=== PATIENT | male | born 1955 | race Caucasian/White ===

== ENCOUNTER → 2017-08-21 07:44 | Outpatient (CLI) | payer OTHER, SELFPAY ==
[2017-08-21 08:57] LABS: AST(SGOT) 79 U/L (15-37); Alanine Aminotransfer ALT/SGPT 104 U/L (16-61); Albumin, Serum 3.9 g/dL (3.2-5.0); Alkaline Phosphatase 73 U/L (45-117); Bilirubin, Direct 0.12 mg/dL (0.00-0.30); Cholesterol 214 mg/dL (200); Globulin 3.7 g/dL (2.2-4.2); High Density Lipoprotein 40 mg/dL; Protein, Total 7.6 g/dL (6.4-8.2); Triglycerides 245 mg/dL; Very Low Density Lipoprotein 49 mg/dL (5-40)
== END ==
PROVIDERS: Visit Provider Internal Medicine Cardiovascular Disease
DX: E78.5 Hyperlipidemia, unspecified (principal); Z79.899 Other long term (current) drug therapy
CPT/HCPCS: 36415; 80061; 80076

== ENCOUNTER → 2017-10-05 06:47 | Outpatient (CLI) | payer OTHER, SELFPAY ==
[2017-10-05 09:44] LABS: AST(SGOT) 59 U/L (15-37); Alanine Aminotransfer ALT/SGPT 82 U/L (16-61); Albumin, Serum 3.9 g/dL (3.2-5.0); Alkaline Phosphatase 72 U/L (45-117); Bilirubin, Direct 0.13 mg/dL (0.00-0.30); Globulin 3.5 g/dL (2.2-4.2); Protein, Total 7.4 g/dL (6.4-8.2)
== END ==
PROVIDERS: Visit Provider Internal Medicine Cardiovascular Disease
DX: E78.5 Hyperlipidemia, unspecified (principal); Z79.899 Other long term (current) drug therapy
CPT/HCPCS: 36415; 80076

== ENCOUNTER → 2018-02-09 06:40 | Outpatient (CLI) | payer OTHER, SELFPAY ==
[2018-02-09 08:07] LABS: AST(SGOT) 75 U/L (15-37); Alanine Aminotransfer ALT/SGPT 107 U/L (16-61); Albumin, Serum 3.9 g/dL (3.2-5.0); Alkaline Phosphatase 72 U/L (45-117); Bilirubin, Direct 0.12 mg/dL (0.00-0.30); Cholesterol 211 mg/dL (200); Globulin 3.7 g/dL (2.2-4.2); High Density Lipoprotein 39 mg/dL; Protein, Total 7.6 g/dL (6.4-8.2); Triglycerides 225 mg/dL; Very Low Density Lipoprotein 45 mg/dL (5-40)
== END ==
PROVIDERS: Visit Provider Physician Assistant Medical
DX: E78.5 Hyperlipidemia, unspecified (principal); R74.8 Abnormal levels of other serum enzymes; I25.10 Atherosclerotic heart disease of native coronary artery without angina pectoris
CPT/HCPCS: 36415; 80061; 80076

== ENCOUNTER → 2018-03-14 06:53 | Outpatient (CLI) | payer OTHER, SELFPAY ==
[2018-03-14 08:33] LABS: AST(SGOT) 51 U/L (15-37); Alanine Aminotransfer ALT/SGPT 83 U/L (16-61); Albumin, Serum 3.8 g/dL (3.2-5.0); Alkaline Phosphatase 80 U/L (45-117); Bilirubin, Direct 0.09 mg/dL (0.00-0.30); Globulin 3.8 g/dL (2.2-4.2); Protein, Total 7.6 g/dL (6.4-8.2)
== END ==
PROVIDERS: Referring Provider Physician Assistant Medical; Visit Provider Physician Assistant Medical
DX: R74.8 Abnormal levels of other serum enzymes (principal)
CPT/HCPCS: 36415; 80076

== ENCOUNTER → 2018-08-09 10:14 | Outpatient (CLI) | payer OTHER, SELFPAY ==
[2018-08-09 09:42] VITALS: BMI 32.1
[2018-08-09 11:51] LABS: AST(SGOT) 58 U/L (15-37); Alanine Aminotransfer ALT/SGPT 89 U/L (16-61); Albumin, Serum 4.1 g/dL (3.2-5.0); Alkaline Phosphatase 83 U/L (45-117); Bilirubin, Direct 0.09 mg/dL (0.00-0.30); Cholesterol 225 mg/dL (200); Globulin 4.2 g/dL (2.2-4.2); High Density Lipoprotein 41 mg/dL; Protein, Total 8.3 g/dL (6.4-8.2); Triglycerides 188 mg/dL; Very Low Density Lipoprotein 38 mg/dL (5-40)
== END ==
PROVIDERS: Referring Provider Internal Medicine Cardiovascular Disease; Visit Provider Internal Medicine Cardiovascular Disease
DX: E78.5 Hyperlipidemia, unspecified (principal)
CPT/HCPCS: 36415; 80061; 80076

== ENCOUNTER → 2019-02-18 | Outpatient (CLI) | payer OTHER, SELFPAY ==
[2018-08-09 09:42] VITALS: BMI 32.1
[2019-02-18 09:48] LABS: AST(SGOT) 49 U/L (15-37); Alanine Aminotransfer ALT/SGPT 85 U/L (16-61); Albumin, Serum 3.9 g/dL (3.2-5.0); Alkaline Phosphatase 87 U/L (45-117); Bilirubin, Direct 0.09 mg/dL (0.00-0.30); Cholesterol 282 mg/dL (200); Globulin 3.5 g/dL (2.2-4.2); High Density Lipoprotein 34 mg/dL; Protein, Total 7.4 g/dL (6.4-8.2); Triglycerides 632 mg/dL
== END | disposition home or self-care (01) ==
LOC: LAB 08:08
PROVIDERS: Referring Provider Internal Medicine Cardiovascular Disease; Visit Provider Internal Medicine Cardiovascular Disease
DX: E78.5 Hyperlipidemia, unspecified (principal)
CPT/HCPCS: 36415; 80061; 80076

== ENCOUNTER → 2019-06-03 08:41 | Outpatient (CLI) | payer OTHER, SELFPAY ==
[2018-08-09 09:42] VITALS: BMI 32.1
[2019-06-03 09:54] LABS: AST(SGOT) 60 U/L (15-37); Alanine Aminotransfer ALT/SGPT 92 U/L (16-61); Albumin, Serum 4.3 g/dL (3.2-5.0); Alkaline Phosphatase 72 U/L (45-117); Bilirubin, Direct 0.14 mg/dL (0.00-0.30); Cholesterol 294 mg/dL (200); Globulin 3.6 g/dL (2.2-4.2); High Density Lipoprotein 44 mg/dL; Protein, Total 7.9 g/dL (6.4-8.2); Triglycerides 224 mg/dL; Very Low Density Lipoprotein 45 mg/dL (5-40)
== END ==
PROVIDERS: Referring Provider Internal Medicine Cardiovascular Disease; Visit Provider Internal Medicine Cardiovascular Disease
DX: E78.00 Pure hypercholesterolemia, unspecified (principal); Z79.899 Other long term (current) drug therapy; Z95.5 Presence of coronary angioplasty implant and graft; I25.10 Atherosclerotic heart disease of native coronary artery without angina pectoris; I10 Essential (primary) hypertension; E78.5 Hyperlipidemia, unspecified
CPT/HCPCS: 36415; 80061; 80076

== ENCOUNTER → 2019-09-07 10:37 | Outpatient (CLI) | payer OTHER, SELFPAY ==
[2019-09-07 10:36] VITALS: BMI 31.1
[2019-09-07 12:00] LABS: AST(SGOT) 57 U/L (15-37); Alanine Aminotransfer ALT/SGPT 84 U/L (16-61); Albumin, Serum 4.1 g/dL (3.2-5.0); Alkaline Phosphatase 85 U/L (45-117); Cholesterol 295 mg/dL (200); Globulin 4.2 g/dL (2.2-4.2); High Density Lipoprotein 44 mg/dL; Protein, Total 8.3 g/dL (6.4-8.2); Triglycerides 444 mg/dL
== END ==
PROVIDERS: Referring Provider Internal Medicine Cardiovascular Disease; Visit Provider Internal Medicine Cardiovascular Disease
DX: R94.5 Abnormal results of liver function studies (principal); E78.5 Hyperlipidemia, unspecified
CPT/HCPCS: 36415; 80061; 80076

== ENCOUNTER → 2020-03-23 | Outpatient (CLI) | payer OTHER, MEDICARE, SELFPAY ==
[2019-09-07 10:36] VITALS: BMI 31.1
[2020-03-23 10:33] LABS: AST(SGOT) 40 U/L (15-37); Alanine Aminotransfer ALT/SGPT 52 U/L (16-61); Alkaline Phosphatase 79 U/L (45-117); Cholesterol 270 mg/dL (200); Globulin 3.8 g/dL (2.2-4.2); High Density Lipoprotein 40 mg/dL; Protein, Total 7.8 g/dL (6.4-8.2); Triglycerides 467 mg/dL
== END | disposition home or self-care (01) ==
LOC: LAB 09:33
PROVIDERS: Referring Provider Internal Medicine Cardiovascular Disease; Visit Provider Internal Medicine Cardiovascular Disease
DX: E78.00 Pure hypercholesterolemia, unspecified (principal); E78.5 Hyperlipidemia, unspecified; I25.10 Atherosclerotic heart disease of native coronary artery without angina pectoris; Z95.5 Presence of coronary angioplasty implant and graft
CPT/HCPCS: 36415; 80061; 80076

== ENCOUNTER → 2020-04-29 17:25 | Outpatient (CLI) | payer OTHER, MEDICARE, SELFPAY ==
[2019-09-07 10:36] VITALS: BMI 31.1
[2020-04-29 17:37] LABS: Absolute Lymphocyte Count 1.24 X10^3/uL (0.83-4.51); Basophil# 0.02 X10^3/uL; Basophil% 0.4 % (0-1); Eosinophil# 0.05 X10^3/uL; Hematocrit 43.7 % (40-54); Hemoglobin 14.7 g/dL (13.0-16.5); Lymphocyte # 1.24 X10^3/ul (4.0); Lymphocyte % 25.5 % (19-41); Mean Corp Hgb Conc 33.6 g/dL (32-36); Mean Corpuscular Hgb 32.4 pg (27.0-32.0); Mean Corpuscular Volume 96.3 fL (80-94); Mean Platelet Vol. 8.5 fl (6.2-12.0); Monocyte# 0.52 X10^3/uL; Monocyte% 10.7 % (0-10); NRBC Flagged by Analyzer 0 % (0-5); Neutrophil # 3.02 X10^3/uL (2.7-7.7); Neutrophil % 62.2 % (47-70); Platelet Count 208 K/mm3 (150-450); RBC Distribution Width CV 13.3 % (11.6-14.6); RBC Distribution Width SD 47.6 fl (35.1-43.9); Red Blood Count 4.54 M/mm3 (4.6-6.2); White Blood Count 4.9 K/mm3 (4.4-11.0)
[2020-04-29 18:26] LABS: AST(SGOT) 42 U/L (15-37); Alanine Aminotransfer ALT/SGPT 66 U/L (16-61); Albumin, Serum 4.2 g/dL (3.2-5.0); Alkaline Phosphatase 79 U/L (45-117); Anion Gap 7 (5-15); BUN 14 mg/dL (7-18); BUN/Creat Ratio 14.6 RATIO (10-20); Calcium,Total 9.5 mg/dL (8.5-10.1); Chloride 101 mmol/L (98-107); Creatinine, Serum 0.96 mg/dL (0.70-1.30); EST Glomerular Filtration Rate 84 mL/min (>60); Est Glom Filt Rate - Afr Amer 101 mL/min (>60); Globulin 4.1 g/dL (2.2-4.2); Glucose 118 mg/dL (74-106); PSA,Total - Annual Screen 1.46 ng/mL (0.00-4.00); Protein, Total 8.3 g/dL (6.4-8.2); Sodium Level 137 mmol/L (136-145); Thyroid Stim Hormone (TSH) 3.31 uIU/mL (0.358-3.74)
[2020-04-30 10:16] LABS: Hepatitis C Antibody Non-Reactive (Nonreactive); Vitamin D,25 Hydroxy 17.7 ng/mL
== END ==
PROVIDERS: PCP Family Medicine Geriatric Medicine; Visit Provider Family Medicine Geriatric Medicine
DX: E55.9 Vitamin D deficiency, unspecified (principal); I10 Essential (primary) hypertension; Z12.5 Encounter for screening for malignant neoplasm of prostate; Z13.89 Encounter for screening for other disorder
CPT/HCPCS: 36415; 80053; 82306; 84153; 84443; 85025; 86803; G0103

== ENCOUNTER → 2020-05-06 09:30 | Outpatient (CLI) | payer OTHER, MEDICARE, SELFPAY ==
[2019-09-07 10:36] VITALS: BMI 31.1
--- NOTE | 2020-05-06 09:32 | US_ITS ---
STUDY: ABDOMINAL ULTRASOUND - RIGHT UPPER QUADRANT REASON FOR VISIT: Male, 65 years old fatty liver TECHNIQUE: Ultrasound evaluation of the right upper quadrant was performed with real-time and static yates-scale imaging. TECHNICAL QUALITY: Adequate. COMPARISON: None. FINDINGS: Liver: The liver measures 16.7 cm. There is increased echogenicity consistent with fatty infiltration. The bile ducts are within normal limits. There is hepatic color flow. The direction of portal flow is hepatopetal. There is no demonstrated mass lesion. Gallbladder: Normal distended gallbladder. The gallbladder wall measures 2.0 mm. There is a negative sonographic Fox''s sign. There is no pericholecystic fluid. There are no gallstones. Common Bile Duct (C.B.D.): The common bile duct measures 4.0 mm. Pancreas: Normal size of the head, body and tail of the pancreas. There is normal echogenicity of the pancreas. There is no demonstrated pancreatic mass or cyst. Right Kidney: Normal size of the right kidney. The right kidney measures 12.9 cm x 5.8 cm x 6.5 cm. Normal renal cortex. The right cortex measures 1.9 cm. There is no demonstrated renal mass or cyst. There is no right hydronephrosis. IMPRESSION: Fatty infiltration of the liver. Electronically Signed: Jason Cortes, at 9:19 EST , Service support , STUDY: ABDOMINAL ULTRASOUND - ELASTOGRAPHY REASON FOR VISIT: Male, 65 years old. Fatty infiltration of the liver. TECHNIQUE: Liver stiffness measurements were obtained on a [employer] 85 ultrasound machine using a CA 1-7 probe following the SRU guidelines. 3 measurements were obtained using a 2-D-SWE method. The IQR/M was 8.5% suggesting a quality data set. TECHNICAL QUALITY: Adequate. COMPARISON: None. FINDINGS: Liver: There is no demonstrated mass lesion. Median liver stiffness measured 7 kPa. US/Abdomen Limited IMPRESSION: Liver stiffness measures 7 kPa compatible with F2 -- F3 Metavir score. Electronically Signed: Jason Cortes, at 9:20 EST , Service support ,
== END ==
PROVIDERS: PCP Family Medicine Geriatric Medicine; Referring Provider Family Medicine Geriatric Medicine; Visit Provider Family Medicine Geriatric Medicine
DX: K76.0 Fatty (change of) liver, not elsewhere classified (principal)
CPT/HCPCS: 76705; 76981

== ENCOUNTER → 2020-05-08 07:44 | Outpatient (CLI) | payer OTHER, MEDICARE, SELFPAY ==
[2019-09-07 10:36] VITALS: BMI 31.1
--- NOTE | 2020-05-08 07:45 | AAVD_ITS ---
Reason For Study: AAA Aorta Measurements Aorta Doppler Measurements Proximal aorta measures1.6 X 1.6cm. in cross- Peak systolic flow velocities within the proximal sectional axis. aorta measure 134 cm/sec. Proximal aorta measures1.6cm. in longitudinal Peak systolic flow velocities within the mid aorta axis. measure 107 cm/sec. Mid aorta measures1.6 X 1.6cm. in cross-sectional Peak systolic flow velocities within the distal axis. aorta measure 72 cm/sec. Mid aorta measures1.6cm. in longitudinal axis. Distal aorta measures1.6 X 1.6cm. in cross- sectional axis. Distal aorta measures1.6cm. in longitudinal axis. Left Iliac Artery Left iliac artery measures 1.2 X 1.2 cm. in the longitudinal axis. Left iliac artery measures 1.2 cm. in the cross-sectional axis. Peak systolic velocity in the left iliac artery measures 77 cm/sec. Right Iliac Artery Right iliac artery measures 1.1 X 1.1 cm. in the longitudinal axis. Right iliac artery measures 1.1 cm. in the cross-sectional axis. Peak systolic velocity in the right iliac artery measures 83 cm/sec. Interpretation Summary Maximal aortic dimension 1.6 x 1.6 cm in diameter with minimal plaque Left common iliac 1.2 x 1.2 cm diameter Right common iliac 1.1 x 1.2 cm diameter No evidence for abdominal aortic aneurysm Ordering Physician: Mitchel Mitchell Referring Physician: Mitchel Mitchell Chi Performed By: Jagjit ALINA, Corinne BRAMBILA and Student
== END ==
PROVIDERS: PCP Family Medicine Geriatric Medicine; Referring Provider Family Medicine Geriatric Medicine; Visit Provider Family Medicine Geriatric Medicine
DX: I71.4 Abdominal aortic aneurysm, without rupture (principal)
CPT/HCPCS: 93978

== ENCOUNTER → 2020-09-16 05:49 | Outpatient (CLI) | payer MEDICARE, SELFPAY ==
[2020-09-13 08:43] VITALS: BMI 30.9
--- NOTE | 2020-09-16 17:46 | STRESSREP_ITS ---
Stress Test Report Exercise myocardial perfusion stress test. 65-year-old man with a history of coronary artery bypass surgery. Medications aspirin Plavix lisinopril metoprolol clopidogrel aspirin. Stress protocol: Resting EKG demonstrates normal sinus rhythm with a rate of 81 bpm normal intervals are noted resting blood pressure 146/82 mmHg. The patient exercised according to the regular Sergei protocol for total duration of 6 minutes. The maximum heart rate attained was 148 bpm which was 96% of max impacted heart rate the maximum workload was 7 metabolic equivalents. Patient completed stage III of the Sergei protocol. At rest there were no ST or T wave changes noted to suggest ischemia. At peak exercise upsloping ST changes were noted which did not meet the criteria for ischemia. During recovery there was downsloping ST changes noted of less than 1 mm. The peak blood pressure was 160/68 mmHg with a rate-pressure product of 22,100. The test was terminated due to dyspnea. No chest pain was noted. Myocardial perfusion protocol. 10.7 mCi of technetium 99m sestamibi was injected at rest. The patient exercised according to regular Sergei protocol for 6 minutes and at peak exercise 32.1 mCi of technetium 99m sestamibi was injected stress images were obtained stress and rest images were reconstructed and compared in the short axis v ertical long and horizontal long axis. Gated images were also obtained. Perfusion SPECT analysis: Review of the stress images demonstrated normal uptake of tracer noted in all areas of the myocardium. The resting images similarly demonstrated normal uptake of tracer noted in all areas of the myocardium. No areas of reversibility are noted suggest ischemia no previous infarct is noted. Gated SPECT analysis: The gated SPECT analysis 71%. Conclusion: Normal exercise myocardial perfusion stress test at a moderate workload. Preserved ejection fraction. No angina present.
== END ==
PROVIDERS: PCP Family Medicine Geriatric Medicine; Referring Provider Internal Medicine Cardiovascular Disease; Visit Provider Internal Medicine Cardiovascular Disease
DX: I25.10 Atherosclerotic heart disease of native coronary artery without angina pectoris (principal); Z95.5 Presence of coronary angioplasty implant and graft
CPT/HCPCS: 78452; 93017; A9500; A4216

== ENCOUNTER → 2020-10-30 09:25 | Outpatient (CLI) | payer MEDICARE, SELFPAY ==
[2020-09-13 08:43] VITALS: BMI 30.9
[2020-10-30 12:45] LABS: Absolute Lymphocyte Count 2.24 X10^3/uL (0.83-4.51); Absolute Neutrophil Count 3.7 X10^3/uL (2.0-7.7); Basophil# 0.04 X10^3/uL; Basophil% 0.6 % (0-1); Eosinophil# 0.38 X10^3/uL; Eosinophils% 5.3 % (0-5); Hematocrit 44.2 % (40-54); Hemoglobin 14.7 g/dL (13.0-16.5); Lymphocyte # 2.24 X10^3/ul (0.83-4.51); Lymphocyte % 31.1 % (19-41); Mean Corp Hgb Conc 33.3 g/dL (32-36); Mean Corpuscular Volume 96.1 fL (80-94); Mean Platelet Vol. 9.6 fl (6.2-12.0); Monocyte# 0.82 X10^3/uL; Monocyte% 11.4 % (0-10); NRBC Flagged by Analyzer 0 % (0-5); Neutrophil % 51.3 % (47-70); Platelet Count 288 K/mm3 (150-450); RBC Distribution Width CV 13.2 % (11.6-14.6); RBC Distribution Width SD 47.1 fl (35.1-43.9); White Blood Count 7.2 K/mm3 (4.4-11.0)
[2020-10-30 13:03] LABS: Vitamin D,25 Hydroxy 22.4 ng/mL
[2020-10-30 13:20] LABS: ALB/GLOB Ratio 1.1 RATIO (0.9-2.4); AST(SGOT) 33 U/L (15-37); Alanine Aminotransfer ALT/SGPT 52 U/L (16-61); Alkaline Phosphatase 77 U/L (45-117); Anion Gap 7 (5-15); BUN 22 mg/dL (7-18); BUN/Creat Ratio 20.4 RATIO (10-20); Calcium,Total 9.7 mg/dL (8.5-10.1); Chloride 101 mmol/L (98-107); Creatinine, Serum 1.08 mg/dL (0.70-1.30); EST Glomerular Filtration Rate 73 mL/min (>60); Est Glom Filt Rate - Afr Amer 88 mL/min (>60); Globulin 3.8 g/dL (2.2-4.2); Glucose 142 mg/dL (74-106); Potassium 3.9 mmol/L (3.5-5.1); Protein, Total 7.8 g/dL (6.4-8.2); Sodium Level 135 mmol/L (136-145); Thyroid Stim Hormone (TSH) 3.37 uIU/mL (0.358-3.74)
== END ==
PROVIDERS: PCP Family Medicine Geriatric Medicine; Visit Provider Family Medicine Geriatric Medicine
DX: E55.9 Vitamin D deficiency, unspecified (principal); I10 Essential (primary) hypertension
CPT/HCPCS: 36415; 80053; 82306; 84443; 85025

== ENCOUNTER → 2021-04-30 11:55 | Outpatient (CLI) | payer MEDICARE, SELFPAY ==
[2021-04-30 12:54] LABS: Absolute Lymphocyte Count 2.21 X10^3/uL (0.83-4.51); Absolute Neutrophil Count 4.9 X10^3/uL (2.0-7.7); Basophil# 0.05 X10^3/uL; Basophil% 0.6 % (0-1); Eosinophil# 0.27 X10^3/uL; Eosinophils% 3.3 % (0-5); Hematocrit 43.2 % (40-54); Hemoglobin 14.8 g/dL (13.0-16.5); Lymphocyte # 2.21 X10^3/ul (0.83-4.51); Lymphocyte % 27.1 % (19-41); Mean Corp Hgb Conc 34.3 g/dL (32-36); Mean Corpuscular Hgb 32.7 pg (27.0-32.0); Mean Corpuscular Volume 95.6 fL (80-94); Monocyte# 0.73 X10^3/uL; Monocyte% 8.9 % (0-10); NRBC Flagged by Analyzer 0 % (0-5); Neutrophil # 4.88 X10^3/uL (2.7-7.7); Neutrophil % 59.7 % (47-70); Platelet Count 329 K/mm3 (150-450); RBC Distribution Width CV 13.2 % (11.6-14.6); RBC Distribution Width SD 47.1 fl (35.1-43.9); Red Blood Count 4.52 M/mm3 (4.6-6.2); White Blood Count 8.2 K/mm3 (4.4-11.0)
[2021-04-30 13:12] LABS: Vitamin D,25 Hydroxy 21.2 ng/mL
[2021-04-30 13:39] LABS: ALB/GLOB Ratio 0.9 RATIO (0.9-2.4); AST(SGOT) 46 U/L (15-37); Alanine Aminotransfer ALT/SGPT 81 U/L (16-61); Albumin, Serum 3.8 g/dL (3.2-5.0); Alkaline Phosphatase 82 U/L (45-117); Anion Gap 8 (5-15); BUN 19 mg/dL (7-18); BUN/Creat Ratio 19.5 RATIO (10-20); Calcium,Total 9.6 mg/dL (8.5-10.1); Chloride 101 mmol/L (98-107); Creatinine, Serum 0.97 mg/dL (0.70-1.30); EST Glomerular Filtration Rate 82 mL/min (>60); Est Glom Filt Rate - Afr Amer 99 mL/min (>60); Globulin 4.2 g/dL (2.2-4.2); Glucose 138 mg/dL (74-106); PSA,Total - Annual Screen 1.96 ng/mL (0.00-4.00); Sodium Level 134 mmol/L (136-145); Thyroid Stim Hormone (TSH) 2.91 uIU/mL (0.358-3.74)
== END ==
PROVIDERS: PCP Family Medicine Geriatric Medicine; Visit Provider Family Medicine Geriatric Medicine
DX: E55.9 Vitamin D deficiency, unspecified (principal); I10 Essential (primary) hypertension; Z12.5 Encounter for screening for malignant neoplasm of prostate
CPT/HCPCS: 36415; 80053; 82306; 84153; 84443; 85025; G0103

== ENCOUNTER → 2021-10-30 | Outpatient (CLI) | payer MEDICARE, SELFPAY ==
[2021-10-30 12:37] LABS: Absolute Lymphocyte Count 1.88 X10^3/uL (0.83-4.51); Absolute Neutrophil Count 3.2 X10^3/uL (2.0-7.7); Basophil# 0.05 X10^3/uL; Basophil% 0.8 % (0-1); Eosinophil# 0.27 X10^3/uL; Eosinophils% 4.5 % (0-5); Hematocrit 44.5 % (40-54); Hemoglobin 14.9 g/dL (13.0-16.5); Lymphocyte # 1.88 X10^3/ul (0.83-4.51); Lymphocyte % 31.5 % (19-41); Mean Corp Hgb Conc 33.5 g/dL (32-36); Mean Corpuscular Hgb 32.4 pg (27.0-32.0); Mean Corpuscular Volume 96.7 fL (80-94); Mean Platelet Vol. 9.4 fl (6.2-12.0); Monocyte# 0.59 X10^3/uL; Monocyte% 9.9 % (0-10); NRBC Flagged by Analyzer 0 % (0-5); Neutrophil # 3.15 X10^3/uL (2.7-7.7); Neutrophil % 52.8 % (47-70); Platelet Count 287 K/mm3 (150-450); RBC Distribution Width CV 13.2 % (11.6-14.6); RBC Distribution Width SD 47.5 fl (35.1-43.9)
[2021-10-30 12:59] LABS: AST(SGOT) 42 U/L (15-37); Alanine Aminotransfer ALT/SGPT 76 U/L (16-61); Albumin, Serum 3.9 g/dL (3.2-5.0); Alkaline Phosphatase 85 U/L (45-117); Anion Gap 8 (5-15); BUN 19 mg/dL (7-18); BUN/Creat Ratio 19.5 RATIO (10-20); Calcium,Total 9.3 mg/dL (8.5-10.1); Chloride 102 mmol/L (98-107); Creatinine, Serum 0.97 mg/dL (0.70-1.30); EST Glomerular Filtration Rate 82 mL/min (>60); Est Glom Filt Rate - Afr Amer 99 mL/min (>60); Globulin 3.9 g/dL (2.2-4.2); Glucose 161 mg/dL (74-106); Potassium 3.9 mmol/L (3.5-5.1); Protein, Total 7.8 g/dL (6.4-8.2); Sodium Level 138 mmol/L (136-145); Thyroid Stim Hormone (TSH) 2.87 uIU/mL (0.358-3.74)
[2021-10-30 13:32] LABS: Vitamin D,25 Hydroxy 20.1 ng/mL
== END | disposition home or self-care (01) ==
LOC: POLAB3 11:18
PROVIDERS: PCP Family Medicine Geriatric Medicine; Visit Provider Family Medicine Geriatric Medicine
DX: I10 Essential (primary) hypertension (principal); E55.9 Vitamin D deficiency, unspecified
CPT/HCPCS: 36415; 80053; 82306; 84443; 85025

== ENCOUNTER → 2021-11-21 | Outpatient (CLI) | payer MEDICARE, SELFPAY ==
--- NOTE | 2021-11-21 07:14 | US_ITS ---
STUDY: ABDOMINAL ULTRASOUND - RIGHT UPPER QUADRANT REASON FOR VISIT: Male, 66 years old LIVER ENZYMES ABNORMAL -- HX OF FATTY LIVER TECHNIQUE: Ultrasound evaluation of the right upper quadrant was performed with real-time and static yates-scale imaging. TECHNICAL QUALITY: Adequate. COMPARISON: None. FINDINGS: Liver: The liver is enlarged and measures 20.1 cm. There is increased echogenicity consistent with fatty infiltration. The bile ducts are within normal limits. There is hepatic color flow. The direction of portal flow is hepatopetal. There is no demonstrated mass lesion. Gallbladder: Normal distended gallbladder. The gallbladder wall measures 2.2 mm. There is a negative sonographic Fox''s sign. There is no pericholecystic fluid. There are no gallstones. Common Bile Duct (C.B.D.): The common bile duct measures 5.0 mm. Pancreas: Normal size of the head, body and tail of the pancreas. There is increased echogenicity of the pancreas. There is no demonstrated pancreatic mass or cyst. Right Kidney: Normal size of the right kidney. The right kidney measures 11.5 cm x 6.1 cm x 5.7 cm. Normal renal cortex. The right cortex measures 1.8 cm. There is no demonstrated renal mass or cyst. There is no right hydronephrosis. US/Abdomen Limited IMPRESSION: Hepatomegaly and diffuse fatty infiltration of the liver. Electronically Signed: Jason Cortes MD at 8:14 EDT ,
--- NOTE | 2021-11-21 07:15 | US_ITS ---
STUDY: ABDOMINAL ULTRASOUND - ELASTOGRAPHY REASON FOR VISIT: Male, 66 years old. Fatty infiltration of the liver. Abnormal liver enzymes. TECHNIQUE: Liver stiffness measurements were obtained on a [employer] RS 85 ultrasound machine using a CA 1-7 probe following the SRU guidelines. 3 measurements were obtained using a 2-D-SWE method. TheIQR/M was 14% suggesting a quality data set. TECHNICAL QUALITY: Adequate. COMPARISON: Comparison is made with prior study done earlier in the day. FINDINGS: Liver: Hepatomegaly. Fatty infiltration of the liver. Median liver stiffness measured 7.2 kPa. US/Elastography Parenchyma/Organ IMPRESSION: Liver stiffness measures 7.2 kPa compatible with F2-F3 (Mild to moderate liver fibrosis) Metavir score. Electronically Signed: Jason Cortes MD at 8:18 EDT ,
== END | disposition home or self-care (01) ==
LOC: US 07:14
PROVIDERS: PCP Family Medicine Geriatric Medicine; Referring Provider Family Medicine Geriatric Medicine; Visit Provider Family Medicine Geriatric Medicine
DX: R74.8 Abnormal levels of other serum enzymes (principal)
CPT/HCPCS: 76705; 76981

== ENCOUNTER → 2022-05-01 | Outpatient (CLI) | payer MEDICARE, SELFPAY ==
[2022-05-01 13:45] LABS: Absolute Lymphocyte Count 2.19 X10^3/uL (0.83-4.51); Absolute Neutrophil Count 3.9 X10^3/uL (2.0-7.7); Basophil# 0.05 X10^3/uL; Basophil% 0.7 % (0-1); Eosinophil# 0.25 X10^3/uL; Eosinophils% 3.5 % (0-5); Hematocrit 45.2 % (40-54); Hemoglobin 15.2 g/dL (13.0-16.5); Lymphocyte # 2.19 X10^3/ul (0.83-4.51); Lymphocyte % 30.8 % (19-41); Mean Corp Hgb Conc 33.6 g/dL (32-36); Mean Corpuscular Hgb 33.2 pg (27.0-32.0); Mean Corpuscular Volume 98.7 fL (80-94); Mean Platelet Vol. 9.6 fl (6.2-12.0); Monocyte# 0.71 X10^3/uL; NRBC Flagged by Analyzer 0 % (0-5); Neutrophil # 3.89 X10^3/uL (2.7-7.7); Neutrophil % 54.9 % (47-70); Platelet Count 285 K/mm3 (150-450); RBC Distribution Width CV 13.4 % (11.6-14.6); RBC Distribution Width SD 48.9 fl (35.1-43.9); Red Blood Count 4.58 M/mm3 (4.6-6.2); White Blood Count 7.1 K/mm3 (4.4-11.0)
[2022-05-01 14:21] LABS: Vitamin D,25 Hydroxy 18.9 ng/mL
[2022-05-01 20:36] LABS: ALB/GLOB Ratio 1.1 RATIO (0.9-2.4); AST(SGOT) 44 U/L (15-37); Alanine Aminotransfer ALT/SGPT 70 U/L (16-61); Albumin, Serum 4.2 g/dL (3.2-5.0); Alkaline Phosphatase 87 U/L (45-117); Anion Gap 11 (5-15); BUN 21 mg/dL (7-18); BUN/Creat Ratio 20.6 RATIO (10-20); Calcium,Total 9.8 mg/dL (8.5-10.1); Chloride 104 mmol/L (98-107); Creatinine, Serum 1.02 mg/dL (0.70-1.30); EST Glomerular Filtration Rate 77 mL/min (>60); Est Glom Filt Rate - Afr Amer 93 mL/min (>60); Globulin 3.7 g/dL (2.2-4.2); Glucose 117 mg/dL (74-106); PSA,Total - Annual Screen 1.46 ng/mL (0.00-4.00); Protein, Total 7.9 g/dL (6.4-8.2); Sodium Level 142 mmol/L (136-145); Thyroid Stim Hormone (TSH) 3.23 uIU/mL (0.358-3.74)
== END | disposition home or self-care (01) ==
LOC: POLAB3 09:00
PROVIDERS: PCP Family Medicine Geriatric Medicine; Visit Provider Family Medicine Geriatric Medicine
DX: I10 Essential (primary) hypertension (principal); E55.9 Vitamin D deficiency, unspecified; Z12.5 Encounter for screening for malignant neoplasm of prostate
CPT/HCPCS: 36415; 80053; 82306; 84153; 84443; 85025; G0103

== ENCOUNTER 2022-10-14 18:52 | Emergency (ER) | payer MEDICARE, SELFPAY ==
[2022-10-14 18:53] VITALS: BP 138/92; PULSE 108; RESP 18; TEMP 36.4; O2SAT 98; BMI 31.3
[2022-10-14 19:26] VITALS: BP 143/88; PULSE 94; RESP 18; O2SAT 94
--- NOTE | 2022-10-14 19:48 | CT_ITS ---
STUDY: CT BRAIN WITHOUT CONTRAST REASON FOR EXAM: Male, 67 years old. Dizzy RADIATION DOSAGE (If Supplied By Facility): CTDIvol = ( 44.99 ) mGy, DLP = ( 796.11 ) mGycm TECHNIQUE: Transaxial CT imaging of the brain was performed without administration of intravenous contrast material. Individualized dose optimization techniques were used for this CT. COMPARISON: No relevant priors. FINDINGS: Normal soft tissue structures. Normal calvarium. Normal size ventricles and extra-axial spaces for the patient''s age. Normal white matter tracts of the cerebral hemispheres. Normal basal ganglia and thalami. Normal brainstem. Normal cerebellum. There is no intracranial hemorrhage. There are no findings of an acute ischemic infarction. Normal visualized paranasal sinuses. CT/Brain/Head without Contrast IMPRESSION: Normal unenhanced CT scan of the brain. Electronically Signed: Roque Johnson MD at 20:43 EDT ,
--- NOTE | 2022-10-14 19:50 | EDS_ITS ---
HPI History of Present Illness Chief Complaint: Dizziness Informant: patient Onset/Context/Timing Onset: Yesterday Current Severity: Mild Maximum Severity: Moderate Narrative Narrative: Patient presents secondary to dizziness. He states he woke yesterday feeling dizzy. When asked to further describe the he reports more of a lightheadedness than a spinning sensation. He states at times turning his head side to side or up and down will make the symptoms worse. He does not seem to notice a difference when he is sitting up versus lying down. He states he actually feels better when he is up and walking and has not had any problems with his balance or gait. He denies chest pain or palpitations. [facility] Medical History (Updated 10/14/22 @ 21:[address] Ryanne Velasco MD) Atherosclerotic heart disease of [place] coronary artery without angina pectoris Elevated LFTs Essential (primary) hypertension History of basal cell carcinoma HLD (hyperlipidemia) Obesity Home Medications aspirin 81 mg chewable tablet 81 mg PO DAILY@0800 08/14/13 [History Last Taken 08/14/13] nitroglycerin 0.4 mg sublingual tablet 0.4 mg sublingual Q5M PRN Chest Pain 08/14/13 [History Last Taken Unknown] lisinopril 20 mg-hydrochlorothiazide 12.5 mg tablet 0.5 tab PO DAILY #45 tabs 10/23/21 [Rx Last Taken Unknown] clopidogrel 75 mg tablet 75 mg PO QDAY #90 tabs 01/07/22 [Rx Last Taken Unknown] metoprolol succinate 50 mg tablet,extended release 24 hr 50 mg PO DAILY #90 tabs 10/05/22 [Rx Last Taken Unknown] meclizine 25 mg tablet 25 mg PO TID PRN dizziness #20 tabs 10/14/22 [Rx Last Taken Unknown] Allergy/AdvReac Type Severity Reaction Status Date / Time amoxicillin AdvReac Severe Rash Verified 09/15/21 09:04 [id number]-[id number] Reductase AdvReac elevated Verified 09/15/21 09:04 Inhibitor LFT's [Iycmxbt-Rbm-Sbw Reductase Inhibitor] Family History Father CAD (coronary artery disease) Myocardial infarction Lymphoma Mother Myocardial infarction Diabetes Heart disease Brother Myocardial infarction Surgical History History of coronary artery stent placement (08/15/13) History of left knee surgery (1989) History of umbilical hernia repair Social History Smoking Status: Former smoker how long ago did patient quit smokin alcohol intake: current alcohol intake frequency: a few times a month Alcohol type: beer and wine substance use type: does not use caffeine: Yes Type: coffee Number of servings: 1 ROS ROS ED Constitutional Constitutional ED: Denies chills or fever(s) Eyes Eyes: Denies change in vision or discharge from eye(s) ENT ENT ED: Denies discharge from eye(s), rhinorrhea or sore throat Cardiovascular Cardiovascular: Denies chest pain or palpitations Respiratory/Chest Respiratory/Chest: Denies cough or dyspnea Gastrointestinal Gastrointestinal: Denies abdominal pain, diarrhea, nausea or vomiting Genitourinary Genitourinary ED: Denies dysuria Musculoskeletal Musculoskeletal: Denies back pain or extremity pain Integumentary Denies Abrasions or rash Neurologic Neurologic: Denies headache(s), paresthesias or weakness Psychiatric Psychiatric: Denies anxiety or depression Allergic/Immunologic Allergic/Immunologic ED: Denies lip swelling or urticaria EXAM Physical Exam Const Vital Signs: 10/14/22 18:53 10/14/22 19:18 10/14/22 19:26 Temperature 97.6 F L Temperature Source Temporal Pulse Rate 108 H 94 Respiratory Rate 18 18 Respiratory Effort Normal Blood Pressure 138/92 H 143/88 H Blood Pressure Mean 107 106 Pulse Ox 98 94 Oxygen Delivery Method Room Air Room Air Positive well nourished and well developed General Appearance ED: well developed HEENT Reports moist mucous membranes HEENT Narrative: Chronic left facial droop, unchanged from baseline. Eyes PERRL and EOMs intact bilaterally Neck no lymphadenopathy Chest Wall inspection of chest normal and palpation of chest normal Resp normal respiratory effort and clear to auscultation bilaterally Cardio regular rate and regular rhythm GI normal to inspection, nondistended, normoactive bowel sounds Extremity normal to inspection Neuro oriented x3 and no sensory deficits noted Neuro Narrative: NIH equals 0. Motor Exam: strength 5/5 throughout Psych mental status grossly normal Skin no rashes or lesions noted MDM MDM MDM Narrative Medical decision making narrative: Patient was placed on cardiac cath technologist. EKG obtained to evaluate for cardiac arrhythmia/ischemia. Labwork obtained to evaluate for leukocytosis, anemia, and electrolyte derangement. CT of the head obtained. Patient was given p.o. Antivert. Lab Data Attestation: I reviewed the patient's lab results. Labs: Laboratory Results - last 24 hr 10/14/22 10/14/22 19:59 19:59 WBC 8.6 RBC 4.40 L Hgb 14.2 Hct 41.7 MCV 94.8 H MCH 32.3 H MCHC 34.1 RDW Std Deviation 44.9 H RDW Coeff of Lulú 13.0 Plt Count 277 MPV 9.0 Immature Gran % (Auto) 0.400 Neut % (Auto) 63.7 Lymph % (Auto) 24.7 Nelson % (Auto) 9.1 Eos % (Auto) 1.5 Baso % (Auto) 0.6 Absolute Neuts (auto) 5.5 Absolute Lymphs (auto) 2.12 Nucleated RBC % 0 Sodium 137 Potassium 3.8 Chloride 100 Carbon Dioxide 28.0 Anion Gap 9 BUN 20 H Creatinine 1.23 Estim Creat Clear Calc 55.61 Est GFR (MDRD) Af Amer 75 Est GFR (MDRD) Non-Af 62 BUN/Creatinine Ratio 16.3 Glucose 196 H Calcium 9.5 Radiography Diagnostic Testing: Clinical Impression(s) from Imaging Studies Brain CT 10/14/22 19:48 IMPRESSION: Normal unenhanced CT scan of the brain. Electronically Signed: Roque Johnson MD at 20:43 EDT Reading Location ID and State: [address] [place] [address] , Service support , EKG Initial EKG: Attestation: I personally reviewed and interpreted this EKG as follows: Interpretation: Sinus Rhythm (Sinus at 90 with no acute ischemia.) Treatment and Re-Evaluation :: CBC and chemistry studies significant only for elevated glucose at 196. EKG reveals no acute ischemia. Head CT is unremarkable. Although patient reported more of a lightheaded sensation, his dizziness did seem to be worse when he would turn his head side to side. In light of this I did give him Antivert and he does feel improved on repeat evaluation. I will write him a prescription for Antivert and discharge him to home. Return instructions are provided. Patient and are comfortable with this plan. Discharge Plan Triage Chief Complaint: Dizziness ED Provider: Ryanne Velasco Dx/Rx/DC Orders Clinical Impression: Vertigo Instructions: ED Vertigo, Unspecified Prescriptions: New meclizine 25 mg tablet 25 mg PO TID PRN (Reason: dizziness) Qty: 20 0RF No Action nitroglycerin 0.4 MG tablet 0.4 mg SUBLINGUAL Q5M PRN (Reason: Chest Pain) aspirin 81 MG tablet,chewable 81 mg PO DAILY@0800 lisinopril-hydrochlorothiazide 20-12.5 mg tablet 0.5 tab PO DAILY Qty: 45 3RF clopidogrel 75 mg tablet 75 mg PO QDAY Qty: 90 3RF metoprolol succinate 50 mg tablet extended release 24 hr 50 mg PO DAILY Qty: 90 3RF Primary Care Provider: Mitchel Mitchell Chi Referrals: Mitchel Mitchell Chi, MD [Primary Care Provider] - 1 Week if not improving Disposition Disposition: Home, Self Care
[2022-10-14] MEDS: Meclizine HCl 25 MG Tablet PO (20:00)
[2022-10-14 20:10] LABS: Absolute Lymphocyte Count 2.12 X10^3/uL (0.83-4.51); Absolute Neutrophil Count 5.5 X10^3/uL (2.0-7.7); Basophil# 0.05 X10^3/uL; Basophil% 0.6 % (0-1); Eosinophil# 0.13 X10^3/uL; Eosinophils% 1.5 % (0-5); Hematocrit 41.7 % (40-54); Hemoglobin 14.2 g/dL (13.0-16.5); Lymphocyte # 2.12 X10^3/ul (0.83-4.51); Lymphocyte % 24.7 % (19-41); Mean Corp Hgb Conc 34.1 g/dL (32-36); Mean Corpuscular Hgb 32.3 pg (27.0-32.0); Mean Corpuscular Volume 94.8 fL (80-94); Monocyte# 0.78 X10^3/uL; Monocyte% 9.1 % (0-10); NRBC Flagged by Analyzer 0 % (0-5); Neutrophil # 5.46 X10^3/uL (2.7-7.7); Neutrophil % 63.7 % (47-70); Platelet Count 277 K/mm3 (150-450); RBC Distribution Width SD 44.9 fl (35.1-43.9); White Blood Count 8.6 K/mm3 (4.4-11.0)
[2022-10-14 20:35] LABS: Anion Gap 9 (5-15); BUN 20 mg/dL (7-18); BUN/Creat Ratio 16.3 RATIO (10-20); Calcium,Total 9.5 mg/dL (8.5-10.1); Chloride 100 mmol/L (98-107); Creatinine, Serum 1.23 mg/dL (0.70-1.30); EST Glomerular Filtration Rate 62 mL/min (>60); Est Glom Filt Rate - Afr Amer 75 mL/min (>60); Estimated Creatinine Clearance 55.61 ml/min; Glucose 196 mg/dL (74-106); Potassium 3.8 mmol/L (3.5-5.1); Sodium Level 137 mmol/L (136-145)
[2022-10-14 21:34] VITALS: BP 107/72
== END 2022-10-14 21:35 | disposition home or self-care (01) ==
PROVIDERS: Emergency Provider Emergency Medicine; PCP Family Medicine Geriatric Medicine; Visit Provider Emergency Medicine
DX: R42 Dizziness and giddiness (principal); I25.10 Atherosclerotic heart disease of native coronary artery without angina pectoris; Z87.891 Personal history of nicotine dependence; E78.5 Hyperlipidemia, unspecified; I10 Essential (primary) hypertension
CPT/HCPCS: 70450; 80048; 85025; 93005; 96360; 96361; 99285; J7040; A4216

== ENCOUNTER → 2022-10-23 | Outpatient (CLI) | payer MEDICARE, SELFPAY ==
[2022-10-23 12:04] LABS: Absolute Lymphocyte Count 2.11 X10^3/uL (0.83-4.51); Absolute Neutrophil Count 4.6 X10^3/uL (2.0-7.7); Basophil# 0.04 X10^3/uL; Basophil% 0.5 % (0-1); Eosinophil# 0.22 X10^3/uL; Eosinophils% 2.9 % (0-5); Hematocrit 42.3 % (40-54); Hemoglobin 14.3 g/dL (13.0-16.5); Lymphocyte # 2.11 X10^3/ul (0.83-4.51); Lymphocyte % 27.4 % (19-41); Mean Corp Hgb Conc 33.8 g/dL (32-36); Mean Corpuscular Hgb 32.4 pg (27.0-32.0); Mean Corpuscular Volume 95.9 fL (80-94); Mean Platelet Vol. 9.3 fl (6.2-12.0); Monocyte# 0.68 X10^3/uL; Monocyte% 8.8 % (0-10); NRBC Flagged by Analyzer 0 % (0-5); Neutrophil # 4.62 X10^3/uL (2.7-7.7); Neutrophil % 59.9 % (47-70); Platelet Count 301 K/mm3 (150-450); RBC Distribution Width CV 12.9 % (11.6-14.6); RBC Distribution Width SD 46.4 fl (35.1-43.9); Red Blood Count 4.41 M/mm3 (4.6-6.2); White Blood Count 7.7 K/mm3 (4.4-11.0)
[2022-10-23 12:22] LABS: AST(SGOT) 69 U/L (15-37); Alanine Aminotransfer ALT/SGPT 86 U/L (16-61); Albumin, Serum 3.9 g/dL (3.2-5.0); Alkaline Phosphatase 87 U/L (45-117); Anion Gap 8 (5-15); BUN 20 mg/dL (7-18); BUN/Creat Ratio 19.2 RATIO (10-20); Calcium,Total 9.7 mg/dL (8.5-10.1); Chloride 101 mmol/L (98-107); Creatinine, Serum 1.04 mg/dL (0.70-1.30); EST Glomerular Filtration Rate 75 mL/min (>60); Est Glom Filt Rate - Afr Amer 91 mL/min (>60); Globulin 3.9 g/dL (2.2-4.2); Glucose 189 mg/dL (74-106); Potassium 4.1 mmol/L (3.5-5.1); Protein, Total 7.8 g/dL (6.4-8.2); Sodium Level 136 mmol/L (136-145); Thyroid Stim Hormone (TSH) 4.02 uIU/mL (0.358-3.74)
== END | disposition home or self-care (01) ==
LOC: POLAB3 09:39
PROVIDERS: PCP Family Medicine Geriatric Medicine; Visit Provider Family Medicine Geriatric Medicine
DX: I10 Essential (primary) hypertension (principal); E55.9 Vitamin D deficiency, unspecified
CPT/HCPCS: 36415; 80053; 82306; 84443; 85025

== ENCOUNTER → 2022-11-24 | Outpatient (CLI) | payer MEDICARE, SELFPAY ==
[2022-11-24 11:38] LABS: Thyroid Stim Hormone (TSH) 3.52 uIU/mL (0.358-3.74)
== END | disposition home or self-care (01) ==
LOC: LAB 09:30
PROVIDERS: PCP Family Medicine Geriatric Medicine; Referring Provider Family Medicine Geriatric Medicine; Visit Provider Family Medicine Geriatric Medicine
DX: E03.9 Hypothyroidism, unspecified (principal)
CPT/HCPCS: 36415; 84443

== ENCOUNTER → 2022-12-07 | Outpatient (CLI) | payer MEDICARE, SELFPAY ==
--- NOTE | 2022-12-07 09:49 | ECHOD_ITS ---
Reason For Study: MURMUR Procedure This was a 2D Doppler, Color Flow transthoracic echocardiogram. Exam performed in department. Left Ventricle Normal LV size. Left ventricular systolic function is normal. The estimated ejection fraction is 60 %. Stage 1 diastolic dysfunction. No regional wall motion abnormalities noted. Right Ventricle Normal RV size. Normal systolic function. Atria Normal left atrium. Normal right atrium. Mitral Valve Normal mitral valve. Tricuspid Valve Normal tricuspid valve. Aortic Valve Mild focal aortic valve calcification. Peak aortic valve gradient 17 mmHg. Mean aortic valve gradient 10 mmHg. Mild aortic stenosis. Pulmonic Valve Normal pulmonic valve. Great Vessels Normal aortic root. The pulmonary artery is normal size. Normal inferior vena cava. Pericardium/Pleural No pericardial effusion. MMode/2D Measurements & Calculations LVIDd: 3.3 cm IVSd: 0.83 cm LVOT diam: 2.1 cm LVIDs: 1.9 cm LVPWd: 0.72 cm LVOT area: 3.5 cm2 FS: 42.2 % Ao root diam: 3.4 cm LAV(MOD-bp): 42.7 ml LVAd ap4: 27.2 cm2 LAV(MOD-bp) Indexed: 21.1 ml/m2 LVLd ap4: 7.7 cm LAV(MOD-sp2): 46.7 ml EDV(MOD-sp4): 79.8 ml LAV(MOD-sp4): 34.7 ml EDV(sp4-el): 82.0 ml LVAs ap4: 13.9 cm2 LVLs ap4: 6.5 cm ESV(MOD-sp4): 24.9 ml ESV(sp4-el): 25.4 ml EF(MOD-sp4): 68.8 % EF(sp4-el): 69.0 % SV(MOD-sp4): 54.9 ml SV(sp4-el): 56.6 ml LA A4 area: 15.7 cm2 LA dimension(2D): 3.4 cm RA A4 area: 11.6 cm2 Time Measurements MV dec time: 0.32 sec Doppler Measurements & Calculations MV E max agus: 59.5 cm/sec Lat Peak E' Agus: 10.0 cm/sec Med Peak E' Agus: 7.5 cm/sec MV A max agus: 60.5 cm/sec E/E' lat: 5.9 E/E' med: 8.0 MV E/A: 0.98 MV V2 max: 87.8 cm/sec Ao V2 max: 207.7 cm/sec MV max P.1 mmHg MV dec slope: 212.9 cm/sec2 Ao max P.4 mmHg MV V2 mean: 55.8 cm/sec Ao V2 mean: 145.5 cm/sec MV mean P.4 mmHg Ao mean P.6 mmHg MV V2 VTI: 28.0 cm Ao V2 VTI: 43.8 cm AV (velocity ratio): 0.46 MVA(VTI): 2.6 cm2 ROBERT(I,D): 1.6 cm2 ROBERT(V,D): 1.6 cm2 LV V1 max: 95.1 cm/sec SV(LVOT): 71.4 ml LV V1 max P.6 mmHg LV V1 mean P.3 mmHg LV V1 mean: 72.3 cm/sec LV V1 VTI: 20.2 cm ECHO/Echo Complete Interpretation Summary Normal LV size. Left ventricular systolic function is normal. The estimated ejection fraction is 60 %. Stage 1 diastolic dysfunction. Mild focal aortic valve calcification. Mean aortic valve gradient 10 mmHg. Mild aortic stenosis. Ordering Physician: Bart Mahan Referring Physician: Bart Mahan Performed By: Lyubov Timmons RVT and Student
== END | disposition home or self-care (01) ==
LOC: CVS 09:48
PROVIDERS: PCP Family Medicine Geriatric Medicine; Referring Provider Internal Medicine Cardiovascular Disease; Visit Provider Internal Medicine Cardiovascular Disease
DX: I25.10 Atherosclerotic heart disease of native coronary artery without angina pectoris (principal)
CPT/HCPCS: 93306

== ENCOUNTER 2023-03-24 09:51 | Outpatient (RCR) | payer MEDICARE, SELFPAY | END 2023-04-13 23:59 | LOC: DC 09:51 | PROVIDERS: PCP Family Medicine Geriatric Medicine; Referring Provider Family Medicine Geriatric Medicine; Visit Provider Family Medicine Geriatric Medicine | DX: E11.65 Type 2 diabetes mellitus with hyperglycemia (principal) | CPT/HCPCS: 97802 ==

== ENCOUNTER 2023-04-19 08:40 | Outpatient (RCR) | payer MEDICARE, SELFPAY | END 2023-05-13 23:59 | LOC: NS 08:40 | PROVIDERS: PCP Family Medicine Geriatric Medicine; Referring Provider Family Medicine Geriatric Medicine; Visit Provider Family Medicine Geriatric Medicine | DX: Z71.9 Counseling, unspecified (principal); E11.65 Type 2 diabetes mellitus with hyperglycemia | CPT/HCPCS: 97803 ==

== ENCOUNTER → 2023-05-04 | Outpatient (CLI) | payer MEDICARE, SELFPAY ==
[2023-05-04 11:51] LABS: Absolute Lymphocyte Count 1.96 X10^3/uL (0.83-4.51); Absolute Neutrophil Count 3.8 X10^3/uL (2.0-7.7); Basophil# 0.03 X10^3/uL; Basophil% 0.5 % (0-1); Eosinophil# 0.17 X10^3/uL; Eosinophils% 2.6 % (0-5); Hematocrit 43.8 % (40-54); Hemoglobin 14.8 g/dL (13.0-16.5); Lymphocyte # 1.96 X10^3/ul (0.83-4.51); Lymphocyte % 29.6 % (19-41); Mean Corp Hgb Conc 33.8 g/dL (32-36); Mean Corpuscular Hgb 33.1 pg (27.0-32.0); Mean Platelet Vol. 9.6 fl (6.2-12.0); Monocyte% 10.6 % (0-10); NRBC Flagged by Analyzer 0 % (0-5); Neutrophil # 3.75 X10^3/uL (2.7-7.7); Neutrophil % 56.5 % (47-70); Platelet Count 279 K/mm3 (150-450); RBC Distribution Width SD 46.7 fl (35.1-43.9); Red Blood Count 4.47 M/mm3 (4.6-6.2); White Blood Count 6.6 K/mm3 (4.4-11.0)
[2023-05-04 12:05] LABS: Vitamin D,25 Hydroxy 59.3 ng/mL
[2023-05-04 12:14] LABS: ALB/GLOB Ratio 1.1 RATIO (0.9-2.4); AST(SGOT) 38 U/L (15-37); Alanine Aminotransfer ALT/SGPT 55 U/L (16-61); Albumin, Serum 4.1 g/dL (3.2-5.0); Alkaline Phosphatase 68 U/L (45-117); Anion Gap 6 (5-15); BUN 12 mg/dL (7-18); BUN/Creat Ratio 11.9 RATIO (10-20); Calcium,Total 9.3 mg/dL (8.5-10.1); Chloride 103 mmol/L (98-107); Creatinine, Serum 1.01 mg/dL (0.70-1.30); EST Glomerular Filtration Rate 78 mL/min (>60); Est Glom Filt Rate - Afr Amer 94 mL/min (>60); Globulin 3.7 g/dL (2.2-4.2); Glucose 132 mg/dL (74-106); Protein, Total 7.8 g/dL (6.4-8.2); Sodium Level 138 mmol/L (136-145); Thyroid Stim Hormone (TSH) 2.54 uIU/mL (0.358-3.74)
[2023-05-04 12:18] LABS: Hemoglobin A1c 5.9 % (3.8-5.6)
== END | disposition home or self-care (01) ==
LOC: POLAB3 10:03
PROVIDERS: PCP Family Medicine Geriatric Medicine; Visit Provider Family Medicine Geriatric Medicine
DX: I10 Essential (primary) hypertension (principal); E11.65 Type 2 diabetes mellitus with hyperglycemia; E55.9 Vitamin D deficiency, unspecified; Z12.5 Encounter for screening for malignant neoplasm of prostate
CPT/HCPCS: 36415; 80053; 82306; 83036; 84153; 84443; 85025; G0103

== ENCOUNTER 2023-05-26 08:23 | Outpatient (RCR) | payer MEDICARE, SELFPAY | END 2023-06-13 23:59 | LOC: NS 08:23 | PROVIDERS: PCP Family Medicine Geriatric Medicine; Referring Provider Family Medicine Geriatric Medicine; Visit Provider Family Medicine Geriatric Medicine | DX: Z71.3 Dietary counseling and surveillance (principal); E11.65 Type 2 diabetes mellitus with hyperglycemia | CPT/HCPCS: 97803 ==

== ENCOUNTER 2023-08-04 08:29 | Outpatient (RCR) | payer MEDICARE, SELFPAY | END 2023-08-12 23:59 | LOC: NS 08:29 | PROVIDERS: PCP Family Medicine Geriatric Medicine; Referring Provider Family Medicine Geriatric Medicine; Visit Provider Family Medicine Geriatric Medicine | DX: Z71.3 Dietary counseling and surveillance (principal); E11.65 Type 2 diabetes mellitus with hyperglycemia | CPT/HCPCS: 97803 ==

== ENCOUNTER 2023-08-30 10:57 | Inpatient (IN) | payer MEDICARE, SELFPAY ==
[2023-08-30] VITALS (16 sets, daily range): BP systolic 100–161; BP diastolic 52–94; PULSE 58–83; RESP 14–22; TEMP 35.8–36.3; O2SAT 92–100; BMI 27.6
--- NOTE | 2023-08-30 11:14 | RAD_ITS ---
STUDY: X-RAY CHEST REASON FOR EXAM: Male, 68 years old. Chest pain TECHNIQUE: Single AP portable view of the chest. COMPARISON: Comparison is made with prior study dated September 18, 2013. FINDINGS: EKG electrodes are seen. Stable elevation of the right hemidiaphragm. Minimal linear atelectasis at both lung bases. There is no demonstrated pleural abnormality. Normal size heart. Normal mediastinum and judson. Normal visualized pulmonary arteries. There is atherosclerotic calcification of the aortic arch with tortuosity. There are diffuse degenerative changes of the visualized thoracic spine. Normal visualized ribs, clavicles, and shoulders. There is no demonstrated abnormality of the visualized soft tissue structures of the upper abdomen. RAD/Chest 1 View (Portable) IMPRESSION: Minimal linear atelectasis at the lung bases. Electronically Signed: Jason Cortes MD at 12:00 EDT ,
--- NOTE | 2023-08-30 11:14 | EKG12_ITS ---
Test Reason : CHEST PAIN Blood Pressure : / mmHG Vent. Rate : 074 BPM Atrial Rate : 074 BPM P-R Int : 152 ms QRS Dur : 088 ms QT Int : 374 ms P-R-T Axes : 046 014 052 degrees QTc Int : 415 ms Normal sinus rhythm Nonspecific ST abnormality Abnormal ECG Confirmed by PANCHITO GRIJALVA, TOMMY ([id number]), video tape editor NEVAEH CELESTIN ([id number]) on 08/31/2023 7:59:45 AM Referred By: Confirmed By:TOMMY FLANAGAN MD
--- NOTE | 2023-08-30 11:15 | ED.VIS.CHEST ---
HPI History of Present Illness Chief Complaint: Chest Pain Informant: patient Onset/Context/Timing Onset: Days Narrative Narrative: Patient presents secondary to intermittent chest pain. He states he been having intermittent chest heaviness or pressure this seems to be worse with exertion and better with rest. He does have some pressure that goes to his neck and left shoulder. He has very mild shortness of breath with these episodes. He does have a history of coronary disease and had stents placed to the circumflex and LAD in 2013. He believes his last stress test was about a year and a half ago. [facility] Medical History Atherosclerotic heart disease of [place] coronary artery without angina pectoris Diabetes mellitus Elevated LFTs Essential (primary) hypertension History of basal cell carcinoma HLD (hyperlipidemia) Obesity Home Medications aspirin 81 mg chewable tablet 81 mg PO DAILY@0800 08/14/13 [History Last Taken 08/14/13] nitroglycerin 0.4 mg sublingual tablet 0.4 mg sublingual Q5M PRN Chest Pain 08/14/13 [History Last Taken Unknown] metoprolol succinate 50 mg tablet,extended release 24 hr 50 mg PO DAILY #90 tabs 10/05/22 [Rx Last Taken Unknown] meclizine 25 mg tablet 25 mg PO TID PRN dizziness #20 tabs 10/14/22 [Rx Last Taken Unknown] lisinopril 20 mg-hydrochlorothiazide 12.5 mg tablet 0.5 tab PO DAILY #45 tabs 10/20/22 [Rx Last Taken Unknown] clopidogrel 75 mg tablet 75 mg PO QDAY #90 tabs 12/31/22 [Rx Last Taken Unknown] Allergy/AdvReac Type Severity Reaction Status Date / Time amoxicillin AdvReac Severe Rash Verified 08/30/23 10:59 Qcbobwy-BJH-MsU Reductase AdvReac elevated Verified 08/30/23 10:59 Inhibitor LFT's [Qaqycon-Eok-Wqo Reductase Inhibitor] Family History Father CAD (coronary artery disease) Myocardial infarction Lymphoma Mother Myocardial infarction Diabetes Heart disease Brother Myocardial infarction Surgical History History of coronary artery stent placement (08/15/13) History of left knee surgery (1989) History of umbilical hernia repair Social History Smoking Status: Former smoker how long ago did patient quit smokin alcohol intake: current alcohol intake frequency: a few times a month Alcohol type: beer and wine substance use type: does not use caffeine: Yes Type: coffee Number of servings: 1 ROS ROS ED Constitutional Constitutional ED: Denies chills or fever(s) Eyes Eyes: Denies discharge from eye(s) ENT ENT ED: Denies discharge from eye(s), rhinorrhea or sore throat Cardiovascular Cardiovascular: Reports chest pain; Denies palpitations or racing heartbeat Respiratory/Chest Respiratory/Chest: Reports dyspnea; Denies cough Gastrointestinal Gastrointestinal: Denies abdominal pain, nausea or vomiting Genitourinary Genitourinary ED: Denies dysuria Musculoskeletal Musculoskeletal: Denies back pain or extremity pain Integumentary Denies Abrasions or rash Neurologic Neurologic: Denies headache(s) or weakness Psychiatric Psychiatric: Denies anxiety or depression Allergic/Immunologic Allergic/Immunologic ED: Denies lip swelling or urticaria EXAM Physical Exam Const Vital Signs: 08/30/23 10:58 08/30/23 11:10 08/30/23 11:15 Temperature 96.4 F L Temperature Source Temporal Pulse Rate 83 Respiratory Rate 16 Respiratory Effort Normal Non-Labored Blood Pressure 161/88 H Blood Pressure Mean 112 Pulse Ox 97 98 Oxygen Delivery Method Room Air Room Air Positive well nourished and well developed General Appearance ED: well developed HEENT Reports moist mucous membranes Eyes EOMs intact bilaterally Chest Wall inspection of chest normal and palpation of chest normal Resp normal respiratory effort and clear to auscultation bilaterally Cardio regular rate and regular rhythm GI soft to palpation and non-tender Extremity normal to inspection Neuro oriented x3 and no sensory deficits noted Sensorium / Orientation: alert Motor Exam: strength 5/5 throughout Psych mental status grossly normal Skin no rashes or lesions noted MDM MDM MDM Narrative Medical decision making narrative: Patient placed on quality assurance monitor body. IV line initiated. EKG obtained to evaluate for cardiac arrhythmia/ischemia. Labwork obtained to evaluate for leukocytosis, anemia, and electrolyte derangement. Chest x-ray obtained to evaluate for acute lung pathology, cardiac size, or mediastinal abnormality. Patient did take 1 baby aspirin this morning and will be given 3 additional baby aspirin here while undergoing workup. History & Record Review Discussion w/independent historian: Patient Additional record(s) reviewed:: Prior outpatient record and Prior labs Lab Data Attestation: I reviewed the patient's lab results. Labs: Laboratory Results - last 24 hr 08/30/23 11:10 WBC 10.6 RBC 4.71 Hgb 15.1 Hct 44.7 MCV 94.9 H MCH 32.1 H MCHC 33.8 RDW Std Deviation 46.6 H RDW Coeff of Lulú 13.2 Plt Count 292 MPV 9.3 Immature Gran % (Auto) 0.300 Neut % (Auto) 75.5 H Lymph % (Auto) 15.7 L [place] % (Auto) 7.4 Eos % (Auto) 0.6 Baso % (Auto) 0.5 Absolute Neuts (auto) 8.0 H Absolute Lymphs (auto) 1.66 Nucleated RBC % 0 Sodium 137 Potassium 3.8 Chloride 104 Carbon Dioxide 27.0 Anion Gap 6 BUN 16 Creatinine 1.01 Estim Creat Clear Calc 72.31 Est GFR (MDRD) Af Amer 94 Est GFR (MDRD) Non-Af 78 BUN/Creatinine Ratio 15.8 Glucose 149 H Calcium 9.7 Troponin I High Sens 86 H Radiography Chest X-Ray - ED: 1 View, Read by ED Physician, Chronic Changes and No Infiltrates Diagnostic Testing: Clinical Impression(s) from Imaging Studies Chest X-Ray 08/30/23 11:14 IMPRESSION: Minimal linear atelectasis at the lung bases. Electronically Signed: Jason Cortes MD at 12:00 EDT , EKG Initial EKG: Attestation: I personally reviewed and interpreted this EKG as follows: Interpretation: Sinus Rhythm (Sinus rhythm at 74 bpm. 1/[address] depression in V2 and V3. This does appear to be change compared to October 2022.) Treatment and Re-Evaluation :: On repeat evaluation patient resting comfortably denies any pain at this time. CBC reveals normal white count at 10.6 with a hemoglobin of 15.1. Chemistry studies unremarkable. Glucose is 149. Troponin is elevated at 86. Portable chest x-ray per my interpretation reveals chronic changes with no focal infiltrate. Radiology interpretation reviewed and agrees. EKG is sinus rhythm at 74 bpm. He has [address] depression in V2 and V3 only. This does appear changed when compared to October 2022. I spoke with Dr. Mahan, patient's trading assistant. He will notify the [employer] with plan to go from the ER to the [employer]. He does not want any other medications given at this time, just keep the patient NPO. I will also speak with the hospitalist regarding admission. Discharge Plan Triage Chief Complaint: Chest Pain ED Provider: Ryanne Velasco Dx/Rx/DC Orders Clinical Impression: Non-ST elevation CT (NSTEMI) Prescriptions: No Action nitroglycerin 0.4 MG tablet 0.4 mg SUBLINGUAL Q5M PRN (Reason: Chest Pain) aspirin 81 MG tablet,chewable 81 mg PO DAILY@0800 meclizine 25 mg tablet 25 mg PO TID PRN (Reason: dizziness) Qty: 20 0RF metoprolol succinate 50 mg tablet extended release 24 hr 50 mg PO DAILY Qty: 90 3RF lisinopril-hydrochlorothiazide 20-12.5 mg tablet 0.5 tab PO DAILY Qty: 45 3RF clopidogrel 75 mg tablet 75 mg PO QDAY Qty: 90 3RF Primary Care Provider: Mitchel Mitchell Chi Referrals: Mitchel Mitchell Chi, MD [Primary Care Provider] - Disposition Disposition: Acute Care Hospital [facility]
[2023-08-30] MEDS: Aspirin 81 MG TAB.CHEW 243 MG PO (11:38)
[2023-08-30] MEDS: 0.9% Normal Saline (1000mL) 1,000 ML 150 ML IV ×2 (11:38→17:37)
[2023-08-30 11:41] LABS: Absolute Lymphocyte Count 1.66 X10^3/uL (0.83-4.51); Basophil# 0.05 X10^3/uL; Basophil% 0.5 % (0-1); Eosinophil# 0.06 X10^3/uL; Eosinophils% 0.6 % (0-5); Hematocrit 44.7 % (40-54); Hemoglobin 15.1 g/dL (13.0-16.5); Lymphocyte # 1.66 X10^3/ul (0.83-4.51); Lymphocyte % 15.7 % (19-41); Mean Corp Hgb Conc 33.8 g/dL (32-36); Mean Corpuscular Hgb 32.1 pg (27.0-32.0); Mean Corpuscular Volume 94.9 fL (80-94); Mean Platelet Vol. 9.3 fl (6.2-12.0); Monocyte# 0.78 X10^3/uL; Monocyte% 7.4 % (0-10); NRBC Flagged by Analyzer 0 % (0-5); Neutrophil % 75.5 % (47-70); Platelet Count 292 K/mm3 (150-450); RBC Distribution Width CV 13.2 % (11.6-14.6); RBC Distribution Width SD 46.6 fl (35.1-43.9); Red Blood Count 4.71 M/mm3 (4.6-6.2); White Blood Count 10.6 K/mm3 (4.4-11.0)
[2023-08-30 11:45] LABS: Anion Gap 6 (5-15); BUN 16 mg/dL (7-18); BUN/Creat Ratio 15.8 RATIO (10-20); Calcium,Total 9.7 mg/dL (8.5-10.1); Chloride 104 mmol/L (98-107); Creatinine, Serum 1.01 mg/dL (0.70-1.30); EST Glomerular Filtration Rate 78 mL/min (>60); Est Glom Filt Rate - Afr Amer 94 mL/min (>60); Estimated Creatinine Clearance 72.31 ml/min; Glucose 149 mg/dL (74-106); Potassium 3.8 mmol/L (3.5-5.1); Sodium Level 137 mmol/L (136-145); Troponin-I HS (w/2H Reflex) 86 pg/mL (3.0-78.0)
--- NOTE | 2023-08-30 13:13 | NURSING ---
PCU AFTER TANK WASHER SARY SAEZ
[2023-08-30 13:23] LABS: Reflex Troponin-HS? (from REC) Y
[2023-08-30 14:04] LABS: Troponin-I HS 366 pg/mL (3.0-78.0)
--- NOTE | 2023-08-30 14:23 | PCM.CONS.C ---
Assessment & Plan Assessment/Plan (1) Non-ST elevation OR (NSTEMI): PLAN: He does have a history of non-ST elevation myocardial infarction. At the present time my recommendation will be to proceed with a cardiac catheterization. The risk benefits and recommendations have been made and he agrees to proceed. Depending on the findings further recommendations will be made. (2) History of coronary artery stent placement: PLAN: He does have previous coronary artery stenting as noted above. The plan will be to evaluate his coronary anatomy and depending on the findings further recommendations made (3) Essential (primary) hypertension: PLAN: He does have a history of hypertension his blood pressure is under good control I would not make any changes. (4) HLD (hyperlipidemia): QUALIFIERS: Hyperlipidemia type: pure hypercholesterolemia Qualified Code(s): E78.00 - Pure hypercholesterolemia, unspecified; E78.0 - Pure hypercholesterolemia PLAN: He will continue with aggressive risk factor modification. HPI Consult Data Date of Consult: 08/30/23 HPI Narrative HPI Narrative: EMELY LAURA, is a 68 M who presents with chest tightness which he said started this morning. He presented to the emergency room was evaluated and noted to have minimally abnormal troponin enzymes as well as EKG changes. He has a history of previous stenting of the circumflex artery, the left anterior descending artery in 2013 and he did have residual disease in the ramus intermedius for which medical therapy was recommended. In addition he has hypertension and hyperlipidemia both of which have been under good control. He denies symptoms of shortness of breath with exertion, shortness of breath at rest, orthopnea, PND, sudden weight gain, or bilateral lower extremity edema. He denies chronic cough. He denies palpitations, lightheadedness, dizziness, near syncope, or syncopal episodes. He denies claudication issues. He denies fever or chills. He denies blood in urine, blood in stool, or epistaxis. He denies myalgia. He denies unexplainable fatigue. His exercise tolerance is stable. [facility] Medical History Atherosclerotic heart disease of [place] coronary artery without angina pectoris Diabetes mellitus Elevated LFTs Essential (primary) hypertension History of basal cell carcinoma HLD (hyperlipidemia) Obesity Home Medications aspirin 81 mg chewable tablet 81 mg PO DAILY@0800 [facility] 08/14/13 [History Last Taken 08/30/23] nitroglycerin 0.4 mg sublingual tablet 0.4 mg sublingual Q5M PRN Chest Pain 08/14/13 [History Last Taken Unknown] metoprolol succinate 50 mg tablet,extended release 24 hr 50 mg PO DAILY BLOOD PRESSURE #90 tabs 10/05/22 [Rx Last Taken 08/30/23] meclizine 25 mg tablet 25 mg PO TID PRN dizziness #20 tabs 10/14/22 [Rx Last Taken Unknown] lisinopril 20 mg-hydrochlorothiazide 12.5 mg tablet 0.5 tab PO DAILY BLOOD PRESSURE #45 tabs 10/20/22 [Rx Last Taken 08/30/23] clopidogrel 75 mg tablet 75 mg PO QDAY CHOLESTEROL #90 tabs 12/31/22 [Rx Last Taken 08/30/23] cholecalciferol (vitamin D3) 50 mcg (2,000 unit) capsule 50 mcg PO DAILY SUPPLEMENT 08/30/23 [History Last Taken Unknown] Allergy/AdvReac Type Severity Reaction Status Date / Time amoxicillin AdvReac Severe Rash Verified 08/30/23 10:59 Lxdvhhw-PDJ-FkE Reductase AdvReac elevated Verified 08/30/23 10:59 Inhibitor LFT's [Oxixnua-Qor-Yfb Reductase Inhibitor] Family History Father CAD (coronary artery disease) Myocardial infarction Lymphoma Mother Myocardial infarction Diabetes Heart disease Brother Myocardial infarction Surgical History History of coronary artery stent placement (08/15/13) History of left knee surgery (1989) History of umbilical hernia repair Social History Smoking Status: Former smoker how long ago did patient quit smokin alcohol intake: current alcohol intake frequency: a few times a month Alcohol type: beer and wine substance use type: does not use caffeine: Yes Type: coffee Number of servings: 1 ROS Constitutional Constitutional: Denies fever(s) or weight loss Eyes Eyes: Reports systems reviewed and no addt'l complaints, except as documented ENT HEENT: Reports systems reviewed and no addt'l complaints, except as documented Cardiovascular Cardiovascular: Reports chest pain at rest and chest pain with activity; Denies dyspnea at rest, dyspnea on exertion, edema, palpitations or paroxysmal nocturnal dyspnea Respiratory/Chest Respiratory/Chest: Denies dyspnea on exertion, productive cough, shortness of breath at rest or shortness of breath with exertion Gastrointestinal Gastrointestinal: Denies change in bowel habits, nausea, vomiting or weight changes Genitourinary Genitourinary: Denies difficulty urinating Musculoskeletal Musculoskeletal: Denies joint stiffness or muscle weakness Integumentary Integumentary: Denies lesions Neurologic Neurologic: Denies dizziness or syncope Psychiatric Psychiatric: Denies anxiety Endocrine Endocrinology: Denies excessive sweating or fatigue Hematologic/Lymphatic Hematologic/Lymphatic: Denies anemia Allergic/Immunologic Allergic/Immunologic: Denies seasonal rhinorrhea Physical Exam Const alert, oriented x3 and no apparent distress General Appearance: cooperative HEENT hearing grossly normal bilaterally Head and Scalp: atraumatic Eyes EOMs intact bilaterally Neck General: normal visual inspection Chest inspection of chest normal and palpation of chest normal Resp normal respiratory effort Auscultation: clear to auscultation bilaterally Cardio regular rate, regular rhythm, S1 normal heart sound and S2 normal heart sound Jugular Venous Distention: JVD GI normal to inspection, nondistended, normoactive bowel sounds Extremity normal capillary refill and no pedal edema Peripheral Pulses: Yes pulses 2+ throughout and femoral pulses present Skin no rashes or lesions noted Neuro oriented x3 and CN's II-XII intact bilaterally Psych Appearance: grossly normal and appropriate Risk Stratification Risk Stratification Applicable: Yes Age >/= 65: Yes >/= 3 CAD Risk Factors (HTN, HLD, DM, family hx of CAD, or current smoker): Yes Aspirin Use in the Past 7 Days: Yes Severe Angina (>/= episodes in 24 hours): Yes EKG ST Changes >/= 0.5mm: Yes Positive Cardiac Marker: Yes ERI Risk Stratification Score: 6 ERI % Risk: 41% Risk Objective Data Vital Signs: Vital Signs Temp Pulse Resp BP Pulse Ox O2 Del Method 97.3 F L 59 L 14 108/94 H 99 Room Air 08/30/23 13:06 08/30/23 14:00 08/30/23 14:00 08/30/23 14:00 08/30/23 14:00 08/30/23 14:00 Oxygen Delivery Method Room Air Weight: 182 lb Body Mass Index (BMI) 27.6 Lab / Micro Data 08/30/23 11:10 08/30/23 11:10 Labs: Laboratory Results - last 24 hr 08/30/23 11:10: WBC 10.6, RBC 4.71, Hgb 15.1, Hct 44.7, MCV 94.9 H, MCH 32.1 H, MCHC 33.8, RDW Std Deviation 46.6 H, RDW Coeff of Lulú 13.2, Plt Count 292, MPV 9.3, Immature Gran % (Auto) 0.300, Neut % (Auto) 75.5 H, Lymph % (Auto) 15.7 L, [place] % (Auto) 7.4, Eos % (Auto) 0.6, Baso % (Auto) 0.5, Absolute Neuts (auto) 8.0 H, Absolute Lymphs (auto) 1.66, Nucleated RBC % 0, Sodium 137, Potassium 3.8, Chloride 104, Carbon Dioxide 27.0, Anion Gap 6, BUN 16, Creatinine 1.01, Estim Creat Clear Calc 72.31, Est GFR (MDRD) Af Amer 94, Est GFR (MDRD) Non-Af 78, BUN/Creatinine Ratio 15.8, Glucose 149 H, Calcium 9.7, Troponin I High Sens 86 H 08/30/23 13:29: Troponin I High Sens 366 H* Cardiology Labs/Tests 08/30/23 11:10: WBC 10.6, RBC 4.71, Hgb 15.1, Hct 44.7, MCV 94.9 H, MCH 32.1 H, MCHC 33.8, Plt Count 292, MPV 9.3, Immature Gran % (Auto) 0.300, Neut % (Auto) 75.5 H, Lymph % (Auto) 15.7 L, [place] % (Auto) 7.4, Eos % (Auto) 0.6, Baso % (Auto) 0.5, Absolute Neuts (auto) 8.0 H, Nucleated RBC % 0, Sodium 137, Potassium 3.8, Chloride 104, Carbon Dioxide 27.0, Anion Gap 6, BUN 16, Creatinine 1.01, Est GFR (MDRD) Af Amer 94, Est GFR (MDRD) Non-Af 78, BUN/Creatinine Ratio 15.8, Glucose 149 H, Calcium 9.7 Rhythm: EKG: ECHO: Stress Test: Cardiac Cath: PCI: CT Surgery: Holter monitor: EPS: PPM: CXR: Chest CT Scan: Radiography Diagnostic Testing: Radiology Impression Chest X-Ray 08/30/23 11:14 IMPRESSION: Minimal linear atelectasis at the lung bases. Electronically Signed: Jason Cortes MD at 12:00 EDT ,
--- NOTE | 2023-08-30 17:58 | ECHOD_ITS ---
Reason For Study: S/P IA Procedure This was a 2D Doppler, Color Flow transthoracic echocardiogram. Exam performed portable in patient room. Left Ventricle Normal LV size. Left ventricular systolic function is normal. The estimated ejection fraction is 55 %. No regional wall motion abnormalities noted. Right Ventricle Normal RV size. Normal systolic function. Atria Normal left atrium. Normal right atrium. Mitral Valve Normal mitral valve. Tricuspid Valve Normal tricuspid valve. Aortic Valve Trisinus/trileaflet aortic valve. Moderate focal aortic valve calcification. Peak aortic valve gradient 15 mmHg. Mean aortic valve gradient 9 mmHg. Mild aortic stenosis. Pulmonic Valve Normal pulmonic valve. Great Vessels Normal aortic root. The pulmonary artery is normal size. Normal inferior vena cava. Pericardium/Pleural No pericardial effusion. MMode/2D Measurements & Calculations LVIDd: 4.3 cm IVSd: 0.96 cm LVOT diam: 2.1 cm LVIDs: 3.0 cm LVPWd: 1.0 cm LVOT area: 3.5 cm2 RVDd: 3.3 cm FS: 30.3 % Ao root diam: 3.1 cm LAV(MOD-bp): 55.4 ml LVAd ap4: 26.7 cm2 LAV(MOD-bp) Indexed: 28.2 ml/m2 LVLd ap4: 8.0 cm LAV(MOD-sp2): 51.2 ml EDV(MOD-sp4): 73.6 ml LAV(MOD-sp4): 53.0 ml EDV(sp4-el): 75.7 ml LVAs ap4: 12.8 cm2 LVLs ap4: 6.0 cm ESV(MOD-sp4): 22.4 ml ESV(sp4-el): 22.9 ml EF(MOD-sp4): 69.5 % EF(sp4-el): 69.7 % LVAd ap2: 25.8 cm2 SV(MOD-sp4): 51.1 ml SV(MOD-sp2): 45.4 ml LVLd ap2: 8.0 cm EDV(MOD-sp2): 68.8 ml EDV(sp2-el): 70.2 ml LVAs ap2: 13.7 cm2 LVLs ap2: 7.0 cm ESV(MOD-sp2): 23.4 ml ESV(sp2-el): 22.8 ml EF(MOD-sp2): 66.0 % SV(sp4-el): 52.7 ml LA dimension(2D): 4.2 cm LA A4 area: 19.9 cm2 RA A4 area: 16.0 cm2 TAPSE: 2.1 cm Time Measurements MV dec time: 0.20 sec Doppler Measurements & Calculations MV E max agus: 78.4 cm/sec Lat Peak E' Agus: 10.4 cm/sec Med Peak E' Agus: 8.3 cm/sec MV A max agus: 73.8 cm/sec E/E' lat: 7.6 E/E' med: 9.4 MV E/A: 1.1 MV V2 max: 95.9 cm/sec MV P1/2t max agus: 90.8 cm/sec Ao V2 max: 193.0 cm/sec MV max P.7 mmHg MV P1/2t: 75.9 msec Ao max P.9 mmHg MV V2 mean: 54.8 cm/sec Ao V2 mean: 143.8 cm/sec MV mean P.4 mmHg MV dec slope: 350.2 cm/sec2 Ao mean P.1 mmHg MV V2 VTI: 26.7 cm MVA(P1/2t): 2.9 cm2 Ao V2 VTI: 47.4 cm AV (velocity ratio): 0.48 MVA(VTI): 3.0 cm2 ROBERT(I,D): 1.7 cm2 ROBERT(V,D): 1.8 cm2 LV V1 max: 98.0 cm/sec SV(LVOT): 81.0 ml PA V2 max: 92.6 cm/sec LV V1 max P.9 mmHg PA V2 mean: 68.6 cm/sec LV V1 mean P.4 mmHg LV V1 mean: 74.5 cm/sec LV V1 VTI: 22.9 cm ECHO/Echo Complete Interpretation Summary Normal LV size. Left ventricular systolic function is normal. The estimated ejection fraction is 55 %. Moderate focal aortic valve calcification. Mean aortic valve gradient 9 mmHg. Mild aortic stenosis. Ordering Physician: Aneudy Gracia Referring Physician: Mitchel Mitchell Chi Performed By: Vidhi Marks, ALINA, RVT
[2023-08-30 18:25] LABS: Cholesterol 284 mg/dL (200); High Density Lipoprotein 55 mg/dL; Triglycerides 234 mg/dL; Very Low Density Lipoprotein 47 mg/dL (5-40)
[2023-08-30 18:38] LABS: ACT Activated Clotting Time 277 sec (74-137)
[2023-08-30 18:39] LABS: ACT Activated Clotting Time 282 sec (74-137)
--- NOTE | 2023-08-30 19:56 | PCM.HP.STD ---
HPI - General General Date of Admission: 08/30/23 Date of Service: 08/30/23 Chief Complaint: Chest pain HPI Narrative EMELY LAURA, is a 68 M who presents to the emergency room at [facility] with complaints of intermittent substernal chest discomfort which he describes as a squeezing sensation in the upper chest area, this has been going on for a couple of weeks off-and-on, it appears to be related to exertion he tells me, he has no complaints of any left arm pain jaw pain or back pain. Patient has a remote history of a cardiac stent which was placed in 2013, it was placed in [place] by Dr. Melendez. Patient has been following up with Dr. Dennis on a regular basis. He has not been on a statin due to some liver enzyme problems with the statin in the past. Lab work done in the emergency room showed a normal CBC, patient's troponin was elevated however, EKG showed nonspecific ST-T wave changes in the anterior leads. At the time my examination, patient was not having any chest discomfort, cardiology was contacted and elected to take the patient to the [facility], in the [facility] it was noted that he had occlusive coronary disease in the left anterior descending artery and 2 drug-eluting stents were placed. Patient was admitted to PCU for further care, he will have an echocardiogram performed tomorrow, I talked with him about taking a statin and he is elected to go on a low-dose statin now. FORMERLY [facility], [facility] Medical History Atherosclerotic heart disease of [place] coronary artery without angina pectoris Diabetes mellitus Elevated LFTs Essential (primary) hypertension History of basal cell carcinoma HLD (hyperlipidemia) Obesity Home Medications aspirin 81 mg chewable tablet 81 mg PO DAILY@0800 HEART HEALTH 08/14/13 [History Last Taken 08/30/23] nitroglycerin 0.4 mg sublingual tablet 0.4 mg sublingual Q5M PRN Chest Pain 08/14/13 [History Last Taken Unknown] metoprolol succinate 50 mg tablet,extended release 24 hr 50 mg PO DAILY BLOOD PRESSURE #90 tabs 10/05/22 [Rx Last Taken 08/30/23] meclizine 25 mg tablet 25 mg PO TID PRN dizziness #20 tabs 10/14/22 [Rx Last Taken Unknown] lisinopril 20 mg-hydrochlorothiazide 12.5 mg tablet 0.5 tab PO DAILY BLOOD PRESSURE #45 tabs 10/20/22 [Rx Last Taken 08/30/23] clopidogrel 75 mg tablet 75 mg PO QDAY CHOLESTEROL #90 tabs 12/31/22 [Rx Last Taken 08/30/23] cholecalciferol (vitamin D3) 50 mcg (2,000 unit) capsule 50 mcg PO DAILY SUPPLEMENT 08/30/23 [History Last Taken Unknown] Allergy/AdvReac Type Severity Reaction Status Date / Time amoxicillin AdvReac Severe Rash Verified 08/30/23 10:59 Sfwtpxh-AEV-UfW Reductase AdvReac elevated Verified 08/30/23 10:59 Inhibitor LFT's [Rgkqvlc-Lnk-Zdj Reductase Inhibitor] Family History Father CAD (coronary artery disease) Myocardial infarction Lymphoma Mother Myocardial infarction Diabetes Heart disease Brother Myocardial infarction Surgical History History of coronary artery stent placement (08/15/13) History of left knee surgery (1989) History of umbilical hernia repair Social History Smoking Status: Former smoker how long ago did patient quit smokin alcohol intake: current alcohol intake frequency: a few times a month Alcohol type: beer and wine substance use type: does not use caffeine: Yes Type: coffee Number of servings: 1 ROS Constitutional Constitutional: Denies anorexia, change in weight, chills, fatigue, fever(s), malaise, night sweats or weakness Eyes Eyes: Denies blurry vision, change in vision, discharge from eye(s) or eye pain Cardiovascular Cardiovascular: Reports chest pain; Denies claudication, dyspnea on exertion, edema or palpitations Respiratory/Chest Respiratory/Chest: Denies cough, dyspnea, hemoptysis, shortness of breath at rest or shortness of breath with exertion Gastrointestinal Gastrointestinal: Denies abdominal pain, constipation, diarrhea, hematemesis, hematochezia, melena, nausea or vomiting Genitourinary Genitourinary: Denies dysuria, hematuria, urinary frequency, urinary hesitancy, urinary incontinence or urinary urgency Musculoskeletal Musculoskeletal: Denies back pain, joint pain, joint stiffness, joint swelling, myalgias or neck pain Neurologic Neurologic: Denies abnormal gait, abnormal speech, dizziness, focal weakness, headache(s), loss of vision, numbness, other visual disturbances, paresthesias, syncope or tingling Psychiatric Psychiatric: Denies anxiety, cognitive impairment, depression, irritability, mood swings or suicidal ideation Endocrine Endocrinology: Denies change in body appearance, cold intolerance, excessive sweating, heat intolerance, polydipsia or polyuria Hematologic/Lymphatic Hematologic/Lymphatic: Denies none, anemia, easy bleeding, easy bruising or lymphadenopathy Allergic/Immunologic Allergic/Immunologic: Denies rhinitis, urticaria, eczemia or asthma Vital Signs Vital Signs Vital Signs: 08/30/23 10:58 08/30/23 11:10 08/30/23 11:15 Temperature 96.4 F L Temperature Source Temporal Pulse Rate 83 Respiratory Rate 16 Respiratory Effort Normal Non-Labored Blood Pressure 161/88 H Blood Pressure Mean 112 Blood Pressure Source Blood Pressure Position Blood Pressure Location Pulse Ox 97 98 Oxygen Delivery Method Room Air Room Air 08/30/23 11:57 08/30/23 12:43 08/30/23 13:00 Temperature 97.3 F L Temperature Source Temporal Pulse Rate 64 60 60 Respiratory Rate 18 17 18 Respiratory Effort Blood Pressure 131/80 H 131/74 H 144/77 H Blood Pressure Mean 97 93 99 Blood Pressure Source Blood Pressure Position Blood Pressure Location Pulse Ox 97 98 99 Oxygen Delivery Method Room Air 08/30/23 13:06 08/30/23 14:00 08/30/23 16:45 Temperature 97.3 F L Temperature Source Pulse Rate 58 L 59 L 64 Respiratory Rate 22 H 14 16 Respiratory Effort Blood Pressure 144/77 H 108/94 H 114/67 Blood Pressure Mean 99 98 82 Blood Pressure Source Monitor Blood Pressure Position Semi-Fowlers Blood Pressure Location Left Arm Pulse Ox 100 99 95 Oxygen Delivery Method Room Air 08/30/23 17:00 08/30/23 17:15 08/30/23 17:45 Temperature Temperature Source Pulse Rate 74 60 59 L Respiratory Rate 16 16 16 Respiratory Effort Blood Pressure 112/52 L 121/65 H 119/67 Blood Pressure Mean 72 83 84 Blood Pressure Source Monitor Monitor Monitor Blood Pressure Position Semi-Fowlers Semi-Fowlers Semi-Fowlers Blood Pressure Location Left Arm Left Arm Right Arm Pulse Ox 95 95 97 Oxygen Delivery Method Room Air 08/30/23 17:59 08/30/23 18:30 08/30/23 18:00 Temperature Temperature Source Pulse Rate 59 L 71 64 Respiratory Rate 14 14 Respiratory Effort Blood Pressure 119/67 100/70 Blood Pressure Mean 84 80 Blood Pressure Source Monitor Monitor Blood Pressure Position Semi-Fowlers Semi-Fowlers Blood Pressure Location Left Arm Left Arm Pulse Ox 97 92 Oxygen Delivery Method Room Air 08/30/23 19:15 Temperature Temperature Source Pulse Rate 66 Respiratory Rate Respiratory Effort Blood Pressure 123/68 H Blood Pressure Mean 86 Blood Pressure Source Monitor Blood Pressure Position Semi-Fowlers Blood Pressure Location Left Arm Pulse Ox 100 Oxygen Delivery Method Room Air Weight Weight: 82.554 kg Body Mass Index (BMI) 27.6 Physical Exam Const alert, oriented x3, no apparent distress, average body habitus and healthy appearing General Appearance: cooperative, well kempt and well developed Orientation / Consciousness: awake, oriented to person, oriented to place and oriented to time HEENT normocephalic, head/scalp atraumatic, hearing grossly normal bilaterally and moist oral mucous membranes Eyes PERRL, EOMs intact bilaterally and conjunctivae normal Neck supple, no JVD, thyroid normal and no carotid bruits General: trachea midline Resp normal respiratory effort, no retractions, no use of accessory muscles and clear to auscultation bilaterally Auscultation: Negative for rales, rhonchi or wheezes Cardio regular rate, regular rhythm, S1 normal heart sound, S2 normal heart sound, no murmurs, no rub and no gallops GI normal to inspection, nondistended, normoactive bowel sounds, soft to palpation, non-tender and non-distended Extremity no clubbing, cyanosis or edema Skin no rashes or lesions noted General Skin Exam: no breakdown Neuro oriented x3, CN's II-XII intact bilaterally, moves all extremities, no focal motor deficits and no sensory deficits noted Sensorium / Orientation: awake, alert, oriented to person, oriented to place and oriented to time Speech: speech normal Psych affect normal Results Lab / Micro Data 08/30/23 11:10 08/30/23 11:10 Labs: Laboratory Results - last 24 hr 08/30/23 11:10: WBC 10.6, RBC 4.71, Hgb 15.1, Hct 44.7, MCV 94.9 H, MCH 32.1 H, MCHC 33.8, RDW Std Deviation 46.6 H, RDW Coeff of Lulú 13.2, Plt Count 292, MPV 9.3, Immature Gran % (Auto) 0.300, Neut % (Auto) 75.5 H, Lymph % (Auto) 15.7 L, [place] % (Auto) 7.4, Eos % (Auto) 0.6, Baso % (Auto) 0.5, Absolute Neuts (auto) 8.0 H, Absolute Lymphs (auto) 1.66, Nucleated RBC % 0, Sodium 137, Potassium 3.8, Chloride 104, Carbon Dioxide 27.0, Anion Gap 6, BUN 16, Creatinine 1.01, Estim Creat Clear Calc 72.31, Est GFR (MDRD) Af Amer 94, Est GFR (MDRD) Non-Af 78, BUN/Creatinine Ratio 15.8, Glucose 149 H, Calcium 9.7, Troponin I High Sens 86 H 08/30/23 13:29: Troponin I High Sens 366 H*, Triglycerides 234 H, Cholesterol 284 H, LDL Cholesterol 182 H, VLDL Cholesterol 47 H, HDL Cholesterol 55 08/30/23 15:12: Activated Clotting Time 277 H 08/30/23 15:43: Activated Clotting Time 282 H Imaging Radiology Impression Chest X-Ray 08/30/23 11:14 IMPRESSION: Minimal linear atelectasis at the lung bases. Electronically Signed: Jason Cortes MD at 12:00 EDT Reading Location ID and State: [facility] / [place] , Service support , Assessment & Plan Assessment/Plan (1) Non-ST elevation [place] (NSTEMI): PLAN: Plan 1. Acute non-ST elevation [place] type II-demand supply mismatch, patient was admitted to PCU, he will be started on a statin this evening, lipid profile was ordered, CMP will be performed tomorrow, patient will have an echocardiogram performed tomorrow, he will remain on his present medications including Plavix and aspirin. #2 hyperlipidemia-I have elected to place the patient on a statin and Zetia, lipid profile was ordered #3 essential hypertension-cardiology will make adjustments to cardiac medications, patient will remain on his metoprolol and lisinopril hydrochlorothiazide. Total clinical time spent by myself addressing the patient's medical issues, reviewing all of his data, and collaborating with patient's care team: 55 minutes Charges/Coding Visit Charges Inpatient E&M: 42941 Init Hosp L2
[2023-08-30] MEDS: Heparin Injection (Vial) 5,000 UNIT/ML VIAL 5000 UNIT SC (22:04)
[2023-08-30] MEDS: Atorvastatin Calcium 20 MG Tablet PO (22:04)
[2023-08-31] VITALS (7 sets, daily range): BP systolic 83–110; BP diastolic 58–65; PULSE 64–79; RESP 16; TEMP 36.5; O2SAT 92–99
[2023-08-31] MEDS: 0.9% Normal Saline (1000mL) 1,000 ML 75 ML IV ×2 (00:09→13:41)
--- NOTE | 2023-08-31 07:19 | CRPHASE1_ITS ---
Patient Communication Patient Information Former Patient:: Phase I and Phase II PHII Cardiac Rehab Discussed with Patient:: Yes Guide to Cardiac Rehab Given to Patient:: Yes Communication to Cardiac Rehab Choice Program [facility] CR PHII:: Communication Given to CR Vacuum Metalizer Operator:: Lela Romero Phase II Cardiac Rehab:: Yes Sessions:: 36 sessions - 3 days/wk, 12 weeks Cardiac Rehabilitation Info Program Information Cardiac Rehabilitation Program Information: Cardiac Rehab The cardiac rehab team at [facility] consists of highly skilled exercise physiologists, nurses, respiratory therapists and physicians working together with you. Our purpose is to help you have a full recovery and achieve the goals you set for yourself. Over the years many of our patients have returned to activities they assumed they would never do again! We can help restore your confidence and motivation to make lifestyle changes that can have a significant impact on your health and quality of life! We can help answer questions and concerns you may have about exercise, lifestyle, medications, diet, stress and anxiety which are common following a hospitalization. WE monitor ECG and vital signs during exercise and discuss your progress with you and report to your physician(s). Cardiac Rehab is proven to help reduce readmissions, improve functional capacity and lower recurrence of problems with your heart. Our Cardiac Rehab program is Certified by the [place] [employer] Pulmonary [employer] (AACVPR) and Accredited by the [place] [employer] through our [facility]. You can contact us at . We invite you to call us with your questions or to get started in our program. If you have other questions or concerns be sure to ask your physician/provider during your follow-up visit. WE look forward to seeing you!
--- NOTE | 2023-08-31 07:20 | CRPH1.INSTRU ---
General Education Discussed with Patient CAD and cardiac anatomy and function:: Patient communicates acknowledgment Explanation of diagnoses and procedures:: Patient communicates acknowledgment Sign/Symptoms of [place]:: Patient communicates acknowledgment Antiplatelet therapy: Patient communicates acknowledgment Proper use of NTG-SL: Patient communicates acknowledgment Emergency procedures and activation of EMS: Patient communicates acknowledgment Compliance of all prescribed medications: Patient communicates acknowledgment Smoking Risk Factors Patient Nicotine/Smoking Risk Factors Are:: Never smoked Dyslipidemia Risk Factors Patient Dyslipidemia Risk Factors Are:: Total Cholesterol, Triglycerides, HDL and LDL Recommendations Recommendations Include:: Lipid profile provided, Reviewed NCEP/ATP guidelines and Therapeutic Lifestyle Change dietary guidelines Response Code Dyslipidemia Response Code:: Patient communicates acknowledgment Overweight/Obesity Risk Factors Patient Overweight/Obesity Risk Factors Are:: Overweight = 26-29 Recommendations Recommendations Include:: Weight loss of 5-10%, Reduced calorie diet and Exercise 5-7 times/week Response Code Overweight/Obesity:: Patient communicates acknowledgment Hypertension Recommendations Recommendations Include:: BP <130/80 if diabetic, DASH dietary guidelines, Decrease/maintain normal body weight and Moderation of ETOH Response Code Hypertension:: Patient communicates acknowledgment Heart Disease Risk Factors Patient Heart Disease Risk Factors Are:: Previous cardiac event Response Code Heart Disease Response Code:: Patient communicates acknowledgment Diabetes Risk Factors Patient Diabetes Risk Factors Are:: Elevated blood sugars and Post-op hyperglycemia Recommendations Recommendations Include:: Maintain fasting blood sugars 70-110 md/dL, Maintain HgbA1c of 6% or less, Monitor blood sugar as prescribed, Diabetic dietary guidelines and Decrease/maintain body weight Response Code Diabetes:: Patient communicates acknowledgment Metabolic Syndrome Recommendations Recommendations Include:: Patient is diabetic Sedentary Risk Factors Patient Sedentary Risk Factors Are:: Lack of regular exercise Recommendations Recommendations Include:: Aerobic exercise 5-7 times/week for 20-30 minutes continuously, Benefits of regular exercise, Discussed home walking program and Monitored Outpatient Cardiac Rehab Response Code Sedentary Response Code:: Patient communicates acknowledgment Stress Recommendations Recommendations Include:: Identification of stressors, and assessment of coping skills and Stress management techniques Response Code Stress Response Code:: Patient communicates acknowledgment
--- NOTE | 2023-08-31 07:41 | PCM.PN.CARD ---
Subjective Subjective Patient seen and evaluated. Had uneventful night. Objective Data Vital Signs: Vital Signs Temp Pulse Resp BP Pulse Ox O2 Del Method 97.7 F L 64 16 96/60 92 Room Air 08/31/23 06:04 08/31/23 06:04 08/31/23 06:04 08/31/23 06:04 08/31/23 07:30 08/31/23 07:30 Oxygen Delivery Method Room Air Weight: 182 lb Body Mass Index (BMI) 27.6 Intake & Output: Intake and Output for Last 24 Hours 08/29/23 08/30/23 08/31/23 23:59 23:59 23:59 Intake Total 1197.5 / 1197.5 980 / 980 Output Total 350 / 350 0 / 0 Balance 847.5 / 847.5 980 / 980 Lab / Micro Data 08/30/23 11:10 08/30/23 11:10 Labs: Laboratory Results - last 24 hr 08/30/23 11:10: WBC 10.6, RBC 4.71, Hgb 15.1, Hct 44.7, MCV 94.9 H, MCH 32.1 H, MCHC 33.8, RDW Std Deviation 46.6 H, RDW Coeff of Lulú 13.2, Plt Count 292, MPV 9.3, Immature Gran % (Auto) 0.300, Neut % (Auto) 75.5 H, Lymph % (Auto) 15.7 L, [place] % (Auto) 7.4, Eos % (Auto) 0.6, Baso % (Auto) 0.5, Absolute Neuts (auto) 8.0 H, Absolute Lymphs (auto) 1.66, Nucleated RBC % 0, Sodium 137, Potassium 3.8, Chloride 104, Carbon Dioxide 27.0, Anion Gap 6, BUN 16, Creatinine 1.01, Estim Creat Clear Calc 72.31, Est GFR (MDRD) Af Amer 94, Est GFR (MDRD) Non-Af 78, BUN/Creatinine Ratio 15.8, Glucose 149 H, Calcium 9.7, Troponin I High Sens 86 H 08/30/23 13:29: Troponin I High Sens 366 H*, Triglycerides 234 H, Cholesterol 284 H, LDL Cholesterol 182 H, VLDL Cholesterol 47 H, HDL Cholesterol 55 08/30/23 15:12: Activated Clotting Time 277 H 08/30/23 15:43: Activated Clotting Time 282 H 08/31/23 06:05: WBC Cancelled, Corrected WBC Cancelled, RBC Cancelled, Hgb Cancelled, Hct Cancelled, MCV Cancelled, MCH Cancelled, MCHC Cancelled, RDW Std Deviation Cancelled, RDW Coeff of Lulú Cancelled, Plt Count Cancelled, MPV Cancelled, Diff Path Review Cancelled, Sodium Cancelled, Potassium Cancelled, Chloride Cancelled, Carbon Dioxide Cancelled, Anion Gap Cancelled, BUN Cancelled, Creatinine Cancelled, Estim Creat Clear Calc Cancelled, Est GFR (MDRD) Af Amer Cancelled, Est GFR (MDRD) Non-Af Cancelled, BUN/Creatinine Ratio Cancelled, Glucose Cancelled, Calcium Cancelled, Total Bilirubin Cancelled, AST Cancelled, ALT Cancelled, Alkaline Phosphatase Cancelled, Total Protein Cancelled, Albumin Cancelled, Globulin Cancelled, Albumin/Globulin Ratio Cancelled, Triglycerides Cancelled, Cholesterol Cancelled, LDL Cholesterol Cancelled, VLDL Cholesterol Cancelled, HDL Cholesterol Cancelled Cardiology Labs/Tests 08/30/23 11:10: WBC 10.6, RBC 4.71, Hgb 15.1, Hct 44.7, MCV 94.9 H, MCH 32.1 H, MCHC 33.8, Plt Count 292, MPV 9.3, Immature Gran % (Auto) 0.300, Neut % (Auto) 75.5 H, Lymph % (Auto) 15.7 L, [place] % (Auto) 7.4, Eos % (Auto) 0.6, Baso % (Auto) 0.5, Absolute Neuts (auto) 8.0 H, Nucleated RBC % 0, Sodium 137, Potassium 3.8, Chloride 104, Carbon Dioxide 27.0, Anion Gap 6, BUN 16, Creatinine 1.01, Est GFR (MDRD) Af Amer 94, Est GFR (MDRD) Non-Af 78, BUN/Creatinine Ratio 15.8, Glucose 149 H, Calcium 9.7 08/30/23 13:29: Triglycerides 234 H, Cholesterol 284 H, LDL Cholesterol 182 H, VLDL Cholesterol 47 H, HDL Cholesterol 55 08/31/23 06:05: WBC Cancelled, Corrected WBC Cancelled, RBC Cancelled, Hgb Cancelled, Hct Cancelled, MCV Cancelled, MCH Cancelled, MCHC Cancelled, Plt Count Cancelled, MPV Cancelled, Sodium Cancelled, Potassium Cancelled, Chloride Cancelled, Carbon Dioxide Cancelled, Anion Gap Cancelled, BUN Cancelled, Creatinine Cancelled, Est GFR (MDRD) Af Amer Cancelled, Est GFR (MDRD) Non-Af Cancelled, BUN/Creatinine Ratio Cancelled, Glucose Cancelled, Calcium Cancelled, Total Bilirubin Cancelled, Triglycerides Cancelled, Cholesterol Cancelled, LDL Cholesterol Cancelled, VLDL Cholesterol Cancelled, HDL Cholesterol Cancelled Rhythm: EKG: ECHO: Stress Test: Cardiac Cath: PCI: CT Surgery: Holter monitor: EPS: PPM: CXR: Chest CT Scan: Radiography Diagnostic Testing: Radiology Impression Chest X-Ray 08/30/23 11:14 IMPRESSION: Minimal linear atelectasis at the lung bases. Electronically Signed: Jason Cortes MD at 12:00 EDT Reading Location ID and State: [address] [place] [address] , Service support , Physical Exam Const alert, oriented x3 and no apparent distress General Appearance: cooperative HEENT hearing grossly normal bilaterally Head and Scalp: atraumatic Eyes EOMs intact bilaterally Neck General: normal visual inspection Chest inspection of chest normal and palpation of chest normal Resp normal respiratory effort Auscultation: clear to auscultation bilaterally Cardio regular rate, regular rhythm, S1 normal heart sound and S2 normal heart sound Jugular Venous Distention: JVD GI normal to inspection, nondistended, normoactive bowel sounds Extremity normal capillary refill and no pedal edema Peripheral Pulses: Yes pulses 2+ throughout and femoral pulses present Skin no rashes or lesions noted Neuro oriented x3 and CN's II-XII intact bilaterally Psych Appearance: grossly normal and appropriate Assessment & Plan Assessment/Plan (1) Non-ST elevation [place] (NSTEMI): PLAN: He does have a history of non-ST elevation myocardial infarction. Patient had multivessel coronary artery disease as noted in the cath report. The LAD was stented. The circumflex and right coronary artery will be treated with medical therapy for now Would recommend the addition of isosorbide to 30 mg a day Ideally would have been a candidate for colchicine 0.5 mg twice a day but this is not available except at a very high cost. (2) History of coronary artery stent placement: PLAN: He does have previous coronary artery stenting as noted above. The plan will be to evaluate his coronary anatomy and depending on the findings further recommendations made (3) Essential (primary) hypertension: PLAN: He does have a history of hypertension his blood pressure is under good control I would not make any changes. (4) HLD (hyperlipidemia): QUALIFIERS: Hyperlipidemia type: pure hypercholesterolemia Qualified Code(s): E78.00 - Pure hypercholesterolemia, unspecified; E78.0 - Pure hypercholesterolemia PLAN: He will continue with aggressive risk factor modification. I would recommend that he be considered for Repatha as an outpatient.
[2023-08-31 07:46] LABS: Hematocrit 39.6 % (40-54); Mean Corp Hgb Conc 32.8 g/dL (32-36); Mean Corpuscular Hgb 31.9 pg (27.0-32.0); Mean Corpuscular Volume 97.1 fL (80-94); Mean Platelet Vol. 9.2 fl (6.2-12.0); Platelet Count 232 K/mm3 (150-450); RBC Distribution Width CV 13.8 % (11.6-14.6); RBC Distribution Width SD 48.6 fl (35.1-43.9); Red Blood Count 4.08 M/mm3 (4.6-6.2); White Blood Count 8.3 K/mm3 (4.4-11.0)
[2023-08-31 08:03] LABS: AST(SGOT) 30 U/L (15-37); Alanine Aminotransfer ALT/SGPT 31 U/L (16-61); Albumin, Serum 3.3 g/dL (3.2-5.0); Alkaline Phosphatase 66 U/L (45-117); Anion Gap 5 (5-15); BUN 12 mg/dL (7-18); BUN/Creat Ratio 14.1 RATIO (10-20); Calcium,Total 8.8 mg/dL (8.5-10.1); Chloride 108 mmol/L (98-107); Cholesterol 237 mg/dL (200); Creatinine, Serum 0.85 mg/dL (0.70-1.30); EST Glomerular Filtration Rate 95 mL/min (>60); Est Glom Filt Rate - Afr Amer 115 mL/min (>60); Estimated Creatinine Clearance 85.92 ml/min; Globulin 3.2 g/dL (2.2-4.2); Glucose 113 mg/dL (74-106); High Density Lipoprotein 41 mg/dL; Potassium 3.9 mmol/L (3.5-5.1); Protein, Total 6.5 g/dL (6.4-8.2); Sodium Level 138 mmol/L (136-145); Triglycerides 393 mg/dL; Very Low Density Lipoprotein 79 mg/dL (5-40)
[2023-08-31] MEDS: Heparin Injection (Vial) 5,000 UNIT/ML VIAL 5000 UNIT SC (09:11)
[2023-08-31] MEDS: Aspirin 81 MG TAB.CHEW PO (09:11)
[2023-08-31] MEDS: Clopidogrel Bisulfate 75 MG Tablet PO (09:12)
[2023-08-31] MEDS: Ezetimibe 10 MG Tablet PO (09:17)
[2023-08-31] MEDS: Metoprolol(XL)Succ 50 MG Tablet PO (09:17)
[2023-08-31] MEDS: 0.9% Saline Lock 10 ML Syringe IV (09:19)
--- NOTE | 2023-08-31 09:45 | CASEMGMT ---
RN CM Face to Face with patient for initial transition planning/care coordination assessment. RN CM introduced self and role at [facility]. Patient lying in bed, alert and oriented. Patient willing to participate in assessment and is able to answer all questions appropriately. Care providers, pharmacy, and demographics verified. PCP: Stephen Specialists: Negr[facility] Preferred Pharmacy: [facility] Insurance: [employer] [facility] Prescription Benefit: yes Living Will/HPOA: none LNOK: Living Arrangements: Patient lives with in a 2 story home. Patient is independent and able to ambulate stairs. Transportation: self, DME/HHC: Patient has raised toilet and cane at home. No previous HHC or SNF Patient wishes to discharge home, denies need for home health at this time. Patient states he has no further needs or concerns at this time. CM to follow for discharge planning needs that may arise. Disposition Plan: Patient to discharge home with family support and follow-up plans in place. Oksana CORREIA, RN, CM
--- NOTE | 2023-08-31 10:00 | EKG12_ITS ---
Test Reason : AM EKG Blood Pressure : / mmHG Vent. Rate : 061 BPM Atrial Rate : 061 BPM P-R Int : 152 ms QRS Dur : 084 ms QT Int : 400 ms P-R-T Axes : 044 022 031 degrees QTc Int : 402 ms Normal sinus rhythm Normal ECG When compared with ECG of 30-AUG-2023 11:03, MANUAL COMPARISON REQUIRED, DATA IS UNCONFIRMED Confirmed by PANCHITO GRIJALVA, TOMMY ([id number]), assistant editor NEVAEH CELESTIN ([id number]) on 08/31/2023 10:50:36 AM Referred By: Confirmed By:TOMMY FLANAGAN MD
[2023-08-31] MEDS: Acetaminophen 325 MG Tablet 650 MG PO (10:21)
[2023-08-31] MEDS: Lisinopril 10 MG Tablet PO (10:39)
[2023-08-31] MEDS: hydroCHLOROthiazide 6.25mg TAB 6.25 MG PO (10:39)
[2023-08-31] MEDS: amLODIPine 2.5 MG Tablet PO (12:27)
[2023-08-31] MEDS: Isosorbide Mononitrate 30 MG Tablet PO (12:27)
--- NOTE | 2023-08-31 12:44 | PCM.DC ---
Discharge Instructions Diet Discharge Diet: No restrictions Activity Discharge Activity: Return to Normal Activity Weight Bearing Status: Full weight bearing Follow Up Care Test Results: Test results from this visit will be discussed in further detail at your follow-up appointment, if applicable. Discharge Plan Admission Admit Date/Time: 08/30/23 14:12 Primary Reason for Your Visit: acute ME Attending Provider: Aneudy Gracia Primary Care Provider: Mitchel Mitchell Chi Consulting Providers: Bart Mahan Discharge Orders/Prescriptions Prescriptions: New atorvastatin 20 mg Tablet 20 mg PO UD Qty: 60 0RF Rx Instructions: take one to two daily isosorbide mononitrate 30 mg Tablet Extended Release 24 Hr 30 mg PO DAILY Qty: 30 0RF amlodipine 2.5 mg Tablet 2.5 mg PO DAILY Qty: 30 0RF nitroglycerin 0.4 mg Tablet, Sublingual 0.4 mg sublingual Q5M PRN (Reason: Cardiac/Chest Pain) Qty: 25 0RF ezetimibe 10 mg Tablet 10 mg PO DAILY Qty: 30 0RF Continued aspirin 81 MG tablet,chewable 81 mg PO DAILY@0800 meclizine 25 mg tablet 25 mg PO TID PRN (Reason: dizziness) Qty: 20 0RF cholecalciferol (vitamin D3) 50 mcg (2,000 unit) capsule 50 mcg PO DAILY metoprolol succinate 50 mg tablet extended release 24 hr 50 mg PO DAILY Qty: 90 3RF lisinopril-hydrochlorothiazide 20-12.5 mg tablet 0.5 tab PO DAILY Qty: 45 3RF clopidogrel 75 mg tablet 75 mg PO QDAY Qty: 90 3RF No Action nitroglycerin 0.4 MG tablet 0.4 mg SUBLINGUAL Q5M PRN (Reason: Chest Pain) Referrals / Follow Up: Bart Mahan MD [Med Staff - Active Staff] - See Referral Note (offfice will call) Mitchel Mitchell Chi, MD [Primary Care Provider] - Disposition Disposition (needs filled in before D/C Order can be placed): Home, Self Care
--- NOTE | 2023-08-31 13:12 | PCM.DC.SUM ---
Providers Date of Admission: 08/30/23 Date of Discharge: 08/31/23 Primary Care Physician: Dr. Mitchel Mitchell MD Consultations 08/30/23 17:58 Consult: Cardiology Routine Consulting Provider: Bart Mahan Reason for Consult: type 2 ND EMERGENT Consult: No MD Notified: Yes Date Notified: 08/30/23 Time Notified: 14:17 Method of Notification: Verbal Reason For Visit: NSTEMI Diagnosis Discharge Diagnosis (1) Non-ST elevation ND (NSTEMI): Status: Acute Code(s): I21.4 - Non-ST elevation (NSTEMI) myocardial infarction (2) History of coronary artery stent placement: Status: Resolved Code(s): Z95.5 - Presence of coronary angioplasty implant and graft (3) Essential (primary) hypertension: Status: Chronic Code(s): I10 - Essential (primary) hypertension (4) HLD (hyperlipidemia): Status: Chronic Code(s): E78.5 - Hyperlipidemia, unspecified Qualifiers: Hyperlipidemia type: pure hypercholesterolemia Qualified Code(s): E78.00 - Pure hypercholesterolemia, unspecified; E78.0 - Pure hypercholesterolemia Plan 1. Acute non-ST elevation ND type II-demand supply mismatch, patient was admitted to PCU, he will be started on a statin this evening, lipid profile was ordered, CMP will be performed tomorrow, patient will have an echocardiogram performed tomorrow, he will remain on his present medications including Plavix and aspirin. #2 hyperlipidemia-I have elected to place the patient on a statin and Zetia, lipid profile was ordered #3 essential hypertension-cardiology will make adjustments to cardiac medications, patient will remain on his metoprolol and lisinopril hydrochlorothiazide. Total clinical time spent by myself addressing the patient's medical issues, reviewing all of his data, and collaborating with patient's care team: 55 minutes Medications at Discharge Home Medications aspirin 81 mg chewable tablet 81 mg PO DAILY@0800 [facility] 08/14/13 metoprolol succinate 50 mg tablet,extended release 24 hr 50 mg PO DAILY BLOOD PRESSURE #90 tabs 10/05/22 meclizine 25 mg tablet 25 mg PO TID PRN dizziness #20 tabs 10/14/22 lisinopril 20 mg-hydrochlorothiazide 12.5 mg tablet 0.5 tab PO DAILY BLOOD PRESSURE #45 tabs 10/20/22 clopidogrel 75 mg tablet 75 mg PO QDAY CHOLESTEROL #90 tabs 12/31/22 cholecalciferol (vitamin D3) 50 mcg (2,000 unit) capsule 50 mcg PO DAILY SUPPLEMENT 08/30/23 atorvastatin 20 mg tablet 20 mg PO UD #60 tabs 08/31/23 ezetimibe 10 mg tablet 10 mg PO DAILY #30 tabs 08/31/23 nitroglycerin 0.4 mg sublingual tablet 0.4 mg sublingual Q5M PRN Cardiac/Chest Pain #25 tabs 08/31/23 Hospital Course Operations None Procedures 2-D Echocardiogram and Cardiac catheterization (With insertion of 2 drug-eluting stents-1 in the distal LAD and 1 in the mid LAD) Summary of Care Provided Minutes Spent on Discharge: 31 Hospital Course: This 68-year-old white male was seen in the emergency room at [facility] with complaints of intermittent substernal chest discomfort that had been going on for a couple of weeks. Lab done in the emergency room showed normal CBC, patient's troponin was elevated however, EKG showed nonspecific ST-T wave changes in the anterior leads. Cardiology was contacted directly by the emergency room physician and he was taken to the [facility] where to drug-eluting stents were placed, patient did well during his hospitalization and had no untoward events. Echocardiogram performed on the patient showed an EF of 55%. Patient had not been on a statin recently because he was instructed to stop it due to to liver enzyme elevations. I performed a CMP on the patient which showed no evidence of elevated liver enzymes and the patient agreed to go on a statin once again, his liver enzymes will be monitored as an outpatient. On 08/31/2023, patient was seen and examined: On examination he appeared in good health and spirits. Vital signs as documented. Skin warm and dry and without overt rashes. Neck without JVD, neck was supple, trachea midline, thyroid was normal. Lungs clear bilaterally, normal air movement was noted. Heart exam notable for regular rhythm, normal sounds and absence of murmurs, rubs or gallops. Abdomen unremarkable and without evidence of organomegaly, masses, or abdominal aortic enlargement. Bowel sounds are present, abdomen is not distended. Extremities nonedematous, no cyanosis was noted, no clubbing was noted. Neuro: Cranial nerves II through XII are grossly intact, no focal motor deficits were noted, sensation to light touch and pinprick intact, motor exam 5/5 throughout. Psych: Patient is alert and oriented x3, he does not appear anxious or depressed, he does not appear agitated. On 08/31/2023, patient was seen and examined and felt to be in stable condition for discharge home Weight / BMI Weight Weight: 82.554 kg Body Mass Index (BMI) 27.6 ABG / Lab / Microbiology Data 08/31/23 07:26 08/31/23 07:26 Laboratory: Laboratory Results - last 24 hr 08/30/23 13:29: Troponin I High Sens 366 H*, Triglycerides 234 H, Cholesterol 284 H, LDL Cholesterol 182 H, VLDL Cholesterol 47 H, HDL Cholesterol 55 08/30/23 15:12: Activated Clotting Time 277 H 08/30/23 15:43: Activated Clotting Time 282 H 08/31/23 06:05: WBC Cancelled, Corrected WBC Cancelled, RBC Cancelled, Hgb Cancelled, Hct Cancelled, MCV Cancelled, MCH Cancelled, MCHC Cancelled, RDW Std Deviation Cancelled, RDW Coeff of Lulú Cancelled, Plt Count Cancelled, MPV Cancelled, Diff Path Review Cancelled, Sodium Cancelled, Potassium Cancelled, Chloride Cancelled, Carbon Dioxide Cancelled, Anion Gap Cancelled, BUN Cancelled, Creatinine Cancelled, Estim Creat Clear Calc Cancelled, Est GFR (MDRD) Af Amer Cancelled, Est GFR (MDRD) Non-Af Cancelled, BUN/Creatinine Ratio Cancelled, Glucose Cancelled, Calcium Cancelled, Total Bilirubin Cancelled, AST Cancelled, ALT Cancelled, Alkaline Phosphatase Cancelled, Total Protein Cancelled, Albumin Cancelled, Globulin Cancelled, Albumin/Globulin Ratio Cancelled, Triglycerides Cancelled, Cholesterol Cancelled, LDL Cholesterol Cancelled, VLDL Cholesterol Cancelled, HDL Cholesterol Cancelled 08/31/23 07:26: WBC 8.3, RBC 4.08 L, Hgb 13.0, Hct 39.6 L, MCV 97.1 H, MCH 31.9, MCHC 32.8, RDW Std Deviation 48.6 H, RDW Coeff of Lulú 13.8, Plt Count 232, MPV 9.2, Sodium 138, Potassium 3.9, Chloride 108 H, Carbon Dioxide 25.0, Anion Gap 5, BUN 12, Creatinine 0.85, Estim Creat Clear Calc 85.92, Est GFR (MDRD) Af Amer 115, Est GFR (MDRD) Non-Af 95, BUN/Creatinine Ratio 14.1, Glucose 113 H, Calcium 8.8, Total Bilirubin 0.50, AST 30, ALT 31, Alkaline Phosphatase 66, Total Protein 6.5, Albumin 3.3, Globulin 3.2, Albumin/Globulin Ratio 1.0, Triglycerides 393 H, Cholesterol 237 H, LDL Cholesterol 117, VLDL Cholesterol 79 H, HDL Cholesterol 41 Radiography Diagnostic Testing: Radiology Impression Echocardiogram 08/30/23 17:58 Interpretation Summary Normal LV size. Left ventricular systolic function is normal. The estimated ejection fraction is 55 %. Moderate focal aortic valve calcification. Mean aortic valve gradient 9 mmHg. Mild aortic stenosis. Ordering Physician: Aneudy Gracia Referring Physician: Mitchel Mitchell Chi Performed By: Vidhi Marks, ALINA, RVT D/C Instructions Discharge Diet: No restrictions Weight Bearing Status: Full weight bearing Meaningful Use Info Meaningful Use Diagnoses (Choose all that apply): AMI AMI/Post PCI/Angioplasty Aspirin given w/in 24hrs of arrival?: Yes ASA at discharge?: Yes Statins at discharge?: Yes Jesus/ARB at discharge?: Yes Beta Lloyd at discharge?: Yes Done w/ Acute ND measure.: Yes Discharge Plan Admission Admit Date/Time: 08/30/23 14:12 Primary Reason for Your Visit: acute ND Attending Provider: Aneudy Gracia Primary Care Provider: Mitchel Mitchell Chi Consulting Providers: Bart Mahan Discharge Orders/Prescriptions Prescriptions: New atorvastatin 20 mg Tablet 20 mg PO UD Qty: 60 0RF Rx Instructions: take one to two daily nitroglycerin 0.4 mg Tablet, Sublingual 0.4 mg sublingual Q5M PRN (Reason: Cardiac/Chest Pain) Qty: 25 0RF ezetimibe 10 mg Tablet 10 mg PO DAILY Qty: 30 0RF Continued aspirin 81 MG tablet,chewable 81 mg PO DAILY@0800 meclizine 25 mg tablet 25 mg PO TID PRN (Reason: dizziness) Qty: 20 0RF cholecalciferol (vitamin D3) 50 mcg (2,000 unit) capsule 50 mcg PO DAILY metoprolol succinate 50 mg tablet extended release 24 hr 50 mg PO DAILY Qty: 90 3RF lisinopril-hydrochlorothiazide 20-12.5 mg tablet 0.5 tab PO DAILY Qty: 45 3RF clopidogrel 75 mg tablet 75 mg PO QDAY Qty: 90 3RF Referrals / Follow Up: Bart Mahan MD [Med Staff - Active Staff] - See Referral Note (offfice will call) Mitchel Mitchell Chi, MD [Primary Care Provider] - Disposition Disposition (needs filled in before D/C Order can be placed): Home, Self Care Charges/Coding Visit Charges Inpatient E&M: 71833 Disch Hosp >30min
--- NOTE | 2023-08-31 14:26 | CL.D_ITS ---
Patient Name: EMELY LAURA Study Date: 08/30/2023 Performing: Brat Mhaan MD Ht: 68 inches 172.72 cm : 1955 Wt: 182.2 lbs 82.55 kg Age: 68 Gender: male BSA: 1.96 PROCEDURE(S) PERFORMED DC01-(68494)LHC/COR/LV IC12-(31088/C9600)KULWINDER W/WO PTCA, SINGLE CORONARY ARTERY CLINICAL PROFILE AND INDICATIONS Indications: ACS <= 24 hrs, Worsening Angina Heart Failure: None Stress/Imaging Stress/Image Study Performed: No Angina Classification Anginal Classification w/in 2 Weeks: CCS IV CAD Presentations: Non-STEMI. Symptom onset Date/Time: Time Not Available Non-STEMI. Symptom onset Date/Time: 08/30/23 Time Not Available CONCLUSIONS Diffuse three-vessel disease with poor distal targets but with high-grade mid LAD disease and distal high-grade right coronary artery disease in the PL and PDA branch. RECOMMENDATIONS Referred for immediate PCI DESCRIPTION OF PROCEDURE The patient arrived to the procedure lab. The risks and benefits of the procedure as well as a full description of our services here and current unavailability of surgical backup were fully explained to the patient and/or their significant other prior to the catheterization. The Timeout was completed, verifying the correct patient and procedure. The patient's procedural site was prepped and draped in the usual fashion. Local anesthetic was given subcutaneously to right radial region with Lidocaine 2%. Using a modified Seldinger technique, arterial access was obtained via the right radial artery, a 6Fr sheath was inserted. Right Coronary Artery selective angiography was then performed in multiple views using a 5 Fr. 4.0 [place] catheter. Left Coronary Artery selective angiography was performed in multiple views using a 5 Fr. JL3.5 catheter. Left Ventriculography was performed in GOLDBERG projection using a 5 Fr. Pigtail catheter. LV to AO pullback pressures were then recorded.The arterial sheath was pulled and a TR Band was applied for hemostasis 14 ml of air CORONARY ANGIOGRAPHY DOMINANCE: Right Dominant LEFT HEART ASSESSMENT Left Ventricular Ejection Fraction: by LV Gram 60 % Normal Left Ventricular systolic function LEFT MAIN: Angiographically normal LEFT ANTERIOR DESCENDING ARTERY: Left anterior descending artery was stented in the proximal region which is noted to be patent followed by a mid segment stent which is patent with 50% in-stent stenosis and then immediately after that is an area of 90% stenosis present. Distal in the LAD is a 50 to 60% stenotic area noted. The first diagonal is diffusely diseased with 50% proximal stenosis. CIRCUMFLEX ARTERY: This is a nondominant vessel previously stented in the midsegment with no significant stenosis with a stent extending to the first obtuse marginal branch with mild disease noted. The distal circumflex artery has an 80% stenotic lesion. RAMUS: Small vessel with diffuse disease in proximal long 80% stenosis. RIGHT CORONARY ARTERY: This vessel is dominant diffusely diseased in the proximal and mid segment with 30% stenosis. The vessel bifurcates the posterolateral vessel with a 90% stenosis noted proximally and the posterior descending artery with a long 90% stenotic lesion noted. This vessel is diffusely diseased. COMPLICATIONS No Complications PROCEDURE MEDICATIONS Fentanyl 50 mcg IV Versed 1 mg IV Oxygen: 2 L/min via nasal cannula Heparin given IA 08/30/2023 14:45:44 Heparin 6000 unit(s) IV 08/30/2023 15:02:27 Heparin 2000 unit(s) IV 08/30/2023 15:37:16 Nitro 200 mcg IC 08/30/2023 15:31:45 Plavix 300 mg PO 08/30/2023 16:00:39 Verapamil 2.5mg, Ntg 200mcgs, 2000 units of Heparin given IA 08/30/2023 14:45:44 SUMMARY OF HEMODYNAMIC DATA Time AIR REST ECG 14:31:01 AO 101/68 (84) SA 14:48:56 LV 134/5, 16 14:57:44 LV 132/6, 26 14:58:14 LVp 130/6, 20 14:58:23 LVp 139/8, 21 14:58:56 AOp 132/63 (95) 14:59:03 AO 129/73 (96) 15:16:15 Signed By Bart Mahan MD On 08/30/2023 16:33:04 Bart Mahan MD
--- NOTE | 2023-08-31 14:26 | CL.I_ITS ---
Patient Name: EMELY LAURA Study Date: 08/30/2023 Performing: Lela Romero MD Ht: 68 inches 172.72 cm : 1955 Wt: 181.99 lbs 82.55 kg Age: 68 Gender: male BSA: 1.96 PROCEDURE(S) PERFORMED IC12-(51009/C9600)KULWINDER W/WO PTCA, SINGLE CORONARY ARTERY CLINICAL PROFILE AND CO-MORBIDITIES Indications: ACS <= 24 hrs Heart Failure: None Angina Classification Anginal Classification w/in 2 Weeks: CCS IV CAD Presentations: Non-STEMI. Symptom onset Date/Time: Time Not Available CONCLUSIONS Successful PTCA/KULWINDER Mid LAD ISR using Mil[place] 2.75x15 mm, post-dilated using 3.0 mm balloon Successful KULWINDER distal LAD using [place] 2.25x12 mm, post-dilated using 2.5 mm balloon RECOMMENDATIONS ASA Indefinitley Plavix for at least 12 months DESCRIPTION OF PROCEDURE The patient arrived to the procedure lab. The risks and benefits of the procedure as well as a full description of our services here and current unavailability of surgical backup were fully explained to the patient and/or their significant other prior to the catheterization. The Timeout was completed, verifying the correct patient and procedure. The patient's procedural site was prepped and draped in the usual fashion. Local anesthetic was given subcutaneously to right radial region with Lidocaine 2% Using a modified Seldinger technique,arterial access was obtained via the right radial artery, a 6Fr sheath was inserted. Right Coronary Artery selective angiography was then performed in multiple views using a 5 Fr. 4.0 [place] catheter. Left Coronary Artery selective angiography was performed in multiple views using a 5 Fr. JL3.5 catheter. Left Ventriculography was performed in GOLDBERG projection using a 5 Fr. Pigtail catheter. LV to AO pullback pressures were then recorded. runthrough extra floppy Guide wire was advanced to the LAD. XB3 Guide catheter was inserted and engaged into the LCA. EMERGE MONORAIL 2.0 X 12 Balloon catheter was inserted. Balloon catheter was advanced across lesion in the LAD, mid. PTCA balloon inflated at 6 atms for 6 secs. PTCA balloon inflated at 8 atms for 8 secs. PTCA balloon inflated at 12 atms for 12 secs. Angiogram performed post balloon dilatation. MILAGRO FRONTIER 2.25 X 12 Drug Eluting stent was advanced across the lesion in the LAD, distal. Angiogram performed pre stent deployment. Drug Eluting stent was inserted. MILAGRO FRONTIER 2.75 X 15 Drug Eluting stent was inserted. Drug Eluting stent was advanced across the lesion in the LAD, mid. Angiogram performed post stent deployment. EMERGE [place] 2.5 X 8 Balloon catheter was inserted. Balloon catheter was inserted post stent. NC EMERGE 3.0 X 12 Balloon catheter was inserted. Balloon catheter was inserted post stent. Angiogram performed post balloon dilatation. The arterial sheath was pulled and a TR Band was applied for hemostasis 14 ml of air INTERVENTION INFORMATION LESION SITE: LAD (Mid) Lesion Complexity: Non-High/Non-C, lesion length: 13 mm, In-stent restenosis: Yes Pre Stenosis: 99 % Pre intervention ERI flow: 3 PROCEDURE: Drug Eluting Stent with pre and post dilatation Post Stenosis: 0 % Post intervention ERI flow: 3 Lesion Devices: Cordis 6 Fr XB3.0 100cm Guide Catheter Terumo .014 180cm Runthrough Extra Floppy straight Yasmani Sci EMERGE MR 2.00x12 BALLOON Medtronic 2.75 x 15 MILAGRO FRONTIER KULWINDER Yasmani Sci NC EMERGE MR 3.00x12 BALLOON LESION SITE: LAD (Distal) Lesion Complexity: Non-High/Non-C, lesion length: 10 mm Pre Stenosis: 80 % Pre intervention ERI flow: 3 PROCEDURE: Drug Eluting Stent with post dilatation Post Stenosis: 0 % Post intervention ERI flow: 3 Lesion Devices: Medtronic 2.25 x 12 MILAGRO FRONTIER KULWINDER Yasmani Sci NC EMERGE MR 2.50x08 BALLOON COMPLICATIONS No Complications PROCEDURE MEDICATIONS Fentanyl 50 mcg IV Versed 1 mg IV Oxygen: 2 L/min via nasal cannula Heparin given IA 08/30/2023 14:45:44 Heparin 6000 unit(s) IV 08/30/2023 15:02:27 Heparin 2000 unit(s) IV 08/30/2023 15:37:16 Nitro 200 mcg IC 08/30/2023 15:31:45 Verapamil 2.5mg, Ntg 200mcgs, 2000 units of Heparin given IA 08/30/2023 14:45:44 SUMMARY OF HEMODYNAMIC DATA Time AIR REST ECG 14:31:01 AO 101/68 (84) SA 14:48:56 LV 134/5, 16 14:57:44 LV 132/6, 26 14:58:14 LVp 130/6, 20 14:58:23 LVp 139/8, 21 14:58:56 AOp 132/63 (95) 14:59:03 AO 129/73 (96) 15:16:15 Signed By Lela Romero MD On 08/30/2023 16:00:27 Lela Romero MD
--- NOTE | 2023-08-31 14:36 | PHA.DC.MC.R ---
Pharmacy [facility] has performed discharge medication reconciliation and counseling for this patient. 1. AMLODIPINE 2.5MG PO DAILY 2. ATORVASTATIN 20MG 1-2 T PO DAILY 3. EZETIMIBE 10MG PO DAILY 4. ISOSORBIDE MONONITRATE 30MG PO DAILY The patient's discharge medication list was reviewed for discrepancies and discrepancies were resolved. The patient was counseled on the following discharge medications and changes in medications for homegoing were reviewed. The Reason for Use, instructions for use, and potential side effects were reviewed for all new medications. The patient's questions regarding all of their medications were answered. The patient was able to verbally demonstrate an understanding of their discharge medications. Medications at Discharge Home Medications aspirin 81 mg chewable tablet 81 mg PO DAILY@0800 [facility] 08/14/13 metoprolol succinate 50 mg tablet,extended release 24 hr 50 mg PO DAILY BLOOD PRESSURE #90 tabs 10/05/22 meclizine 25 mg tablet 25 mg PO TID PRN dizziness #20 tabs 10/14/22 lisinopril 20 mg-hydrochlorothiazide 12.5 mg tablet 0.5 tab PO DAILY BLOOD PRESSURE #45 tabs 10/20/22 clopidogrel 75 mg tablet 75 mg PO QDAY CHOLESTEROL #90 tabs 12/31/22 cholecalciferol (vitamin D3) 50 mcg (2,000 unit) capsule 50 mcg PO DAILY SUPPLEMENT 08/30/23 amlodipine 2.5 mg tablet 2.5 mg PO DAILY #30 tabs 08/31/23 atorvastatin 20 mg tablet 20 mg PO UD #60 tabs 08/31/23 ezetimibe 10 mg tablet 10 mg PO DAILY #30 tabs 08/31/23 isosorbide mononitrate 30 mg tablet,extended release 24 hr 30 mg PO DAILY #30 tabs 08/31/23 nitroglycerin 0.4 mg sublingual tablet 0.4 mg sublingual Q5M PRN Cardiac/Chest Pain #25 tabs 08/31/23
[2023-09-01 13:02] LABS: ACT Activated Clotting Time 277 sec (74-137)
[2023-09-01 13:02] LABS: ACT Activated Clotting Time 282 sec (74-137)
== END 2023-08-31 16:56 | disposition home or self-care (01) | DRG 321 ==
LOC: ED 12:27 → PCU 12:46
PROVIDERS: Admitting Provider Internal Medicine; Emergency Provider Emergency Medicine; PCP Family Medicine Geriatric Medicine; Visit Provider Internal Medicine
DX: T82.855A Stenosis of coronary artery stent, initial encounter (principal); I21.4 Non-ST elevation (NSTEMI) myocardial infarction; E11.9 Type 2 diabetes mellitus without complications; I25.119 Atherosclerotic heart disease of native coronary artery with unspecified angina pectoris; I10 Essential (primary) hypertension; E78.00 Pure hypercholesterolemia, unspecified; Y71.2 Prosthetic and other implants, materials and accessory cardiovascular devices associated with adverse incidents; Z79.82 Long term (current) use of aspirin; Z79.02 Long term (current) use of antithrombotics/antiplatelets; Z79.899 Other long term (current) drug therapy; Z87.891 Personal history of nicotine dependence; Z95.5 Presence of coronary angioplasty implant and graft
CPT/HCPCS: 71045; 80048; 80053; 80061; 84484; 85025; 85027; 85347; 92928; 93005; 93306; 93458; 99152; 99153; 99284; J7030; J7040; Q9967; A4216; C1725; C1769; C1874; C1887; C1894; C9600

== ENCOUNTER → 2023-11-02 | Outpatient (CLI) | payer MEDICARE, SELFPAY ==
[2023-11-02 12:51] LABS: Absolute Lymphocyte Count 1.74 X10^3/uL (0.83-4.51); Absolute Neutrophil Count 4.4 X10^3/uL (2.0-7.7); Basophil# 0.06 X10^3/uL; Basophil% 0.8 % (0-1); Eosinophil# 0.16 X10^3/uL; Eosinophils% 2.3 % (0-5); Hemoglobin 13.7 g/dL (13.0-16.5); Lymphocyte # 1.74 X10^3/ul (0.83-4.51); Lymphocyte % 24.6 % (19-41); Mean Corp Hgb Conc 33.4 g/dL (32-36); Mean Corpuscular Hgb 32.4 pg (27.0-32.0); Mean Corpuscular Volume 96.9 fL (80-94); Mean Platelet Vol. 8.9 fl (6.2-12.0); Monocyte# 0.72 X10^3/uL; Monocyte% 10.2 % (0-10); NRBC Flagged by Analyzer 0 % (0-5); Neutrophil # 4.35 X10^3/uL (2.7-7.7); Neutrophil % 61.7 % (47-70); Platelet Count 269 K/mm3 (150-450); RBC Distribution Width CV 13.7 % (11.6-14.6); RBC Distribution Width SD 48.6 fl (35.1-43.9); Red Blood Count 4.23 M/mm3 (4.6-6.2); White Blood Count 7.1 K/mm3 (4.4-11.0)
[2023-11-02 13:27] LABS: ALB/GLOB Ratio 1.1 RATIO (0.9-2.4); AST(SGOT) 31 U/L (15-37); Alanine Aminotransfer ALT/SGPT 36 U/L (16-61); Albumin, Serum 3.8 g/dL (3.2-5.0); Alkaline Phosphatase 96 U/L (45-117); Anion Gap 6 (5-15); BUN 19 mg/dL (7-18); BUN/Creat Ratio 19.9 RATIO (10-20); Calcium,Total 9.2 mg/dL (8.5-10.1); Chloride 104 mmol/L (98-107); Creatinine, Serum 0.95 mg/dL (0.70-1.30); EST Glomerular Filtration Rate 83 mL/min (>60); Est Glom Filt Rate - Afr Amer 100 mL/min (>60); Globulin 3.6 g/dL (2.2-4.2); Glucose 121 mg/dL (74-106); Protein, Total 7.4 g/dL (6.4-8.2); Sodium Level 137 mmol/L (136-145); Thyroid Stim Hormone (TSH) 1.57 uIU/mL (0.358-3.74)
[2023-11-02 13:44] LABS: Vitamin D,25 Hydroxy 39.2 ng/mL
== END | disposition home or self-care (01) ==
LOC: LAB 11:39
PROVIDERS: PCP Family Medicine Geriatric Medicine; Referring Provider Family Medicine Geriatric Medicine; Visit Provider Family Medicine Geriatric Medicine
DX: E11.65 Type 2 diabetes mellitus with hyperglycemia (principal); I10 Essential (primary) hypertension; E55.9 Vitamin D deficiency, unspecified
CPT/HCPCS: 36415; 80053; 82306; 84443; 85025

== ENCOUNTER 2023-11-09 08:21 | Outpatient (RCR) | payer MEDICARE, SELFPAY | END 2023-11-12 23:59 | LOC: NS 08:21 | PROVIDERS: PCP Family Medicine Geriatric Medicine; Referring Provider Family Medicine Geriatric Medicine; Visit Provider Family Medicine Geriatric Medicine | DX: Z71.3 Dietary counseling and surveillance (principal); E11.65 Type 2 diabetes mellitus with hyperglycemia | CPT/HCPCS: 97803 ==

== ENCOUNTER → 2024-05-08 | Outpatient (CLI) | payer MEDICARE, SELFPAY ==
[2024-05-08 09:24] LABS: Absolute Lymphocyte Count 2.19 X10^3/uL (0.83-4.51); Absolute Neutrophil Count 4.1 X10^3/uL (2.0-7.7); Basophil# 0.06 X10^3/uL; Basophil% 0.8 % (0-1); Eosinophil# 0.21 X10^3/uL; Eosinophils% 2.8 % (0-5); Hematocrit 45.8 % (40-54); Hemoglobin 15.1 g/dL (13.0-16.5); Lymphocyte # 2.19 X10^3/ul (0.83-4.51); Lymphocyte % 29.2 % (19-41); Mean Corpuscular Hgb 31.8 pg (27.0-32.0); Mean Corpuscular Volume 96.4 fL (80-94); Monocyte# 0.86 X10^3/uL; Monocyte% 11.5 % (0-10); NRBC Flagged by Analyzer 0 % (0-5); Neutrophil # 4.14 X10^3/uL (2.7-7.7); Neutrophil % 55.2 % (47-70); Platelet Count 323 K/mm3 (150-450); RBC Distribution Width CV 13.3 % (11.6-14.6); Red Blood Count 4.75 M/mm3 (4.6-6.2); White Blood Count 7.5 K/mm3 (4.4-11.0)
[2024-05-08 09:50] LABS: ALB/GLOB Ratio 1.1 RATIO (0.9-2.4); AST(SGOT) 37 U/L (15-37); Alanine Aminotransfer ALT/SGPT 48 U/L (16-61); Albumin, Serum 4.2 g/dL (3.2-5.0); Alkaline Phosphatase 89 U/L (45-117); Anion Gap 3 (5-15); BUN 20 mg/dL (7-18); BUN/Creat Ratio 17.9 RATIO (10-20); Calcium,Total 9.5 mg/dL (8.5-10.1); Chloride 105 mmol/L (98-107); Creatinine, Serum 1.12 mg/dL (0.70-1.30); EST Glomerular Filtration Rate 69 mL/min (>60); Est Glom Filt Rate - Afr Amer 83 mL/min (>60); Globulin 3.7 g/dL (2.2-4.2); Glucose 140 mg/dL (74-106); Potassium 4.2 mmol/L (3.5-5.1); Protein, Total 7.9 g/dL (6.4-8.2); Sodium Level 138 mmol/L (136-145)
[2024-05-08 14:52] LABS: Hemoglobin A1c 6.4 % (3.8-5.6)
== END | disposition home or self-care (01) ==
PROVIDERS: PCP Family Medicine Geriatric Medicine; Visit Provider Family Medicine Geriatric Medicine
DX: E11.65 Type 2 diabetes mellitus with hyperglycemia (principal); E55.9 Vitamin D deficiency, unspecified; I10 Essential (primary) hypertension
CPT/HCPCS: 36415; 80053; 82306; 83036; 84443; 85025

== ENCOUNTER → 2024-11-07 | Outpatient (CLI) | payer MEDICARE, SELFPAY ==
[2024-11-07 11:02] LABS: Absolute Lymphocyte Count 2.11 X10^3/uL (0.83-4.51); Absolute Neutrophil Count 4.1 X10^3/uL (2.0-7.7); Basophil# 0.04 X10^3/uL; Basophil% 0.6 % (0-1); Eosinophil# 0.22 X10^3/uL; Hematocrit 40.4 % (40-54); Hemoglobin 13.8 g/dL (13.0-16.5); Lymphocyte # 2.11 X10^3/ul (0.83-4.51); Lymphocyte % 29.1 % (19-41); Mean Corp Hgb Conc 34.2 g/dL (32-36); Mean Corpuscular Hgb 32.4 pg (27.0-32.0); Mean Corpuscular Volume 94.8 fL (80-94); Monocyte# 0.73 X10^3/uL; Monocyte% 10.1 % (0-10); NRBC Flagged by Analyzer 0 % (0-5); Neutrophil # 4.12 X10^3/uL (2.7-7.7); Neutrophil % 56.8 % (47-70); Platelet Count 274 K/mm3 (150-450); RBC Distribution Width CV 13.2 % (11.6-14.6); RBC Distribution Width SD 46.1 fl (35.1-43.9); Red Blood Count 4.26 M/mm3 (4.6-6.2); White Blood Count 7.3 K/mm3 (4.4-11.0)
[2024-11-07 12:39] LABS: ALB/GLOB Ratio 1.6 RATIO (0.9-2.4); AST(SGOT) 36 U/L (<=37); Alanine Aminotransfer ALT/SGPT 36 U/L (<=46); Albumin, Serum 4.4 g/dL (3.4-4.8); Alkaline Phosphatase 88 U/L (40-129); Anion Gap 11 (5-15); BUN 25 mg/dL (4-19); BUN/Creat Ratio 25.4 RATIO (10-20); Calcium,Total 9.5 mg/dL (7.6-11.0); Carbon Dioxide 23.1 mmol/L (21.0-32.0); Chloride 102 mmol/L (98-108); Creatinine, Serum 0.96 mg/dL (0.70-1.20); EST Glomerular Filtration Rate 85 (>60); Globulin 2.7 g/dL (2.2-4.2); Glucose 129 mg/dL (70-99); Potassium 4.2 mmol/L (3.3-5.1); Protein, Total 7.2 g/dL (5.9-8.4); Sodium Level 135 mmol/L (133-145); Total Bilirubin 0.34 mg/dL (0.00-1.30)
[2024-11-07 13:23] LABS: Vitamin D,25 Hydroxy 42.9 ng/mL (30-100)
== END | disposition home or self-care (01) ==
LOC: LAB 10:33
PROVIDERS: PCP Family Medicine Geriatric Medicine; Referring Provider Family Medicine Geriatric Medicine; Visit Provider Family Medicine Geriatric Medicine
DX: E11.65 Type 2 diabetes mellitus with hyperglycemia (principal); I10 Essential (primary) hypertension; E55.9 Vitamin D deficiency, unspecified
CPT/HCPCS: 36415; 80053; 82306; 84443; 85025

== ENCOUNTER → 2025-01-02 | Outpatient (CLI) | payer MEDICARE, SELFPAY | END | disposition home or self-care (01) | LOC: LAB 09:49 | PROVIDERS: PCP Family Medicine Geriatric Medicine; Referring Provider Internal Medicine Cardiovascular Disease; Visit Provider Internal Medicine Cardiovascular Disease | DX: Z00.00 Encounter for general adult medical examination without abnormal findings (principal) ==

== ENCOUNTER → 2025-02-05 | Outpatient (CLI) | payer MEDICARE, SELFPAY ==
--- NOTE | 2025-02-05 11:41 | RAD_ITS ---
PROCEDURE: L/S SPINE MIN 4 VIEWS 02/05/2025 REASON FOR EXAM: RIGHT SIDE SCIATICA, LOW BACK PAIN TECHNIQUE: L/S SPINE MIN 4 VIEWS COMPARISON: None FINDINGS: Curvature: Mild levoconvex scoliosis. Other findings: Multilevel disc space narrowing and spondylosis. Other: Facet joint osteoarthritis and hypertrophy. This is worse at the L3-L4, L4-L5 and L5-S1 levels. Atherosclerotic calcification of the abdominal aorta. RAD/L/S Spine Min 4 Views IMPRESSION: Multilevel disc space narrowing and disc degeneration with spondylosis and face t joint osteoarthritis and hypertrophy. Mild levoconvex scoliosis. Reading Location: [facility]
== END | disposition home or self-care (01) ==
LOC: RAD 11:41
PROVIDERS: PCP Family Medicine Geriatric Medicine; Referring Provider Family Medicine Geriatric Medicine; Visit Provider Family Medicine Geriatric Medicine
DX: M54.31 Sciatica, right side (principal); M54.50 Low back pain, unspecified
CPT/HCPCS: 72110

== ENCOUNTER 2025-03-06 10:30 | Outpatient (RCR) | payer MEDICARE, SELFPAY ==
--- NOTE | 2025-02-09 14:57 | HP.PTEVAL_ITS ---
Patient's Visit Information Visit Information Visit Information: EMELY LAURA is a 69 year old M referred to Physical Therapy by Dr. Mitchel Mitchell MD with a diagnosis of LUMBAR DISC DISEASE ,RIGHT SIDE SCIATICA ,LOW BACK PAIN. Date of Evaluation: 02/09/25 Physical Therapist: Genaro Gibson, PT, Cert MDT, OCS Visit Plan Frequency: 2x /Week Duration: 4 Weeks Plan: PT INTERVENTIONS LUMBAR FLEXION ,LE FLEXABILITY ,DLS ,POSTURAL EX'S ,ACTIVITY MODIFICATION AND MODALITIES Subjective Subjective: This 69 y/o male presents to physical therapy with right low back pain with sciatica. Patient has has right lumbar radiculopathy for past several months which has worsening past 2 months. Patient symptoms located buttuck to thighs to knee . Seen DR recommended PT and x-rays -Multilevel disc space narrowing and disc degeneration with spondylosis and facet joint osteoarthritis and hypertrophy. Mild levoconvex scoliosis. Prescribed prednisone. Aggravating factors walking/standing. Alleviating bending sitting. Coughing/sneezing-. Bowel/bladder- Paresthesia right foot. Patient sleeping good.Patient has nom trauma. No treatment. Patient condition affects QOL and function. SOCIAL: VOCATION: retired Pain Right Neck: Pain Intensity (Out of 10): 0 Right Lower Extremity: Pain Intensity (Out of 10): 3 Pain Intensity Range: 7 Objective Objective: POSTURE: mild forward posture GAIT: reciprocal pattern slight decrease stance time RLE SYMMETRICAL: align PALPATION: unremarkable NEURO: c/o paresthesia/tingling right reflexes L3-4,L4-5 ,L5-S1 1/3 FLEXABILITY: hamstrings min tight MMT: quads/hams 4/5 ,hip flexion 4/5 ,ankle 5/5 LUMBAR ROM: flexion min loss ,extension mod/severe loss ,side glides mod loss Balance/Special Test Scores Oswestry Low Back Score: 21 Goals Goal 1:: Patient to be I with HEP for back Goal Time Frame: 4-6 Weeks Goal 2:: Patient to improve lumbar ROM for function of recovery for ADLS Goal Time Frame: 4-6 Weeks Goal 3:: Patient to improve back oswestry score by 5 points to improve QOL and function. Goal Time Frame: 4-6 Weeks Goal 4:: Patient to improve ability walk/stand > than 20 30 mins to improve QOL and function Goal Time Frame: 4-6 Weeks Goal 5:: Patient to demonstrate 50% improvement with less pain and improved function Goal Time Frame: 4-6 Weeks Rehabilitation Potential Physical Therapy Diagnosis: This patient has possible stenosis affecting right leg worse with standing walking better with sitting and bending thus benefit from skilled PT Rehabilitation Potential: Good Anticipated Interventions Patient/Client Instruction: Educate patient on: Condition and Plan of Care For the Purpose of:: To decrease pain, To increase ROM, To improve muscle performance and motor function, To improve ability to perform ADL's, To increase tolerance to activity/condition/position, To improve ability of physical actions for home/community/work/leisure, To improve health of tissue, To decrease soft tissue restriction and To increase flexibility/ROM Therapeutic Exercise to Include: Strength training, Power training, Postural training, Flexibilty training and Dynamic Lumbar Stabilization For the Purpose of:: To decrease pain, To increase ROM, To improve muscle performance and motor function, To increase tolerance to activity/condition/position, To improve ability of physical actions for home/community/work/leisure, To improve health of tissue, To decrease soft tissue restriction, To increase flexibility/ROM and To improve endurance TENS: Yes IF ES: Yes Cryotherapy (ice pack, ice massage): Yes Thermo therapy (hot pack): Yes Ultrasound (thermal/non thermal): Yes For the Purpose of:: To decrease pain, To improve nutrient delivery to tissue, To increase oxygenation perfusion, To improve health of tissue and To decrease soft tissue restriction Text: Thank you for the opportunity to evaluate your patient. For Medicare and Medicare HMO plans, please review the plan of care and approve it. It will need to be FAXED BACK to us at [phone] for Medicare purposes. For Medicare only, by signing this I certify the plan of care. Please let me know if there are questions or concerns regarding this plan of care. Physician Signature: Date:
--- NOTE | 2025-03-06 10:56 | HP.PTDCSUM ---
Discharge Summary D/C summary: It has been my pleasure to treat EMELY LAURA referred by Dr. Mitchel Mitchell MD, with the diagnosis of LUMBAR DISC DISEASE ,RIGHT SIDE SCIATICA ,LOW BACK PAIN for a total of 7 visit(s). Discharge Date: 03/06/25 Please see the following information for a summary of their discharge status. Subjective Subjective: No DR appointment -pain is alot better -Walking 1 1/2 mile -bending no pain Pain Right Neck: Pain Intensity (Out of 10): 1 Right Lower Extremity: Pain Intensity (Out of 10): 1 Overall Improvement % Improvement: 80 Objective Objective/Function: POSTURE: mild forward posture GAIT: reciprocal pattern slight decrease stance time RLE SYMMETRICAL: align PALPATION: unremarkable NEURO: denies paresthesia/tingling right occasional reflexes L3-4,L4-5 ,L5-S1 1/3 FLEXABILITY: hamstrings min tight MMT: quads/hams 5/5 ,hip flexion 5/5 ,ankle 5/5 LUMBAR ROM: flexion min loss ,extension modloss ,side glides mod loss Goals Goal 1:: Patient to be I with HEP for back Goal Progress: Goal Met Goal 2:: Patient to improve lumbar ROM for function of recovery for ADLS Goal Progress: Goal Met Goal 3:: Patient to improve back oswestry score by 5 points to improve QOL and function. Goal Progress: Goal Met Goal 4:: Patient to improve ability walk/stand > than 20 30 mins to improve QOL and function Goal Progress: Goal Met Goal 5:: Patient to demonstrate 50% improvement with less pain and improved function Goal Progress: Goal Met Plan Plan: D/C TO HEP D/C Information Discharge Comments: hep d/c sentence: If there are questions or concerns regarding this patient's physical therapy, please feel free to call me at [phone]. Thank you for the referral of this patient. Sincerely, Genaro Gibson, PT, Cert MDT, OCS Balance/Gait/Functional tests Balance/Special Test Scores Oswestry Low Back Score: 1 Improvement % Improvement: 80
== END 2025-03-06 14:27 | disposition home or self-care (01) ==
LOC: PT 10:30
PROVIDERS: PCP Family Medicine Geriatric Medicine; Referring Provider Family Medicine Geriatric Medicine; Visit Provider Family Medicine Geriatric Medicine
DX: M54.50 Low back pain, unspecified (principal)
CPT/HCPCS: 97110; 97162; 97530

== ENCOUNTER → 2025-05-09 | Outpatient (CLI) | payer MEDICARE, SELFPAY ==
[2025-05-09 09:35] LABS: Hematocrit 42.2 % (40-54); Hemoglobin 14.5 g/dL (13.0-16.5); Immature Granulocytes Count 0.050 X10^3/uL (0.0-0.0); Mean Corp Hgb Conc 34.4 g/dL (32-36); Mean Corpuscular Volume 97.9 fL (80-94); Mean Platelet Vol. 8.6 fl (6.2-12.0); NRBC Flagged by Analyzer 0 % (0-5); Platelet Count 315 K/mm3 (150-450); RBC Distribution Width CV 13.4 % (11.6-14.6); RBC Distribution Width SD 48.8 fl (35.1-43.9); Red Blood Count 4.31 M/mm3 (4.6-6.2); White Blood Count 8.0 K/mm3 (4.4-11.0)
--- OUTSIDE RECORDS SUMMARY | 2025-05-09 09:57 | XMS RPT_ITS | CCD ---
Author Organization [facility] Care Team Providers Care Leasing Specialist Name Role Phone [facility] Nurse Unavailable Unavailable Chloé Martel Unavailable MD Mahan Cyril S Unavailable Digna Dodd Unavailable Unavailable Stephen, Dr. Mitchel Chung Primary Care Provider Dr. Mitchel Mitchell Chi Referring Provider Roof REFRIGERATOR CRATER, REFRIGERATOR CRATER-C jT Levine Attending Provider Nicole Michaels Unavailable Slabarb BARTONNInna Unavailable Unavailable Unavailable Unavailable Dr. Mitchel Mitchell Chi Primary Care Provider Dr. Mitchel Mitchell Chi Referring Provider Dr. Bart Mahan Attending Provider Dr. Mitchel Mitchell Chi Primary Care Provider Dr. Ryanne Velasco Emergency Provider Dr. Aneudy Gracia Admit Provider Dr. Aneudy Gracia Other Provider Dr. Bart Mahan Attending Provider Dr. Bart Mahan Other Provider Dr. Aneudy Gracia Attending Provider Dr. Mitchel Mitchell MD, Chi Primary Care Provider Dr. Mitchel Mitchell MD, Chi Attending Provider Dr. Mitchel Mitchell MD, Chi Referring Provider Negrito GRIJALVA, Dr. Arriaga Attending Provider Negrito GRIJALVA, Dr. Arriaga Referring Provider Dr. Mitchel Mitchell MD, Chi Primary Care Physician [phone] Stephen GRIJALVA, Dr. Mitchel Chung Referring Provider Negrito GRIJALVA, Dr. Arriaga Attending Physician Stephen GRIJALVA, Dr. Mitchel Chung Attending Physician Stephen, Mitchel Chi Primary Care Unavailable Stephen, Mitchel Chi Attending Unavailable Stephen, Mitchel Chi Referring Unavailable Stephen, Mitchel Chi Primary Care Unavailable Negrito Lumpkin Attending Unavailable Stephen, Mitchel Chi Referring Unavailable Stephen, Mitchel Chi Primary Care Unavailable Stephen, Mitchel Chi Attending Unavailable Stephen, Mitchel Chi Attending Unavailable Stephen, Mitchel Chi Referring Unavailable Stephen, Mitchel Chi Primary Care Unavailable Stephen, Mitchel Chi Primary Care Unavailable Stephen, Mitchel Chi Attending Unavailable Stephen, Mitchel Chi Referring Unavailable Stephen, Mitchel Chi Primary Care Unavailable Bart Mahan Attending Unavailable Bart Mahan Referring Unavailable Allergies Allergy Classification Reported Allergen(s) Allergy Type Date of Onset Reaction(s) Facility (20 sources) amoxicillin; Translations: [amoxicillin] drug allergy 05-29-20 14 [facility] Work Phone: (4 sources) NKDA drug allergy 08-11-19 14 [facility] Work Phone: (18 sources) Tjxipqs-Mto-Kxm Reductase Inhibitor; Translations: [Jfplspx-Kka-Dk a Reductase Inhibitor] Propensity to adverse reactions 09-16-19 22 elevated LFT's [facility] (1 source) Amoxicillin; Translations: [Amoxicillin *PENICILLINS*] Drug Allergy [facility]; [facility] Work Phone: Medications Current Medications Medication Drug Class(es) Dates Sig (Normalized) Sig (Original) aspirin 81 mg chewable tablet (20 sources) Nonsteroidal Anti-inflammatory Drug Start: 08-14-2013 take 1 tablet by mouth once daily Start: 08-11-2013 take 1 tablet by tiana th once daily ASPIRIN 81 MG TABS One tablet by mouth daily ASPIRIN [id number] Jenna Marcum RN Start: 08-11-2013 take 1 tablet by tiana th once daily ASPIRIN 81 MG TABS One tablet by mouth daily ASPIRIN [id number] Jenna Marcum RN Start: 08-11-2013 take 1 tablet by tiana th once daily ASPIRIN EC 81 MG TBEC One tablet by mouth daily ASPIRIN [id number] Linda Hernandez RN cholecalciferol 0.05 mg oral capsule (7 sources) Vitamin D Start: 08-30-2023 take 1 capsule by mouth once daily famotidine 40 mg oral tablet (5 sources) Histamine-2 Receptor Antagonist Start: 11-18-2023 take 1 tablet by mouth twice daily Inclisiran (5 sources) Start: 11-18-2023 Start: 11-18-2023 Inclisiran (Le qvio) 284 mg/1.5 mL syringe Active 284 mg SC every 6 months November 18, 2023 12:00am nitroglycerin 0.4 mg subling ual tablet (20 sources) Nitrate Vasodilator Start: 08-14-2013 End: 08-31-2023 Start: 08-14-2013 End: 08-31-2023 Nitroglycerin Active 0.4 MG SL Q5M August 31, 2023 12:00am Start: 08-11-2013 NITROGLYCERIN 0.4 MG/HR PT24 1 tablet under tongue every 5 min up to 3 X NITROGLYCERIN [id number] Bart Mahan MD Start: 08-11-2013 NITROGLYCERIN 0.4 MG SUBL 1 tablet under the tongue every 5 minutes times 3 as needed for chest pain. NITROGLYCERIN [id number] Linda Hernandez RN Completed/Discontinued Medications Medication Drug Class(es) Dates Sig (Normalized) Sig (Original) [id number] 200 actuat albuterol 0.09 mg/actuat metered dose inhaler (1 source) beta2-Adrenergic Agonist Start: 09-23-2010 End: 10-02-2010 take 2 puff(s) by inhalation twice daily PROVENTIL HFA, 108 (90 Base)MCG/ACT (Inhalation Aerosol Solution) 2 (two) Puff(s) bid for 0 days Quantity: 1 {Aerosol_Soln} Refills: 0 Ordered: 02-Oct-2010 WM Wade LPN Start : 23-Sep-2010 End : 02-Oct-2010 Inactive atorvastatin 20 mg oral tablet (7 sources) HMG-CoA Reductase Inhibitor Start: 08-31-2023 End: 11-18-2023 take 1 tablet by mouth once daily Atorvastatin 20 mg Tablet Discontinued 20 mg PO DIRECTED 60 August 31, 2023 12:00am November 18, 2023 9:42am take one to two daily Start: 05-20-2006 End: 08-06-2006 take 1 tablet by mouth once daily LIPITOR, 20MG (Oral Tablet) 1 QD for 0 days Refills: 0 Ordered: 20-May-2006 WM Wade LPN Start : 20-May-2006 End : 06-Aug-2006 Discontinued clopidogrel 75 mg oral tablet (20 sources) P2Y12 Platelet Inhibitor Start: 08-18-2013 End: 12-12-2024 take 1 tablet by mouth once daily Clopidogrel 75 mg tablet Discontinued 75 mg PO DAILY 90 3 December 27, 2023 8:04am December 12, 2024 11:36am codeine phosphate 2 mg/ml / guaiFENesin 20 mg/ml oral solution (1 source) Opioid Agonist Start: 09-23-2010 End: 10-02-2010 CHERATUSSIN AC, 100-10MG/5ML (Oral Syrup) 1 Teaspoon(s) qhs prn cough for 0 days Quantity: 6 {Ounce(s)} Refills: 0 Ordered: 02-Oct-2010 WM Wade LPN Start : 23-Sep-2010 End : 02-Oct-2010 Inactive desoximetasone 0.5 mg/ml topical cream (1 source) Corticosteroid Start: 11-11-2006 End: 05-15-2008 TOPICORT LP, 0.05% (External Cream) Cream BID for 0 days Quantity: 1 {Cream} Refills: 0 Ordered: 11-Nov-2006 WM Wade LPN Start : 11-Nov-2006 End : 15-May-2008 Inactive ezetimibe 10 mg oral tablet (20 sources) Dietary Cholesterol Absorption Inhibitor Start: 08-31-2023 End: 11-18-2023 take 1 tablet by mouth once daily Ezetimibe 10 mg Tablet Discontinued 10 mg PO DAILY 30 0 August 31, 2023 12:00am November 18, 2023 9:42am Start: 10-26-2017 End: 02-21-2019 take 1 tablet by mouth once daily Ezetimibe 10 mg tablet Discontinued 10 mg PO daily October 26, 2017 12:00am February 21, 2019 5:22pm On Hold: elevated liver enzymes Start: 08-13-2016 take 1 tablet by tiana th once daily ZETIA 10 MG TABS One tablet by mouth daily EZETIMIBE [id number] Leny Weems PA-C fenofibrate 150 mg oral capsule (17 sources) Peroxisome Proliferator Receptor alpha Agonist Start: 09-13-2020 End: 09-15-2021 take 1 capsule by mouth once daily Fenofibrate 150 mg capsule Discontinued 150 mg PO DAILY 90 September 13, 2020 12:00am September 15, 2021 9:05am folic acid 5 mg oral capsule (1 source) Start: 02-04-2012 End: 08-12-2012 take 1 capsule by mouth once daily FOLIC ACID, 5MG (Oral Capsule) 1 Capsule daily for 0 days Quantity: 30 {Capsule} Refills: 6 Ordered: 12-Aug-2012 Aga Howard RN Start : 04-Feb-2012 End : 12-Aug-2012 Inactive hydroCHLOROthiazide 12.5 mg / lisinopril 20 mg oral tablet (20 sources) Thiazide Diuretic, Angiotensin Converting Enzyme Inhibitor Start: 08-14-2013 End: 10-20-2022 take 0.5 tablet by mouth once daily Lisinopril-Hydroc hlorothiazide Discontinued 0.5 TABLET PO DAILY 45 October 23, 2021 1:14pm October 20, 2022 9:13am Start: 08-11-2013 End: 09-18-2024 Lisinopril-Hydrochlorothiazi de 20-12.5 mg tablet Discontinued 0.5 {tbl} PO DAILY 45 October 15, 2023 7:59am September 18, 2024 8:13am BLOOD PRESSURE End: 05-20-2006 take 1 tablet by mouth once daily ZESTORETIC, 20-12.5MG (Oral Tablet) 1 QD for 0 days Refills: 0 Ordered: 20-May-2006 Delicia Flores MD End : 20-May-2006 Discontinued Comment on above: cut dose down per Dr Mahan Mail order. icosapent ethyl 1000 mg oral capsule (20 sources) Start: 02-22-20 End: 07-25-19 21 Icosapent Ethyl (Vascepa) 1 gram capsule Discontinued 2 g PO TWICE A DAY 120 September 07, 2019 1:54pm July 25, 2020 3:54pm levoFLOXacin 500 mg oral tablet (1 source) Quinolone Antimicrobial Start: 09-24-19 11 End: 10-01-19 11 take 1 tablet by mouth once daily LEVAQUIN, 500MG (Oral Tablet) 1 Tablet daily for 7 days Quantity: 7 {Tablet} Refills: 0 Ordered: 23-Sep-2010 Nicole Michaels Mary Start : 23-Sep-2010 End : 30-Sep-2010 Inactive meclizine hydrochloride 25 mg oral tablet (14 sources) Antiemetic Start: 10-15-19 End: 11-18-19 24 take 1 tablet by mouth three times daily as needed for dizziness Meclizine 25 mg tablet Discontinued 25 mg PO THREE TIMES A DAY as needed for dizziness 20 October 14, 2022 12:00am November 18, 2023 9:43am 24 hr metoprolol succinate 50 mg extended release oral tablet (20 sources) beta-Adrenergic Lloyd Start: 09-07-19 End: 09-19-19 take 1 tablet by mouth once daily Metoprolol Succinate 50 mg tablet extended release 24 hr Discontinued 50 mg PO DAILY 90 3 September 28, 2023 8:31am September 18, 2024 8:13am BLOOD PRESSURE Start: 08-18-2013 take 1 tablet by tiana th every twenty-four hours, then take 1 tablet by mouth once daily TOPROL XL, 25MG (Oral Tablet Extended Release 24 Hour) 1 (one) Tablet ER 24HR Tablet ER 24HR qd for 0 days Quantity: 30 {Tablet} Refills: 0 Ordered: 01-Sep-2013 Mark GRIJALVA, Delicia Berry Start : 18-Aug-2013 Active Start: 08-11-2013 End: 09-07-2019 take 1 tablet by mouth once daily Metoprolol Succinate 25 mg tablet extended release 24 hr Discontinued 25 mg PO DAILY 90 3 May 08, 2019 11:38am September 07, 2019 10:32am Start: 08-11-2013 take 1 tablet by mouth once da shamir TOPROL XL 25 MG [id number] One tablet by mouth daily METOPROLOL SUCCINATE [id number] Aneudy Astudillo CASE ADVOCATE-C 24 hr niacin 1000 mg extended release oral tablet (1 source) Nicotinic Acid Start: 02-04-2012 End: 08-12-2012 take 1 tablet by mouth in the morning NIASPAN, 1000MG (Oral Tablet Extended Release) 1 Tablet ER in am for 0 days Quantity: 30 {Tablet_ER} Refills: 6 Ordered: 12-Aug-2012 Aga Howard RN Start : 04-Feb-2012 End : 12-Aug-2012 Inactive pravastatin sodium 80 mg oral tablet (20 sources) HMG-CoA Reductase Inhibitor Start: 08-11-2013 End: 11-02-2017 take 1 tablet by mouth once daily Pravastatin 80 MG tablet Discontinued 80 mg PO DAILY August 14, 2013 1:00am November 02, 2017 1:51pm rosuvastatin calcium 40 mg oral tablet (17 sources) HMG-CoA Reductase Inhibitor Start: 06-17-2015 End: 07-14-2016 take 1 tablet by mouth once daily CRESTOR 40 MG TABS One tablet by mouth daily ROSUVASTATIN CALCIUM [id number] Leny Weems PA-C Start: 08-11-2013 End: 05-05-2016 take 1 tablet by mouth once daily Crestor 20 MG Oral Tablet 1 (one) Tablet Tablet daily for 0 days Quantity: 30 {Tablet} Refills: 3 Ordered: 05-May-2016 Inna Devlin LPN Start : 06-Mar-2014 End : 05-May-2016 Discontinued terbinafine hydrochloride 10 mg/ml topical cream (1 source) Allylamine Antifungal Start: 05-05-2016 Terbinafine HCl 1 % External Cream 1 (one) Cream daily for 21 days Quantity: 1 {Tube} Refills: 1 Ordered: 05-May-2016 Nicole Michaels Nicole Start : 05-May-2016 Active Problems Active Problems Problem Classification Problem Date Documented Date Episodic/Chronic Acute myocardial infarction (9 sources) Myocardial infarction; Translations: [Non-ST elevation (NSTEMI) myocardial infarction] 08-30-2023 Chronic Chronic obstructive pulmonary disease and bronchiectasis (2 sources) Bronchitis; Translations: [Bronchitis] Resolved: 09-01-2013 03-19-2015 Episodic Conditions associated with dizziness or vertigo (14 sources) Vertigo; Translations: [Dizziness and giddiness] 10-14-2022 Episodic Coronary atherosclerosis and other heart disease (20 sources) Atherosclerotic heart disease of [place] coronary artery without angina pectoris; Translations: [Angina pectoris] Onset: 08-11-2013 Resolved: 01-08-2016 01-08-2016 Chronic Comment on above: had stent to LAD and circ 2-14. not able to stent small lesion in ramus. treat medically signs and symptoms better. on plavix. stable no signs and symptoms now Coronary atherosclerosis and other heart disease (5 sources) Presence of coronary angioplasty implant and graft; Translations: [Percutaneous transluminal coronary angioplasty status] Onset: 08-15-2013 Episodic Deficiency and other anemia (7 sources) Anemia; Translations: [Anemia, unspecified] Resolved: 09-01-2013 04-29-2015 Episodic Comment on above: mild labs good and s table 13.5-14.0. colonscopy 05-22, stable for years Diabetes mellitus with complications (1 source) Type 2 diabetes mellitus with hyperglycemia; Translations: [Type 2 diabetes mellitus with hyperglycemia] Onset: 11-10-2024 Chronic Diabetes mellitus without complication (9 sources) Impaired fasting glycemia; Translations: [Impaired fasting glucose] 05-05-2016 Episodic Comment on above: better. hga1c good Disorders of lipid metabolism (20 sources) Hyperlipidemia; Translations: [Hyperlipidemia, unspecified] Onset: 08-11-2013 08-11-2013 Chronic Comment on above: reveiwed with patien t recent tests ldl up slightly from pravachol to crestor but could not handle crestor with muscle. Essential hypertension (20 sources) Hypertensive disorder; Translations: [Essential hypertension] Onset: 08-11-2013 08-11-2013 Chronic Comment on above: reveiwed with patien t recent tests labs good Fever of unknown origin (7 sources) Fever with chills 05-05-2016 Episodic Comment on above: ruthann check yearly Fluid and electrolyte disorders (5 sources) Hypo-osmolality and or hyponatremia; Translations: [Hyposmolality and/or hyponatremia] Onset: 03-31-2010 Resolved: 09-01-2013 05-22-2015 Episodic Neoplasms of unspecified nature or uncertain behavior (2 sources) Neoplasm of uncertain behavior of skin; Translations: [Neoplasm of uncertain behavior of skin] Resolved: 09-01-2013 05-01-2015 Episodic Other aftercare (19 sources) Other middle or intermediate school principal (current) drug therapy; Translations: [Long-term current use of drug therapy] Onset: 12-24-2014 12-24-2014 Episodic Other aftercare (3 sources) Long-term current use of diuretic; Translations: [Encounter for therapeutic drug level monitoring] 01-02-2025 Episodic Other connective tissue disease (4 sources) Pain in lower limb; Translations: [Limb pain] 05-05-2016 Episodic Comment on above: not in back of thigh . tight hamstrings went over stretches and demonstrate to pt to do after walk. if not help in 4-6 weeks then will call and to PT Other ear and sense organ disorders (4 sources) Impacted cerumen; Translations: [Cerumen impaction] Resolved: 09-01-2013 03-19-2015 Episodic Other lower respiratory disease (2 sources) Cough; Translations: [Cough] Resolved: 09-01-2013 09-01-2013 Episodic Other lower respiratory disease (2 sources) Wheezing; Translations: [Wheezing] Resolved: 09-01-2013 09-01-2013 Episodic Other non-epithelial cancer of skin (6 sources) Personal history of other malignant neoplasm of skin; Translations: [HX, PERSONAL, MALIGNANCY, SKIN NEC] 05-05-2016 Episodic Comment on above: basal cell some pigm ented lesions on forehead think solar lentigos but recommend back to derm for body check. Other nutritional; endocrine; and metabolic disorders (6 sources) Body mass index (BMI) 32.0-32.9, adult; Translations: [Body mass index (BMI) 30.0-30.9, adult] Onset: 08-11-2013 06-25-2015 Chronic Other nutritional; endocrine; and metabolic disorders (2 sources) Body mass index (BMI) 30.0-30.9, adult; Translations: [Body mass index (BMI) 30.0-30.9, adult] Onset: 08-11-2013 05-29-2014 Chronic Other nutritional; endocrine; and metabolic disorders (2 sources) Overweight in adulthood with body mass index of 25 or more but less than 30; Translations: [BMI 29.0-29.9,adult] 05-05-2016 Episodic Other nutritional; endocrine; and metabolic disorders (14 sources) Overweight; Translations: [Overweight] 05-05-2016 Episodic Comment on above: gain back weight los t will get back on diet and exercise. need to get 10 pounds. Other screening for suspected conditions (not mental disorders or infectious disease) (20 sources) Other specified abnormal findings of blood chemistry; Translations: [Elevated liver function tests] Resolved: 09-01-2013 05-05-2016 Episodic Comment on above: homocystiene up tfol ic acid diarrhea fatty liver, normal now with weight loss. last one 1 point up. Other skin disorders (7 sources) Eruption; Translations: [Rash] Resolved: 09-01-2013 05-05-2016 Episodic Comment on above: bilateral feet, itch worse symptom and peeling feet, Tinea vs pompholyx will try terbinafine ruthann saw Residual codes; unclassified (2 sources) Current non-smoker ; Translations: [Current nonsmoker] 05-05-2016 Episodic Spondylosis; intervertebral disc disorders; other back problems (3 sources) Disorder of cervical spine; Translations: [Neck tightness] Onset: 02-09-2025 Resolved: 09-01-2013 09-01-2013 Episodic Unclassified (2 sources) Placement of stent in coronary artery ; Translations: [Presence of coronary angioplasty implant and graft] Onset: 08-24-2013 01-08-2016 Unclassified (20 sources) Unclassified (1 source) Low back pain, unspecified; Translations: [Low back pain, unspecified] Onset: 04-11-2025 Past or Other Problems Problem Classification Problem Date Documented Da te Episodic/Chronic Nonspecific chest pain (8 sources) Chest pain, unspecified; Translations: [Chest pain, unspecified] Onset: 08-11-2013 Resolved: 01-08-2016 01-08-2016 Episodic Other aftercare (6 sources) Long-term (current) use of other medications; Translations: [Other chcf (current) drug therapy] Onset: 12-04-2013 Resolved: 12-24-2014 12-04-2013 Episodic Other nutritional; endocrine; and metabolic disorders (6 sources) Body mass index (BMI) 27.0-27.9, adult; Translations: [Body mass index (BMI) 29.0-29.9, adult] Onset: 08-11-2013 11-24-2013 Episodic Other nutritional; endocrine; and metabolic disorders (2 sources) Body mass index (BMI) 29.0-29.9, adult; Translations: [Body mass index (BMI) 29.0-29.9, adult] Onset: 08-11-2013 08-11-2013 Episodic Unclassified (8 sources) Family history of ischemic heart disease and other diseases of the circulatory system; Translations: [Family history of ischemic heart disease and other diseases of the circulatory system] 11-24-2013 Episodic Unclassified (2 sources) Percutaneous transluminal coronary angioplasty ; Translations: [Coronary angioplasty status] Onset: 08-24-2013 08-24-2013 Unclassified (4 sources) Long-term drug therapy; Translations: [Long-term (current) use of other medications] Onset: 12-04-2013 Resolved: 12-24-2014 12-24-2014 Unclassified (1 source) Unspecified Diagnosis Results Test Name Value Interpretation Reference Range Facility PT D/C Summary (1)on 025 PT D/C Summary (1) [facility] [address] [place] [address] [address] [place] [address] / REHABILITATION SERVICES DISCHARGE SUMMARY MR#: [id number] Acct: [id number] Name: EMELY LAURA Rep #: [id number] : 1955 69 From: Genaro Gibson PT, Cert. T, [facility] Referring DrTacos: Dr. Mitchel Mitchell MD Status: REG R Insurance: [facility] [id number] SELF PAY INSURANCE Discharge Summary D/C summary: It has been my pleasure to treat EMELY LAURA referred by Dr. Mitchel Mitchell MD, with the diagnosis of LUMBAR DISC DISEASE ,RIGHT SIDE SCIATICA ,LOW BACK PAIN for a total of 7 visit(s). Discharge Date: 03/06/25 Please see the following information for a summary of their discharge status. Subjective Subjective: No DR appointment -pain is alot better -Walking 1 1/2 mile -bending no pain Pain Right Neck: Pain Intensity (Out of 10): 1 Right Lower Extremity: Pain Intensity (Out of 10): 1 Overall Improvement % Improvement: 80 Objective Objective/Function: POSTURE: mild forward posture GAIT: reciprocal pattern slight decrease stance time RLE SYMMETRICAL: align PALPATION: unremarkable NEURO: denies paresthesia/tingling right occasional reflexes L3-4,L4-5 ,L5-S1 1/3 FLEXABILITY: hamstrings min tight MMT: quads/hams 5/5 ,hip flexion 5/5 ,ankle 5/5 LUMBAR ROM: flexion min loss ,extension modloss ,side glides mod loss Goals Goal 1:: Patient to be I with HEP for back Goal Progress: Goal Met Goal 2:: Patient to improve lumbar ROM for function of recovery for ADLS Goal Progress: Goal Met Goal 3:: Patient to improve back oswestry score by 5 points to improve QOL and function. Goal Progress: Goal Met Goal 4:: Patient to improve ability walk/stand > than 20 30 mins to improve QOL and function Goal Progress: Goal Met Goal 5:: Patient to demonstrate 50% improvement with less pain and improved function Goal Progress: Goal Met Plan Plan: D/C TO HEP D/C Information Discharge Comments: hep d/c sentence: If there are questions or concerns regarding this patient's physical therapy, please feel free to call me at [phone]. Thank you for the referral of this patient. Sincerely, Genaro Gibson, PT, Cert T, [facility] Balance/Gait/Functional tests Balance/Special Test Scores Oswestry Low Back Score: 1 Improvement % Improvement: 80 03/06/25 1057 CC: Dr. Mitchel Mitchell MD JLA Signed Normal [facility] Inital Evaluation (1) - PTon 02-09-2025 Inital Evaluation (1) - PT [facility] [address] [place] [address] [address] [place] [id number] / REHABILITATION SERVICES INITIAL EVALUATION MR#: [id number] Acct: [id number] Name: EMELY LAURA Rep #: [id number] : 1955 69 From: Genaro Gibson PT, Cert. T, [facility] Referring Dr.: Dr. Mitchel Mitchell MD Status: REG RCR Insurance: [facility] [id number] SELF PAY INSURANCE Patient's Visit Information Visit Information Visit Information: EEMLY LAURA is a 69 year old M referred to Physical Therapy by Dr. Mitchel Mitchell MD with a diagnosis of LUMBAR DISC DISEASE ,RIGHT SIDE SCIATICA ,LOW BACK PAIN. Date of Evaluation: 02/09/25 Physical Therapist: Genaro Gibson, PT, Cert MDT, [facility] Visit Plan Frequency: 2x /Week Duration: 4 Weeks Plan: PT INTERVENTIONS LUMBAR FLEXION ,LE FLEXABILITY ,DLS ,POSTURAL EX'S ,ACTIVITY MODIFICATION AND MODALITIES Subjective Subjective: This 69 y/o male presents to physical therapy with right low back pain with sciatica. Patient has has right lumbar radiculopathy for past several months which has worsening past 2 months. Patient symptoms located buttuck to thighs to knee . Seen DR recommended PT and x-rays - Multilevel disc space narrowing and disc degeneration with spondylosis and facet joint osteoarthritis and hypertrophy. Mild levoconvex scoliosis. Prescribed prednisone. Aggravating factors walking/standing. Alleviating bending sitting. Coughing/sneezing-. Bowel/bladder- Paresthesia right foot. Patient sleeping good.Patient has nom trauma. No treatment. Patient condition affects QOL and function. SOCIAL: VOCATION: retired Pain Right Neck: Pain Intensity (Out of 10): 0 Right Lower Extremity: Pain Intensity (Out of 10): 3 Pain Intensity Range: 7 Objective Objective: POSTURE: mild forward posture GAIT: reciprocal pattern slight decrease stance time RLE SYMMETRICAL: align PALPATION: unremarkable NEURO: c/o paresthesia/tingling right reflexes L3-4,L4-5 ,L5-S1 1/3 FLEXABILITY: hamstrings min tight MMT: quads/hams 4/5 ,hip flexion 4/5 ,ankle 5/5 LUMBAR ROM: flexion min loss ,extension mod/severe loss ,side glides mod loss Balance/Special Test Scores Oswestry Low Back Score: 21 Goals Goal 1:: Patient to be I with HEP for back Goal Time Frame: 4-6 Weeks Goal 2:: Patient to improve lumbar ROM for function of recovery for ADLS Goal Time Frame: 4-6 Weeks Goal 3:: Patient to improve back oswestry score by 5 points to improve QOL and function. Goal Time Frame: 4-6 Weeks Goal 4:: Patient to improve ability walk/stand > than 20 30 mins to improve QOL and function Goal Time Frame: 4-6 Weeks Goal 5:: Patient to demonstrate 50% improvement with less pain and improved function Goal Time Frame: 4-6 Weeks Rehabilitation Potential Physical Therapy Diagnosis: This patient has possible stenosis affecting right leg worse with standing walking better with sitting and bending thus benefit from skilled PT Rehabilitation Potential: Good Anticipated Interventions Patient/Client Instruction: Educate patient on: Condition and Plan of Care For the Purpose of:: To decrease pain, To increase ROM, To improve muscle performance and motor function, To improve ability to perform ADL's, To increase tolerance to activity/condition/posit ion, To improve ability of physical actions for home/community/work/leis ure, To improve health of tissue, To decrease soft tissue restriction and To increase flexibility/ROM Therapeutic Exercise to Include: Strength training, Power training, Postural training, Flexibilty training and Dynamic Lumbar Stabilization For the Purpose of:: To decrease pain, To increase ROM, To improve muscle performance and motor function, To increase tolerance to activity/condition/posit ion, To improve ability of physical actions for home/community/work/leis ure, To improve health of tissue, To decrease soft tissue restriction, To increase flexibility/ROM and To improve endurance TENS: Yes IF ES: Yes Cryotherapy (ice pack, ice massage): Yes Thermo therapy (hot pack): Yes Ultrasound (thermal/non thermal): Yes For the Purpose of:: To decrease pain, To improve nutrient delivery to tissue, To increase oxygenation perfusion, To improve health of tissue and To decrease soft tissue restriction Text: Thank you for the opportunity to evaluate your patient. For Medicare and Medicare HMO plans, please review the plan of care and approve it. It will need to be FAXED BACK to us at [phone] for Medicare purposes. For Medicare only, by signing this I certify the plan of care. Please let me know if there are questions or concerns regarding this plan of care. Physician Signature: Date: ____ 02/09/25 1458 CC: Dr. Mitchel Mitchell MD ANA Signed Normal [facility] L/S Spine Min 4 Viewson 01-13 L/S Spine Min 4 Views [facility] [address] [place] [address] L/S Spine Min 4 Views MR#: [id number] Acct: [id number] Name: EMELY LAURA Rep #: [id number] : 1955 M 69 From: Jason baires MD PCP: Dr. Mitchel Mitchell MD Status: REG CLI Study: L/S Spine Min 4 Views Date of Exam: 02/05/25 Exam# [id number] Ordering Dr: Mitchel Mitchell MD PROCEDURE: L/S SPINE MIN 4 VIEWS 02/05/2025 REASON FOR EXAM: RIGHT SIDE SCIATICA, LOW BACK PAIN TECHNIQUE: L/S SPINE MIN 4 VIEWS COMPARISON: None FINDINGS: Curvature: Mild levoconvex scoliosis. Other findings: Multilevel disc space narrowing and spondylosis. Other: Facet joint osteoarthritis and hypertrophy. This is worse at the L3-L4, L4-L5 and L5-S1 levels. Atherosclerotic calcification of the abdominal aorta. RAD/L/S Spine Min 4 Views IMPRESSION: Multilevel disc space narrowing and disc degeneration with spondylosis and facet joint osteoarthritis and hypertrophy. Mild levoconvex scoliosis. Reading Location: [id number] CC: Dr. Mitchel Mitchell MD Threat Monitoring Analyst: Signed Normal [facility] Anion gap in Serum or Plasma Ordered By: Bart Mahan on 01-02-2025 Anion gap [Moles/Vol] 12 mmol/L 5-15 [facility] BUN/creatinine ratioOrdered By: Bart Mahan on 01-02-2025 Urea nitrogen/Creatinine [Mass ratio] 24.1 mg/mg High 10-20 [facility] Bilirubin, totalOrdered By: Bart Mahan on 01-02-2025 Bilirubin [Mass/Vol] 0.46 mg/dL 0.00-1.30 [facility] Carbon dioxide, total [Moles /volume] in Central venous bloodOrdered By: Bart Mahan on 01-02-2025 CO2 [Moles/Vol] 23.5 mmol/L 21.0-32.0 [facility] Cardiology Visit Reporton Cardiology Visit Report [facility] [address] [place] [address] OFFICE VISIT Date of Service: 01/02/25 MR#: [id number] Acct: [id number] Name: EMELY LAURA Rep #: [id number] : 1955 Provider: Dr. Bart Mahan MD Age/Sex: 69/M Location: [facility] Status: Signed HPI HPI History of Present Illness Details: EMELY LAURA, is a 69 M who presents to the office today for a follow-up visit. He is a gentleman with a history of coronary artery disease status post stenting of his circumflex artery and left anterior descending artery in 2013. He did have disease of his ramus intermedius per medical therapy was recommended. He was evaluated [facility] August 2023 for chest tightness and non-ST elevated myocardial infarction. He had a heart catheterization on 08/31/2023 that showed diffuse three-vessel disease with poor distal targets but high-grade mid LAD disease and distal high-grade RCA disease in the PL and PDA branch. He proceeded with drug-eluting stent to mid LAD in-stent restenosis and drug-eluting stent to distal LAD. Echocardiogram on 08/30/2023 showed ejection fraction of 55%. He also has a history of hypertension and hyperlipidemia. He has remained completely asymptomatic since. He denies chest, arm, jaw, or neck discomfort. He denies palpitations. He denies bilateral lower extremity edema. He denies claudication. He denies shortness of breath with activity, shortness of breath at rest, orthopnea, or PND. He denies chronic cough. He denies significant, sudden weight gain. He denies lightheadedness, dizziness, near-syncope, or syncope. He denies blood in urine, blood in stool, or epistaxis. He denies fever with chills. He denies myalgia. He denies fatigue. His exercise level has remained stable. Intake Vital Signs 11/18/23 09:34 03/08/24 09:31 01/02/25 09:14 Height 5 ft 8 in 5 ft 8 in 5 ft 8 in Weight: 189 lb BMI 28.7 BP 109/68 Blood Pressure Location Lt brachial Position Sitting Respiration 16 Pulse 67 Pulse Source Monitor Intake Visit Reasons: 1 Y FU [employer] Required: No Accompanied by: Self Is patient in pain?: No Allergies amoxicillin Adverse Reaction (Severe, Verified 01/02/25 09:16) Rash Rlceimu-Yyu-Rez Reductase Inhibitor Adverse Reaction (Verified 01/02/25 09:16) elevated LFT's Medications ???Medication ???Instructions ???Recorded ???Confirmed ???Type aspirin 81 mg chewable tablet 81 mg PO DAILY@0800 [facility] 0 08/14/13 01/02/25 History cholecalciferol (vitamin D3) 50 50 mcg PO DAILY SUPPLEMENT 4 01/02/25 History mcg (2,000 unit) capsule nitroglycerin 0.4 mg sublingual 0.4 mg sublingual Q5M PRN 08/31/23 01/02/25 Rx tablet Cardiac/Chest Pain #25 tabs famotidine 40 mg tablet 40 mg PO BID 11/18/23 01/02/25 His tory inclisiran 284 mg/1.5 mL 284 mg subcut [id number] 11/18/23 History subcutaneous syringe (Leqvio) lisinopril 20 0.5 tab PO DAILY BLOOD PRESSURE 01/02/25 Rx mg-hydrochlorothiazide 12.5 mg #45 tabs tablet metoprolol succinate 50 mg 50 mg PO DAILY BLOOD PRESSURE #90 09/18/24 01/02/25 Rx tablet,extended release 24 hr tabs clopidogrel 75 mg tablet 75 mg PO DAILY #90 TABLETS 5 01/02/25 Rx Have you fallen in the past year?: No PFSH Medical History Non-ST elevation GA (NSTEMI) Diabetes mellitus Obesity Elevated LFTs History of basal cell carcinoma Atherosclerotic heart disease of [place] coronary artery without angina pectoris HLD (hyperlipidemia) Essential (primary) hypertension Surgical History History of coronary artery stent placement (08/30/23) History of left knee surgery (1989) History of umbilical hernia repair Family History Father CAD (coronary artery disease) Myocardial infarction Lymphoma Mother Myocardial infarction Diabetes Heart disease Brother Myocardial infarction Social History Smoking Status: Former smoker how long ago did patient quit smokin alcohol intake: current alcohol intake frequency: a few times a month Alcohol type: beer and wine substance use type: does not use caffeine: Yes Type: coffee Number of servings: 1 ROS Const Const: Negative for fatigue, weakness, headache(s), daytime sleepiness or difficulty sleeping ENT ENT: Negative for headache(s), dizziness or Nosebleed/epistaxis Cardio Chest Pain: No Palpitations: No Edema: None Resp Respiratory: Negative for SOB with activity, SOB at rest, SOB orthopnea SOB lying down or Cough GI GI: Negative nausea, vomiting or heartburn Neuro Rafael (more content not included)... Normal [facility] Chloride assayOrdered By: Hakeem Mahan on 01-02-2025 Chloride [Moles/Vol] 101 mmol/L 98-108 [facility] Comprehensive Metabolic Prof ilon 01-02-2025 ALK PHOS 81 U/L Normal 40-129 [facility] Comment on above: Performed By: #### L 500.4050 #### [facility] [address] [place], [place], [address] Glomerular filtration rate ( GFR) estimation/1.73 sq m using serum, plasma, or whole bOrdered By: Bart Mahan on 01-02-2025 GFR/1.73 sq M.predicted among non-blacks MDRD (S/P/Bld) [Vol rate/Area] 83 mL/min/{1.73_m2} >60 [facility] Comment on above: mL/min/1.73m2 CKD-EP I Creatinine Equation (2020) Laboratory - Chemistry and C hemistry - challengeOrdered By: Bart Mahan on 01-02-2025 AST [Catalytic activity/Vol] 34 U/L <38 [facility] Potassium measurement (mass/ volume)Ordered By: Bart Mahan on 01-02-2025 Potassium (Unsp spec) [Mass/Vol] 3.8 mmol/L 3.3-5.1 [facility] Serum creatinine measurement (mass/volume)Ordered By: Bart Mahan on 01-02-2025 Creatinine [Mass/Vol] 0.98 mg/dL 0.70-1.20 [facility] Serum globulin measurementOr dered By: Bart Mahan on 01-02-2025 Globulin (S) [Mass/Vol] 2.8 g/dL 2.2-4.2 [facility] Serum glucose measurement (m ass/volume)Ordered By: Bart Mahan on 01-02-2025 Glucose [Mass/Vol] 131 mg/dL High 70-99 [facility] Serum or plasma alanine julien otransferase (ALT) measurementOrdered By: Bart Mahan on 01-02-2025 ALT [Catalytic activity/Vol] 38 U/L <47 [facility] Serum or plasma albumin adam urement (mass/volume)Ordered By: Bart Mahan on 01-02-2025 Albumin [Mass/Vol] 4.3 g/dL 3.4-4.8 [facility] Serum or plasma albumin/glob ulin mass ratioOrdered By: Bart Mahan on 01-02-2025 Albumin/Globulin [Mass ratio] 1.5 {ratio} 0.9-2.4 [facility] Serum or plasma alkaline rl sphatase measurementOrdered By: Bart Mahan on 01-02-2025 ALP [Catalytic activity/Vol] 81 U/L 40-129 [facility] Serum or plasma calcium adam urement (mass/volume)Ordered By: Bart Mahan on 01-02-2025 Calcium [Mass/Vol] 9.4 mg/dL 7.6-11.0 [facility] Serum or plasma urea nitroge n measurement (mass/volume)Ordered By: Bart Mahan on 01-02-2025 Urea nitrogen [Mass/Vol] 24 mg/dL High 4-19 [facility] Sodium levelOrdered By: Scotty Mahan on 01-02-2025 Sodium [Moles/Vol] 137 mmol/L 133-145 [facility] Total proteinOrdered By: Quin Mahan on 01-02-2025 Protein [Mass/Vol] 7.1 g/dL 5.9-8.4 [facility] Absolute lymphocyte countOrd ered By: Mitchel Mitchell on 11-07-2024 Lymphocytes Auto (Unsp spec) [#/Vol] 2.11 10*3/uL 0.83-4.51 [facility] Absolute neutrophil countOrd ered By: Mitchel Mitchell on 11-07-2024 Neutrophils (Bld) [#/Vol] 4.1 10*3/uL 2.0-7.7 [facility] Anion gap in Serum or Plasma Ordered By: Mitchel Mitchell on 11-07-2024 Anion gap [Moles/Vol] 11 mmol/L 5-15 [facility] Automated lymphocyte count a s percentage of total leukocytesOrdered By: Mitchel Mitchell on 11-07-2024 Lymphocytes/100 WBC Auto (Unsp spec) 29.1 % - [facility] BUN/creatinine ratioOrdered By: Mitchel Mitchell on 11-07-2024 Urea nitrogen/Creatinine [Mass ratio] 25.4 mg/mg High 10-20 [facility] Basophil percentageOrdered B y: Mitchel Mitchell on 11-07-2024 Basophils/100 WBC (Bld) 0.6 % 0-1 [facility] Bilirubin, totalOrdered By: Mitchel Mitchell on 11-07-2024 Bilirubin [Mass/Vol] 0.34 mg/dL 0.00-1.30 [facility] CBC W/Diff, Automatedon 10-13 Absolute Lymph 2.11 X10 3/uL Normal 0.83-4.51 [facility] Comment on above: Performed By: #### L 100.0100, L501.9520, L500.4050, L506.1001 #### [facility] [address] [place], [address] Absolute Neut 4.1 X10 3/uL Normal 2.0-7.7 [facility] Comment on above: Performed By: #### L 100.0100, L501.9520, L500.4050, L506.1001 #### [facility] [address] [place], [address] Basophils/100 WBC (Bld) 0.6 % Normal 0-1 [facility] Comment on above: Performed By: #### L 100.0100, L501.9520, L500.4050, L506.1001 #### [facility] [address] [place], [address] Eosinophils/100 WBC (Bld) 3.0 % Normal 0-5 [facility] Comment on above: Performed By: #### L 100.0100, L501.9520, L500.4050, L506.1001 #### [facility] [address] [place], [address] Erythrocyte distribution width (RBC) [Ratio] 13.2 % Normal 11.6-14.6 [facility] Comment on above: Performed By: #### L 100.0100, L501.9520, L500.4050, L506.1001 #### [facility] [address] [place], [address] Hematocrit (Bld) [Volume fraction] 40.4 % Normal 40-54 [facility] Comment on above: Performed By: #### L 100.0100, L501.9520, L500.4050, L506.1001 #### [facility] [address] [place], [address] Hemoglobin (Bld) [Mass/Vol] 13.8 g/dL Normal 13.0-16.5 [facility] Comment on above: Performed By: #### L 100.0100, L501.9520, L500.4050, L506.1001 #### [facility] [address] [place], [address] IG% 0.400 Normal 0.0-0.9 [facility] Comment on above: Result Comment: IG% - Immature Granulocytes (promyelocytes, myelocytes and metamyelocytes) > 1% indicates that a LEFT SHIFT is Present. Performed By: #### L 100.0100, L501.9520, L500.4050, L506.1001 #### [facility] [address] [place], [address] Lymphocytes/100 WBC (Bld) 29.1 % Normal 19-41 [facility] Comment on above: Performed By: #### L 100.0100, L501.9520, L500.4050, L506.1001 #### [facility] [address] [place], [address] MCH (RBC) [Entitic mass] 32.4 pg High 27.0-32.0 [facility] Comment on above: Performed By: #### L 100.0100, L501.9520, L500.4050, L506.1001 #### [facility] [address] [place], [address] MCHC (RBC) [Mass/Vol] 34.2 g/dL Normal 32-36 [facility] Comment on above: Performed By: #### L 100.0100, L501.9520, L500.4050, L506.1001 #### [facility] [address] [place], [address] MCV (RBC) [Entitic vol] 94.8 fL High 80-94 [facility] Comment on above: Performed By: #### L 100.0100, L501.9520, L500.4050, L506.1001 #### [facility] [address] [place], [address] Monocytes/100 WBC (Bld) 10.1 % High 0-10 [facility] Comment on above: Performed By: #### L 100.0100, L501.9520, L500.4050, L506.1001 #### [facility] [address] [place], [address] Neutrophils/100 WBC (Bld) 56.8 % Normal 47-70 [facility] Comment on above: Performed By: #### L 100.0100, L501.9520, L500.4050, L506.1001 #### [facility] [address] [place], [address] Nucleated RBC (Bld) [#/Vol] 0 10*3/uL Normal 0-5 [facility] Comment on above: Performed By: #### L 100.0100, L501.9520, L500.4050, L506.1001 #### [facility] [address] [place], [address] Platelet mean volume (Bld) [Entitic vol] 9.0 fL Normal 6.2-12.0 [facility] Comment on above: Performed By: #### L 100.0100, L501.9520, L500.4050, L506.1001 #### [facility] [address] [place], [address] Platelets (Bld) [#/Vol] 274 10*3/uL Normal 150-450 [facility] Comment on above: Performed By: #### L 100.0100, L501.9520, L500.4050, L506.1001 #### [facility] [address] [place], [address] RBC (Bld) [#/Vol] 4.26 10*6/uL Low 4.6-6.2 [facility] Comment on above: Performed By: #### L 100.0100, L501.9520, L500.4050, L506.1001 #### [facility] [address] [place], [address] RDW SD 46.1 fl High 35.1-43.9 [facility] Comment on above: Performed By: #### L 100.0100, L501.9520, L500.4050, L506.1001 #### [facility] [address] [place], [address] WBC (Bld) [#/Vol] 7.3 10*3/uL Normal 4.4-11.0 [facility] Comment on above: Performed By: #### L 100.0100, L501.9520, L500.4050, L506.1001 #### [facility] [address] [place], [address] Carbon dioxide, total [Moles /volume] in Central venous bloodOrdered By: Mitchel Mitchell on 11-07-2024 CO2 [Moles/Vol] 23.1 mmol/L 21.0-32.0 [facility] Chloride assayOrdered By: Bakari Mitchell on 11-07-2024 Chloride [Moles/Vol] 102 mmol/L 98-108 [facility] Comprehensive Metabolic Prof ilon 11-07-2024 Albumin [Mass/Vol] 4.4 g/dL Normal 3.4-4.8 [facility] Comment on above: Performed By: #### L 100.0100, L501.9520, L500.4050, L506.1001 #### [facility] [address] [place], [address] Albumin/Globulin [Mass ratio] 1.6 {ratio} Normal 0.9-2.4 [facility] Comment on above: Performed By: #### L 100.0100, L501.9520, L500.4050, L506.1001 #### [facility] [address] [place], [address] ALK PHOS 88 U/L Normal 40-129 [facility] Comment on above: Performed By: #### L 100.0100, L501.9520, L500.4050, L506.1001 #### [facility] [address] [place], [address] ALT [Catalytic activity/Vol] 36 U/L Normal <=46 [facility] Comment on above: Performed By: #### L 100.0100, L501.9520, L500.4050, L506.1001 #### [facility] [address] [place], [address] AST [Catalytic activity/Vol] 36 U/L Normal <=37 [facility] Comment on above: Result Comment: Hemo lysis present, Results??could be affected. ?? Performed By: #### L 100.0100, L501.9520, L500.4050, L506.1001 #### [facility] [address] [place], [address] Bilirubin [Mass/Vol] 0.34 mg/dL Normal 0.00-1.30 [facility] Comment on above: Performed By: #### L 100.0100, L501.9520, L500.4050, L506.1001 #### [facility] [address] [place], [address] BUN/CRE 25.4 RATIO High 10-20 [facility] Comment on above: Performed By: #### L 100.0100, L501.9520, L500.4050, L506.1001 #### [facility] [address] [place], [address] Calcium [Mass/Vol] 9.5 mg/dL Normal 7.6-11.0 [facility] Comment on above: Performed By: #### L 100.0100, L501.9520, L500.4050, L506.1001 #### [facility] [address] [place], [address] Chloride [Moles/Vol] 102 mmol/L Normal 98-108 [facility] Comment on above: Performed By: #### L 100.0100, L501.9520, L500.4050, L506.1001 #### [facility] [address] [place], [address] CO2 [Moles/Vol] 23.1 mmol/L Normal 21.0-32.0 [facility] Comment on above: Performed By: #### L 100.0100, L501.9520, L500.4050, L506.1001 #### [facility] [address] [place], [address] Creatinine [Mass/Vol] 0.96 mg/dL Normal 0.70-1.20 [facility] Comment on above: Performed By: #### L 100.0100, L501.9520, L500.4050, L506.1001 #### [facility] [address] [place], [address] GAP 11 Normal 5-15 [facility] Comment on above: Performed By: #### L 100.0100, L501.9520, L500.4050, L506.1001 #### [facility] [address] [place], [address] GFR/1.73 sq M.predicted among non-blacks MDRD (S/P/Bld) [Vol rate/Area] 85 mL/min/{1.73_m2} Normal >60 [facility] Comment on above: Result Comment: mL/m in/1.73m2 CKD-EPI Creatinine Equation (2020) Performed By: #### L 100.0100, L501.9520, L500.4050, L506.1001 #### [facility] [address] [place], [address] Globulin (S) [Mass/Vol] 2.7 g/dL Normal 2.2-4.2 [facility] Comment on above: Performed By: #### L 100.0100, L501.9520, L500.4050, L506.1001 #### [facility] [address] [place], [address] Glucose [Mass/Vol] 129 mg/dL High 70-99 [facility] Comment on above: Performed By: #### L 100.0100, L501.9520, L500.4050, L506.1001 #### [facility] [address] [place], [address] Potassium [Moles/Vol] 4.2 mmol/L Normal 3.3-5.1 [facility] Comment on above: Result Comment: Hemo lysis present, Results??could be affected. ?? Performed By: #### L 100.0100, L501.9520, L500.4050, L506.1001 #### [facility] [address] [place], [address] Sodium [Moles/Vol] 135 mmol/L Normal 133-145 [facility] Comment on above: Performed By: #### L 100.0100, L501.9520, L500.4050, L506.1001 #### [facility] [address] [place], [address] T PROT 7.2 g/dL Normal 5.9-8.4 [facility] Comment on above: Performed By: #### L 100.0100, L501.9520, L500.4050, L506.1001 #### [facility] [address] [place] [place], [address] Urea nitrogen [Mass/Vol] 25 mg/dL High 4-19 [facility] Comment on above: Performed By: #### L 100.0100, L501.9520, L500.4050, L506.1001 #### [facility] [address] [place], [address] Eosinophil percentageOrdered By: Mitchel Mitchell on 11-07-2024 Eosinophils/100 WBC (Bld) 3.0 % 0-5 [facility] Erythrocyte distribution wid th ratioOrdered By: Mitchel Mitchell on 11-07-2024 Erythrocyte distribution width (RBC) [Ratio] 13.2 % 11.6-14.6 [facility] Erythrocyte distribution wid th standard deviationOrdered By: Mitchel Mitchell on 11-07-2024 Erythrocyte distribution width (RBC) [Ratio] 46.1 fl High 35.1-43.9 [facility] Glomerular filtration rate ( GFR) estimation/1.73 sq m using serum, plasma, or whole bOrdered By: Mitchel Mitchell on 11-07-2024 GFR/1.73 sq M.predicted among non-blacks MDRD (S/P/Bld) [Vol rate/Area] 85 mL/min/{1.73_m2} >60 [facility] Comment on above: mL/min/1.73m2 CKD-EP I Creatinine Equation (2020) Hematocrit Auto (Bld) [Volum e fraction]Ordered By: Mitchel Mitchell on 11-07-2024 Hematocrit (Bld) [Volume fraction] 40.4 % 40-54 [facility] Hemoglobin measurementOrdere d By: Mitchel Mitchell 11-07-2024 Hemoglobin (Bld) [Mass/Vol] 13.8 g/dL 13.0-16.5 [facility] Immature granulocytes/100 WB C Auto (Bld)Ordered By: Mitchel Mitchell 11-07-2024 Immature granulocytes/100 WBC (Bld) 0.400 % 0.0-0.9 [facility] Comment on above: IG% - Immature Granu locytes (promyelocytes, myelocytes and metamyelocytes) > 1% indicates that a LEFT SHIFT is Present. Laboratory - Chemistry and C hemistry - challengeOrdered By: Mitchel Mitchell 11-07-2024 AST [Catalytic activity/Vol] 36 U/L <38 [facility] Comment on above: Hemolysis present, R esults could be affected. MCV (mean corpuscular volume ) determinationOrdered By: Mitchel Mitchell 11-07-2024 MCV (RBC) [Entitic vol] 94.8 fL High 80-94 [facility] Mean corpuscular hemoglobin (MCH) determinationOrdered By: Mitchel Mitchell 11-07-2024 MCH (RBC) [Entitic mass] 32.4 pg High 27.0-32.0 [facility] Mean corpuscular hemoglobin concentration (MCHC) determinationOrdered By: Mitchel Mitchell on 11-07-2024 MCHC (RBC) [Mass/Vol] 34.2 g/dL 32-36 [facility] Mean platelet volume determi nationOrdered By: Mitchel Mitchell on 11-07-2024 Platelet mean volume (Bld) [Entitic vol] 9.0 fL 6.2-12.0 [facility] Monocyte percentageOrdered B y: Mitchel Mitchell on 11-07-2024 Monocytes/100 WBC (Bld) 10.1 % High 0-10 [facility] Neutrophil percentageOrdered By: Mitchel Mitchell on 11-07-2024 Neutrophils/100 WBC (Bld) 56.8 % 47-70 [facility] Nucleated red blood cell per centageOrdered By: Mitchel Mitchell on 11-07-2024 Nucleated RBC/100 WBC (Bld) [Ratio] 0 % 0-5 [facility] Platelet countOrdered By: Bakari Mitchell on 11-07-2024 Platelets (Bld) [#/Vol] 274 10*3/uL 150-450 [facility] Potassium measurement (mass/ volume)Ordered By: Mitchel Mitchell on 11-07-2024 Potassium (Unsp spec) [Mass/Vol] 4.2 mmol/L 3.3-5.1 [facility] Comment on above: Hemolysis present, R esults could be affected. RBC Auto (Bld) [#/Vol]Ordere d By: Mitchel Mitchell on 11-07-2024 RBC (Bld) [#/Vol] 4.26 10*6/uL Low 4.6-6.2 [facility] Serum creatinine measurement (mass/volume)Ordered By: Mitchel Mitchell on 11-07-2024 Creatinine [Mass/Vol] 0.96 mg/dL 0.70-1.20 [facility] Serum globulin measurementOr dered By: Mitchel Mitchell 11-07-2024 Globulin (S) [Mass/Vol] 2.7 g/dL 2.2-4.2 [facility] Serum glucose measurement (m ass/volume)Ordered By: Mitchel Mitchell 11-07-2024 Glucose [Mass/Vol] 129 mg/dL High 70-99 [facility] Serum or plasma alanine julien otransferase (ALT) measurementOrdered By: Mitchel Mitchell on 11-07-2024 ALT [Catalytic activity/Vol] 36 U/L <47 [facility] Serum or plasma albumin adam urement (mass/volume)Ordered By: Mitchel Mitchell on 11-07-2024 Albumin [Mass/Vol] 4.4 g/dL 3.4-4.8 [facility] Serum or plasma albumin/glob ulin mass ratioOrdered By: Mitchel Mitchell on 11-07-2024 Albumin/Globulin [Mass ratio] 1.6 {ratio} 0.9-2.4 [facility] Serum or plasma alkaline rl sphatase measurementOrdered By: Mitchel Mitchell on 11-07-2024 ALP [Catalytic activity/Vol] 88 U/L 40-129 [facility] Serum or plasma calcium adam urement (mass/volume)Ordered By: Mitchel Mitchell on 11-07-2024 Calcium [Mass/Vol] 9.5 mg/dL 7.6-11.0 [facility] Serum or plasma urea nitroge n measurement (mass/volume)Ordered By: Mitchel Mitchell on 11-07-2024 Urea nitrogen [Mass/Vol] 25 mg/dL High 4-19 [facility] Sodium levelOrdered By: Mitchel Mitchell on 11-07-2024 Sodium [Moles/Vol] 135 mmol/L 133-145 [facility] TSH DL <= 0.005 mIU/L QnOrde red By: Mitchel Mitchell on 11-07-2024 TSH Qn 2.830 uIU/mL 0.300-4.20 0 [facility] Thyroid Stim Hormone (TSH)on 11-07-2024 TSH 2.830 uIU/mL Normal 0.300-4.20 0 [facility] Comment on above: Performed By: #### L 100.0100, L501.9520, L500.4050, L506.1001 #### [facility] [address] [place], [address] Total proteinOrdered By: Mitchel Mitchell on 11-07-2024 Protein [Mass/Vol] 7.2 g/dL 5.9-8.4 [facility] Vitamin D,25 Hydroxyon 11-07 Vitamin D 25-OH 42.9 ng/mL Normal 30-100 [facility] Comment on above: Result Comment: Steff min D Status Deficiency: <20 ng/mL (50nmol/L) Insufficiency: 20-30 ng/mL (50-75 nmol/L) Sufficiency: 30-100 ng/mL (75-250 nmol/L) Toxicity: >100 ng/mL (>250 nmol/L) Performed By: #### L 100.0100, L501.9520, L500.4050, L506.1001 #### [facility] [address] [place], [address] White blood cell (WBC) count Ordered By: Mitchel Mitchell on 11-07-2024 WBC (Bld) [#/Vol] 7.3 10*3/uL 4.4-11.0 [facility] CBC W/Diff, Automatedon 11-2 Absolute Lymph 2.19 X10 3/uL Normal 0.83-4.51 [facility] Comment on above: Performed By: #### L 501.9985, L506.1000, L500.4050, L501.9520, L100.0100 #### [facility] [address] [place], [address] Absolute Neut 4.1 X10 3/uL Normal 2.0-7.7 [facility] Comment on above: Performed By: #### L 501.9985, L506.1000, L500.4050, L501.9520, L100.0100 #### [facility] [address] [place], [address] Basophils/100 WBC (Bld) 0.8 % Normal 0-1 [facility] Comment on above: Performed By: #### L 501.9985, L506.1000, L500.4050, L501.9520, L100.0100 #### [facility] [address] [place], [address] Eosinophils/100 WBC (Bld) 2.8 % Normal 0-5 [facility] Comment on above: Performed By: #### L 501.9985, L506.1000, L500.4050, L501.9520, L100.0100 #### [facility] [address] [place], [address] Erythrocyte distribution width (RBC) [Ratio] 13.3 % Normal 11.6-14.6 [facility] Comment on above: Performed By: #### L 501.9985, L506.1000, L500.4050, L501.9520, L100.0100 #### [facility] [address] [place], [address] Hematocrit (Bld) [Volume fraction] 45.8 % Normal 40-54 [facility] Comment on above: Performed By: #### L 501.9985, L506.1000, L500.4050, L501.9520, L100.0100 #### [facility] [address] [place], [address] Hemoglobin (Bld) [Mass/Vol] 15.1 g/dL Normal 13.0-16.5 [facility] Comment on above: Performed By: #### L 501.9985, L506.1000, L500.4050, L501.9520, L100.0100 #### [facility] [address] [place], [address] IG% 0.500 Normal 0.0-0.9 [facility] Comment on above: Result Comment: IG% - Immature Granulocytes (promyelocytes, myelocytes and metamyelocytes) > 1% indicates that a LEFT SHIFT is Present. Performed By: #### L 501.9985, L506.1000, L500.4050, L501.9520, L100.0100 #### [facility] [address] [place], [address] Lymphocytes/100 WBC (Bld) 29.2 % Normal 19-41 [facility] Comment on above: Performed By: #### L 501.9985, L506.1000, L500.4050, L501.9520, L100.0100 #### [facility] [address] [place], [address] MCH (RBC) [Entitic mass] 31.8 pg Normal 27.0-32.0 [facility] Comment on above: Performed By: #### L 501.9985, L506.1000, L500.4050, L501.9520, L100.0100 #### [facility] [address] [place], [address] MCHC (RBC) [Mass/Vol] 33.0 g/dL Normal 32-36 [facility] Comment on above: Performed By: #### L 501.9985, L506.1000, L500.4050, L501.9520, L100.0100 #### [facility] [address] [place], [address] MCV (RBC) [Entitic vol] 96.4 fL High 80-94 [facility] Comment on above: Performed By: #### L 501.9985, L506.1000, L500.4050, L501.9520, L100.0100 #### [facility] [address] [place], [address] Monocytes/100 WBC (Bld) 11.5 % High 0-10 [facility] Comment on above: Performed By: #### L 501.9985, L506.1000, L500.4050, L501.9520, L100.0100 #### [facility] [address] [place], [address] Neutrophils/100 WBC (Bld) 55.2 % Normal 47-70 [facility] Comment on above: Performed By: #### L 501.9985, L506.1000, L500.4050, L501.9520, L100.0100 #### [facility] [address] [place], [address] Nucleated RBC (Bld) [#/Vol] 0 10*3/uL Normal 0-5 [facility] Comment on above: Performed By: #### L 501.9985, L506.1000, L500.4050, L501.9520, L100.0100 #### [facility] [address] [place], [address] Platelet mean volume (Bld) [Entitic vol] 9.0 fL Normal 6.2-12.0 [facility] Comment on above: Performed By: #### L 501.9985, L506.1000, L500.4050, L501.9520, L100.0100 #### [facility] [address] [place], [address] Platelets (Bld) [#/Vol] 323 10*3/uL Normal 150-450 [facility] Comment on above: Performed By: #### L 501.9985, L506.1000, L500.4050, L501.9520, L100.0100 #### [facility] [address] [place], [address] RBC (Bld) [#/Vol] 4.75 10*6/uL Normal 4.6-6.2 [facility] Comment on above: Performed By: #### L 501.9985, L506.1000, L500.4050, L501.9520, L100.0100 #### [facility] [address] [place], [address] RDW SD 48.0 fl High 35.1-43.9 [facility] Comment on above: Performed By: #### L 501.9985, L506.1000, L500.4050, L501.9520, L100.0100 #### [facility] [address] [place], [address] WBC (Bld) [#/Vol] 7.5 10*3/uL Normal 4.4-11.0 [facility] Comment on above: Performed By: #### L 501.9985, L506.1000, L500.4050, L501.9520, L100.0100 #### [facility] [address] [place], [address] Comprehensive Metabolic Prof ilon 05-08-2024 Albumin [Mass/Vol] 4.2 g/dL Normal 3.2-5.0 [facility] Comment on above: Performed By: #### L 501.9985, L506.1000, L500.4050, L501.9520, L100.0100 ####[facility] [address] [place], [address] Albumin/Globulin [Mass ratio] 1.1 {ratio} Normal 0.9-2.4 [facility] Comment on above: Performed By: #### L 501.9985, L506.1000, L500.4050, L501.9520, L100.0100 ####[facility] [address] [place], [address] ALK P 89 U/L Normal 45-117 [facility] Comment on above: Performed By: #### L 501.9985, L506.1000, L500.4050, L501.9520, L100.0100 ####[facility] [address] [place], [address] ALT [Catalytic activity/Vol] 48 U/L Normal 16-61 [facility] Comment on above: Performed By: #### L 501.9985, L506.1000, L500.4050, L501.9520, L100.0100 ####[facility] [address] [place], [address] AST [Catalytic activity/Vol] 37 U/L Normal 15-37 [facility] Comment on above: Performed By: #### L 501.9985, L506.1000, L500.4050, L501.9520, L100.0100 ####[facility] [address] [place], [address] Bilirubin [Mass/Vol] 0.50 mg/dL Normal 0.20-1.00 [facility] Comment on above: Result Comment: For patients on eltrombopag therapy, use of Dimension [employer] [employer] TBIL is not recommended. Performed By: #### L 501.9985, L506.1000, L500.4050, L501.9520, L100.0100 ####[facility] [address] [place], [address] BUN/CRE 17.9 RATIO Normal 10-20 [facility] Comment on above: Performed By: #### L 501.9985, L506.1000, L500.4050, L501.9520, L100.0100 ####[facility] [address] [place], [address] CA,Total 9.5 mg/dL Normal 8.5-10.1 [facility] Comment on above: Performed By: #### L 501.9985, L506.1000, L500.4050, L501.9520, L100.0100 ####[facility] [address] [place], [address] Chloride [Moles/Vol] 105 mmol/L Normal 98-107 [facility] Comment on above: Performed By: #### L 501.9985, L506.1000, L500.4050, L501.9520, L100.0100 ####[facility] [address] [place], [address] CO2 [Moles/Vol] 30.0 mmol/L Normal 21.0-32.0 [facility] Comment on above: Performed By: #### L 501.9985, L506.1000, L500.4050, L501.9520, L100.0100 ####[facility] [address] [place], [address] Creatinine [Mass/Vol] 1.12 mg/dL Normal 0.70-1.30 [facility] Comment on above: Result Comment: The validity of the calculated GFR GFRAA in patients over 70 years has not been determined. Clinical correlation is essential. Performed By: #### L 501.9985, L506.1000, L500.4050, L501.9520, L100.0100 ####[facility] [address] [place], [address] EST GFR - AA 83 mL/min Normal >60 [facility] Comment on above: Result Comment: Afri can [place] GFR Calc Performed By: #### L 501.9985, L506.1000, L500.4050, L501.9520, L100.0100 ####[facility] [address] [place], [address] GAP 3 Low 5-15 [facility] Comment on above: Performed By: #### L 501.9985, L506.1000, L500.4050, L501.9520, L100.0100 ####[facility] [address] [place], [address] GFR/1.73 sq M.predicted among non-blacks MDRD (S/P/Bld) [Vol rate/Area] 69 mL/min/{1.73_m2} Normal >60 [facility] Comment on above: Result Comment: Non- GFR Calc Performed By: #### L 501.9985, L506.1000, L500.4050, L501.9520, L100.0100 ####[facility] [address] [place], [address] Globulin (S) [Mass/Vol] 3.7 g/dL Normal 2.2-4.2 [facility] Comment on above: Performed By: #### L 501.9985, L506.1000, L500.4050, L501.9520, L100.0100 ####[facility] [address] [place], [address] Glucose [Mass/Vol] 140 mg/dL High 74-106 [facility] Comment on above: Result Comment: Fast ing Glucose result greater than or equal to 126 mg/dL suggests DIABETES MELLITUS per A.D.A. criteria. Performed By: #### L 501.9985, L506.1000, L500.4050, L501.9520, L100.0100 ####[facility] [address] [place], [address] Potassium [Moles/Vol] 4.2 mmol/L Normal 3.5-5.1 [facility] Comment on above: Performed By: #### L 501.9985, L506.1000, L500.4050, L501.9520, L100.0100 ####[facility] [address] [place], [address] Sodium [Moles/Vol] 138 mmol/L Normal 136-145 [facility] Comment on above: Performed By: #### L 501.9985, L506.1000, L500.4050, L501.9520, L100.0100 ####[facility] [address] [place], [address] T PROT 7.9 g/dL Normal 6.4-8.2 [facility] Comment on above: Performed By: #### L 501.9985, L506.1000, L500.4050, L501.9520, L100.0100 ####[facility] [address] [place], [address] Urea nitrogen [Mass/Vol] 20 mg/dL High 7-18 [facility] Comment on above: Performed By: #### L 501.9985, L506.1000, L500.4050, L501.9520, L100.0100 ####[facility] [address] [place], [address] Hemoglobin A1con 05-08-2024 HbA1c (Bld) [Mass fraction] 6.4 % High 3.8-5.6 [facility] Comment on above: Order Comment: ADD O N FROM TODAY [id number] Result Comment: Norm al < 5.7 % Prediabetic 5.7 - 6.4 % Diabetic >or= 6.5 % Please note range changes. Performed By: #### L 501.9985, L506.1000, L500.4050, L501.9520, L100.0100 ####[facility] [address] [place], [address] Thyroid Stim Hormone (TSH)on 05-08-2024 TSH 3.100 uIU/mL Normal 0.358-3.74 0 [facility] Comment on above: Performed By: #### L 501.9985, L506.1000, L500.4050, L501.9520, L100.0100 ####[facility] [address] [place], [address] Vitamin D,25 Hydroxyon 05-08 Vitamin D 25-OH 35.0 ng/mL Normal [facility] Comment on above: Result Comment: Steff min D 25(OH) Status Range Deficiency <20 ng/mL (50nmol/L) Insufficiency 20 - 30 ng/mL (50 - 75 nmol/L) Sufficiency 30 - 100 ng/mL (75 - 250 nmol/L) Toxicity >100 ng/mL (>250 nmol/L) Performed By: #### L 501.9985, L506.1000, L500.4050, L501.9520, L100.0100 ####[facility] [address] [place], [address] Basophil percentageOrdered B y: Aneudy Gracia on 03-19-2024 Bilirubin [Mass/Vol] 0.50 mg/dL 0.20-1.00 [facility] Comment on above: For patients on eltr ombopag therapy, use of Dimension [place] TBIL is not recommended. Chloride [Moles/Vol] 108 mmol/L 98-107 [facility] Cholesterol [Mass/Vol] 237 mg/dL <200 [facility] Comment on above: <200 mg/dL Desirable 200-240 mg/dL Borderline >240 mg/dL High Risk Glucose [Mass/Vol] 113 mg/dL 74-106 [facility] Comment on above: Fasting Glucose resu lt from 100 to 125 mg/dL suggests IMPAIRED HOMEOSTASIS per A.D.A. criteria. Hemoglobin (Bld) [Mass/Vol] 13.0 g/dL 13.0-16.5 [facility] Potassium [Moles/Vol] 3.9 mmol/L 3.5-5.1 [facility] Protein [Mass/Vol] 6.5 g/dL 6.4-8.2 [facility] Sodium [Moles/Vol] 138 mmol/L 136-145 [facility] Triglyceride [Mass/Vol] 393 mg/dL <199 [facility] Comment on above: The drugs N-Acetylcy steine and Metamizole may falsely depress this assay.Serum Triglycerides Reference Interval Normal <150 mg/dL Borderline high 150 - 199 mg/dL High 200 - 499 mg/dL Very High > or = 500 mg/dL WBC (Bld) [#/Vol] 8.3 10*3/uL 4.4-11.0 [facility] Determination of erythrocyte mean corpuscular volume (MCV)Ordered By: Aneudy Gracia on 08-31-2023 MCV (RBC) [Entitic vol] 97.1 fL 80-94 [facility] Erythrocyte distribution wid th ratioOrdered By: Aneudy Gracia on 08-31-2023 Erythrocyte distribution width (RBC) [Ratio] 13.8 % 11.6-14.6 [facility] Erythrocyte distribution wid th standard deviationOrdered By: Aneudy Gracia on 08-31-2023 Erythrocyte distribution width (RBC) [Entitic vol] 48.6 fL 35.1-43.9 [facility] Hematocrit Auto (Bld) [Volum e fraction]Ordered By: Aneudy Gracia on 08-31-2023 Hematocrit (Bld) [Volume fraction] 39.6 % 40-54 [facility] - Chemistry and C hemistry - challengeOrdered By: Aneudy Gracia on 08-31-2023 Albumin/Globulin [Mass ratio] 1.0 {ratio} 0.9-2.4 [facility] ALP [Catalytic activity/Vol] 66 U/L 45-117 [facility] ALT [Catalytic activity/Vol] 31 U/L 16-61 [facility] Cholesterol in HDL [Mass/Vol] 41 mg/dL >40 [facility] Comment on above: The drugs N-Acetylcy steine and Metamizole may falsely depress this assay. Reference Range HDL <40 mg/dL Low HDL Cholesterol HDL >or= 60 mg/dL High HDL Cholesterol Cholesterol in LDL [Mass/Vol] 117 mg/dL 0-130 [facility] CO2 [Moles/Vol] 25.0 mmol/L 21.0-32.0 [facility] Globulin (S) [Mass/Vol] 3.2 g/dL 2.2-4.2 [facility] Urea nitrogen/Creatinine [Mass ratio] 14.1 mg/mg 10-20 [facility] - Hematology and Cell countsOrdered By: Aneudy Gracia on 08-31-2023 MCH (RBC) [Entitic mass] 31.9 pg 27.0-32.0 [facility] MCHC (RBC) [Mass/Vol] 32.8 g/dL 32-36 [facility] Platelet mean volume (Bld) [Entitic vol] 9.2 fL 6.2-12.0 [facility] Platelets (Bld) [#/Vol] 232 10*3/uL 150-450 [facility] No Panel InformationOrdered By: Aneudy Gracia on 08-31-2023 Estimated Creatinine Clearance Calc 85.92 ml/min [facility] Estimated GFR (MDRD) Amer 115 mL/min >60 [facility] Comment on above: GFR Calc Estimated GFR (MDRD) Non-Af Amer 95 mL/min >60 [facility] Comment on above: Non- GFR Calc VLDL Cholesterol 79 mg/dL 5-40 [facility] RBC Auto (Bld) [#/Vol]Ordere d By: Aneudy Gracia on 08-31-2023 RBC (Bld) [#/Vol] 4.08 10*6/uL 4.6-6.2 [facility] Serum or plasma calcium adam urement (mass/volume)Ordered By: Aneudy Gracia on 08-31-2023 Calcium [Mass/Vol] 8.8 mg/dL 8.5-10.1 [facility] Serum or plasma creatinine m easurement (mass/volume)Ordered By: Aneudy Gracia on 08-31-2023 Creatinine [Mass/Vol] 0.85 mg/dL 0.70-1.30 [facility] Comment on above: The validity of the calculated GFR & GFRAA in patients over 70 years has not been determined. Clinical correlation is essential. Serum or plasma urea nitroge n measurement (mass/volume)Ordered By: Aneudy Gracia on 08-31-2023 Urea nitrogen [Mass/Vol] 12 mg/dL 7-18 [facility] Thin prep Papanicolaou smear with manual screeningOrdered By: Aneudy Gracia on 08-31-2023 Thin prep Papanicolaou smear with manual screening 3.3 g/dL 3.2-5.0 [facility] Thin prep Papanicolaou smear with manual screening 30 U/L 15-37 [facility] Thin prep Papanicolaou smear with manual screening 5 5-15 [facility] Absolute lymphocyte countOrd ered By: Ryanne Velasco on 08-30-2023 Lymphocytes Auto (Unsp spec) [#/Vol] 1.66 10*3/uL 0.83-4.51 [facility] Automated lymphocyte count a s percentage of total leukocytesOrdered By: Ryanne Velasco on 08-30-2023 Lymphocytes/100 WBC Auto (Unsp spec) 15.7 % 19-41 [facility] Basophil percentageOrdered B y: Ryanne Velasco on 08-30-2023 Basophils/100 WBC (Bld) 0.5 % 0-1 [facility] Chloride [Moles/Vol] 104 mmol/L 98-107 [facility] Eosinophils/100 WBC (Bld) 0.6 % 0-5 [facility] Glucose [Mass/Vol] 149 mg/dL 74-106 [facility] Comment on above: Fasting Glucose resu lt greater than or equal to 126 mg/dL suggests DIABETES MELLITUS per A.D.A. criteria. Hemoglobin (Bld) [Mass/Vol] 15.1 g/dL 13.0-16.5 [facility] Monocytes/100 WBC (Bld) 7.4 % 0-10 [facility] Neutrophils (Bld) [#/Vol] 8.0 10*3/uL 2.0-7.7 [facility] Neutrophils/100 WBC (Bld) 75.5 % 47-70 [facility] Potassium [Moles/Vol] 3.8 mmol/L 3.5-5.1 [facility] Sodium [Moles/Vol] 137 mmol/L 136-145 [facility] WBC (Bld) [#/Vol] 10.6 10*3/uL 4.4-11.0 [facility] Determination of erythrocyte mean corpuscular volume (MCV)Ordered By: Ryanne Velasco on 08-30-2023 MCV (RBC) [Entitic vol] 94.9 fL 80-94 [facility] Erythrocyte distribution wid th ratioOrdered By: Ryanne Velasco on 08-30-2023 Erythrocyte distribution width (RBC) [Ratio] 13.2 % 11.6-14.6 [facility] Erythrocyte distribution wid th standard deviationOrdered By: Ryanne Velasco on 08-30-2023 Erythrocyte distribution width (RBC) [Entitic vol] 46.6 fL 35.1-43.9 [facility] Hematocrit Auto (Bld) [Volum e fraction]Ordered By: Ryanne Velasco on 08-30-2023 Hematocrit (Bld) [Volume fraction] 44.7 % 40-54 [facility] Immature granulocytes/100 WB C Auto (Bld)Ordered By: Ryanne Velasco on 08-30-2023 Immature granulocytes/100 WBC (Bld) 0.300 % 0.0-0.9 [facility] Comment on above: IG% - Immature Granu locytes (promyelocytes, myelocytes and metamyelocytes) > 1% indicates that a LEFT SHIFT is Present. Laboratory - Chemistry and C hemistry - challengeOrdered By: Ryanne Velasco on 08-30-2023 CO2 [Moles/Vol] 27.0 mmol/L 21.0-32.0 [facility] Urea nitrogen/Creatinine [Mass ratio] 15.8 mg/mg 10-20 [facility] - Hematology and Cell countsOrdered By: Ryanne Velasco on 08-30-2023 MCH (RBC) [Entitic mass] 32.1 pg 27.0-32.0 [facility] MCHC (RBC) [Mass/Vol] 33.8 g/dL 32-36 [facility] Nucleated RBC/100 WBC (Bld) [Ratio] 0 % 0-5 [facility] Platelet mean volume (Bld) [Entitic vol] 9.3 fL 6.2-12.0 [facility] Platelets (Bld) [#/Vol] 292 10*3/uL 150-450 [facility] No Panel InformationOrdered By: Aneudy Gracia on 08-30-2023 Activated Clotting Time 282 sec 74-137 [facility] No Panel InformationOrdered By: Ryanne Velasco on 08-30-2023 Troponin I High Sensitivity 366 pg/mL 3.0-78.0 [facility] Comment on above: Critical Result(s) C alled at: 14:03:49 08/30/2023 by: Rosie Son to Thu. Results read back by same. Please Note: New Test Units and Gender Specific Reference Ranges. For more information see Policy Stat Procedure [employer] High Sensitivity Troponin (TNIH) and attachments. Estimated Creatinine Clearance Calc 72.31 ml/min [facility] Estimated GFR (MDRD) Amer 94 mL/min >60 [facility] Comment on above: GFR Calc Estimated GFR (MDRD) Non-Af Amer 78 mL/min >60 [facility] Comment on above: Non- GFR Calc RBC Auto (Bld) [#/Vol]Ordere d By: Ryanne Velasco on 08-30-2023 RBC (Bld) [#/Vol] 4.71 10*6/uL 4.6-6.2 [facility] Serum or plasma calcium adam urement (mass/volume)Ordered By: Ryanne Velasco on 08-30-2023 Calcium [Mass/Vol] 9.7 mg/dL 8.5-10.1 [facility] Serum or plasma creatinine m easurement (mass/volume)Ordered By: Ryanne Velasco on 08-30-2023 Creatinine [Mass/Vol] 1.01 mg/dL 0.70-1.30 [facility] Comment on above: The validity of the calculated GFR & GFRAA in patients over 70 years has not been determined. Clinical correlation is essential. Serum or plasma urea nitroge n measurement (mass/volume)Ordered By: Ryanne Velasco on 08-30-2023 Urea nitrogen [Mass/Vol] 16 mg/dL 12-29 [facility] Thin prep Papanicolaou smear with manual screeningOrdered By: Ryanne Velasco on 08-30-2023 Thin prep Papanicolaou smear with manual screening 6 10-26 [facility] Absolute lymphocyte countOrd ered By: Mitchel Mitchell on 05-04-2023 Lymphocytes Auto (Unsp spec) [#/Vol] 1.96 10*3/uL 0.83-4.51 [facility] Basophil percentageOrdered B y: Mitchel Mitcehll on 05-04-2023 Basophils/100 WBC (Bld) 0.5 % 0-1 [facility] Bilirubin [Mass/Vol] 0.50 mg/dL 0.20-1.00 [facility] Comment on above: For patients on eltr ombopag therapy, use of Dimension [place] [employer] TBIL is not recommended. Chloride [Moles/Vol] 103 mmol/L 98-107 [facility] Eosinophils/100 WBC (Bld) 2.6 % 0-5 [facility] Glucose [Mass/Vol] 132 mg/dL 74-106 [facility] Comment on above: Fasting Glucose resu lt greater than or equal to 126 mg/dL suggests DIABETES MELLITUS per A.D.A. criteria. Neutrophils (Bld) [#/Vol] 3.8 10*3/uL 2.0-7.7 [facility] Neutrophils/100 WBC (Bld) 56.5 % 47-70 [facility] Potassium [Moles/Vol] 4.0 mmol/L 3.5-5.1 [facility] Protein [Mass/Vol] 7.8 g/dL 6.4-8.2 [facility] Sodium [Moles/Vol] 138 mmol/L 136-145 [facility] WBC (Bld) [#/Vol] 6.6 10*3/uL 4.4-11.0 [facility] Blood erythrocytes count (nu mber/volume)Ordered By: Mitchel Mitchell on 05-04-2023 RBC (Bld) [#/Vol] 4.47 10*6/uL 4.6-6.2 [facility] Blood hemoglobin measurement (mass/volume)Ordered By: Mitchel Mitchell on 05-04-2023 Hemoglobin (Bld) [Mass/Vol] 14.8 g/dL 13.0-16.5 [facility] Blood lymphocytes/100 leukoc ytesOrdered By: Mitchel Mitchell on 05-04-2023 Lymphocytes/100 WBC (Bld) 29.6 % 19-41 [facility] Blood monocytes/100 leukocyt esOrdered By: Mitchel Mitchell on 05-04-2023 Monocytes/100 WBC (Bld) 10.6 % 0-10 [facility] Blood platelet mean volumeOr dered By: Mitchel Mitchell on 05-04-2023 Platelet mean volume (Bld) [Entitic vol] 9.6 fL 6.2-12.0 [facility] Determination of erythrocyte mean corpuscular volume (MCV)Ordered By: Mitchel Mitchell on 05-04-2023 MCV (RBC) [Entitic vol] 98.0 fL 80-94 [facility] Hematocrit Auto (Bld) [Volum e fraction]Ordered By: Mitchel Mitchell on 05-04-2023 Hematocrit (Bld) [Volume fraction] 43.8 % 40-54 [facility] Laboratory - Chemistry and C hemistry - challengeOrdered By: Mitchel Mitchell on 05-04-2023 ALP [Catalytic activity/Vol] 68 U/L 45-117 [facility] ALT [Catalytic activity/Vol] 55 U/L 16-61 [facility] CO2 [Moles/Vol] 29.0 mmol/L 21.0-32.0 [facility] Globulin (S) [Mass/Vol] 3.7 g/dL 2.2-4.2 [facility] Urea nitrogen/Creatinine [Mass ratio] 11.9 mg/mg 10-20 [facility] Laboratory - Hematology and Cell countsOrdered By: Mitchel Mitchell on 05-04-2023 Erythrocyte distribution width (RBC) [Entitic vol] 46.7 fL 35.1-43.9 [facility] Erythrocyte distribution width (RBC) [Ratio] 13.0 % 11.6-14.6 [facility] Immature granulocytes/100 WBC (Bld) 0.200 % 0.0-0.9 [facility] Comment on above: IG% - Immature Granu locytes (promyelocytes, myelocytes and metamyelocytes) > 1% indicates that a LEFT SHIFT is Present. MCH (RBC) [Entitic mass] 33.1 pg 27.0-32.0 [facility] Nucleated RBC/100 WBC (Bld) [Ratio] 0 % 0-5 [facility] MCHC Auto (RBC) [Mass/Vol]Or dered By: Mitchel Mitchell on 05-04-2023 MCHC (RBC) [Mass/Vol] 33.8 g/dL 32-36 [facility] No Panel InformationOrdered By: Mitchel Mitchell on 05-04-2023 Estimated GFR (MDRD) Amer 94 mL/min >60 [facility] Comment on above: GFR Calc Estimated GFR (MDRD) Non-Af Amer 78 mL/min >60 [facility] Comment on above: Non- GFR Calc Prostate Specific Antigen Screen 1.70 ng/mL 0.00-4.00 [facility] Comment on above: This test was perfor med using the TPSA assay method for [facility]. Values obtained with differentassay methods cannot be used interchangably.When changing PSA assays in the course of monitoring apatient, additional sequential testing should be carriedout to confirm baseline values. Thyroid Stimulating Hormone (TSH) 2.54 uIU/mL 0.358-3.74 [facility] Vitamin D 25-Hydroxy 59.3 ng/mL [facility] Comment on above: Vitamin D 25(OH) Sta tus Range Deficiency <20 ng/mL (50nmol/L) Insufficiency 20 - 30 ng/mL (50 - 75 nmol/L) Sufficiency 30 - 100 ng/mL (75 - 250 nmol/L) Toxicity >100 ng/mL (>250 nmol/L) Platelets bldOrdered By: Mitchel Mitchell on 05-04-2023 Platelets (Bld) [#/Vol] 279 10*3/uL 150-450 [facility] Serum or plasma albumin adam urement (mass/volume)Ordered By: Mitchel Mitchell on 05-04-2023 Albumin [Mass/Vol] 4.1 g/dL 3.2-5.0 [facility] Serum or plasma albumin/glob ulin mass ratioOrdered By: Mitchel Mitchell on 05-04-2023 Albumin/Globulin [Mass ratio] 1.1 {ratio} 0.9-2.4 [facility] Serum or plasma calcium adam urement (mass/volume)Ordered By: Mitchel Mitchell on 05-04-2023 Calcium [Mass/Vol] 9.3 mg/dL 8.5-10.1 [facility] Serum or plasma creatinine m easurement (mass/volume)Ordered By: Mitchel Mitchell on 05-04-2023 Creatinine [Mass/Vol] 1.01 mg/dL 0.70-1.30 [facility] Comment on above: The validity of the calculated GFR & GFRAA in patients over 70 years has not been determined. Clinical correlation is essential. Serum or plasma urea nitroge n measurement (mass/volume)Ordered By: Mitchel Mitchell on 05-04-2023 Urea nitrogen [Mass/Vol] 12 mg/dL 7-18 [facility] Thin prep Papanicolaou smear with manual screeningOrdered By: Mitchel Mitchell on 05-04-2023 Thin prep Papanicolaou smear with manual screening 38 U/L 15-37 [facility] Thin prep Papanicolaou smear with manual screening 6 5-15 [facility] Whole blood hemoglobin A1c/t otal hemoglobin ratio (mass fraction)Ordered By: Mitchel Mitchell on 05-04-2023 HbA1c (Bld) [Mass fraction] 5.9 % 3.8-5.6 [facility] Comment on above: Normal < 5.7 % Predi abetic 5.7 - 6.4 % Diabetic >or= 6.5 % Please note range changes. No Panel InformationOrdered By: Dr. Mitchell on 11-24-2022 Thyroid Stimulating Hormone (TSH) 3.52 uIU/mL 0.358-3.74 [facility] Absolute lymphocyte countOrd ered By: Dr. Mitchell on 10-23-2022 Lymphocytes Auto (Unsp spec) [#/Vol] 2.11 10*3/uL 0.83-4.51 [facility] Basophil percentageOrdered B y: Dr. Mitchell on 10-23-2022 Basophils/100 WBC (Bld) 0.5 % 0-1 [facility] Bilirubin [Mass/Vol] 0.50 mg/dL 0.20-1.00 [facility] Comment on above: For patients on eltr ombopag therapy, use of Dimension [place] [employer] TBIL is not recommended. Chloride [Moles/Vol] 101 mmol/L 98-107 [facility] Eosinophils/100 WBC (Bld) 2.9 % 0-5 [facility] Glucose [Mass/Vol] 189 mg/dL 74-106 [facility] Comment on above: Fasting Glucose resu lt greater than or equal to 126 mg/dL suggests DIABETES MELLITUS per A.D.A. criteria. Neutrophils (Bld) [#/Vol] 4.6 10*3/uL 2.0-7.7 [facility] Neutrophils/100 WBC (Bld) 59.9 % 47-70 [facility] Potassium [Moles/Vol] 4.1 mmol/L 3.5-5.1 [facility] Protein [Mass/Vol] 7.8 g/dL 6.4-8.2 [facility] Sodium [Moles/Vol] 136 mmol/L 136-145 [facility] WBC (Bld) [#/Vol] 7.7 10*3/uL 4.4-11.0 [facility] Blood erythrocytes count (nu mber/volume)Ordered By: Dr. Mitchell on 10-23-2022 RBC (Bld) [#/Vol] 4.41 10*6/uL 4.6-6.2 [facility] Blood hemoglobin measurement (mass/volume)Ordered By: Dr. Mitchell on 10-23-2022 Hemoglobin (Bld) [Mass/Vol] 14.3 g/dL 13.0-16.5 [facility] Blood lymphocytes/100 leukoc ytesOrdered By: Dr. Mitchell on 10-23-2022 Lymphocytes/100 WBC (Bld) 27.4 % 19-41 [facility] Blood monocytes/100 leukocyt esOrdered By: Dr. Mitchell on 10-23-2022 Monocytes/100 WBC (Bld) 8.8 % 0-10 [facility] Blood platelet mean volumeOr dered By: Dr. Mitchell on 10-23-2022 Platelet mean volume (Bld) [Entitic vol] 9.3 fL 6.2-12.0 [facility] Determination of erythrocyte mean corpuscular volume (MCV)Ordered By: Dr. Mitchell on 10-23-2022 MCV (RBC) [Entitic vol] 95.9 fL 80-94 [facility] Hematocrit Auto (Bld) [Volum e fraction]Ordered By: Dr. Mitchell on 10-23-2022 Hematocrit (Bld) [Volume fraction] 42.3 % 40-54 [facility] Laboratory - Chemistry and C hemistry - challengeOrdered By: Dr. Mitchell on 10-23-2022 ALP [Catalytic activity/Vol] 87 U/L 45-117 [facility] ALT [Catalytic activity/Vol] 86 U/L 16-61 [facility] CO2 [Moles/Vol] 27.0 mmol/L 21.0-32.0 [facility] Globulin (S) [Mass/Vol] 3.9 g/dL 2.2-4.2 [facility] Urea nitrogen/Creatinine [Mass ratio] 19.2 mg/mg 10-20 [facility] Laboratory - Hematology and Cell countsOrdered By: Dr. Mitchell on 10-23-2022 Erythrocyte distribution width (RBC) [Entitic vol] 46.4 fL 35.1-43.9 [facility] Erythrocyte distribution width (RBC) [Ratio] 12.9 % 11.6-14.6 [facility] Immature granulocytes/100 WBC (Bld) 0.500 % 0.0-0.9 [facility] Comment on above: IG% - Immature Granu locytes (promyelocytes, myelocytes and metamyelocytes) > 1% indicates that a LEFT SHIFT is Present. MCH (RBC) [Entitic mass] 32.4 pg 27.0-32.0 [facility] Nucleated RBC/100 WBC (Bld) [Ratio] 0 % 0-5 [facility] MCHC Auto (RBC) [Mass/Vol]Or dered By: Dr. Mitchell on 10-23-2022 MCHC (RBC) [Mass/Vol] 33.8 g/dL 32-36 [facility] No Panel InformationOrdered By: Dr. Mitchell on 10-23-2022 Estimated GFR (MDRD) Amer 91 mL/min >60 [facility] Comment on above: GFR Calc Estimated GFR (MDRD) Non-Af Amer 75 mL/min >60 [facility] Comment on above: Non- GFR Calc Thyroid Stimulating Hormone (TSH) 4.02 uIU/mL 0.358-3.74 [facility] Vitamin D 25-Hydroxy 54.0 ng/mL [facility] Comment on above: Vitamin D 25(OH) Sta tus Range Deficiency <20 ng/mL (50nmol/L) Insufficiency 20 - 30 ng/mL (50 - 75 nmol/L) Sufficiency 30 - 100 ng/mL (75 - 250 nmol/L) Toxicity >100 ng/mL (>250 nmol/L) Platelets bldOrdered By: Dr. Mitchell on 10-23-2022 Platelets (Bld) [#/Vol] 301 10*3/uL 150-450 [facility] Serum or plasma albumin adam urement (mass/volume)Ordered By: Dr. Mitchell on 10-23-2022 Albumin [Mass/Vol] 3.9 g/dL 3.2-5.0 [facility] Serum or plasma albumin/glob ulin mass ratioOrdered By: Dr. Mitchell on 10-23-2022 Albumin/Globulin [Mass ratio] 1.0 {ratio} 0.9-2.4 [facility] Serum or plasma calcium adam urement (mass/volume)Ordered By: Dr. Mitchell on 10-23-2022 Calcium [Mass/Vol] 9.7 mg/dL 8.5-10.1 [facility] Serum or plasma creatinine m easurement (mass/volume)Ordered By: Dr. Mitchell on 10-23-2022 Creatinine [Mass/Vol] 1.04 mg/dL 0.70-1.30 [facility] Comment on above: The validity of the calculated GFR & GFRAA in patients over 70 years has not been determined. Clinical correlation is essential. Serum or plasma urea nitroge n measurement (mass/volume)Ordered By: Dr. Mitchell on 10-23-2022 Urea nitrogen [Mass/Vol] 20 mg/dL 7-18 [facility] Thin prep Papanicolaou smear with manual screeningOrdered By: Dr. Mitchell on 10-23-2022 Thin prep Papanicolaou smear with manual screening 69 U/L 15-37 [facility] Thin prep Papanicolaou smear with manual screening 8 5-15 [facility] Absolute lymphocyte countOrd ered By: Dr. Velasco on 10-14-2022 Lymphocytes Auto (Unsp spec) [#/Vol] 2.12 10*3/uL 0.83-4.51 [facility] Basophil percentageOrdered B y: Dr. Velasco on 10-14-2022 Basophils/100 WBC (Bld) 0.6 % 0-1 [facility] Chloride [Moles/Vol] 100 mmol/L 98-107 [facility] Eosinophils/100 WBC (Bld) 1.5 % 0-5 [facility] Glucose [Mass/Vol] 196 mg/dL 74-106 [facility] Comment on above: Fasting Glucose resu lt greater than or equal to 126 mg/dL suggests DIABETES MELLITUS per A.D.A. criteria. Neutrophils (Bld) [#/Vol] 5.5 10*3/uL 2.0-7.7 [facility] Neutrophils/100 WBC (Bld) 63.7 % 47-70 [facility] Potassium [Moles/Vol] 3.8 mmol/L 3.5-5.1 [facility] Sodium [Moles/Vol] 137 mmol/L 136-145 [facility] WBC (Bld) [#/Vol] 8.6 10*3/uL 4.4-11.0 [facility] Blood erythrocytes count (nu mber/volume)Ordered By: Dr. Velasco on 10-14-2022 RBC (Bld) [#/Vol] 4.40 10*6/uL 4.6-6.2 [facility] Blood hemoglobin measurement (mass/volume)Ordered By: Dr. Velasco on 10-14-2022 Hemoglobin (Bld) [Mass/Vol] 14.2 g/dL 13.0-16.5 [facility] Blood lymphocytes/100 leukoc ytesOrdered By: Dr. Velasco on 10-14-2022 Lymphocytes/100 WBC (Bld) 24.7 % 19-41 [facility] Blood monocytes/100 leukocyt esOrdered By: Dr. Velasco on 10-14-2022 Monocytes/100 WBC (Bld) 9.1 % 0-10 [facility] Blood platelet mean volumeOr dered By: Dr. Vealsco on 10-14-2022 Platelet mean volume (Bld) [Entitic vol] 9.0 fL 6.2-12.0 [facility] Determination of erythrocyte mean corpuscular volume (MCV)Ordered By: Dr. Velasco on 10-14-2022 MCV (RBC) [Entitic vol] 94.8 fL 80-94 [facility] Hematocrit Auto (Bld) [Volum e fraction]Ordered By: Dr. Velasco on 10-14-2022 Hematocrit (Bld) [Volume fraction] 41.7 % 40-54 [facility] Laboratory - Chemistry and C hemistry - challengeOrdered By: Dr. Velasco on 10-14-2022 CO2 [Moles/Vol] 28.0 mmol/L 21.0-32.0 [facility] Urea nitrogen/Creatinine [Mass ratio] 16.3 mg/mg 10-20 [facility] Laboratory - Hematology and Cell countsOrdered By: Dr. Velasco on 10-14-2022 Erythrocyte distribution width (RBC) [Entitic vol] 44.9 fL 35.1-43.9 [facility] Erythrocyte distribution width (RBC) [Ratio] 13.0 % 11.6-14.6 [facility] Immature granulocytes/100 WBC (Bld) 0.400 % 0.0-0.9 [facility] Comment on above: IG% - Immature Granu locytes (promyelocytes, myelocytes and metamyelocytes) > 1% indicates that a LEFT SHIFT is Present. MCH (RBC) [Entitic mass] 32.3 pg 27.0-32.0 [facility] Nucleated RBC/100 WBC (Bld) [Ratio] 0 % 0-5 [facility] MCHC Auto (RBC) [Mass/Vol]Or dered By: Dr. Velasco on 10-14-2022 MCHC (RBC) [Mass/Vol] 34.1 g/dL 32-36 [facility] No Panel InformationOrdered By: Dr. Velasco on 10-14-2022 Estimated Creatinine Clearance Calc 55.61 ml/min [facility] Estimated GFR (MDRD) Amer 75 mL/min >60 [facility] Comment on above: GFR Calc Estimated GFR (MDRD) Non-Af Amer 62 mL/min >60 [facility] Comment on above: Non- GFR Calc Platelets bldOrdered By: Dr. Velasco on 10-14-2022 Platelets (Bld) [#/Vol] 277 10*3/uL 150-450 [facility] Serum or plasma calcium adam urement (mass/volume)Ordered By: Dr. Velasco on 10-14-2022 Calcium [Mass/Vol] 9.5 mg/dL 8.5-10.1 [facility] Serum or plasma creatinine m easurement (mass/volume)Ordered By: Dr. Velasco on 10-14-2022 Creatinine [Mass/Vol] 1.23 mg/dL 0.70-1.30 [facility] Comment on above: The validity of the calculated GFR & GFRAA in patients over 70 years has not been determined. Clinical correlation is essential. Serum or plasma urea nitroge n measurement (mass/volume)Ordered By: Dr. Velasco on 10-14-2022 Urea nitrogen [Mass/Vol] 20 mg/dL 7-18 [facility] Thin prep Papanicolaou smear with manual screeningOrdered By: Dr. Velasco on 10-14-2022 Thin prep Papanicolaou smear with manual screening 9 5-15 [facility] Absolute lymphocyte counton 05-01-2022 Lymphocytes Auto (Unsp spec) [#/Vol] 2.19 10*3/uL 0.83-4.51 [facility] Work Phone: Basophil percentageon 2021 Basophils/100 WBC (Bld) 0.7 % 0-1 [facility] Work Phone: Bilirubin [Mass/Vol] 0.50 mg/dL 0.20-1.00 [facility] Work Phone: Comment on above: For patients on eltr ombopag therapy, use of Dimension [place] [employer] TBIL is not recommended. Chloride [Moles/Vol] 104 mmol/L 98-107 [facility] Work Phone: Eosinophils/100 WBC (Bld) 3.5 % 0-5 [facility] Work Phone: Glucose [Mass/Vol] 117 mg/dL 74-106 [facility] Work Phone: Comment on above: Fasting Glucose resu lt from 100 to 125 mg/dL suggests IMPAIRED HOMEOSTASIS per A.D.A. criteria. Neutrophils (Bld) [#/Vol] 3.9 10*3/uL 2.0-7.7 [facility] Work Phone: Neutrophils/100 WBC (Bld) 54.9 % 47-70 [facility] Work Phone: Potassium [Moles/Vol] 4.0 mmol/L 3.5-5.1 [facility] Work Phone: Protein [Mass/Vol] 7.9 g/dL 6.4-8.2 [facility] Work Phone: Sodium [Moles/Vol] 142 mmol/L 136-145 [facility] Work Phone: WBC (Bld) [#/Vol] 7.1 10*3/uL 4.4-11.0 [facility] Work Phone: Blood erythrocytes count (nu mber/volume)on 05-01-2022 RBC (Bld) [#/Vol] 4.58 10*6/uL 4.6-6.2 [facility] Work Phone: Blood hemoglobin measurement (mass/volume)on 05-01-2022 Hemoglobin (Bld) [Mass/Vol] 15.2 g/dL 13.0-16.5 [facility] Work Phone: Blood lymphocytes/100 leukoc yteson 05-01-2022 Lymphocytes/100 WBC (Bld) 30.8 % 19-41 [facility] Work Phone: Blood monocytes/100 leukocyt eson 05-01-2022 Monocytes/100 WBC (Bld) 10.0 % 0-10 [facility] Work Phone: Blood platelet mean volumeon 05-01-2022 Platelet mean volume (Bld) [Entitic vol] 9.6 fL 6.2-12.0 [facility] Work Phone: Determination of erythrocyte mean corpuscular volume (MCV)on 05-01-2022 MCV (RBC) [Entitic vol] 98.7 fL 80-94 [facility] Work Phone: Hematocrit Auto (Bld) [Volum e fraction]on 05-01-2022 Hematocrit (Bld) [Volume fraction] 45.2 % 40-54 [facility] Work Phone: Laboratory - Chemistry and C hemistry - challengeon 05-01-2022 ALP [Catalytic activity/Vol] 87 U/L 45-117 [facility] Work Phone: ALT [Catalytic activity/Vol] 70 U/L 16-61 [facility] Work Phone: CO2 [Moles/Vol] 27.0 mmol/L 21.0-32.0 [facility] Work Phone: Globulin (S) [Mass/Vol] 3.7 g/dL 2.2-4.2 [facility] Work Phone: Urea nitrogen/Creatinine [Mass ratio] 20.6 mg/mg 10-20 [facility] Work Phone: Laboratory - Hematology and Cell countson 05-01-2022 Erythrocyte distribution width (RBC) [Entitic vol] 48.9 fL 35.1-43.9 [facility] Work Phone: Erythrocyte distribution width (RBC) [Ratio] 13.4 % 11.6-14.6 [facility] Work Phone: Immature granulocytes/100 WBC (Bld) 0.100 % 0.0-0.9 [facility] Work Phone: Comment on above: IG% - Immature Granu locytes (promyelocytes, myelocytes and metamyelocytes) > 1% indicates that a LEFT SHIFT is Present. MCH (RBC) [Entitic mass] 33.2 pg 27.0-32.0 [facility] Work Phone: Nucleated RBC/100 WBC (Bld) [Ratio] 0 % 0-5 [facility] Work Phone: MCHC Auto (RBC) [Mass/Vol]on 05-01-2022 MCHC (RBC) [Mass/Vol] 33.6 g/dL 32-36 [facility] Work Phone: No Panel Informationon 05-01 Estimated GFR (MDRD) Amer 93 mL/min >60 [facility] Work Phone: Comment on above: GFR Calc Estimated GFR (MDRD) Non-Af Amer 77 mL/min >60 [facility] Work Phone: Comment on above: Non- GFR Calc Prostate Specific Antigen Screen 1.46 ng/mL 0.00-4.00 [facility] Work Phone: Comment on above: This test was perfor med using the TPSA assay method for [employer] chemistry system. Values obtained with differentassay methods cannot be used interchangably.When changing PSA assays in the course of monitoring apatient, additional sequential testing should be carriedout to confirm baseline values. Thyroid Stimulating Hormone (TSH) 3.23 uIU/mL 0.358-3.74 [facility] Work Phone: Vitamin D 25-Hydroxy 18.9 ng/mL [facility] Work Phone: Comment on above: Vitamin D 25(OH) Sta tus Range Deficiency <20 ng/mL (50nmol/L) Insufficiency 20 - 30 ng/mL (50 - 75 nmol/L) Sufficiency 30 - 100 ng/mL (75 - 250 nmol/L) Toxicity >100 ng/mL (>250 nmol/L) Platelets bldon 05-01-2022 Platelets (Bld) [#/Vol] 285 10*3/uL 150-450 [facility] Work Phone: Serum or plasma albumin adam urement (mass/volume)on 05-01-2022 Albumin [Mass/Vol] 4.2 g/dL 3.2-5.0 [facility] Work Phone: Serum or plasma albumin/glob ulin mass ratioon 05-01-2022 Albumin/Globulin [Mass ratio] 1.1 {ratio} 0.9-2.4 [facility] Work Phone: Serum or plasma calcium adam urement (mass/volume)on 05-01-2022 Calcium [Mass/Vol] 9.8 mg/dL 8.5-10.1 [facility] Work Phone: Serum or plasma creatinine m easurement (mass/volume)on 05-01-2022 Creatinine [Mass/Vol] 1.02 mg/dL 0.70-1.30 [facility] Work Phone: Comment on above: The validity of the calculated GFR & GFRAA in patients over 70 years has not been determined. Clinical correlation is essential. Serum or plasma urea nitroge n measurement (mass/volume)on 05-01-2022 Urea nitrogen [Mass/Vol] 21 mg/dL 7-18 [facility] Work Phone: Thin prep Papanicolaou smear with manual screeningon 05-01-2022 Thin prep Papanicolaou smear with manual screening 44 U/L 15-37 [facility] Work Phone: Thin prep Papanicolaou smear with manual screening 04 18-15 [facility] Work Phone: Absolute lymphocyte counton 10-30-2021 Lymphocytes Auto (Unsp spec) [#/Vol] 1.88 10*3/uL 0.83-4.51 [facility] Work Phone: Basophil percentageon 2021 Basophils/100 WBC (Bld) 0.8 % 0-1 [facility] Work Phone: Bilirubin [Mass/Vol] 0.30 mg/dL 0.20-1.00 [facility] Work Phone: Comment on above: For patients on eltr ombopag therapy, use of [employer] TBIL is not recommended. Chloride [Moles/Vol] 102 mmol/L 98-107 [facility] Work Phone: Eosinophils/100 WBC (Bld) 4.5 % 0-5 [facility] Work Phone: Glucose [Mass/Vol] 161 mg/dL 74-106 [facility] Work Phone: Comment on above: Fasting Glucose resu lt greater than or equal to 126 mg/dL suggests DIABETES MELLITUS per A.D.A. criteria. Neutrophils (Bld) [#/Vol] 3.2 10*3/uL 2.0-7.7 [facility] Work Phone: Neutrophils/100 WBC (Bld) 52.8 % 47-70 [facility] Work Phone: Potassium [Moles/Vol] 3.9 mmol/L 3.5-5.1 [facility] Work Phone: Protein [Mass/Vol] 7.8 g/dL 6.4-8.2 [facility] Work Phone: Sodium [Moles/Vol] 138 mmol/L 136-145 [facility] Work Phone: WBC (Bld) [#/Vol] 6.0 10*3/uL 4.4-11.0 [facility] Work Phone: Blood erythrocytes count (nu mber/volume)on 10-30-2021 RBC (Bld) [#/Vol] 4.60 10*6/uL 4.6-6.2 [facility] Work Phone: Blood hemoglobin measurement (mass/volume)on 10-30-2021 Hemoglobin (Bld) [Mass/Vol] 14.9 g/dL 13.0-16.5 [facility] Work Phone: Blood lymphocytes/100 leukoc yteson 10-30-2021 Lymphocytes/100 WBC (Bld) 31.5 % 19-41 [facility] Work Phone: Blood monocytes/100 leukocyt eson 10-30-2021 Monocytes/100 WBC (Bld) 9.9 % 0-10 [facility] Work Phone: Blood platelet mean volumeon 10-30-2021 Platelet mean volume (Bld) [Entitic vol] 9.4 fL 6.2-12.0 [facility] Work Phone: Determination of erythrocyte mean corpuscular volume (MCV)on 10-30-2021 MCV (RBC) [Entitic vol] 96.7 fL 80-94 [facility] Work Phone: Hematocrit Auto (Bld) [Volum e fraction]on 10-30-2021 Hematocrit (Bld) [Volume fraction] 44.5 % 40-54 [facility] Work Phone: Laboratory - Chemistry and C hemistry - challengeon 10-30-2021 ALP [Catalytic activity/Vol] 85 U/L 45-117 [facility] Work Phone: ALT [Catalytic activity/Vol] 76 U/L 16-61 [facility] Work Phone: CO2 [Moles/Vol] 28.0 mmol/L 21.0-32.0 [facility] Work Phone: Globulin (S) [Mass/Vol] 3.9 g/dL 2.2-4.2 [facility] Work Phone: Urea nitrogen/Creatinine [Mass ratio] 19.5 mg/mg 10-20 [facility] Work Phone: Laboratory - Hematology and Cell countson 10-30-2021 Erythrocyte distribution width (RBC) [Entitic vol] 47.5 fL 35.1-43.9 [facility] Work Phone: Erythrocyte distribution width (RBC) [Ratio] 13.2 % 11.6-14.6 [facility] Work Phone: Immature granulocytes/100 WBC (Bld) 0.500 % 0.0-0.9 [facility] Work Phone: Comment on above: IG% - Immature Granu locytes (promyelocytes, myelocytes and metamyelocytes) > 1% indicates that a LEFT SHIFT is Present. MCH (RBC) [Entitic mass] 32.4 pg 27.0-32.0 [facility] Work Phone: Nucleated RBC/100 WBC (Bld) [Ratio] 0 % 0-5 [facility] Work Phone: MCHC Auto (RBC) [Mass/Vol]on 10-30-2021 MCHC (RBC) [Mass/Vol] 33.5 g/dL 32-36 [facility] Work Phone: No Panel Informationon 10-30 Estimated GFR (MDRD) Amer 99 mL/min >60 [facility] Work Phone: Comment on above: GFR Calc Estimated GFR (MDRD) Non-Af Amer 82 mL/min >60 [facility] Work Phone: Comment on above: Non- GFR Calc Thyroid Stimulating Hormone (TSH) 2.87 uIU/mL 0.358-3.74 [facility] Work Phone: Vitamin D 25-Hydroxy 20.1 ng/mL [facility] Work Phone: Comment on above: Vitamin D 25(OH) Sta tus Range Deficiency <20 ng/mL (50nmol/L) Insufficiency 20 - 30 ng/mL (50 - 75 nmol/L) Sufficiency 30 - 100 ng/mL (75 - 250 nmol/L) Toxicity >100 ng/mL (>250 nmol/L) Platelets bldon 10-30-2021 Platelets (Bld) [#/Vol] 287 10*3/uL 150-450 [facility] Work Phone: Serum or plasma albumin adam urement (mass/volume)on 10-30-2021 Albumin [Mass/Vol] 3.9 g/dL 3.2-5.0 [facility] Work Phone: Serum or plasma albumin/glob ulin mass ratioon 10-30-2021 Albumin/Globulin [Mass ratio] 1.0 {ratio} 0.9-2.4 [facility] Work Phone: Serum or plasma calcium adam urement (mass/volume)on 10-30-2021 Calcium [Mass/Vol] 9.3 mg/dL 8.5-10.1 [facility] Work Phone: Serum or plasma creatinine m easurement (mass/volume)on 10-30-2021 Creatinine [Mass/Vol] 0.97 mg/dL 0.70-1.30 [facility] Work Phone: Comment on above: The validity of the calculated GFR & GFRAA in patients over 70 years has not been determined. Clinical correlation is essential. Serum or plasma urea nitroge n measurement (mass/volume)on 10-30-2021 Urea nitrogen [Mass/Vol] 19 mg/dL 7-18 [facility] Work Phone: Thin prep Papanicolaou smear with manual screeningon 10-30-2021 Thin prep Papanicolaou smear with manual screening 42 U/L 15-37 [facility] Work Phone: Thin prep Papanicolaou smear with manual screening 8 5-15 [facility] Work Phone: Lab Report: Lipid Profileon 01-29-2017 Cholesterol in HDL mass conc 43 mg/dL [facility] Work Phone: Cholesterol in LDL mass conc 130 mg/dL 0-130 [facility] Work Phone: Cholesterol mass conc 215 mg/dL High 200 [facility] Work Phone: Lipoprotein.pre-beta mass conc 42 mg/dL High 5-40 [facility] Work Phone: Triglyceride mass conc 211 mg/dL [facility] Work Phone: Lab Report: Liver Profileon 01-29-2017 Albumin mass conc 4.0 g/dL 3.4-5.0 [facility] Work Phone: ALP enzyme act/vol (Bld) 75 U/L 45-117 [facility] Work Phone: ALT enzyme act/vol 100 U/L High 12-78 [facility] Work Phone: AST enzyme act/vol 75 U/L High 15-37 [facility] Work Phone: Bilirubin mass conc 0.60 mg/dL 0.20-1.00 [facility] Work Phone: Bilirubin.direct mass conc 0.15 mg/dL 0.00-0.30 [facility] Work Phone: Globulin mass conc (S) 3.6 g/dL High 2.3-3.5 [facility] Work Phone: Protein mass conc 7.6 g/dL 6.4-8.2 [facility] Work Phone: Office Visiton 01-21-2017 Documentation of current medications (procedure) Done Invalid Interpretation Code [facility] Work Phone: Fall risk assessment Fall risk assessment [facility] Work Phone: Protein mass conc Done [facility] Work Phone: Lab Report: Lipid Profileon 07-17-2016 Cholesterol 243 mg/dL High 200 [facility] Work Phone: HDL Cholesterol 44 mg/dL Invalid Interpretation Code [facility] Work Phone: LDL Cholesterol 168 mg/dL High 0-130 [facility] Work Phone: Triglyceride 154 mg/dL Invalid Interpretation Code [facility] Work Phone: very low density lipoproteins 31 mg/dL Invalid Interpretation Code 5-40 [facility] Work Phone: Lab Report: Liver Profileon 07-17-2016 Alanine aminotransferase (ALT) 84 U/L High 12-78 [facility] Work Phone: Albumin 3.9 g/dL Invalid Interpretation Code 3.4-5.0 [facility] Work Phone: Alkaline phosphatase (ALP) 87 U/L Invalid Interpretation Code 45-117 [facility] Work Phone: Aspartate aminotransferase (AST) 59 U/L High 15-37 [facility] Work Phone: Bilirubin (direct) 0.11 mg/dL Invalid Interpretation Code 0.00-0.30 [facility] Work Phone: Bilirubin (total) 0.50 mg/dL Invalid Interpretation Code 0.20-1.00 [facility] Work Phone: Globulin 3.6 g/dL High 2.3-3.5 [facility] Work Phone: Protein 7.5 g/dL Invalid Interpretation Code 6.4-8.2 [facility] Work Phone: Replaced Document: Jennifer Canchola 07-14-2016 EKG QRS axis 25 deg [facility] Work Phone: electrocardiogram interpretation Sinus Rhythm WITHIN NORMAL LIMITS Invalid Interpretation Code [facility] Work Phone: GE use only - for LinkLogic import when terms are not otherwise specified 397 ms Invalid Interpretation Code [facility] Work Phone: Interpretation Sinus Rhythm WITHIN NORMAL LIMITS [facility] Work Phone: P [place] 39 deg [facility] Work Phone: P wave axis, electrocardiogram 39 deg Invalid Interpretation Code [facility] Work Phone: IN Interval 148 ms [facility] Work Phone: IN interval, electrocardiogram 148 ms Invalid Interpretation Code [facility] Work Phone: Pulse (Heart Rate) 71 /min Invalid Interpretation Code [facility] Work Phone: QRS axis, electrocardiogram 25 deg Invalid Interpretation Code [facility] Work Phone: QRS Duration 96 ms [facility] Work Phone: QRS duration, electrocardiogram 96 ms Invalid Interpretation Code [facility] Work Phone: QT Interval new path ms [facility] Work Phone: QT interval, electrocardiogram new path ms Invalid Interpretation Code [facility] Work Phone: QTc Duff 397 ms [facility] Work Phone: T Duvall 39 deg [facility] Work Phone: T wave axis, electrocardiogram 39 deg Invalid Interpretation Code [facility] Work Phone: 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 Left ventricular Ejection fraction 60 % [facility] Work Phone: Office Visit: [facility] 06-25-19 16 Tobacco smoking status NHIS Former smoker [facility] Work Phone: Tobacco use [facility] Former smoker Invalid Interpretation Code [facility] Work Phone: Office Visiton 12-27-2014 Dietary management education, guidance, and counseling (procedure) yes Invalid Interpretation Code [facility] Work Phone: Blood Glucose , Office [phone])Ordered By: Aga Howard on 09-04-2014 Glucose Glucometer (BldC) [Moles/Vol] 125 1 Normal [facility] Work Phone: HgA1C , Office ([phone])Ordere d By: Aga Howard on 09-04-2014 HbA1c (Bld) [Mass fraction] 5.7 % Normal 4.6 - 7.1 [facility] Work Phone: Office Visit: [facility] 05-29-20 14 cardiac risk group C [facility] Work Phone: General cardiovascular disease 10Y risk [#] [place].D'Agostshila N/A [facility] Work Phone: Protein mass conc yes [facility] Work Phone: Smoking cessation education (procedure) yes Invalid Interpretation Code [facility] Work Phone: Blood Glucose , Office [phone])Ordered By: Aga Howard on 03-06-2014 Glucose Glucometer (BldC) [Moles/Vol] 159 1 Normal [facility]; [facility] Work Phone: Comment on above: not fasting HgA1C , Office ([phone])Ordere d By: Aga Howard on 03-06-2014 HbA1c (Bld) [Mass fraction] 5.7 % Normal 4.6 - 7.1 [facility] Work Phone: Replaced Document: Jennifer PIKE Observationson 08-24-2013 Pulse (Heart Rate) 422 ms Invalid Interpretation Code [facility] Work Phone: Blood Glucose , Office [phone])Ordered By: Yael Root on 08-11-2013 Glucose Glucometer (BldC) [Moles/Vol] 138 1 Normal [facility]; [facility] Work Phone: Lab Report: BMPon 08-11-2013 Calcium 9.7 mg/dL Normal 8.5-10.1 [facility] Work Phone: Chloride 97 mmol/L Low 98-107 [facility] Work Phone: Creatinine 1.0 mg/dL Normal 0.8-1.3 [facility] Work Phone: Glucose 109 mg/dL Normal 70-110 [facility] Work Phone: Glucose mass conc 109 mg/dL Normal 70-110 [facility] Work Phone: Potassium 3.8 mmol/L Normal 3.5-5.1 [facility] Work Phone: Sodium 131 mmol/L Low 136-145 [facility] Work Phone: Urea nitrogen 17 mg/dL Normal 7-18 [facility] Work Phone: Lab Report: CBCon 08-11-2013 Erythrocytes (RBC) 4.42 10*6/uL Low 4.6-6.[address] [facility] Work Phone: Hematocrit (HCT) 40.4 % Normal 40-54 [facility] Work Phone: Hematocrit Volume Fraction (Bld) 40.4 % Normal 40-54 [facility] Work Phone: Hemoglobin (HGB) 14.2 g/dL Normal 13.0-16.5 [facility] Work Phone: Platelets 311 10*3/mm3 Normal 150-450 [facility] Work Phone: Platelets #/vol (Bld) 311 10*3/mm3 Normal 150-450 [facility] Work Phone: RBC #/vol (Bld) 4.42 10*6/uL Low 4.6-6.2 [facility] Work Phone: WBC #/vol (Bld) 7.9 10*3/uL Normal 4.4-11.0 [facility] Work Phone: WBC (Leukocytes) 7.9 10*3/uL Normal 4.4-11.0 [facility] Work Phone: Lab Report: PTon 08-11-2013 INR Coag RelTime (PPP) 1.0 {INR} Normal [facility] Work Phone: INR in blood by coagulation 1.0 {INR} Normal [facility] Work Phone: prothrombin time, actual/normal, ratio 12.6 SECONDS Normal 11.9-14.4 [facility] Work Phone: PTP 12.6 SECONDS Normal 11.9-14.4 [facility] Work Phone: Blood Glucose , Office [phone])Ordered By: Aga Howard on 08-12-2012 Glucose Glucometer (BldC) [Moles/Vol] 120 1 Normal [facility] Work Phone: HgA1C , Office ([phone])Ordere d By: Delicia Flores on 08-12-2012 HbA1c (Bld) [Mass fraction] 5.5 % Normal 4.6 - 7.1 [facility] Work Phone: HgA1C , Office ([phone])on HbA1c (Bld) [Mass fraction] 5.7 % Normal 4.6 - 7.1 [facility] Work Phone: CBCMDOrdered By: Gita elise on 01-26-2012 Eosinophils/100 WBC (Bld) 4 % Normal 0-5 [facility] Work Phone: Erythrocyte distribution width (RBC) [Ratio] 13.0 % Normal 11.6-14.6 [facility] Work Phone: Hematocrit (Bld) [Volume fraction] 38.1 % Abnormal 40-54 [facility] Work Phone: Hemoglobin (Bld) [Mass/Vol] 13.1 g.dL Normal 13.0-15.0 [facility] Work Phone: Comment on above: Please note: Revised HEMOGLOBIN REFERENCE RANGES Reference Range effective 12. Lymphocytes/100 WBC (Bld) 28 % Normal 19-41 [facility] Work Phone: MCH (RBC) [Entitic mass] 32.7 pg Abnormal 27.0-32.0 [facility] Work Phone: MCHC (RBC) [Mass/Vol] 34.4 g/dL Normal 32-36 [facility]; [facility] Work Phone: MCV (RBC) [Entitic vol] 95.0 fL Abnormal 80-94 [facility] Work Phone: Neutrophils (Bld) [#/Vol] 4.0 3/uL Normal 2.0-7.7 [facility] Work Phone: Platelets (Bld) [#/Vol] 258 10*3/uL Normal 150-450 [facility] Work Phone: RBC (Bld) [#/Vol] 4.01 10*6/uL Abnormal 4.6-6.2 [facility] e[facility]; [facility] Work Phone: WBC (Bld) [#/Vol] 6.8 10*3/uL Normal 4.4-11.0 [facility]; [facility] Work Phone: CBCMD 100 1 Normal [facility]; [facility] Work Phone: CBCMD 56 % Normal 47-70 [facility] Work Phone: CBCMD 12 % Abnormal 0-10 [facility] Work Phone: CBCMD ADEQUATE Normal [facility]; [facility] Work Phone: CBCMD NORM C+C Normal [facility]; [facility] Work Phone: CMPOrdered By: System Manage r on 01-26-2012 Albumin [Mass/Vol] 4.1 g/dL Normal 3.4-5.0 [facility]; [facility] Work Phone: Albumin/Globulin [Mass ratio] 1.2 {ratio} Normal 0.9-2.4 [facility] Work Phone: ALP [Catalytic activity/Vol] 53 U/L Normal 50-136 [facility] Work Phone: ALT [Catalytic activity/Vol] 58 U/L Normal 12-78 [facility] Work Phone: Anion gap [Moles/Vol] 7 mmol/L Normal 5-15 [facility]; [facility] Work Phone: AST [Catalytic activity/Vol] 38 U/L Abnormal 15-37 [facility] Work Phone: Bilirubin [Mass/Vol] 0.30 mg/dL Normal 0.00-1.00 [facility]; [facility] Work Phone: Calcium [Mass/Vol] 8.7 mg/dL Normal 8.5-10.1 [facility]; [facility] Work Phone: Chloride [Moles/Vol] 100 mmol/L Normal 98-107 [facility]; [facility] Work Phone: CO2 [Moles/Vol] 28.0 mmol/L Normal 21.0-32.0 [facility]; [facility] Work Phone: Creatinine [Mass/Vol] 1.0 mg/dL Normal 0.8-1.3 [facility]; [facility] Work Phone: GFR/1.73 sq M.predicted among blacks MDRD (S/P/Bld) [Vol rate/Area] 99 mL/min/{1.73_m2} Normal [facility]; [facility] Work Phone: GFR/1.73 sq M.predicted MDRD (S/P/Bld) [Vol rate/Area] 82 mL/min/{1.73_m2} Normal [facility]; [facility] Work Phone: Globulin (S) [Mass/Vol] 3.3 g/dL Normal 2.7-4.2 [facility]; [facility] Work Phone: Glucose [Mass/Vol] 95 mg/dL Normal 70-110 [facility]; [facility] Work Phone: Potassium [Moles/Vol] 4.0 mmol/L Normal 3.5-5.1 [facility]; [facility] Work Phone: Protein [Mass/Vol] 7.4 g/dL Normal 6.4-8.2 [facility]; [facility] Work Phone: Sodium [Moles/Vol] 135 mmol/L Abnormal 136-145 [facility]; [facility] Work Phone: Urea nitrogen [Mass/Vol] 21 mg/dL Abnormal 7-18 [facility] Work Phone: Urea nitrogen/Creatinine [Mass ratio] 21.0 mg/mg Abnormal 10-20 [facility]; [facility] Work Phone: LIPIDOrdered By: Gita elise on 01-26-2012 Cholesterol [Mass/Vol] 163 mg/dL [facility] Work Phone: Comment on above: <200 mg/dL Desirable 200-240 mg/dL Borderline >240 mg/dL High Risk Cholesterol in HDL [Mass/Vol] 46 mg/dL Normal [facility]; [facility] Work Phone: Comment on above: Reference Range HDL <40 mg/dL Low HDL Cholesterol HDL >or= 60 mg/dL High HDL Cholesterol Cholesterol in LDL [Mass/Vol] 85 mg/dL Normal 0-130 [facility]; [facility] Work Phone: Cholesterol in VLDL [Mass/Vol] 32 mg/dL Normal 5-40 [facility] Work Phone: Triglyceride [Mass/Vol] 160 mg/dL Normal [facility]; [facility] Work Phone: Comment on above: Serum Triglycerides Reference Interval Normal <150 mg/dL Borderline high 150 - 199 mg/dL High 200 - 499 mg/dL Very High > or = 500 mg/dL MIACREOrdered By: System Man ager on 01-26-2012 MIACRE 138.3 mg/dL Normal [facility]; [facility] Work Phone: MIACRE 11.0 mg/L Normal [facility]; [facility] Work Phone: MIACRE 7.9 {mg/g_CRE} Normal [facility]; [facility] Work Phone: LIPOAOrdered By: System Ana arik on 10-02-2011 LIPOA 37 mg/dL Abnormal 0-30 [facility]; [facility] Work Phone: Comment on above: Desirable: <20 Borde rline high risk: 20 - 30 High risk: 31 - 50 Very high risk: >50 . Note: Values >30 may indicate independent risk factor for CHD. Significance of high Lp(a) in non-white populations must be evaluated with caution.Performed at: [facility] Lab[address] [id number] Director: Chloé Luna MD, Phone: [phone] not [facility] i WANT L IPOPROTIEN a HOMOOrdered By: System Manag er on 09-24-2011 HOMO 9.3 umol/L Normal 3.2-10.7 [facility]; [facility] Work Phone: Comment on above: today MTHFROrdered By: Gita elise on 09-24-2011 MTHFR Comment Normal [facility]; [facility] Work Phone: Comment on above: Result: [id number] mutation ([id number]) identified .Interpretation: .This patient's sample was analyzed for the MTHFR [id number] and [id number]. A single copy of the [id number] mutation wasidentified. Results for the C677T mutation were negative.Elevated levels of homocysteine have not been reported whena single [id number] mutation is found. The diagnosis ofhyperhomocysteinemia can not rely on DNA testing alone butshould take into consideration clinical findings andother studies, such as serum homocysteine levels. BecauseMTHFR mutations and their associated risk are inherited,genetic counseling is recommended. .Genetic counselors are available to discuss these results with health care providers at [phone] .The MTHFR enzyme is responsible for creating the circulatingform of folate. Folate is important in homocysteine regula-tion. Defects in the MTHFR enzyme can indirectly causeelevated homocysteine levels. The C677T mutation in theMTHFR gene can cause elevated homocysteine levels in alexis-viduals with insufficient folate, particularly when thereare two mutations present. The [id number] mutation has not beenassociated with elevated homocysteine levels unless a [id number] is also present. Elevated serum homocysteine levelshave been associated with an increased risk of cerebrovasc-ular disease, coronary artery disease, myocardial infarction,and venous thrombosis. In women, complicationsand an increased risk of open neural tube defectshave also been reported. The relationship between theseconditions and MTHFR mutations is controversial. .Dietary folic acid, B6 and B12 supplementation has beensuggested to lower homocysteine levels in some people. Folicacid supplementation has been shown to reduce the recurrenceof neural tube defects.Methodology:DNA analysis of the MTHFR gene was performed by PCRamplification followed by restriction analysis. Thediagnostic sensitivity is >99% for both. Molecular-basedtesting is highly accurate, but as in any laboratory test,rare diagnostic errors may occur. All test results must becombined with clinical information for the most accurateinterpretation. . Blood Glucose , Office ([phone])Ordered By: WM Wade on 07-21-2011 Glucose Glucometer (BldC) [Moles/Vol] 141 1 Normal [facility]; [facility] Work Phone: COMP METABOLICOrdered By: Yoni stem Competitive Intelligence Analyst on 07-21-2011 Albumin [Mass/Vol] 4.2 g/dL Normal 3.4-5.0 [facility]; [facility] Work Phone: Comment on above: do today Albumin/Globulin [Mass ratio] 1.2 {ratio} Normal 0.9-2.4 [facility]; [facility] Work Phone: Comment on above: do today ALP [Catalytic activity/Vol] 79 U/L Normal 50-136 [facility]; [facility] Work Phone: Comment on above: do today ALT [Catalytic activity/Vol] 53 U/L Normal 12-78 [facility]; [facility] Work Phone: Comment on above: do today Anion gap [Moles/Vol] 8 mmol/L Normal 5-15 [facility]; [facility] Work Phone: Comment on above: do today AST [Catalytic activity/Vol] 32 U/L Normal 15-37 [facility]; [facility] Work Phone: Comment on above: do today Bilirubin [Mass/Vol] 0.30 mg/dL Normal 0.00-1.00 [facility]; [facility] Work Phone: Comment on above: do today Calcium [Mass/Vol] 8.7 mg/dL Normal 8.5-10.1 [facility] Internal Medicine; [facility] Work Phone: Comment on above: do today Chloride [Moles/Vol] 103 mmol/L Normal 98-107 [facility]; [facility] Work Phone: Comment on above: do today CO2 [Moles/Vol] 27.0 mmol/L Normal 21.0-32.0 [facility] Internal Medicine; [facility] Work Phone: Comment on above: do today Creatinine [Mass/Vol] 0.9 mg/dL Normal 0.8-1.3 [facility] Medicine; [facility] Work Phone: Comment on above: do today GFR/1.73 sq M.predicted among blacks MDRD (S/P/Bld) [Vol rate/Area] 112 mL/min/{1.73_m2} Normal Comprehensi ve Internal Medicine; [facility] Work Phone: Comment on above: do today GFR/1.73 sq M.predicted MDRD (S/P/Bld) [Vol rate/Area] 92 mL/min/{1.73_m2} Normal Comprehensiv e Internal Medicine; [facility] Work Phone: Comment on above: do today Globulin (S) [Mass/Vol] 3.4 g/dL Normal 2.7-4.2 [facility] Internal Medicine; [facility] Work Phone: Comment on above: do today Glucose [Mass/Vol] 90 mg/dL Normal 70-110 [facility] Internal Medicine; [facility] Work Phone: Comment on above: do today Potassium [Moles/Vol] 4.0 mmol/L Normal 3.5-5.1 [facility]; [facility] Work Phone: Comment on above: do today Protein [Mass/Vol] 7.6 g/dL Normal 6.4-8.2 [facility] Internal Medicine; [facility] Work Phone: Comment on above: do today Sodium [Moles/Vol] 138 mmol/L Normal 136-145 [facility] Internal Medicine; [facility] Work Phone: Comment on above: do today Urea nitrogen [Mass/Vol] 16 mg/dL Normal 7-18 [facility]; [facility] Work Phone: Comment on above: do today Urea nitrogen/Creatinine [Mass ratio] 17.8 mg/mg Normal 10-20 [facility] Internal Medicine; [facility] Work Phone: Comment on above: do today HOMOCYSTEINEOrdered By: Syst em Competitive Intelligence Analyst on 07-21-2011 HOMOCYSTEINE 12.5 umol/L Abnormal 3.2-10.7 Comprehensi ve [facility] Medicine; [facility] Work Phone: HgA1C , Office ([phone])Ordere d By: WM Wade on 07-21-2011 HbA1c (Bld) [Mass fraction] 5.9 % Normal 4.6 - 7.1 [facility]; [facility] Work Phone: PSA, SCREENOrdered By: Lisa berry Competitive Intelligence Analyst on 07-21-2011 Prostate specific Ag [Mass/Vol] 0.8 ng/mL Normal 0.0-4.0 [facility] Internal Medicine; [facility] Internal Medicine Work Phone: Comment on above: today Vital Signs Date Time Vital Sign Value Performing Clinician Facility 01-02-2025 09:14-0400 Body height 172.[address] Mitchel Mitchell MD Work Phone: [facility] 01-02-2025 09:14-0400 Body mass index (BMI) [Ratio] 28.7 kg/m2 Dr. Mitchel Mitchell MD Work Phone: [facility] 01-02-2025 09:14-0400 Body weight 85.[address] Mitchel Mitchell MD Work Phone: [facility] 01-02-2025 09:14-0400 Diastolic blood pressure 68 mm[Hg] Dr. Mitchel Mitchell MD Work Phone: [facility] 01-02-2025 09:14-0400 Heart rate 67 /min Dr. Mitchel Mitchell MD Work Phone: [facility] 01-02-2025 09:14-0400 Respiratory rate 16 /min Dr. Mitchel Mitchell MD Work Phone: [facility] 01-02-2025 09:14-0400 Systolic blood pressure 109 mm[Hg] Dr. Mitchel Mitchell MD Work Phone: [facility] 08-31-2023 15:47-0400 Inhaled oxygen flow rate 0 L/min Dr. Mitchel Mitchell Work Phone: [facility] 08-31-2023 15:47-0400 SaO2% (BldA) [Mass fraction] 98 % Dr. Mitchel Mitchell Work Phone: [facility] 08-31-2023 15:00-0400 Body temperature 97.7 [degF] Dr. Mitchel Mitchell Work Phone: [facility] 08-31-2023 15:00-0400 Diastolic blood pressure 58 mm[Hg] Dr. Mitchel Mitchell Work Phone: [facility] 08-31-2023 15:00-0400 Heart rate 79 /min Dr. Mitchel Mitchell Work Phone: [facility] 08-31-2023 15:00-0400 Respiratory rate 16 /min Dr. Mitchel Mitchell Work Phone: [facility] 08-31-2023 15:00-0400 Systolic blood pressure 83 mm[Hg] Dr. Mitchel Mitchell Work Phone: [facility] 08-30-2023 16:30-0400 Body height 172.[address] Mitchel Mitchell Work Phone: [facility] 08-30-2023 14:00-0400 Diastolic blood pressure 94 mm[Hg] [facility] 08-30-2023 14:00-0400 Heart rate 59 /min [facility] 08-30-2023 14:00-0400 Respiratory rate 14 /min [facility] 08-30-2023 14:00-0400 SaO2% (BldA) [Mass fraction] 99 % [facility] 08-30-2023 14:00-0400 Systolic blood pressure 108 mm[Hg] [facility] 08-30-2023 13:06-0400 Body temperature 97.3 [degF] [facility] 08-30-2023 10:58-0400 Body height 172.[address] [facility] 08-30-2023 10:58-0400 Body mass index (BMI) [Ratio] 27.6 kg/m2 [facility] 08-30-2023 10:58-0400 Body weight 82.[address] [facility] 08-04-2023 08:30-0500 Body weight 84.[address] [facility] 06-14-2023 00:13-0500 Body weight 84.[address] [facility] 05-26-2023 08:30-0500 Body height 172.[address] [facility] 05-26-2023 08:30-0500 Body weight 84.[address] [facility] 04-19-2023 08:40-0500 Body height 172.[address] [facility] 04-19-2023 08:40-0500 Body weight 85.[address] [facility] 03-24-2023 10:00-0400 Body height 172.[address] [facility] 03-24-2023 10:00-0400 Body weight 90.[address] [facility] 11-12-2022 09:42-0400 Body weight 92.[address] Mitchel Mitchell Work Phone: [facility] 11-12-2022 09:42-0400 Diastolic blood pressure 74 mm[Hg] Dr. Mitchel Mitchell Work Phone: [facility] 11-12-2022 09:42-0400 Heart rate 84 /min Dr. Mitchel Mitchell Work Phone: [facility] 11-12-2022 09:42-0400 Respiratory rate 16 /min Dr. Mitchel Mitchell Work Phone: [facility] 11-12-2022 09:42-0400 Systolic blood pressure 120 mm[Hg] Dr. Mitchel Mitchell Work Phone: [facility] 11-12-2022 08:48-0400 Body height 172.[address] Mitchel Mitchell Work Phone: [facility] 10-14-2022 21:34-0400 Diastolic blood pressure 72 mm[Hg] [facility] 10-14-2022 21:34-0400 Systolic blood pressure 107 mm[Hg] [facility] 10-14-2022 19:26-0400 Heart rate 94 /min [facility] 10-14-2022 19:26-0400 Respiratory rate 18 /min [facility] 10-14-2022 19:26-0400 SaO2% (BldA) [Mass fraction] 94 % [facility] 10-14-2022 18:53-0400 Body height 172.[address] [facility] 10-14-2022 18:53-0400 Body mass index (BMI) [Ratio] 31.3 kg/m2 [facility] 10-14-2022 18:53-0400 Body temperature 97.6 [degF] [facility] 10-14-2022 18:53-0400 Body weight 93.[address] [facility] 09-15-2021 09:03-0400 Body height 172.[address] Mitchel Mitchell Work Phone: [facility] Work Phone: 09-15-2021 09:03-0400 Body mass index (BMI) [Ratio] 30.4 kg/m2 Dr. Mitchel Mitchell Work Phone: [facility] Work Phone: 09-15-2021 09:03-0400 Body weight 90.[address] Mitchel Mitchell Work Phone: [facility] Work Phone: 09-15-2021 09:03-0400 Diastolic blood pressure 64 mm[Hg] Dr. Mitchel Mitchell Work Phone: [facility] Work Phone: 09-15-2021 09:03-0400 Heart rate 79 /min Dr. Mitchel Mitchell Work Phone: [facility] Work Phone: 09-15-2021 09:03-0400 Respiratory rate 16 /min Dr. Mitchel Mitchell Work Phone: [facility] Work Phone: 09-15-2021 09:03-0400 Systolic blood pressure 103 mm[Hg] Dr. Mitchel Mitchell Work Phone: [facility] Work Phone: 01-21-2017 08:48-0400 BMI (Body Mass Index) 32.2 kg/m2 [facility] Work Phone: 01-21-2017 08:48-0400 BP Diastolic 64 mm[Hg] [facility] Work Phone: 01-21-2017 08:48-0400 BP Systolic 110 mm[Hg] [facility] Work Phone: 01-21-2017 08:48-0400 Height 172.72 cm [facility] Work Phone: 01-21-2017 08:48-0400 Pulse (Heart Rate) 68 /min [facility] Work Phone: 01-21-2017 08:48-0400 Respiratory Rate 20 /min [facility] Work Phone: 01-21-2017 08:48-0400 Weight 96.07 kg [facility] Work Phone: 07-14-2016 10:35-0500 Heart rate 71 /min Bart Mahan MD [facility] Work Phone: 07-14-2016 10:22-0500 BSA (Body Surface Area) 2.1 m2 [facility] Work Phone: 05-05-2016 10:18-0500 Body height 172.72 cm Inna Devlin LPN [facility]; [facility] Work Phone: 05-05-2016 10:18-0500 Body mass index (BMI) [Ratio] 29.5 kg/m2 Inna Devlin LPN [facility]; [facility] Work Phone: 05-05-2016 10:18-0500 Body surface area Derived from formula 2.02 m2 Inna Devlin LPN [facility]; [facility] Work Phone: 05-05-2016 10:18-0500 Body temperature 98.2 [degF] Inna Devlin LPN [facility]; [facility] Work Phone: 05-05-2016 10:18-0500 Body weight 88 kg Inna Devlin [employer] MAINTENANCE TECHNICIAN [facility]; [facility] Work Phone: 05-05-2016 10:18-0500 Diastolic blood pressure 82 mm[Hg] Inna Devlin [employer] MAINTENANCE TECHNICIAN [facility]; [facility] Work Phone: Comment on above: Patient Position: Sitting; Cuff Location : Left Arm; Cuff Size: Standard 05-05-2016 10:18-0500 Heart rate 94 /min Inna Devlin [employer] MAINTENANCE TECHNICIAN [facility]; [facility] Work Phone: Comment on above: Pattern: Regular 05-05-2016 10:18-0500 Respiratory rate 16 /min Inna Devlin [employer] MAINTENANCE TECHNICIAN [facility]; [facility] Work Phone: Comment on above: Pattern: Unlabored 05-05-2016 10:18-0500 SaO2% (BldA) [Mass fraction] 97 % Inna Devlin [employer] MAINTENANCE TECHNICIAN [facility]; [facility] Work Phone: Comment on above: Room air 05-05-2016 10:18-0500 Systolic blood pressure 128 mm[Hg] Innasindi Devlin [employer] MAINTENANCE TECHNICIAN [facility]; [facility] Work Phone: Comment on above: Patient Position: Sitting; Cuff Location : Left Arm; Cuff Size: Standard 09-04-2014 07:58-0400 Body height 172.72 cm Aga Howard RN [facility]; [facility] Work Phone: 09-04-2014 07:58-0400 Body mass index (BMI) [Ratio] 29.5 kg/m2 Aga Howard RN [facility]; [facility] Work Phone: 09-04-2014 07:58-0400 Body surface area Derived from formula 2.02 m2 Aga Howard RN [facility]; [facility] Work Phone: 09-04-2014 07:58-0400 Body temperature 98.1 [degF] Aga Howard RN [facility]; [facility] Work Phone: Comment on above: Method: Temporal 09-04-2014 07:58-0400 Body weight 88 kg Aga Howard RN [facility]; [facility] Work Phone: 09-04-2014 07:58-0400 Diastolic blood pressure 72 mm[Hg] Aga Howard RN [facility]; [facility] Work Phone: Comment on above: Patient Position: Sitting; Cuff Location : Left Arm; Cuff Size: Standard 09-04-2014 07:58-0400 Heart rate 81 /min Aga Howard RN [facility]; [facility] Work Phone: Comment on above: Pattern: Regular 09-04-2014 07:58-0400 Respiratory rate 17 /min Aga Howard RN [facility]; [facility] Work Phone: Comment on above: Pattern: Unlabored 09-04-2014 07:58-0400 SaO2% (BldA) [Mass fraction] 98 % Aga Howard RN [facility]; [facility] Work Phone: Comment on above: Room air 09-04-2014 07:58-0400 Systolic blood pressure 126 mm[Hg] Aga Howard RN [facility]; [facility] Work Phone: Comment on above: Patient Position: Sitting; Cuff Location : Left Arm; Cuff Size: Standard 03-06-2014 08:06-0400 Body height 172.72 cm Aga Howard RN [facility]; [facility] Work Phone: 03-06-2014 08:06-0400 Body mass index (BMI) [Ratio] 29.5 kg/m2 Aga Howard RN [facility]; [facility] Work Phone: 03-06-2014 08:06-0400 Body surface area Derived from formula 2.02 m2 Aga Howard RN [facility]; [facility] Work Phone: 03-06-2014 08:06-0400 Body temperature 97 [degF] Aga Howard RN [facility]; [facility] Work Phone: Comment on above: Method: Temporal 03-06-2014 08:06-0400 Body weight 88 kg Aga Howard RN [facility]; [facility] Work Phone: 03-06-2014 08:06-0400 Diastolic blood pressure 78 mm[Hg] Aga Howard RN [facility]; [facility] Work Phone: Comment on above: Patient Position: Sitting; Cuff Location : Left Arm; Cuff Size: Standard 03-06-2014 08:06-0400 Heart rate 100 /min Aga Howard RN [facility]; [facility] Work Phone: Comment on above: Pattern: Regular 03-06-2014 08:06-0400 Respiratory rate 17 /min Aga Howard RN [facility]; [facility] Work Phone: Comment on above: Pattern: Unlabored 03-06-2014 08:06-0400 SaO2% (BldA) [Mass fraction] 98 % Aga Howard RN [facility]; [facility] Work Phone: Comment on above: Room air 03-06-2014 08:06-0400 Systolic blood pressure 140 mm[Hg] Aga Howard RN [facility]; [facility] Work Phone: Comment on above: Patient Position: Sitting; Cuff Location : Left Arm; Cuff Size: Standard 09-01-2013 09:37-0400 Body height 172.72 cm WM Wade LPN [facility]; [facility] Work Phone: 09-01-2013 09:37-0400 Body mass index (BMI) [Ratio] 28.59 kg/m2 WM Wade LPN [facility]; [facility] Work Phone: 09-01-2013 09:37-0400 Body surface area Derived from formula 1.99 m2 WM Wade LPN [facility]; [facility] Work Phone: 09-01-2013 09:37-0400 Body temperature 97.6 [degF] WM Wade LPN [facility]; [facility] Work Phone: Comment on above: Method: Oral 09-01-2013 09:37-0400 Body weight 85.28 kg WM Wade [employer] MAINTENANCE TECHNICIAN [facility]; [facility] Work Phone: 09-01-2013 09:37-0400 Diastolic blood pressure 74 mm[Hg] WM Wade LPN [facility]; [facility] Work Phone: Comment on above: Patient Position: Sitting; Cuff Location : Left Arm; Cuff Size: Standard 09-01-2013 09:37-0400 Heart rate 64 /min WM Wade [employer] MAINTENANCE TECHNICIAN [facility]; [facility] Work Phone: Comment on above: Pattern: Regular 09-01-2013 09:37-0400 Respiratory rate 18 /min WM Wade LPN [facility]; [facility] Work Phone: Comment on above: Pattern: Unlabored 09-01-2013 09:37-0400 Systolic blood pressure 110 mm[Hg] WM Wade [employer] MAINTENANCE TECHNICIAN [facility]; [facility] Work Phone: Comment on above: Patient Position: Sitting; Cuff Location : Left Arm; Cuff Size: Standard 08-24-2013 11:02-0400 Heart rate 422 ms Bart Mahan MD [facility] Work Phone: 08-11-2013 11:09-0500 Body height 172.72 cm Yael Dk [facility]; [facility] Work Phone: 08-11-2013 11:09-0500 Body mass index (BMI) [Ratio] 29.25 kg/m2 Yael Dk [facility]; [facility] Work Phone: 08-11-2013 11:09-0500 Body surface area Derived from formula 2.01 m2 Yael Root [facility]; [facility] Work Phone: 08-11-2013 11:09-0500 Body temperature 97.3 [degF] Yael Dk [facility]; [facility] Work Phone: Comment on above: Method: Oral 08-11-2013 11:09-0500 Body weight 87.26 kg Yael Root [facility]; [facility] Work Phone: 08-11-2013 11:09-0500 Diastolic blood pressure 78 mm[Hg] Yael Root [facility]; [facility] Work Phone: Comment on above: Patient Position: Sitting; Cuff Location : Left Arm; Cuff Size: Standard 08-11-2013 11:09-0500 Heart rate 98 /min Yael Root [facility]; [facility] Work Phone: Comment on above: Pattern: Regular 08-11-2013 11:09-0500 Respiratory rate 18 /min Yael Root [facility]; [facility] Work Phone: Comment on above: Pattern: Unlabored 08-11-2013 11:09-0500 SaO2% (BldA) [Mass fraction] 99 % Yael Root [facility]; [facility] Work Phone: Comment on above: Room air 08-11-2013 11:09-0500 Systolic blood pressure 128 mm[Hg] Yael Root [facility]; [facility] Work Phone: Comment on above: Patient Position: Sitting; Cuff Location : Left Arm; Cuff Size: Standard 08-12-2012 07:34-0500 Body height 172.72 cm Delicia Flores MD Work Phone: [facility]; [facility] Work Phone: 08-12-2012 07:34-0500 Body mass index (BMI) [Ratio] 29.95 kg/m2 Delicia Flores MD Work Phone: [facility]; [facility] Work Phone: 08-12-2012 07:34-0500 Body surface area Derived from formula 2.03 m2 Delicia Flores MD Work Phone: [facility]; [facility] Work Phone: 08-12-2012 07:34-0500 Body weight 89.36 kg Delicia Flores MD Work Phone: [facility]; [facility] Work Phone: 08-12-2012 07:34-0500 Diastolic blood pressure 74 mm[Hg] Delicia Flores MD Work Phone: [facility]; [facility] Work Phone: Comment on above: Patient Position: Sitting 08-12-2012 07:34-0500 Heart rate 86 /min Delicia Flores MD Work Phone: [facility]; [facility] Work Phone: Comment on above: Pattern: Regular 08-12-2012 07:34-0500 Respiratory rate 18 /min Delicia Flores MD Work Phone: [facility]; [facility] Work Phone: 08-12-2012 07:34-0500 Systolic blood pressure 128 mm[Hg] Delicia Flores MD Work Phone: [facility]; [facility] Work Phone: Comment on above: Patient Position: Sitting 02-04-2012 08:02-0400 Body height 172.72 cm Ryanne Luna [facility]; [facility] Work Phone: 02-04-2012 08:02-0400 Body mass index (BMI) [Ratio] 29.65 kg/m2 Ryanne Polk [facility]; [facility] Work Phone: 02-04-2012 08:02-0400 Body surface area Derived from formula 2.02 m2 Ryanne Luna [facility]; [facility] Work Phone: 02-04-2012 08:02-0400 Body temperature 98.1 [degF] Ryanne Luna [facility]; [facility] Work Phone: 02-04-2012 08:02-0400 Body weight 88.45 kg Ryanne Luna [facility]; [facility] Work Phone: 02-04-2012 08:02-0400 Diastolic blood pressure 70 mm[Hg] Ryanne Luna [facility]; [facility] Work Phone: Comment on above: Patient Position: Sitting; Cuff Location : Left Arm; Cuff Size: Standard 02-04-2012 08:02-0400 Heart rate 92 /min Ryanne Polk [facility]; [facility] Work Phone: Comment on above: Pattern: Regular 02-04-2012 08:02-0400 Respiratory rate 16 /min Ryanne Polk [facility]; [facility] Work Phone: Comment on above: Pattern: Unlabored 02-04-2012 08:02-0400 Systolic blood pressure 122 mm[Hg] Ryanne Felicitas [facility]; [facility] Work Phone: Comment on above: Patient Position: Sitting; Cuff Location : Left Arm; Cuff Size: Standard 10-02-2011 08:06-0400 Body height 172.72 cm Jessie Pérez RN [facility]; [facility] Work Phone: 10-02-2011 08:06-0400 Body mass index (BMI) [Ratio] 29.65 kg/m2 Jessie Pérez RN [facility]; [facility] Work Phone: 10-02-2011 08:06-0400 Body surface area Derived from formula 2.02 m2 Jessie Pérez RN [facility]; [facility] Work Phone: 10-02-2011 08:06-0400 Body temperature 98.2 [degF] Jessie Pérez RN [facility]; [facility] Work Phone: Comment on above: Method: Oral 10-02-2011 08:06-0400 Body weight 88.45 kg Jessie Pérez RN [facility]; [facility] Work Phone: 10-02-2011 08:06-0400 Diastolic blood pressure 62 mm[Hg] Jessie Pérez RN [facility]; [facility] Work Phone: Comment on above: Patient Position: Sitting; Cuff Location : Left Arm; Cuff Size: Standard 10-02-2011 08:06-0400 Heart rate 80 /min Jessie Pérez RN [facility]; [facility] Work Phone: Comment on above: Pattern: Regular 10-02-2011 08:06-0400 Respiratory rate 16 /min Jessie Pérez RN [facility]; [facility] Work Phone: Comment on above: Pattern: Unlabored 10-02-2011 08:06-0400 Systolic blood pressure 110 mm[Hg] Jessie Pérez RN [facility]; [facility] Work Phone: Comment on above: Patient Position: Sitting; Cuff Location : Left Arm; Cuff Size: Standard 08-10-2011 10:31-0500 Body height 172.72 cm WM Wade LPN [facility]; [facility] Work Phone: 08-10-2011 10:31-0500 Body mass index (BMI) [Ratio] 29.8 kg/m2 WM Wade LPN [facility]; [facility] Work Phone: 08-10-2011 10:31-0500 Body surface area Derived from formula 2.03 m2 WM Wade LPN [facility]; [facility] Work Phone: 08-10-2011 10:31-0500 Body temperature 98 [degF] WM Wade LPN [facility]; [facility] Work Phone: Comment on above: Method: Oral 08-10-2011 10:31-0500 Body weight 88.91 kg WM Wade LPN [facility]; [facility] Work Phone: 08-10-2011 10:31-0500 Diastolic blood pressure 76 mm[Hg] WM Wade LPN [facility]; [facility] Work Phone: Comment on above: Patient Position: Sitting; Cuff Location : Left Arm; Cuff Size: Standard 08-10-2011 10:31-0500 Heart rate 74 /min WM Wade LPN [facility]; [facility] Work Phone: Comment on above: Pattern: Regular 08-10-2011 10:31-0500 Respiratory rate 18 /min WM Wade LPN [facility]; [facility] Work Phone: Comment on above: Pattern: Unlabored 08-10-2011 10:31-0500 Systolic blood pressure 118 mm[Hg] WM Wade LPN [facility]; [facility] Work Phone: Comment on above: Patient Position: Sitting; Cuff Location : Left Arm; Cuff Size: Standard 07-21-2011 08:15-0500 Body height 172.72 cm WM Wade [facility] Work Phone: 07-21-2011 08:15-0500 Body mass index (BMI) [Ratio] 29.8 kg/m2 WM [facility] Work Phone: 07-21-2011 08:15-0500 Body surface area Derived from formula 2.03 m2 WM [facility]; [facility] Work Phone: 07-21-2011 08:15-0500 Body temperature 97.9 [degF] WM [facility]; [facility] Work Phone: Comment on above: Method: Oral 07-21-2011 08:15-0500 Body weight 88.91 kg WM Wade [facility]; [facility] Work Phone: 07-21-2011 08:15-0500 Diastolic blood pressure 78 mm[Hg] WM Wade [facility]; [facility] Work Phone: Comment on above: Patient Position: Sitting; Cuff Location : Left Arm; Cuff Size: Standard 07-21-2011 08:15-0500 Heart rate 68 /min WM [facility]; [facility] Work Phone: Comment on above: Pattern: Regular 07-21-2011 08:15-0500 Respiratory rate 18 /min WM [facility]; [facility] Work Phone: Comment on above: Pattern: Unlabored 07-21-2011 08:15-0500 Systolic blood pressure 110 mm[Hg] WM Wade [facility]; [facility] Work Phone: Comment on above: Patient Position: Sitting; Cuff Location : Left Arm; Cuff Size: Standard 01-05-2011 08:11-0400 Body height 172.72 cm WM Wade [facility] Work Phone: 01-05-2011 08:11-0400 Body mass index (BMI) [Ratio] 27.67 kg/m2 WM Wade L[facility]; [facility] Work Phone: 01-05-2011 08:11-0400 Body surface area Derived from formula 1.96 m2 WM Wade [employer] TECHNICIAN [facility] Work Phone: 01-05-2011 08:11-0400 Body temperature 97.6 [degF] WM Wade L[facility]; [facility] Work Phone: Comment on above: Method: Oral 01-05-2011 [id number] Body weight 82.56 kg WM Wade L[facility]; [facility] Work Phone: 01-05-2011 08:11-0400 Diastolic blood pressure 74 mm[Hg] WM Wade [employer]TE[employer] TECHNICIAN [facility]; [facility] Work Phone: Comment on above: Patient Position: Sitting; Cuff Location : Left Arm; Cuff Size: Standard 01-05-2011 08:11-0400 Heart rate 72 /min WM Wade L[facility]; [facility] Work Phone: Comment on above: Pattern: Regular 01-05-2011 08:11-0400 Respiratory rate 18 /min WM Wade L[facility]; [facility] Work Phone: Comment on above: Pattern: Unlabored 01-05-2011 08:11-0400 Systolic blood pressure 108 mm[Hg] WM Wade L[facility]; [facility] Work Phone: Comment on above: Patient Position: Sitting; Cuff Location : Left Arm; Cuff Size: Standard 10-02-2010 10:19-0400 Body height 172.72 cm WM Wade L[facility] Work Phone: 10-02-2010 10:19-0400 Body mass index (BMI) [Ratio] 26.76 kg/m2 WM Wade [facility]; [facility] Work Phone: 10-02-2010 10:19-0400 Body surface area Derived from formula 1.94 m2 WM Wade L[facility]; [facility] Work Phone: 10-02-2010 10:19-0400 Body temperature 97.9 [degF] WM Wade L[facility]; [facility] Work Phone: Comment on above: Method: Oral 10-02-2010 10:190400 Body weight 79.83 kg WM Wade L[facility]; [facility] Work Phone: 10-02-2010 10:19-0400 Diastolic blood pressure 80 mm[Hg] WM Wade L[facility]; [facility] Work Phone: Comment on above: Patient Position: Sitting; Cuff Location : Left Arm; Cuff Size: Standard 10-02-2010 10:19-0400 Heart rate 74 /min WM Wade L[facility]; [facility] Work Phone: Comment on above: Pattern: Regular 10-02-2010 10:190400 Respiratory rate 18 /min WM Wade L[facility]; [facility] Work Phone: Comment on above: Pattern: Unlabored 10-02-2010 10:19-0400 Systolic blood pressure 124 mm[Hg] WM Wade L[facility]; [facility] Work Phone: Comment on above: Patient Position: Sitting; Cuff Location : Left Arm; Cuff Size: Standard 09-23-2010 08:27-0400 Body height 172.72 cm Nicole Michaels Work Phone: [facility]; [facility] Work Phone: 09-23-2010 08:27-0400 Body mass index (BMI) [Ratio] 27.58 kg/m2 Nicole Michaels Work Phone: [facility]; [facility] Work Phone: 09-23-2010 08:27-0400 Body surface area Derived from formula 1.96 m2 Nicole Michaels Work Phone: [facility]; [facility] Work Phone: 09-23-2010 08:27-0400 Body temperature 97.5 [degF] Nicole Michaels Work Phone: [facility]; [facility] Work Phone: Comment on above: Method: Oral 09-23-2010 08:27-0400 Body weight 82.27 kg Nicole Michaels Work Phone: [facility]; [facility] Work Phone: 09-23-2010 08:27-0400 Diastolic blood pressure 80 mm[Hg] Nicole Michaels Work Phone: [facility]; [facility] Work Phone: Comment on above: Patient Position: Sitting; Cuff Location : Left Arm; Cuff Size: Standard 09-23-2010 08:27-0400 Heart rate 82 /min Nicole Michaels Work Phone: [facility]; [facility] Work Phone: Comment on above: Pattern: Regular 09-23-2010 08:27-0400 Respiratory rate 16 /min Nicole Michaels Work Phone: [facility]; [facility] Work Phone: Comment on above: Pattern: Unlabored 09-23-2010 08:27-0400 SaO2% (BldA) [Mass fraction] 90 % Nicole Michaels Work Phone: [facility]; [facility] Work Phone: Comment on above: Room air 09-23-2010 08:27-0400 Systolic blood pressure 134 mm[Hg] Nicole Michaels Work Phone: [facility]; [facility] Work Phone: Comment on above: Patient Position: Sitting; Cuff Location : Left Arm; Cuff Size: Standard 03-31-2010 09:08-0400 Body height 172.72 cm WM Wade L[facility]; [facility] Work Phone: 03-31-2010 09:08-0400 Body mass index (BMI) [Ratio] 29.35 kg/m2 WM Wade [facility]; [facility] Work Phone: 03-31-2010 09:08-0400 Body surface area Derived from formula 2.01 m2 WM Wade [facility]; [facility] Work Phone: 03-31-2010 09:08-0400 Body temperature 98.2 [degF] WM Wade [facility]; [facility] Work Phone: Comment on above: Method: Oral 03-31-2010 09:08-0400 Body weight 87.56 kg WM Wade [facility]; [facility] Work Phone: 03-31-2010 09:08-0400 Diastolic blood pressure 76 mm[Hg] WM Wade [facility]; [facility] Work Phone: Comment on above: Patient Position: Sitting; Cuff Location : Left Arm; Cuff Size: Standard 03-31-2010 09:08-0400 Heart rate 70 /min WM Wade [facility]; [facility] Work Phone: Comment on above: Pattern: Regular 03-31-2010 09:08-0400 Respiratory rate 18 /min WM Wade [facility]; [facility] Work Phone: Comment on above: Pattern: Unlabored 03-31-2010 09:08-0400 Systolic blood pressure 116 mm[Hg] WM Wade [facility]; [facility] Work Phone: Comment on above: Patient Position: Sitting; Cuff Location : Left Arm; Cuff Size: Standard 11-28-2009 10:57-0400 Body temperature 95.9 [degF] Tricia Rodrigues LPN [facility]; [facility] Work Phone: Comment on above: Method: Oral 11-28-2009 10:57-0400 Body weight 84.82 kg Tricia Rodrigues LPN [facility]; [facility] Work Phone: 11-28-2009 10:57-0400 Diastolic blood pressure 78 mm[Hg] Tricia Ravi [employer] TECHNICIAN [facility]; [facility] Work Phone: Comment on above: Patient Position: Sitting; Cuff Location : Left Arm; Cuff Size: Standard 11-28-2009 10:57-0400 Heart rate 70 /min Tricia Rodrigues LPN [facility]; [facility] Work Phone: Comment on above: Pattern: Regular 11-28-2009 10:57-0400 Respiratory rate 16 /min Tricia Rodrigues LPN [facility]; [facility] Work Phone: Comment on above: Pattern: Unlabored 11-28-2009 10:57-0400 Systolic blood pressure 118 mm[Hg] Tricia Rodrigues [employer]TE[employer] TECHNICIAN [facility]; [facility] Work Phone: Comment on above: Patient Position: Sitting; Cuff Location : Left Arm; Cuff Size: Standard 11-21-2009 10:33-0400 Body temperature 95.6 [degF] Tricia Rodrigues LPN [facility]; [facility] Work Phone: Comment on above: Method: Oral 11-21-2009 10:33-0400 Body weight 84.82 kg Tricia Rodrigues LPN [facility]; [facility] Work Phone: 11-21-2009 10:33-0400 Diastolic blood pressure 78 mm[Hg] Tricia Rodrigues LPN [facility]; [facility] Work Phone: Comment on above: Patient Position: Sitting; Cuff Location : Left Arm; Cuff Size: Standard 11-21-2009 10:33-0400 Heart rate 70 /min Tricia Rodrigues LPN [facility]; [facility] Work Phone: Comment on above: Pattern: Regular 11-21-2009 10:33-0400 Respiratory rate 15 /min Tricia Rodrigues [employer]TE[employer] TECHNICIAN [facility]; [facility] Work Phone: Comment on above: Pattern: Unlabored 11-21-2009 10:33-0400 Systolic blood pressure 120 mm[Hg] Tricia Rodrigues [employer] MA[employer]TENANCE TECHNICIAN [facility]; [facility] Work Phone: Comment on above: Patient Position: Sitting; Cuff Location : Left Arm; Cuff Size: Standard 11-18-2009 10:24-0400 Body temperature 98.9 [degF] Tricia Rodrigues [employer] MA[employer]TENA[employer]CE TECHNICIAN [facility]; [facility] Work Phone: Comment on above: Method: Oral 11-18-2009 10:24-0400 Body weight 84.82 kg Tricia Rodrigues [employer] MA[employer]TENA[employer]CE TECHNICIAN [facility]; [facility] Work Phone: 11-18-2009 10:24-0400 Diastolic blood pressure 76 mm[Hg] Tricia Rodrigues [employer] MA[employer]TENANCE TECHNICIAN [facility]; [facility] Work Phone: Comment on above: Patient Position: Sitting; Cuff Location : Left Arm; Cuff Size: Standard 11-18-2009 10:24-0400 Heart rate 70 /min Tricia Rodrigues [employer] MA[employer]TENA[employer]CE TECHNICIAN [facility]; [facility] Work Phone: Comment on above: Pattern: Regular 11-18-2009 10:24-0400 Respiratory rate 16 /min Tricia Rodrigues [employer] MA[employer]TENA[employer]CE TECHNICIAN [facility]; [facility] Work Phone: Comment on above: Pattern: Unlabored 11-18-2009 10:24-0400 Systolic blood pressure 118 mm[Hg] Tricia Rodrigues [employer] MA[employer]TENANCE TECHNICIAN [facility]; [facility] Work Phone: Comment on above: Patient Position: Sitting; Cuff Location : Left Arm; Cuff Size: Standard 07-11-2009 07:51-0500 Body weight 84.82 kg WM Wade LPN [facility]; [facility] Work Phone: 07-11-2009 07:51-0500 Diastolic blood pressure 80 mm[Hg] WM Wade LPN [facility]; [facility] Work Phone: Comment on above: Patient Position: Sitting; Cuff Location : Left Arm; Cuff Size: Standard 07-11-2009 07:51-0500 Heart rate 68 /min WM Wade L[facility]; [facility] Work Phone: Comment on above: Pattern: Regular 07-11-2009 07:51-0500 Respiratory rate 16 /min WM Wade L[facility]; [facility] Work Phone: Comment on above: Pattern: Unlabored 07-11-2009 07:51-0500 Systolic blood pressure 120 mm[Hg] WM Wade LPN [facility]; [facility] Work Phone: Comment on above: Patient Position: Sitting; Cuff Location : Left Arm; Cuff Size: Standard 04-02-2009 07:52-0400 Body height 0 cm WM Wade LPN [facility]; [facility] Work Phone: 04-02-2009 07:52-0400 Body weight 84.82 kg WM Wade LPN [facility]; [facility] Work Phone: 04-02-2009 07:52-0400 Diastolic blood pressure 80 mm[Hg] MW Wade LPN [facility]; [facility] Work Phone: Comment on above: Patient Position: Sitting; Cuff Location : Left Arm; Cuff Size: Standard 04-02-2009 07:52-0400 Head Occipital-frontal circumference 0 cm WM Wade LPN [facility]; [facility] Work Phone: 04-02-2009 07:52-0400 Heart rate 70 /min WM Wade L[facility]; [facility] Work Phone: Comment on above: Pattern: Regular 04-02-2009 07:52-0400 Respiratory rate 16 /min WM Wade L[facility]; [facility] Work Phone: Comment on above: Pattern: Unlabored 04-02-2009 07:52-0400 Systolic blood pressure 118 mm[Hg] WM Wade LPN [facility]; [facility] Work Phone: Comment on above: Patient Position: Sitting; Cuff Location : Left Arm; Cuff Size: Standard 09-27-2008 13:04-0400 Body height 0 cm WM Wade L[facility]; [facility] Work Phone: 09-27-2008 13:04-0400 Body weight 84.82 kg WM Wade [employer]TENA[employer]CE TECHNICIAN [facility]; [facility] Work Phone: 09-27-2008 13:04-0400 Diastolic blood pressure 78 mm[Hg] WM Wade L[facility]; [facility] Work Phone: Comment on above: Patient Position: Sitting; Cuff Location : Left Arm; Cuff Size: Standard 09-27-2008 13:04-0400 Head Occipital-frontal circumference 0 cm WM Wade [employer] MA[employer]TENANCE TECHNICIAN [facility]; [facility] Work Phone: 09-27-2008 13:04-0400 Heart rate 68 /min WM Wade L[facility]; [facility] Work Phone: Comment on above: Pattern: Regular 09-27-2008 13:04-0400 Respiratory rate 16 /min WM Wade L[facility]; [facility] Work Phone: Comment on above: Pattern: Unlabored 09-27-2008 13:04-0400 Systolic blood pressure 118 mm[Hg] WM Wade [employer] MA[employer]TENANCE TECHNICIAN [facility]; [facility] Work Phone: Comment on above: Patient Position: Sitting; Cuff Location : Left Arm; Cuff Size: Standard 05-15-2008 08:05-0500 Body height 0 cm WM Wade [employer] MA[employer]TENANCE TECHNICIAN [facility]; [facility] Work Phone: 05-15-2008 08:05-0500 Body weight 83.46 kg WM Wade L[facility]; [facility] Work Phone: 05-15-2008 08:05-0500 Diastolic blood pressure 78 mm[Hg] WM Wade L[facility]; [facility] Work Phone: Comment on above: Patient Position: Sitting; Cuff Location : Left Arm; Cuff Size: Standard 05-15-2008 08:05-0500 Head Occipital-frontal circumference 0 cm WM Wade [employer] MA[employer]TENA[employer]CE TECHNICIAN [facility]; [facility] Work Phone: 05-15-2008 08:05-0500 Heart rate 74 /min WM Wade LPN [facility]; [facility] Work Phone: Comment on above: Pattern: Regular 05-15-2008 08:05-0500 Respiratory rate 16 /min WM Wade L[facility]; [facility] Work Phone: Comment on above: Pattern: Unlabored 05-15-2008 08:05-0500 Systolic blood pressure 118 mm[Hg] WM Wade LPN [facility]; [facility] Work Phone: Comment on above: Patient Position: Sitting; Cuff Location : Left Arm; Cuff Size: Standard 11-15-2007 07:47-0400 Body height 0 cm WM Wade [facility]; [facility] Work Phone: 11-15-2007 07:47-0400 Body temperature 97.7 [degF] WM Wade [employer] MA[employer]TENANCE TECHNICIAN [facility]; [facility] Work Phone: Comment on above: Method: Oral 11-15-2007 07:47-0400 Body weight 83.46 kg WM Wade [facility]; [facility] Work Phone: 11-15-2007 07:47-0400 Diastolic blood pressure 80 mm[Hg] WM Wade [facility]; [facility] Work Phone: Comment on above: Patient Position: Sitting; Cuff Location : Left Arm; Cuff Size: Standard 11-15-2007 07:47-0400 Head Occipital-frontal circumference 0 cm WM Wade [facility]; [facility] Work Phone: 11-15-2007 07:47-0400 Heart rate 70 /min WM Wade [facility]; [facility] Work Phone: Comment on above: Pattern: Regular 11-15-2007 07:47-0400 Respiratory rate 18 /min WM Wade LPN [facility]; [facility] Work Phone: Comment on above: Pattern: Unlabored 11-15-2007 07:47-0400 Systolic blood pressure 122 mm[Hg] WM Wade [employer] MA[employer]TENANCE TECHNICIAN [facility]; [facility] Work Phone: Comment on above: Patient Position: Sitting; Cuff Location : Left Arm; Cuff Size: Standard 06-02-2007 11:09-0500 Body height 0 cm WM Wade [facility]; [facility] Work Phone: 06-02-2007 11:09-0500 Body temperature 97.6 [degF] WM Wade LPN [facility]; [facility] Work Phone: Comment on above: Method: Oral 06-02-2007 11:09-0500 Body weight 0 kg WM Wade LPN [facility]; [facility] Work Phone: 06-02-2007 11:09-0500 Diastolic blood pressure 78 mm[Hg] WM Wade LPN [facility]; [facility] Work Phone: Comment on above: Patient Position: Sitting; Cuff Location : Left Arm; Cuff Size: Standard 06-02-2007 11:09-0500 Head Occipital-frontal circumference 0 cm WM Wade [facility]; [facility] Work Phone: 06-02-2007 11:09-0500 Heart rate 70 /min WM Wade [facility]; [facility] Work Phone: Comment on above: Pattern: Regular 06-02-2007 11:09-0500 Respiratory rate 18 /min WM Wade LPN [facility]; [facility] Work Phone: Comment on above: Pattern: Unlabored 06-02-2007 11:09-0500 Systolic blood pressure 120 mm[Hg] WM Wade LPN [facility]; [facility] Work Phone: Comment on above: Patient Position: Sitting; Cuff Location : Left Arm; Cuff Size: Standard 05-13-2007 07:58-0500 Body height 0 cm WM Wade [facility]; [facility] Work Phone: 05-13-2007 07:58-0500 Body temperature 98.4 [degF] WM Wade [employer] MA[employer]TENANCE TECHNICIAN [facility]; [facility] Work Phone: Comment on above: Method: Oral 05-13-2007 07:58-0500 Body weight 82.1 kg WM Wade [facility]; [facility] Work Phone: 05-13-2007 07:58-0500 Diastolic blood pressure 80 mm[Hg] WM Wade [facility]; [facility] Work Phone: Comment on above: Patient Position: Sitting; Cuff Location : Left Arm; Cuff Size: Standard 05-13-2007 07:58-0500 Head Occipital-frontal circumference 0 cm WM Wade [facility]; [facility] Work Phone: 05-13-2007 07:58-0500 Heart rate 72 /min WM Wade [facility]; [facility] Work Phone: Comment on above: Pattern: Regular 05-13-2007 07:58-0500 Respiratory rate 18 /min WM Wade [facility]; [facility] Work Phone: Comment on above: Pattern: Unlabored 05-13-2007 07:58-0500 Systolic blood pressure 122 mm[Hg] WM Wade [facility]; [facility] Work Phone: Comment on above: Patient Position: Sitting; Cuff Location : Left Arm; Cuff Size: Standard 11-11-2006 08:00-0400 Body height 0 cm WM Wade [facility]; [facility] Work Phone: 11-11-2006 08:00-0400 Body temperature 97.6 [degF] WM Wade [facility]; [facility] Work Phone: Comment on above: Method: Oral 11-11-2006 08:00-0400 Body weight 83.01 kg WM Wade [facility]; [facility] Work Phone: 11-11-2006 08:00-0400 Diastolic blood pressure 78 mm[Hg] WM Wade [facility]; [facility] Work Phone: Comment on above: Patient Position: Sitting; Cuff Location : Left Arm; Cuff Size: Standard 11-11-2006 08:00-0400 Head Occipital-frontal circumference 0 cm WM Wade [facility]; [facility] Work Phone: 11-11-2006 08:00-0400 Heart rate 76 /min WM Wade [facility]; [facility] Work Phone: Comment on above: Pattern: Regular 11-11-2006 08:00-0400 Respiratory rate 20 /min WM Wade [employer]TENA[employer]CE TECHNICIAN [facility]; [facility] Work Phone: Comment on above: Pattern: Unlabored 11-11-2006 08:00-0400 Systolic blood pressure 122 mm[Hg] WM Wade [employer] MAINTENANCE TECHNICIAN [facility]; [facility] Work Phone: Comment on above: Patient Position: Sitting; Cuff Location : Left Arm; Cuff Size: Standard 08-06-2006 07:57-0500 Body height 0 cm WM Wade [facility]; [facility] Work Phone: 08-06-2006 07:57-0500 Body temperature 97.6 [degF] WM Wade [facility]; [facility] Work Phone: Comment on above: Method: Oral 08-06-2006 07:57-0500 Body weight 93.9 kg WM Wade [facility]; [facility] Work Phone: 08-06-2006 07:57-0500 Diastolic blood pressure 80 mm[Hg] WM Wade [employer] MA[employer]TENANCE TECHNICIAN [facility]; [facility] Work Phone: Comment on above: Patient Position: Sitting; Cuff Location : Left Arm; Cuff Size: Standard 08-06-2006 07:57-0500 Head Occipital-frontal circumference 0 cm WM Wade GEN [facility]; [facility] Work Phone: 08-06-2006 07:57-0500 Heart rate 80 /min WM Wade [facility]; [facility] Work Phone: Comment on above: Pattern: Regular 08-06-2006 07:57-0500 Respiratory rate 20 /min WM Wade [facility]; [facility] Work Phone: Comment on above: Pattern: Unlabored 08-06-2006 07:57-0500 Systolic blood pressure 120 mm[Hg] WM Wade [facility]; [facility] Work Phone: Comment on above: Patient Position: Sitting; Cuff Location : Left Arm; Cuff Size: Standard 05-20-2006 10:24-0500 Body height 172.72 cm Amparo [facility]; [facility] Work Phone: 05-20-2006 10:24-0500 Body mass index (BMI) [Ratio] 33.17 kg/m2 [facility]; [facility] Work Phone: 05-20-2006 10:24-0500 Body surface area Derived from formula 2.12 m2 [facility]; [facility] Work Phone: 05-20-2006 10:24-0500 Body weight 98.97 kg [facility]; [facility] Work Phone: 05-20-2006 10:24-0500 Diastolic blood pressure 80 mm[Hg] [facility]; [facility] Work Phone: Comment on above: Patient Position: Sitting; Cuff Location : Left Arm; Cuff Size: Standard 05-20-2006 10:24-0500 Head Occipital-frontal circumference 0 cm [facility]; [facility] Work Phone: 05-20-2006 10:24-0500 Heart rate 80 /min [facility]; [facility] Work Phone: Comment on above: Pattern: Regular 05-20-2006 10:24-0500 Respiratory rate 16 /min [facility]; [facility] Work Phone: Comment on above: Pattern: Unlabored 05-20-2006 10:24-0500 Systolic blood pressure 136 mm[Hg] [facility]; [facility] Work Phone: Comment on above: Patient Position: Sitting; Cuff Location : Left Arm; Cuff Size: Standard Encounters Encounter Date Encounter Type Care Provider Facility Start: 03-06-2025 End: 03-06-[address] Mitchel Mitchell MD Work Phone: -Physical Therapy Start: 03-06-2025 End: 03-06-[address] Mitchel Mitchell MD -Physical Therapy Work Phone: Start: 02-09-[address] Mitchel gates MD -Physical Therapy Work Phone: Start: 02-05-2025 End: 02-05-[address] Mitchel Mitchell MD Work Phone: -Radiology [facility] Start: 02-05-2025 End: 02-05-[address] Mitchel Mitchell MD -Radiology [facility] Work Phone: Start: 02-05-2025 End: 02-05-2025 ambulatory Mitchel Mitchell Facility:[facility] Start: 01-09-2025 Encounter for genera l adult medical examination without abnormal findings Bart Mahan [facility] Start: 01-02-2025 End: 01-02-[address] Bart Mahan MD -[facility] Work Phone: Start: 01-02-2025 End: 01-02-[address] Mitchel Mitchell MD Work Phone: -[facility] Start: 01-02-2025 End: 01-02-2025 ambulatory Mitchel Mitchell Facility:[facility] Start: 11-07-2024 End: 11-07-[address] Mitchel Mitchell MD Work Phone: [facility] Work Phone: Start: 11-07-2024 End: 11-07-[address] Mitchel Mitchell MD -Laboratory Work Phone: Start: 11-07-2024 End: 11-07-2024 ambulatory Mitchel Mitchell Facility:[facility] Start: 05-08-2024 End: 05-08-2024 ambulatory Mitchel Mitchell Facility:[facility] Start: 08-31-2023 Non-patient / Non-visit Dr. Bakari Mitchell Work Phone: [facility] Start: 08-30-2023 Non-patient / Non-visit Dr. Bakari Mitchell Work Phone: [facility] Work Phone: Start: 08-30-2023 Non-patient / Non-visit Dr. Bakari Mitchell Work Phone: [facility] Start: 08-30-2023 End: 08-31-2023 Evaluation and management of inpatient [facility]-Progressive Care Unit Work Phone: Start: 08-04-2023 End: 08-12-2023 ambulatory [facility] Work Phone: Start: 08-04-2023 End: 08-12-2023 Discharged Recurring [facility]-Nutritional Services Work Phone: Start: 05-26-2023 End: 06-13-2023 ambulatory [facility] Work Phone: Start: 05-26-2023 End: 06-13-2023 Discharged Recurring [facility] Work Phone: Start: 05-04-2023 End: 05-04-2023 ambulatory [facility] Work Phone: Start: 05-04-2023 End: 05-04-2023 Patient encounter procedure [facility]-Laboratory, Phy Office 3rd Flr Start: 04-19-2023 End: 05-13-2023 ambulatory [facility] Work Phone: Start: 04-19-2023 End: 05-13-2023 Discharged Recurring [facility]al Services Work Phone: Start: 04-19-2023 Registered Recurring [facility] Work Phone: Start: 03-24-2023 End: 04-13-2023 ambulatory [facility] Work Phone: Start: 03-24-2023 End: 04-13-2023 Discharged Recurring [facility]Diabetic [facility] Work Phone: Start: 11-24-2022 End: 11-24-[address] Mitchel Mitchell Work Phone: [facility] Work Phone: Start: 11-24-2022 End: 11-24-[address] Mitchel Mitchell Work Phone: [facility]-Laboratory Start: 11-12-2022 End: 11-12-[address] Mitchel Mitchell Work Phone: [facility] Start: 10-23-2022 End: 10-23-[address] [facility] Start: 10-14-2022 End: 10-14-2022 [facility] Start: 05-01-2022 End: 05-01-2022 ambulatory [facility] Work Phone: Start: 05-01-2022 End: 05-01-2022 Patient encounter procedure [facility], [facility] Office 3rd Flr Start: 11-21-2021 End: 11-21-[address] Mitchel Mitchell Work Phone: [facility], [facility] Start: 10-30-2021 End: 10-30-[address] Mitchel Mitchell Work Phone: [facility], [facility] Office 3rd Flr Start: 09-15-2021 End: 09-15-[address] Mitchel Mitchell Work Phone: [facility] Start: 05-05-2016 End: 05-05-2016 Office outpatient visit 15 minutes Nicole Alondrasebsindi Work Phone: [facility] Start: 09-04-2014 End: 09-04-2014 Office outpatient visit 40 minutes Nicole Cantulynsey Work Phone: [facility] Start: 09-04-2014 End: 09-04-2014 Patient encounter status Nicole Hartmansindi Work Phone: [facility] Start: 03-06-2014 End: 03-06-2014 Office outpatient visit 15 minutes Nicole Michaels Work Phone: [facility] Start: 03-06-2014 End: 03-06-2014 Patient encounter status Nicole Michaels Work Phone: [facility] Start: 09-01-2013 End: 09-01-2013 Patient encounter procedure Nicole Michaels Work Phone: [facility] Start: 08-18-2013 End: 08-18-2013 Historical Summary Nicole Michaels Work Phone: [facility] Start: 08-11-2013 End: 08-11-2013 Patient encounter procedure Nicole Michaels Work Phone: [facility] Start: 07-17-2013 End: 07-17-2013 Phone Encounter Nicole Michaels Work Phone: [facility] Start: 08-12-2012 End: 08-12-2012 Patient encounter procedure Nicole Michaels Work Phone: [facility] Start: 08-12-2012 End: 08-12-2012 Patient encounter status Nicole Michaels Work Phone: [facility] Start: 02-04-2012 End: 02-04-2012 Patient encounter procedure Nicole Michaels Work Phone: [facility] Start: 02-04-2012 End: 02-04-2012 Patient encounter status Nicole Michaels Work Phone: [facility] Start: 10-02-2011 End: 10-02-2011 Patient encounter procedure Nicole Michaels Work Phone: [facility] Start: 08-10-2011 End: 08-10-2011 Patient encounter procedure Nicole Michaels Work Phone: [facility] Start: 07-21-2011 End: 07-21-2011 Patient encounter procedure Nicole Michaels Work Phone: [facility] Start: 07-21-2011 End: 07-21-2011 Patient encounter status Nicole Michaels Work Phone: [facility] Start: 01-05-2011 End: 01-05-2011 Patient encounter procedure Nicole Michaels Work Phone: [facility] Start: 10-02-2010 End: 10-02-2010 Patient encounter procedure Nicole Michaels Work Phone: [facility] Start: 09-23-2010 End: 09-23-2010 Office outpatient visit 25 minutes Nicole Michaels Work Phone: [facility] Start: 03-31-2010 End: 03-31-2010 Patient encounter procedure Nicole Michaels Work Phone: [facility] Start: 03-31-2010 End: 03-31-2010 Patient encounter status Nicole Michaels Work Phone: [facility] Start: 11-28-2009 End: 11-28-2009 Office outpatient visit 10 minutes Nicole Michaels Work Phone: [facility] Start: 11-21-2009 End: 11-21-2009 Office outpatient visit 15 minutes Nicole Michaels Work Phone: [facility] Start: 11-18-2009 End: 11-18-2009 Office outpatient visit 10 minutes Nicole Michaels Work Phone: [facility] Start: 07-11-2009 End: 07-11-2009 Patient encounter procedure Nicole Michaels Work Phone: [facility] Start: 07-11-2009 End: 07-11-2009 Patient encounter status Nicole Michaels Work Phone: [facility] Start: 04-02-2009 End: 04-02-2009 Patient encounter procedure Nicole Michaels Work Phone: [facility] Start: 04-02-2009 End: 04-02-2009 Patient encounter status Nicole Michaels Work Phone: [facility] Start: 12-11-2008 End: 12-11-2008 Historical Summary Nicole Michaels Work Phone: [facility] Start: 09-27-2008 End: 09-27-2008 Patient encounter procedure Nicole Michaels Work Phone: [facility] Start: 09-27-2008 End: 09-27-2008 Patient encounter status Nicole Michaels Work Phone: [facility] Start: 05-15-2008 End: 05-15-2008 Patient encounter procedure Nicole Michaels Work Phone: [facility] Start: 05-15-2008 End: 05-15-2008 Patient encounter status Nicole Michaels Work Phone: [facility] Start: 11-15-2007 End: 11-17-2007 Patient encounter procedure Nicole Michaels Work Phone: [facility] Start: 11-15-2007 End: 11-17-2007 Patient encounter status Nicole Michaels Work Phone: [facility] Start: 06-02-2007 End: 06-02-2007 Patient encounter procedure Nicole Michaels Work Phone: [facility] Start: 05-13-2007 End: 05-13-2007 Patient encounter procedure Nicole Michaels Work Phone: [facility] Start: 05-13-2007 End: 05-13-2007 Patient encounter status Nicole Michaels Work Phone: [facility] Start: 11-11-2006 End: 11-11-2006 Patient encounter procedure Nicole Mcihaels Work Phone: [facility] Start: 11-11-2006 End: 11-11-2006 Patient encounter status Nicole Michaels Work Phone: [facility] Start: 08-06-2006 End: 08-06-2006 Office outpatient visit 25 minutes Nicole Michaels Work Phone: [facility] Start: 08-06-2006 End: 08-06-2006 Patient encounter status Nicole Michaels Work Phone: [facility] Start: 05-20-2006 End: 05-20-2006 Patient encounter procedure Nicole Michaels Work Phone: [facility] Start: 05-20-2006 End: 05-20-2006 Patient encounter status Nicole Michaels Work Phone: [facility] Start: 05-18-2006 End: 05-18-2006 Historical Summary Nicole Michaels Work Phone: [facility] Start: 05-12-2006 End: 05-12-2006 Historical Summary Nicole Michaels Work Phone: [facility] Patient encounter status Inna Devlin [employer] MAINTE[employer]CE TECHNICIAN [facility]; [facility] Work Phone: Comment on above: scope 2009 psa recta l 3-15 talk about shingles vaccine and will ask insurance about Procedures Date Procedure Procedure Detail Performing Clinician Start: 02-05-2025 X-ray of lumbosacral spine Dr. Mitchel Mitchell MD Work Phone: Start: 11-07-2024 Vitamin D, 25-hydrox y measurement Dr. Mitchel Mitchell MD Work Phone: Comment on above: Vitamin D StatusDefi ciency: <20 ng/mL (50nmol/L)Insufficiency: 20-30 ng/mL (50-75 nmol/L)Sufficiency: 30-100 ng/mL (75-250 nmol/L)Toxicity: >100 ng/mL (>250 nmol/L) Start: 08-30-2023 History of placement of stent for coronary artery disease History of coronary artery stent placement Dr. Bart Mahan MD Comment on above: PCI-KULWINDER-LCx w/ 3.0 x 12 mm Promus, KULWINDER-Mid LAD w/ 3.0 x 24 Promus and POBA-Ostial D1 08/15/2013, PTCA/KULWINDER Mid LAD ISR using [place] Michael 2.75 x 15 mm and KULWINDER distal LAD using [place] Michael 2.25 x 12 mm 08/30/23 Start: 08-30-2023 Plain chest X-ray Start: 10-14-2022 CT of head without contrast Start: 11-21-[address] Mitchel Mitchell Work Phone: Start: 11-21-[address] Mitchel Mitchell Work Phone: Start: 01-21-2017 End: 02-12-2017 *Hepatic Function Panel Frances Garvin Start: 01-21-2017 End: 02-12-2017 Lipid 1996 panel - Serum or Plasma Bart Mahan MD Start: 07-14-2016 End: 07-17-2016 *Hepatic Function Panel Leny Weems PA-C Work Phone: Start: 07-14-2016 End: 07-14-2016 SLIP COVER SEAMSTRESS Leny Weems PA-C Work Phone: Start: 07-14-2016 End: 07-14-2016 Follow Up Appt 6 months Leny Weems PA-C Work Phone: Start: 07-14-2016 End: 07-17-2016 Lipid panel [AGGREGATE] Leny Weems PA-C Work Phone: Start: 02-27-2016 End: 03-16-2016 *Hepatic Function Panel Leny Weems PA-C Work Phone: Start: 02-27-2016 End: 03-16-2016 Lipid panel [AGGREGATE] Leny Weems PA-C Work Phone: Start: 01-14-2016 End: 01-14-2016 Follow Up Appt 6 months Frances Garvin Start: 01-14-2016 End: 01-14-2016 [facility] Bart Mahan MD Start: 09-16-2015 End: 11-22-2015 *Hepatic Function Panel Leny Weems PA-C Work Phone: Start: 08-15-2015 End: 08-15-2015 *Hepatic Function Panel Frances Garvin Start: 08-15-2015 End: 08-15-2015 Lipid panel [AGGREGATE] Frances Garvin Start: 08-06-2015 End: 08-15-2015 *Hepatic Function Panel Leny Weems PA-C Work Phone: Start: 08-06-2015 End: 08-15-2015 Lipid panel [AGGREGATE] Leny Weems PA-C Work Phone: Start: 06-25-2015 End: 06-25-2015 SLIP COVER SEAMSTRESS Leny Weems PA-C Work Phone: Start: 06-25-2015 End: 06-25-2015 Follow Up Appt 6 months Leny Weems PA-C Work Phone: Start: 06-13-2015 End: 06-13-2015 *Hepatic Function Panel Frances Garvin Start: 06-13-2015 End: 06-13-2015 Lipid panel [AGGREGATE] Frances Garvin Start: 01-02-2015 End: 01-07-2015 Nuclear Stress Test - Treadmil Procedure Note: See Note; NOTES: [facility] Imaging Services [address] [place] [id number] STRESS TEST REPORT 01/02/15 0836 MR#: [id number] Acct: [id number] Name: EMELY LAURA Rep #: [id number] : 1955 59 From: Bart Mahan MD Primary Care: Delicia Flores MD Status: REG CLI Ordering Dr: Bart Mahan MD Service Date: 01/02/15 Order Date: 01/02/15 Sex: M C DATE OF SERVICE: 01/02/2015 PHARMACOLOGIC MYOCARDIAL STRESS TEST: A 59-year-old man with a history of coronary artery disease. Resting EKG demonstrates normal sinus rhythm with a rate of 74 beats per minute. Normal intervals are noted. Resting blood pressure was 122/88. STRESS TEST: The patient exercised according to a regular Sergei protocol for a total duration of 9 minutes. The maximum heart rate attained was 150 beats per minute, which was 93% of maximum predicted heart rate. The maximum workload attained was 10.1 METS. At rest, there were no ST or T-wave changes noticed ischemia. At peak exercise, upsloping ST changes only were noted, which did not meet the criteria for ischemia. The resting blood pressure was 128/88 with a peak blood pressure of 162/86. Rate pressure product was 24,300. No clinical angina was noted. MYOCARDIAL PERFUSION PROTOCOL: 11.9 mCi of sestamibi was injected at rest. The patient exercised according to a regular Sergei protocol for a total duration of 9 minutes attaining 150 beats per minute, 93% of maximum predicted heart rate and workload of 10.1 METS. At peak exercise, 32.7 mCi of sestamibi was injected. Stress images were obtained. Stress and rest images were reconstructed and compared in the short axis, vertical long and horizontal long axes. Gated images were also obtained. PERFUSION SPECT ANALYSIS: Review of the images demonstrated normal uptake of tracer noted in all areas of the myocardium. There was mildly reduced perfusion noted in the mid inferior wall. There is GI uptake noted, however. No areas of reversibility are noted to suggest ischemia. No previous infarct is present. CONCLUSION: 1. Normal exercise myocardial perfusion stress test with no evidence of ischemia at a high workload. 2. Preserved ejection fraction. Bart Mahan MD T: NTS JOB: [id number] 01/05/15 1803 <Electronically signed by Bart Mahan MD> Date Bart Mahan MD CC: Delicia Flores MD Date Dictated: 01/02/15835 Date Transcribed: 01/02/15835 Threat Monitoring Analyst: Signed Nicole Michaels Work Phone: Start: 12-27-2014 End: 12-27-2014 Dietary management education, guidance, and counseling Bart Mahan MD Start: 12-27-2014 End: 06-13-2015 *Hepatic Function Panel Frances Garvin Start: 12-27-2014 End: 12-28-2014 Documentation of current medications Bart Mahan MD Start: 12-27-2014 End: 12-27-2014 Follow Up Appt 6 months Frances Garvin Start: 12-27-2014 End: 12-27-2014 MMM Bart Mahan MD Start: 12-27-2014 End: 06-19-2015 Nuclear stress test -exercise Bart Mahan MD Start: 11-19-2014 End: 12-24-2014 *Hepatic Function Panel Frances Garvin Start: 11-19-2014 End: 12-24-2014 Lipid panel [AGGREGATE] Frances Garvin Start: 05-29-2014 End: 05-29-2014 SLIP COVER SEAMSTRESS Leny Weems PA-C Work Phone: Start: 05-29-2014 End: 05-29-2014 Follow Up Appt 6 months Leny Weems PA-C Work Phone: Start: 05-14-2014 End: 05-18-2014 *Hepatic Function Panel Frances Garvin Start: 05-14-2014 End: 05-18-2014 Lipid panel [AGGREGATE] Frances Garvin Start: 11-24-2013 End: 12-04-2013 *Hepatic Function Panel Frances Garvin Start: 11-24-2013 End: 11-24-2013 Follow Up Appt 6 months Frances Garvin Start: 11-24-2013 End: 12-04-2013 Lipid panel [AGGREGATE] Frances Garvin Start: 11-24-2013 End: 11-24-2013 MMFrances Mahan MD Start: 09-20-2013 End: 06-19-2015 Follow Up Appt Other Leny Weems PA-C Work Phone: Start: 08-24-2013 End: 11-16-2013 Cardiac Rehab Leny Weems PA-C Work Phone: Start: 08-24-2013 End: 08-24-2013 SLIP COVER SEAMSTRESS Leny Weems PA-C Work Phone: Start: 08-24-2013 End: 08-24-2013 Electrocardiogram, complete Leny Weems PA-C Work Phone: Start: 08-24-2013 End: 08-24-2013 Follow Up Appt 3 months Leny Weems PA-C Work Phone: Start: 08-24-2013 End: 08-24-2013 Follow Up Appt Other Leny Weems PA-C Work Phone: Start: 08-24-2013 Percutaneous translu lukas coronary angioplasty CORONARY ARTERY DISEASE, S/P PTCA Bart Mahan MD Start: 08-24-2013 Placement of stent i n coronary artery Status post cardiac stent placement Bart Mahan MD Start: 08-15-2013 History of placement of stent for coronary artery disease History of coronary artery stent placement Dr. Mitchel Mitchell Work Phone: Start: 08-11-2013 End: 08-14-2013 *BMP Bart Mahan MD Start: 08-11-2013 End: 08-14-2013 CBC W Auto Differential panel - Blood Bart Mahan MD Start: 08-11-2013 End: 08-23-2013 Chest x-ray Bart Mahan MD Start: 08-11-2013 End: 08-14-2013 Coagulation factor induced.INR assay in platelet poor plasma Bart Mahan MD Start: 08-11-2013 End: 08-11-2013 SLIP COVER SEAMSTRESS Bart Mahan MD Start: 08-11-2013 End: 08-23-2013 Echocardiography Bart Mahan MD Start: 08-11-2013 End: 08-11-2013 Follow Up Appt 6 weeks Bart Mahan MD Start: 08-11-2013 End: 08-23-2013 Left Heart Cath Bart Mahan MD Angioplasty Inna Vale Comment on above: Dr. Al silva stenting of mid left circumflex artery 08-16-2013 Plan of Treatment Date Care Activity Detail Author Start: 08-31-2023 Patient referral [facility] Work Phone: Start: 08-31-2023 Patient discharge [facility] Start: 08-30-2023 End: 08-31-2023 [facility] Start: 08-30-2023 Ambulation without limitation [facility] Start: 08-30-2023 Assessment of risk of venous thromboembolism [facility] Start: 08-30-2023 Cardiac monitoring [facility] Start: 08-30-2023 Cardiac rehabilitation - phase 1 [facility] Start: 08-30-2023 Cardiac rehabilitation - phase 2 [facility] Start: 08-30-2023 Insertion of catheter into peripheral vein [facility] Start: 08-30-2023 Measuring intake and output [facility] Start: 08-30-2023 Notification of physician [facility] Start: 08-30-2023 Oxygen therapy [facility] Start: 08-30-2023 Patient discharge [facility] Start: 08-30-2023 Providing care according to standard [facility] Start: 08-30-2023 Provision of activity privileges [facility] Start: 08-30-2023 Referral to plant guide [facility] Start: 08-30-2023 Taking patient vital signs [facility] Start: 08-30-2023 Vascular disease risk assessment [facility] Start: 08-30-2023 Vital signs measurements [facility] Start: 08-30-2023 Following clinical pathway protocol [facility] Start: 08-30-2023 Verification routine [facility] Start: 08-30-2023 Admission procedure [facility] Start: 08-30-2023 Catheterization of left heart [facility] Start: 08-30-2023 Hospital admission, emergency, from emergency room, medical nature [facility] Start: 10-21-2017 End: 10-21-2017 Appointment Appointment [facility] Work Phone: Start: 08-02-2017 End: 02-12-2017 *Hepatic Function Panel *Hepatic Function Panel [facility] Work Phone: Start: 08-02-2017 End: 02-12-2017 Lipid 1996 panel *Lipid Profile CC PCP [facility] Work Phone: Start: 01-21-2017 End: 02-12-2017 *Hepatic Function Panel *Hepatic Function Panel [facility] Work Phone: Start: 01-21-2017 End: 01-21-2017 Follow Up Appt 9 months Follow Up Appt 9 months [facility] Work Phone: Start: 01-21-2017 End: 02-12-2017 Lipid panel [AGGREGATE] *Lipid Profile CC PCP [facility] Work Phone: Start: 01-21-2017 End: 01-21-2017 MMM MMM [facility] Work Phone: Start: 11-12-2016 End: 08-13-2016 *Hepatic Function Panel *Hepatic Function Panel [facility] Work Phone: Start: 11-12-2016 End: 08-13-2016 Lipid panel [AGGREGATE] *Lipid Profile CC PCP [facility] Work Phone: Start: 07-14-2016 End: 07-17-2016 *Hepatic Function Panel *Hepatic Function Panel [facility] Work Phone: Start: 07-14-2016 End: 07-14-2016 SLIP COVER SEAMSTRESS SLIP COVER SEAMSTRESS [facility] Work Phone: Start: 07-14-2016 End: 07-14-2016 Electrocardiogram, complete EKG (In office) [facility] Work Phone: Start: 07-14-2016 End: 07-14-2016 Follow Up Appt 6 months Follow Up Appt 6 months [facility] Work Phone: Start: 07-14-2016 End: 07-17-2016 Lipid panel [AGGREGATE] *Lipid Profile CC PCP [facility] Work Phone: Start: 02-27-2016 End: 03-16-2016 *Hepatic Function Panel *Hepatic Function Panel [facility] Work Phone: Start: 02-27-2016 End: 03-16-2016 Lipid panel [AGGREGATE] *Lipid Profile CC PCP [facility] Work Phone: Start: 01-14-2016 End: 01-14-2016 Follow Up Appt 6 months Follow Up Appt 6 months [facility] Work Phone: Start: 01-14-2016 End: 01-14-2016 MMM MMM [facility] Work Phone: Start: 09-16-2015 End: 11-22-2015 *Hepatic Function Panel *Hepatic Function Panel [facility] Work Phone: Start: 09-16-2015 End: 08-15-2015 Lipid panel [AGGREGATE] *Lipid Profile CC PCP [facility] Group Work Phone: Start: 08-06-2015 End: 08-15-2015 *Hepatic Function Panel *Hepatic Function Panel [facility] Work Phone: Start: 08-06-2015 End: 08-15-2015 Lipid panel [AGGREGATE] *Lipid Profile CC PCP [facility] Work Phone: Start: 06-25-2015 End: 06-25-2015 SLIP COVER SEAMSTRESS SLIP COVER SEAMSTRESS [facility] Work Phone: Start: 06-25-2015 End: 06-25-2015 Follow Up Appt 6 months Follow Up Appt 6 months [facility] Work Phone: Start: 06-13-2015 End: 06-13-2015 *Hepatic Function Panel *Hepatic Function Panel [facility] Work Phone: Start: 06-13-2015 End: 06-13-2015 Lipid panel [AGGREGATE] *Lipid Profile CC PCP [facility] Work Phone: Start: 12-27-2014 End: 06-13-2015 *Hepatic Function Panel *Hepatic Function Panel [facility] Work Phone: Start: 12-27-2014 End: 12-27-2014 Follow Up Appt 6 months Follow Up Appt 6 months [facility] Work Phone: Start: 12-27-2014 End: 12-27-2014 MMM MMM [facility] Work Phone: Start: 12-27-2014 End: 12-27-2014 Nuclear stress test -exercise Nuclear stress test -exercise [facility] Work Phone: Start: 11-19-2014 End: 12-24-2014 *Hepatic Function Panel *Hepatic Function Panel [facility] Work Phone: Start: 11-19-2014 End: 12-24-2014 Lipid panel [AGGREGATE] *Lipid Profile CC PCP [facility] Work Phone: Start: 09-04-2014 Procedure Education Eprescribed prescriptions (G5963) [facility] Work Phone: Start: 09-04-2014 Urine albumin quantitative MICROALBUMIN: CREATININE RATIO (23929) AND (00763) [facility]; [facility] Work Phone: Start: 09-04-2014 Comprehensive metabolic panel METABOLIC PANEL, COMPREHENSIVE (43354) [facility] Work Phone: Start: 09-04-2014 Lipid panel LIPID PANEL (18713) [facility]; [facility] Work Phone: Start: 09-04-2014 Blood count manual cell count each CBC with auto diff (68034) [facility]; [facility] Work Phone: Start: 05-29-2014 End: 05-29-2014 SLIP COVER SEAMSTRESS SLIP COVER SEAMSTRESS [facility] Work Phone: Start: 05-29-2014 End: 05-29-2014 Follow Up Appt 6 months Follow Up Appt 6 months [facility] Work Phone: Start: 05-14-2014 End: 05-18-2014 *Hepatic Function Panel *Hepatic Function Panel [facility] Work Phone: Start: 05-14-2014 End: 05-18-2014 Lipid panel [AGGREGATE] *Lipid Profile CC PCP [facility] Work Phone: Start: 03-06-2014 Procedure Education Eprescribed prescriptions (G8553) [facility] Work Phone: Start: 03-06-2014 Assay of prostate specific antigen total PSA (PROSTATE SPECIFIC ANTIGEN) (V76.44) [facility]; [facility] Work Phone: Start: 03-06-2014 Creatine kinase total Creatine Kinase Total (40922) [facility]; [facility] Work Phone: Start: 03-06-2014 Lipid panel LIPID PANEL (27706) [facility]; [facility] Work Phone: Start: 03-06-2014 Hepatic function panel HEPATIC FUNCTION PANEL (57952) [facility]; [facility] Work Phone: Start: 11-24-2013 End: 12-04-2013 *Hepatic Function Panel *Hepatic Function Panel [facility] Work Phone: Start: 11-24-2013 End: 11-24-2013 Follow Up Appt 6 months Follow Up Appt 6 months [facility] Work Phone: Start: 11-24-2013 End: 12-04-2013 Lipid panel [AGGREGATE] *Lipid Profile CC PCP [facility] Work Phone: Start: 11-24-2013 End: 11-24-2013 MMM MMM [facility] Work Phone: Start: 09-20-2013 End: 06-19-2015 Follow Up Appt Other Follow Up Appt Other [facility] Work Phone: Start: 09-01-2013 Urine albumin quantitative MICROALBUMIN: CREATININE RATIO (62469) AND (31298) [facility] Work Phone: Start: 09-01-2013 Comprehensive metabolic panel METABOLIC PANEL, COMPREHENSIVE (77970) [facility] Work Phone: Start: 09-01-2013 Lipid panel LIPID PANEL (29636) [facility]; [facility] Work Phone: Start: 09-01-2013 Blood count manual cell count each CBC WITH MANUAL DIFF (44758) [facility]; [facility] Work Phone: Start: 08-24-2013 End: 08-24-2013 Cardiac Rehab Cardiac Rehab [facility] Work Phone: Start: 08-24-2013 End: 08-24-2013 SLIP COVER SEAMSTRESS SLIP COVER SEAMSTRESS [facility] Work Phone: Start: 08-24-2013 End: 08-24-2013 Electrocardiogram, complete EKG (In office) [facility] Work Phone: Start: 08-24-2013 End: 08-24-2013 Follow Up Appt 3 months Follow Up Appt 3 months [facility] Work Phone: Start: 08-24-2013 End: 08-24-2013 Follow Up Appt Other Follow Up Appt Other [facility] Work Phone: Start: 08-11-2013 Hemoglobin glycosylated a1c HgA1C , Office (85508) [facility]; [facility] Work Phone: Start: 08-11-2013 End: 08-14-2013 *BMP *BMP [facility] Work Phone: Start: 08-11-2013 End: 08-14-2013 CBC W Auto Differential panel - Blood *CBC without Diff [facility] Work Phone: Start: 08-11-2013 End: 08-23-2013 Chest x-ray X-Ray, Chest, PA & Lateral [facility] Work Phone: Start: 08-11-2013 End: 08-14-2013 Coagulation factor induced.INR assay in platelet poor plasma *PT/INR [facility] Work Phone: Start: 08-11-2013 End: 08-11-2013 SLIP COVER SEAMSTRESS SLIP COVER SEAMSTRESS [facility] Work Phone: Start: 08-11-2013 End: 08-23-2013 Echocardiography Echocardiogram (complete) [facility] Work Phone: Start: 08-11-2013 End: 08-11-2013 Follow Up Appt 6 weeks Follow Up Appt 6 weeks [facility] Work Phone: Start: 08-11-2013 End: 08-14-2013 Left Heart Cath Left Heart Cath [facility] Work Phone: Start: 07-17-2013 Lipid panel Lipid Panel (84701) [facility]; [facility] Work Phone: Start: 07-17-2013 Comprehensive metabolic panel Metabolic Panel, Comprehensive (28735) [facility]; [facility] Work Phone: Start: 07-17-2013 Blood count manual cell count each CBC with manual diff (07356) [facility]; [facility] Work Phone: Start: 02-04-2012 Patient Education Diabetes and Illness: diabetes [facility]; [facility] Work Phone: Start: 02-04-2012 Assay of prostate specific antigen total PSA (PROSTATE SPECIFIC ANTIGEN) (V76.44) [facility]; [facility] Work Phone: Start: 02-04-2012 Lipoprotein (a) ASSAY OF LIPOPROTEIN(A) (02812) [facility]; [facility] Work Phone: Start: 02-04-2012 Comprehensive metabolic panel METABOLIC PANEL, COMPREHENSIVE (10932) [facility]; [facility] Work Phone: Start: 02-04-2012 Lipid panel LIPID PANEL (59799) [facility]; [facility] Work Phone: Start: 02-04-2012 Blood count manual cell count each CBC WITH MANUAL DIFF (29523) [facility]; [facility] Work Phone: Start: 08-10-2011 Lipoprotein (a) ASSAY OF LIPOPROTEIN(A) (09266) [facility]; [facility] Work Phone: Start: 07-21-2011 Lipoprotein (a) ASSAY OF LIPOPROTEIN(A) (58494) [facility]; [facility] Work Phone: Comment on above: today Start: 07-21-2011 Urine albumin quantitative MICROALBUMIN: CREATININE RATIO (38079) AND (61600) [facility]; [facility] Work Phone: Comment on above: in six months (approximately) Start: 07-21-2011 Comprehensive metabolic panel METABOLIC PANEL, COMPREHENSIVE (00842) [facility]; [facility] Work Phone: Comment on above: in six months (approximately) Start: 07-21-2011 Lipid panel LIPID PANEL (60233) [facility]; [facility] Work Phone: Comment on above: in six months (approximately) Start: 07-21-2011 Blood count manual cell count each CBC WITH MANUAL DIFF (91537) [facility]; [facility] Work Phone: Comment on above: in six months (approximately) Start: 09-23-2010 Provider Instructions for Treatment [facility] Work Phone: Start: 11-21-2009 Provider Instructions for Treatment FOLLOW UP IN 1 WEEK [facility]; [facility] Work Phone: Start: 11-18-2009 Provider Instructions for Treatment FOLLOW UP IN 3 DAYS with [facility] Work Phone: Start: 07-11-2009 Assay of prostate specific antigen total PSA (PROSTATE SPECIFIC ANTIGEN) (V76.44) [facility]; [facility] Work Phone: Start: 07-11-2009 Urnls dip stick/tablet reagent auto microscopy URINALYSIS, W/ MICRO (24451) [facility]; [facility] Work Phone: Start: 07-11-2009 Comprehensive metabolic panel METABOLIC PANEL, COMPREHENSIVE (79643) [facility]; [facility] Work Phone: Start: 07-11-2009 Lipid panel LIPID PANEL (60021) [facility]; [facility] Work Phone: Comment on above: after 03-19-10 Start: 07-11-2009 Blood count manual cell count each CBC WITH MANUAL DIFF (58341) [facility]; [facility] Work Phone: Start: 04-02-2009 Provider Instructions for Treatment Colon Cancer Screening [facility]; [facility] Work Phone: Start: 04-02-2009 Blood count reticulocyte automated RETICULOCYTE COUNT (22626) [facility]; [facility] Work Phone: Start: 04-02-2009 Assay of folic acid serum Folic Acid Serum (32425) [facility]; [facility] Work Phone: Start: 04-02-2009 Cyanocobalamin vitamin b-12 Vitamin B-12 (cyanocobalamin) (43064) [facility]; [facility] Work Phone: Start: 04-02-2009 Assay of iron Iron (93082) [facility]; [facility] Work Phone: Start: 04-02-2009 Assay of ferritin Ferritin (90423) [facility]; [facility] Work Phone: Start: 04-02-2009 Blood count complete automated CBC (Auto) (92113) [facility]; [facility] Work Phone: Start: 04-02-2009 Hepatic function panel HEPATIC FUNCTION PANEL (40503) [facility]; [facility] Work Phone: Start: 04-02-2009 Lipid panel Lipid Panel (21308) [facility]; [facility] Work Phone: Start: 09-27-2008 Assay of prostate specific antigen total PSA (PROSTATE SPECIFIC ANTIGEN) (V76.44) [facility]; [facility] Work Phone: Start: 09-27-2008 Comprehensive metabolic panel METABOLIC PANEL, COMPREHENSIVE (46814) [facility]; [facility] Work Phone: Start: 09-27-2008 Lipid panel LIPID PANEL (04461) [facility]; [facility] Work Phone: Start: 09-27-2008 Blood count manual cell count each CBC WITH MANUAL DIFF (47636) [facility]; [facility] Work Phone: Start: 05-15-2008 Lipid panel Lipid Panel (90050) [facility]; [facility] Work Phone: Start: 05-15-2008 Blood count complete automated CBC (Auto) (18299) [facility]; [facility] Work Phone: Start: 05-15-2008 Comprehensive metabolic panel Metabolic Panel, Comprehensive (06841) [facility]; [facility] Work Phone: Start: 05-15-2008 Assay of prostate specific antigen total PSA (PROSTATE SPECIFIC ANTIGEN) (V76.44) [facility]; [facility] Work Phone: Start: 11-15-2007 Provider Instructions for Treatment Colon Cancer Screening [facility]; [facility] Work Phone: Start: 11-15-2007 Comprehensive metabolic panel METABOLIC PANEL, COMPREHENSIVE (07142) [facility]; [facility] Work Phone: Start: 11-15-2007 Lipid panel LIPID PANEL (79418) [facility]; [facility] Work Phone: Comment on above: in six months (approximately) Start: 06-02-2007 Provider Instructions for Treatment Shave Biopsy with Epi [facility]; [facility] Work Phone: Start: 05-13-2007 Assay of prostate specific antigen total PSA (PROSTATE SPECIFIC ANTIGEN) (50528) [facility]; [facility] Work Phone: Start: 05-13-2007 Comprehensive metabolic panel METABOLIC PANEL, COMPREHENSIVE (01251) [facility]; [facility] Work Phone: Start: 05-13-2007 Lipid panel LIPID PANEL (96626) [facility]; [facility] Work Phone: Start: 05-13-2007 Blood count manual cell count each CBC WITH MANUAL DIFF (53725) [facility]; [facility] Work Phone: Start: 11-11-2006 Comprehensive metabolic panel Metabolic Panel, Comprehensive (74538) [facility]; [facility] Work Phone: Comment on above: in six months Start: 11-11-2006 Lipid panel Lipid Panel (27446) [facility]; [facility] Work Phone: Comment on above: in six months Start: 11-11-2006 Assay of prostate specific antigen total PSA (PROSTATE SPECIFIC ANTIGEN) (42838) [facility]; [facility] Work Phone: Start: 08-06-2006 Hepatic function panel HEPATIC FUNCTION PANEL (23295) [facility]; [facility] Work Phone: Start: 08-06-2006 Ceruloplasmin CERULOPLASMIN (01753) [facility]; [facility] Work Phone: Start: 08-06-2006 Fluorescent nonnfct agt antb screen ea antibody ASM (ANTI SMOOTH MUSCLE ANTIBODY) (63825) [facility]; [facility] Work Phone: Start: 08-06-2006 Antinuclear antibodies henry HENRY (ANTINUCLEAR ANTIBODY) (91376) [facility]; [facility] Work Phone: Start: 08-06-2006 Microsomal antibodies each ANTI-LIVER/KIDNEY MICROSOMAL ANTIBODY (65478) [facility]; [facility] Work Phone: Start: 08-06-2006 Assay of ferritin FERRITIN (22190) [facility]; [facility] Work Phone: Start: 08-06-2006 Hepatitis b core antibody hbcab total HEPATITIS A, B & C PANELS [facility]; [facility] Work Phone: Comment on above: all labs not routine and 4 week Start: 05-20-2006 Provider Instructions for Treatment FOLLOW UP IN 3 MONTHS [facility]; [facility] Work Phone: Start: 05-20-2006 Glucose tolerance test GLUCAGON TOLERANCE TEST 2HR (10950) [facility]; [facility] Work Phone: Comment on above: 75 gm6 weeks Start: 05-20-2006 Assay of prostate specific antigen total PSA (PROSTATE SPECIFIC ANTIGEN) (32002) [facility]; [facility] Work Phone: Comment on above: 6 weeks Start: 05-20-2006 Comprehensive metabolic panel METABOLIC PANEL, COMPREHENSIVE (79948) [facility]; [facility] Work Phone: Comment on above: in three months in 6 weeks Start: 05-20-2006 Lipid panel LIPID PANEL (49795) [facility]; [facility] Work Phone: Comment on above: in three months Start: 05-20-2006 Hepatic function panel HEPATIC FUNCTION PANEL (42969) [facility]; [facility] Work Phone: Comment on above: 6 weeks Patient Education [facility] Work Phone: Patient referral [facility] Work Phone: [facility] Work Phone: [facility]; [facility] Work Phone: [facility]; [facility] Work Phone: [facility]; [facility] Work Phone: [facility]; [facility] Work Phone: [facility] Work Phone: [facility]; [facility] Work Phone: [facility]; [facility] Work Phone: [facility] Work Phone: [facility] Work Phone: [facility] Work Phone: [facility] Work Phone: [facility] Work Phone: [facility] Work Phone: [facility]; [facility] Work Phone: [facility]; [facility] Work Phone: Immunizations Immunization Date Immunization Notes Care Provider Dimitris han 11-15-2007 tetanus and diphther ia toxoids, adsorbed, preservative free, for adult use (2 Lf of tetanus toxoid and 2 Lf of diphtheria toxoid) Nicole Michaels Work Phone: [facility]; [facility] Work Phone: Comment on above: Lot #:Expiration michele e:Amount given:Route: IM Site given:left deltoid Given by: anh# [id number] exp 10-19-08 Payers Date Payer Category Payer Self-pay [id number] 2023 Unknown [id number] Medicare [id number] Unknown [id number] Unknown [employer]. Unknown [id number] 2.16.8 [id number] Unknown [id number] 2.16.8 [id number] Unknown [id number] 2.16.8 [id number] Unknown [id number] 2.16.8 [id number] Unknown [id number] 2.16.8 [id number] Unknown [id number] 2.16.8 [id number] Social History Date Type Detail Facility Start: 09-15-2021 End: 08-30-2023 Tobacco smoking status [facility] Unknown if ever smoked [facility] Start: 1955 Sex Assigned At Male W [facility] Alcohol Use Alcohol Use [facility] Work Phone: Comment on above: Occasional alcohol u se 3 QD Light Lives with spouse Tiler Remotely quit tobacc o use Tobacco use: Tobacco use: [facility] Work Phone: Comment on above: updated 08-10-11, 09/13 Start: 08-30-2023 Tobacco smoking stat us [facility] Ex-smoker (finding) [facility] Sex Male [facility] Medical Equipment Procedure Code Equipment Code Equipment Origin al Text Equipment Identifier Dates Drug-eluting coronary artery stent, [id number] lymer-coated ()[id number] FDA Start: 08-30-2023 Drug-eluting coronary artery stent, [id number] lymer-coated ()[id number] FDA Start: 08-30-2023 Functional Status Date Assessment Result Facility 08-31-2023 Functional status Up ad alan [facility] Work Phone: Mental Status Date Assessment Result Facility 08-31-2023 Cognitive function Voice/Name [facility] Work Phone: 08-30-2023 Cognitive function Level Of Cons ciousness Awake;Alert;Appropriate;Follow s Commands [facility] Work Phone: 10-14-2022 Cognitive function Level Of Cons ciousness Awake;Alert;Appropriate [facility] Work Phone: Clinical Notes 08-15-2013 to 03-06-2025 Note Date & Type Note Facility 03-06-2025 Discharge summary Note Date/Time March 06, 2025 10:57am [facility] [address] [place] [address] [address] [place] [address] / REHABILITATION SERVICES DISCHARGE SUMMARY MR#: [id number] Acct: [id number] Name: EMELY LAURA Rep #: [id number] : 1955 69 From: Cert. VALENTINE RushT, OCS Referring DrTacos: Dr. Mitchel Mitchell MD Status: REG RCR Insurance: [facility] [id number] SELF PAY INSURANCE Discharge Summary D/C summary: It has been my pleasure to treat EMELY LAURA referred by Dr. Mitcehl Mitchell MD, with the diagnosis of LUMBAR DISC DISEASE ,RIGHT SIDE SCIATICA ,LOW BACK PAIN for a total of 7 visit(s). Discharge Date: 03/06/25 Please see the following information for a summary of their discharge status. Subjective Subjective: No DR appointment -pain is alot better -Walking 1 1/2 mile -bending no pain Pain Right Neck: Pain Intensity (Out of 10): 1 Right Lower Extremity: Pain Intensity (Out of 10): 1 Overall Improvement % Improvement: 80 Objective Objective/Function: POSTURE: mild forward posture GAIT: reciprocal pattern slight decrease stance time RLE SYMMETRICAL: align PALPATION: unremarkable NEURO: denies paresthesia/tingling right occasional reflexes L3-4,L4-5 ,L5-S1 1/3 FLEXABILITY: hamstrings min tight MMT: quads/hams 5/5 ,hip flexion 5/5 ,ankle 5/5 LUMBAR ROM: flexion min loss ,extension modloss ,side glides mod loss Goals Goal 1:: Patient to be I with HEP for back Goal Progress: Goal Met Goal 2:: Patient to improve lumbar ROM for function of recovery for ADLS Goal Progress: Goal Met Goal 3:: Patient to improve back oswestry score by 5 points to improve QOL and function. Goal Progress: Goal Met Goal 4:: Patient to improve ability walk/stand > than 20 30 mins to improve QOL and function Goal Progress: Goal Met Goal 5:: Patient to demonstrate 50% improvement with less pain and improved function Goal Progress: Goal Met Plan Plan: D/C TO HEP D/C Information Discharge Comments: hep d/c sentence: If there are questions or concerns regarding this patient's physical therapy, please feel free to call me at [phone]. Thank you for the referral of thispatient. Sincerely, Genaro Gibson PT, Cert MDT, OCS Balance/Gait/Functional tests Balance/Special Test Scores Oswestry Low Back Score: 1 Improvement % Improvement: 80 <Electronically signed by Genaro Gibson PT, Cert. ROSEMARY, OCS> 03/06/25 1057 CC: Dr. Mitchel Mitchell MD ~ ANA Signed [facility] Work Phone: 1(478) 386-731809-23-2025 Discharge summary [facility] [address] [place] [address] [address] [place] [address] / REHABILITATION SERVICES DISCHARGE SUMMARY MR#: [id number] Acct: [id number] Name: EMELY LAURA Rep #: [id number] : 1955 69 From: Miguel Rush. T, OCS Referring DrTacos: Dr. Mitchel Mitchell MD Status: REG RCR Insurance: [facility] [id number] SELF PAY INSURANCE Discharge Summary D/C summary: It has been my pleasure to treat EMELY LAURA referred by Dr. Mitchel Mitchell MD, with the diagnosis of LUMBAR DISC DISEASE ,RIGHT SIDE SCIATICA ,LOW BACK PAIN for a total of 7 visit(s). Discharge Date: 03/06/25 Please see the following information for a summary of their discharge status. Subjective Subjective: No DR appointment -pain is alot better -Walking 1 1/2 mile -bending no pain Pain Right Neck: Pain Intensity (Out of 10): 1 Right Lower Extremity: Pain Intensity (Out of 10): 1 Overall Improvement % Improvement: 80 Objective Objective/Function: POSTURE: mild forward posture GAIT: reciprocal pattern slight decrease stance time RLE SYMMETRICAL: align PALPATION: unremarkable NEURO: denies paresthesia/tingling right occasional reflexes L3-4,L4-5 ,L5-S1 1/3 FLEXABILITY: hamstrings min tight MMT: quads/hams 5/5 ,hip flexion 5/5 ,ankle 5/5 LUMBAR ROM: flexion min loss ,extension modloss ,side glides mod loss Goals Goal 1:: Patient to be I with HEP for back Goal Progress: Goal Met Goal 2:: Patient to improve lumbar ROM for function of recovery for ADLS Goal Progress: Goal Met Goal 3:: Patient to improve back oswestry score by 5 points to improve QOL and function. Goal Progress: Goal Met Goal 4:: Patient to improve ability walk/stand > than 20 30 mins to improve QOL and function Goal Progress: Goal Met Goal 5:: Patient to demonstrate 50% improvement with less pain and improved function Goal Progress: Goal Met Plan Plan: D/C TO HEP D/C Information Discharge Comments: hep d/c sentence: If there are questions or concerns regarding this patient's physical therapy, please feel free to call me at [phone]. Thank you for the referral of thispatient. Sincerely, Genaro Gibson, PT, Cert MDT, OCS Balance/Gait/Functional tests Balance/Special Test Scores Oswestry Low Back Score: 1 Improvement % Improvement: 80 03/06/25 1057 CC: Dr. Mitchel Mitchell MD ~ JLA Signed [facility]08-25-2025 Radiology Diagnostic study note [facility] Imaging Services [address] [place] [address] L/S Spine Min 4 Views MR#: [id number] Acct: [id number] Name: EMELY LAURA Rep #: [id number] : 1955 M 69 From: Chet Cortes MD PCP: Dr. Mitchel Mitchell MD Status: CARLINE SHORT Study:L/S Spine Min 4 Views Date of Exam: 02/05/25 Exam# [id number] Ordering Dr: Mitchel Mitchell MD PROCEDURE: L/S SPINE MIN 4 VIEWS 02/05/2025 REASON FOR EXAM: RIGHT SIDE SCIATICA, LOW BACK PAIN TECHNIQUE: L/S SPINE MIN 4 VIEWS COMPARISON: None FINDINGS: Curvature: Mild levoconvex scoliosis. Other findings: Multilevel disc space narrowing and spondylosis. Other: Facet joint osteoarthritis and hypertrophy. This is worse at the L3-L4, L4-L5 and L5-S1 levels. Atherosclerotic calcification of the abdominal aorta. RAD/L/S Spine Min 4 Views IMPRESSION: Multilevel disc space narrowing and disc degeneration with spondylosis and facetjoint osteoarthritis and hypertrophy. Mild levoconvex scoliosis. Reading Location: [facility] CC: Dr. Mitchel Mitchell MD ~ Threat Monitoring Analyst: Signed [facility]07-22-2025 Evaluation note* Diagnosis Onset Date Resolution Status Admit Date Essential (primary) hypertension chronic January 02, 2025 9:12am HLD (hyperlipidemia) chronic January 02, 2025 9:12am History of coronary artery stent placement August 30, 2023 resolved January 02, 2025 9:12am [facility] Work Phone: 1(491) 451-137203-19-2024 Consult note Author Jimena Astudillo [facility] August 31, 2023 2:38pm Note Date/Time August 31, 2023 2:3 8pm [facility] Medical Records Department [address] [place] [address] Counseling Note - Pharmacy 08/31/23 1436 MR#: [id number] Acct: [id number] Name: EMELY LAURA Rep #:[id number] : 1955 68 From: Jimena Astudillo PCP: Dr. Mitchel Mitchell MD Status:ADM I N Y Location: [place] [address] Pharmacy [facility] has performed discharge medication reconciliation and counseling for this patient. 1. AMLODIPINE 2.5MG PO DAILY 2. ATORVASTATIN 20MG 1-2 T PO DAILY 3. EZETIMIBE 10MG PO DAILY 4. ISOSORBIDE MONONITRATE 30MG PO DAILY The patient's discharge medication list was reviewed for discrepancies and discrepancies were resolved. The patient was counseled on the following discharge medications and changes in medications for homegoing were reviewed. The Reason for Use, instructions for use, and potential side effects were reviewed for all new medications. The patient's questions regarding all of their medications were answered. The patient was able to verbally demonstrate an understanding of their dischargemedications. Medications at Discharge Home Medications aspirin 81 mg chewable tablet 81 mg PO DAILY@0800 [facility] 08/14/13 metoprolol succinate 50 mg tablet,extended release 24 hr 50 mg PO DAILY BLOOD PRESSURE #90 tabs 10/05/22 meclizine 25 mg tablet 25 mg PO TID PRN dizziness #20 tabs 10/14/22 lisinopril 20 mg-hydrochlorothiazide 12.5 mg tablet 0.5 tab PO DAILY BLOOD PRESSURE #45 tabs 10/20/22 clopidogrel 75 mg tablet 75 mg PO QDAY CHOLESTEROL #90 tabs 12/31/22 cholecalciferol (vitamin D3) 50 mcg (2,000 unit) capsule 50 mcg PO DAILY SUPPLEMENT 08/30/23 amlodipine 2.5 mg tablet 2.5 mg PO DAILY #30 tabs 08/31/23 atorvastatin 20 mg tablet 20 mg PO UD #60 tabs 08/31/23 ezetimibe 10 mg tablet 10 mg PO DAILY #30 tabs 08/31/23 isosorbide mononitrate 30 mg tablet,extended release 24 hr 30 mg PO DAILY #30 tabs 08/31/23 nitroglycerin 0.4 mg sublingual tablet 0.4 mg sublingual Q5M PRN Cardiac/Chest Pain #25 tabs 08/31/23 08/31/23 1438 <Electronically signed by Jimena Astudillo> Date _ Jimena Astudillo Cosigner Signature (if applicable): Date CC: ~ Signed [facility] Work Phone: 1(825) 947-834203-19-2024 Discharge summary Author Aneudy [facility] August 31, 2023 1:12pm Note Date/Time August 31, 2023 12: 46pm [facility] Medical Records Department [address] [place] [address] Instructions for Home/Discharge Instructions 08/31/23 1244 MR#: [id number] Acct: [id number] Name: EMELY LAURA Rep #:[id number] : 1955 68 From: Aneudy Gracia DO PCP: Dr. Mitchel Mitchell MD Status:ADM I N Discharge Instructions Diet Discharge Diet: No restrictions Activity Discharge Activity: Return to Normal Activity Weight Bearing Status: Full weight bearing Follow Up Care Test Results: Test results from this visit will be discussed in further detail at your follow- up appointment, if applicable. Discharge Plan Admission Admit Date/Time: 08/30/23 14:12 Primary Reason for Your Visit: acute GA Attending Provider: Aneudy Gracia Primary Care Provider: Mitchel Mitchell Chi Consulting Providers: Bart Mahan Discharge Orders/Prescriptions Prescriptions: New atorvastatin 20 mg Tablet 20 mg PO UD Qty: 60 0RF Rx Instructions: take one to two daily isosorbide mononitrate 30 mg Tablet Extended Release 24 Hr 30 mg PO DAILY Qty: 30 0RF amlodipine 2.5 mg Tablet 2.5 mg PO DAILY Qty: 30 0RF nitroglycerin 0.4 mg Tablet, Sublingual 0.4 mg sublingual Q5M PRN (Reason: Cardiac/Chest Pain) Qty: 25 0RF ezetimibe 10 mg Tablet 10 mg PO DAILY Qty: 30 0RF Continued aspirin 81 MG tablet,chewable 81 mg PO DAILY@0800 meclizine 25 mg tablet 25 mg PO TID PRN (Reason: dizziness) Qty: 20 0RF cholecalciferol (vitamin D3) 50 mcg (2,000 unit) capsule 50 mcg PO DAILY metoprolol succinate 50 mg tablet extended release 24 hr 50 mg PO DAILY Qty: 90 3RF lisinopril-hydrochlorothiazide 20-12.5 mg tablet 0.5 tab PO DAILY Qty: 45 3RF clopidogrel 75 mg tablet 75 mg PO QDAY Qty: 90 3RF No Action nitroglycerin 0.4 MG tablet 0.4 mg SUBLINGUAL Q5M PRN (Reason: Chest Pain) Referrals / Follow Up: Bart Mahan MD [Med Staff - Active Staff] - See Referral Note (offfice will call) Mitchel Mitchell Chi, MD [Primary Care Provider] - Disposition Disposition (needs filled in before D/C Order can be placed): Home, Self Care 08/31/23 1312<Electronically signed by Aneudy Gracia DO>Aneudy Gracia DO CC: Dr. Bart Mahan MD; Dr. Mitchel Mitchell MD ~ Signed [facility] Work Phone: 1(694) 755-287703-19-2024 Progress note Author Bart Mahan [facility] August 31, 2023 12:54pm Note Date/Time August 31, 2023 7:4 3am [facility] Medical Records Department [address] [place] [address] Progress Note - Cardiology 08/31/23 0741 MR#: [id number] Acct: [id number] Name: EMELY LAURA Rep #:[id number] : 1955 68 From: Bart Mahan MD PCP: Dr. Mitchel Mitchell MD Status:ADM I N Location: [place] [address] Subjective Subjective Patient seen and evaluated. Had uneventful night. Objective Data Vital Signs: Vital Signs Temp Pulse Resp BP Pulse Ox O2 Del Method 97.7 F L 64 16 96/60 92 Room Air 08/31/23 06:04 08/31/23 06:04 08/31/23 06:04 08/31/23 06:04 08/31/23 07:30 08/31/23 07:30 Oxygen Delivery Method Room Air Weight: 182 lb Body Mass Index (BMI) 27.6 Intake & Output: Intake and Output for Last 24 Hours 08/29/23 08/30/23 08/31/23 23:59 23:59 23:59 Intake Total 1197.5 / 1197.5 980 / 980 Output Total 350 / 350 0 / 0 Balance 847.5 / 847.5 980 / 980 Lab / Micro Data 08/30/23 11:10 08/30/23 11:10 Labs: Laboratory Results - last 24 hr 08/30/23 11:10: WBC 10.6, RBC 4.71, Hgb 15.1, Hct 44.7, MCV 94.9 H, MCH 32.1 H, MCHC 33.8, RDW Std Deviation 46.6 H, RDW Coeff of Lulú 13.2, Plt Count 292, MPV 9.3, Immature Gran % (Auto) 0.300, Neut % (Auto) 75.5 H, Lymph % (Auto) 15.7 L, Pershing % (Auto) 7.4, Eos % (Auto) 0.6, Baso % (Auto) 0.5, Absolute Neuts (auto) 8.0 H, Absolute Lymphs (auto) 1.66, Nucleated RBC % 0, Sodium 137, Potassium 3.8, Chloride 104, Carbon Dioxide 27.0, Anion Gap 6, BUN 16, Creatinine 1.01, Estim Creat Clear Calc 72.31, Est GFR (MDRD) Af Amer 94, Est GFR (MDRD) Non-Af 78, BUN/Creatinine Ratio 15.8, Glucose 149 H, Calcium 9.7, Troponin I High Sens 86 H 08/30/23 13:29: Troponin I High Sens 366 H*, Triglycerides 234 H, Cholesterol 284 H, LDL Cholesterol 182 H, VLDL Cholesterol 47 H, HDL Cholesterol 55 08/30/23 15:12: Activated Clotting Time 277 H 08/30/23 15:43: Activated Clotting Time 282 H 08/31/23 06:05: WBC Cancelled, Corrected WBC Cancelled, RBC Cancelled, Hgb Cancelled, Hct Cancelled, MCV Cancelled, MCH Cancelled, MCHC Cancelled, RDW Std Deviation Cancelled, RDW Coeff of Lulú Cancelled, Plt Count Cancelled, MPV Cancelled, Diff Path Review Cancelled, Sodium Cancelled, Potassium Cancelled, Chloride Cancelled, Carbon Dioxide Cancelled, Anion Gap Cancelled, BUN Cancelled, Creatinine Cancelled, Estim Creat Clear Calc Cancelled, Est GFR (MDRD) Af Amer Cancelled, Est GFR (MDRD) Non-Af Cancelled, BUN/Creatinine Ratio Cancelled, Glucose Cancelled, Calcium Cancelled, Total Bilirubin Cancelled, AST Cancelled, ALT Cancelled, Alkaline Phosphatase Cancelled, Total Protein Cancelled, Albumin Cancelled, Globulin Cancelled, Albumin/Globulin Ratio Cancelled, Triglycerides Cancelled, Cholesterol Cancelled, LDL Cholesterol Cancelled, VLDL Cholesterol Cancelled, HDL Cholesterol Cancelled Cardiology Labs/Tests 08/30/23 11:10: WBC 10.6, RBC 4.71, Hgb 15.1, Hct 44.7, MCV 94.9 H, MCH 32.1 H, MCHC 33.8, Plt Count 292, MPV 9.3, Immature Gran % (Auto) 0.300, Neut % (Auto) 75.5 H, Lymph % (Auto) 15.7 L, Pershing % (Auto) 7.4, Eos % (Auto) 0.6, Baso % (Auto) 0.5, Absolute Neuts (auto) 8.0 H, Nucleated RBC % 0, Sodium 137, Potassium 3.8, Chloride 104, Carbon Dioxide 27.0, Anion Gap 6, BUN 16, Creatinine 1.01, Est GFR (MDRD) Af Amer 94, Est GFR (MDRD) Non-Af 78, BUN/Creatinine Ratio 15.8, Glucose 149 H, Calcium 9.7 08/30/23 13:29: Triglycerides 234 H, Cholesterol 284 H, LDL Cholesterol 182 H, VLDL Cholesterol 47 H, HDL Cholesterol 55 08/31/23 06:05: WBC Cancelled, Corrected WBC Cancelled, RBC Cancelled, Hgb Cancelled, Hct Cancelled, MCV Cancelled, MCH Cancelled, MCHC Cancelled, Plt Count Cancelled, MPV Cancelled, Sodium Cancelled, Potassium Cancelled, Chloride Cancelled, Carbon Dioxide Cancelled, Anion Gap Cancelled, BUN Cancelled, Creatinine Cancelled, Est GFR (MDRD) Af Amer Cancelled, Est GFR (MDRD) Non-Af Cancelled, BUN/Creatinine Ratio Cancelled, Glucose Cancelled, Calcium Cancelled,Total Bilirubin Cancelled, Triglycerides Cancelled, Cholesterol Cancelled, LDL Cholesterol Cancelled, VLDL Cholesterol Cancelled, HDL Cholesterol Cancelled Rhythm: EKG: ECHO: Stress Test: Cardiac Cath: PCI: CT Surgery: Holter monitor: EPS: PPM: CXR: Chest CT Scan: Radiography Diagnostic Testing: Radiology Impression Chest X-Ray 08/30/23 11:14 IMPRESSION: Minimal linear atelectasis at the lung bases. Electronically Signed: Jason Cortes MD at 12:00 EDT Reading Location ID and State: [address] [place] [address] , Service support , Physical Exam Const alert, oriented x3 and no apparent distress General Appearance: cooperative HEENT hearing grossly normal bilaterally Head and Scalp: atraumatic Eyes EOMs intact bilaterally Neck General: normal visual inspection Chest inspection of chest normal and palpation of chest normal Resp normal respiratory effort Auscultation: clear to auscultation bilaterally Cardio regular rate, regular rhythm, S1 normal heart sound and S2 normal heart sound Jugular Venous Distention: JVD GI normal to inspection, nondistended, normoactive bowel sounds Extremity normal capillary refill and no pedal edema Peripheral Pulses: Yes pulses 2+ throughout and femoral pulses present Skin no rashes or lesions noted Neuro oriented x3 and CN's II-XII intact bilaterally Psych Appearance: grossly normal and appropriate Assessment & Plan Assessment/Plan (1) Non-ST elevation GA (NSTEMI): PLAN: He does have a history of non-ST elevation myocardial infarction. Patienthad multivessel coronary artery disease as noted in the cath report. The LAD was stented. The circumflex and right coronary artery will be treated with medical therapy for now Would recommend the addition of isosorbide to 30 mg a day Ideally would have been a candidate for colchicine 0.5 mg twice a day but this is not available except at a very high cost. (2) History of coronary artery stent placement: PLAN: He does have previous coronary artery stenting as noted above. The plan will be to evaluate his coronary anatomy and depending on the findings further recommendations made (3) Essential (primary) hypertension: PLAN: He does have a history of hypertension his blood pressure is under good control I would not make any changes. (4) HLD (hyperlipidemia): QUALIFIERS: Hyperlipidemia type: pure hypercholesterolemia Qualified Code(s): E78.00 - Pure hypercholesterolemia, unspecified; E78.0 - Purehypercholesterolemia PLAN: He will continue with aggressive risk factor modification. I would recommend that he be considered for Repatha as an outpatient. 08/31/23 1254 <Electronically signed by Bart Mahan MD> Cosigner Signature (if applicable): CC: ~ Signed [facility] Work Phone: 1(560) 733-884403-19-2024 Consult note Author Bart Mahan [facility] August 31, 2023 7:23am Note Date/Time August 30, 2023 2:2 9pm [facility] Medical Records Department [address] [place] [address] Consultation - Cardiology 08/30/23 1423 MR#: [id number] Acct: [id number] Name: EMELY LAURA Rep #:[id number] : 1955 68 From: Bart Mahan MD PCP: Dr. Mitchel Mitchell MD Status:ADM I N Location: [place] [address] Assessment & Plan Assessment/Plan (1) Non-ST elevation GA (NSTEMI): PLAN: He does have a history of non-ST elevation myocardial infarction. At the present time my recommendation will be to proceed with a cardiac catheterization. The risk benefits and recommendations have been made and he agrees to proceed. Depending on the findings further recommendations will be made. (2) History of coronary artery stent placement: PLAN: He does have previous coronary artery stenting as noted above. The plan will be to evaluate his coronary anatomy and depending on the findings further recommendations made (3) Essential (primary) hypertension: PLAN: He does have a history of hypertension his blood pressure is under good control I would not make any changes. (4) HLD (hyperlipidemia): QUALIFIERS: Hyperlipidemia type: pure hypercholesterolemia Qualified Code(s): E78.00 - Pure hypercholesterolemia, unspecified; E78.0 - Purehypercholesterolemia PLAN: He will continue with aggressive risk factor modification. HPI Consult Data Date of Consult: 08/30/23 HPI Narrative HPI Narrative: EMELY LAURA, is a 68 M who presents with chest tightness which he said started this morning. He presented to the emergency room was evaluated and noted to have minimally abnormal troponin enzymes as well as EKG changes. He has a history of previous stenting of the circumflex artery, the left anterior descending artery in 2013 and he did have residual disease in the ramus intermedius for which medical therapy was recommended. In addition he has hypertension and hyperlipidemia both of which have been under good control. He denies symptoms of shortness of breath with exertion, shortness of breath atrest, orthopnea, PND, sudden weight gain, or bilateral lower extremity edema. Hedenies chronic cough. He denies palpitations, lightheadedness, dizziness, near syncope, or syncopal episodes. He denies claudication issues. He denies fever orchills. He denies blood in urine, blood in stool, or epistaxis. He denies myalgia. He denies unexplainable fatigue. His exercise tolerance is stable. [facility] Medical History Atherosclerotic heart disease of [place] coronary artery without angina pectoris Diabetes mellitus Elevated LFTs Essential (primary) hypertension History of basal cell carcinoma HLD (hyperlipidemia) Obesity Home Medications aspirin 81 mg chewable tablet 81 mg PO DAILY@0800 [facility] 08/14/13 [History Last Taken 08/30/23] nitroglycerin 0.4 mg sublingual tablet 0.4 mg sublingual Q5M PRN Chest Pain 08/14/13 [History Last Taken Unknown] metoprolol succinate 50 mg tablet,extended release 24 hr 50 mg PO DAILY BLOOD PRESSURE #90 tabs 10/05/22 [Rx Last Taken 08/30/23] meclizine 25 mg tablet 25 mg PO TID PRN dizziness #20 tabs 10/14/22 [Rx Last Taken Unknown] lisinopril 20 mg-hydrochlorothiazide 12.5 mg tablet 0.5 tab PO DAILY BLOOD PRESSURE #45 tabs 10/20/22 [Rx Last Taken 08/30/23] clopidogrel 75 mg tablet 75 mg PO QDAY CHOLESTEROL #90 tabs 12/31/22 [Rx Last Taken 08/30/23] cholecalciferol (vitamin D3) 50 mcg (2,000 unit) capsule 50 mcg PO DAILY SUPPLEMENT 08/30/23 [History Last Taken Unknown] Allergy/AdvReac Type Severity Reaction Status Date / Time amoxicillin AdvReac Severe Rash Verified 08/30/23 10:59 Yarlafe-JRI-QtL Reductase AdvReac elevated Verified 08/30/23 10:59 Inhibitor LFT's [Mfkurig-Blw-Yyw Reductase Inhibitor] Family History Father CAD (coronary artery disease) Myocardial infarction Lymphoma Mother Myocardial infarction Diabetes Heart disease Brother Myocardial infarction Surgical History History of coronary artery stent placement (08/15/13) History of left knee surgery (1989) History of umbilical hernia repair Social History Smoking Status: Former smoker how long ago did patient quit smokin alcohol intake: current alcohol intake frequency: a few times a month Alcohol type: beer and wine substance use type: does not use caffeine: Yes Type: coffee Number of servings: 1 ROS Constitutional Constitutional: Denies fever(s) or weight loss Eyes Eyes: Reports systems reviewed and no addt'l complaints, except as documented ENT HEENT: Reports systems reviewed and no addt'l complaints, except as documented Cardiovascular Cardiovascular: Reports chest pain at rest and chest pain with activity; Denies dyspnea at rest, dyspnea on exertion, edema, palpitations or paroxysmal nocturnal dyspnea Respiratory/Chest Respiratory/Chest: Denies dyspnea on exertion, productive cough, shortness of breath at rest or shortness of breath with exertion Gastrointestinal Gastrointestinal: Denies change in bowel habits, nausea, vomiting or weight changes Genitourinary Genitourinary: Denies difficulty urinating Musculoskeletal Musculoskeletal: Denies joint stiffness or muscle weakness Integumentary Integumentary: Denies lesions Neurologic Neurologic: Denies dizziness or syncope Psychiatric Psychiatric: Denies anxiety Endocrine Endocrinology: Denies excessive sweating or fatigue Hematologic/Lymphatic Hematologic/Lymphatic: Denies anemia Allergic/Immunologic Allergic/Immunologic: Denies seasonal rhinorrhea Physical Exam Const alert, oriented x3 and no apparent distress General Appearance: cooperative HEENT hearing grossly normal bilaterally Head and Scalp: atraumatic Eyes EOMs intact bilaterally Neck General: normal visual inspection Chest inspection of chest normal and palpation of chest normal Resp normal respiratory effort Auscultation: clear to auscultation bilaterally Cardio regular rate, regular rhythm, S1 normal heart sound and S2 normal heart sound Jugular Venous Distention: JVD GI normal to inspection, nondistended, normoactive bowel sounds Extremity normal capillary refill and no pedal edema Peripheral Pulses: Yes pulses 2+ throughout and femoral pulses present Skin no rashes or lesions noted Neuro oriented x3 and CN's II-XII intact bilaterally Psych Appearance: grossly normal and appropriate Risk Stratification Risk Stratification Applicable: Yes Age >/= 65: Yes >/= 3 CAD Risk Factors (HTN, HLD, DM, family hx of CAD, or current smoker): Yes Aspirin Use in the Past 7 Days: Yes Severe Angina (>/= episodes in 24 hours): Yes EKG ST Changes >/= 0.5mm: Yes Positive Cardiac Marker: Yes ERI Risk Stratification Score: 6 ERI % Risk: 41% Risk Objective Data Vital Signs: Vital Signs Temp Pulse Resp BP Pulse Ox O2 Del Method 97.3 F L 59 L 14 108/94 H 99 Room Air 08/30/23 13:06 08/30/23 14:00 08/30/23 14:00 08/30/23 14:00 08/30/23 14:00 08/30/23 14:00 Oxygen Delivery Method Room Air Weight: 182 lb Body Mass Index (BMI) 27.6 Lab / Micro Data 08/30/23 11:10 08/30/23 11:10 Labs: Laboratory Results - last 24 hr 08/30/23 11:10: WBC 10.6, RBC 4.71, Hgb 15.1, Hct 44.7, MCV 94.9 H, MCH 32.1 H, MCHC 33.8, RDW Std Deviation 46.6 H, RDW Coeff of Lulú 13.2, Plt Count 292, MPV 9.3, Immature Gran % (Auto) 0.300, Neut % (Auto) 75.5 H, Lymph % (Auto) 15.7 L, Pershing % (Auto) 7.4, Eos % (Auto) 0.6, Baso % (Auto) 0.5, Absolute Neuts (auto) 8.0 H, Absolute Lymphs (auto) 1.66, Nucleated RBC % 0, Sodium 137, Potassium 3.8, Chloride 104, Carbon Dioxide 27.0, Anion Gap 6, BUN 16, Creatinine 1.01, Estim Creat Clear Calc 72.31, Est GFR (MDRD) Af Amer 94, Est GFR (MDRD) Non-Af 78, BUN/Creatinine Ratio 15.8, Glucose 149 H, Calcium 9.7, Troponin I High Sens 86 H 08/30/23 13:29: Troponin I High Sens 366 H* Cardiology Labs/Tests 08/30/23 11:10: WBC 10.6, RBC 4.71, Hgb 15.1, Hct 44.7, MCV 94.9 H, MCH 32.1 H, MCHC 33.8, Plt Count 292, MPV 9.3, Immature Gran % (Auto) 0.300, Neut % (Auto) 75.5 H, Lymph % (Auto) 15.7 L, Pershing % (Auto) 7.4, Eos % (Auto) 0.6, Baso % (Auto) 0.5, Absolute Neuts (auto) 8.0 H, Nucleated RBC % 0, Sodium 137, Potassium 3.8, Chloride 104, Carbon Dioxide 27.0, Anion Gap 6, BUN 16, Creatinine 1.01, Est GFR (MDRD) Af Amer 94, Est GFR (MDRD) Non-Af 78, BUN/Creatinine Ratio 15.8, Glucose 149 H, Calcium 9.7 Rhythm: EKG: ECHO: Stress Test: Cardiac Cath: PCI: CT Surgery: Holter monitor: EPS: PPM: CXR: Chest CT Scan: Radiography Diagnostic Testing: Radiology Impression Chest X-Ray 08/30/23 11:14 IMPRESSION: Minimal linear atelectasis at the lung bases. Electronically Signed: Jason Cortes MD at 12:00 EDT , 08/31/23 5409 <Electronically signed by Bart Mahan MD> Cosigner Signature (if applicable): CC: Dr. Bart Mahan MD; Dr. Mitchel Mitchell MD~ Signed [facility] Work Phone: 1(903) 382-851403-18-2024 History and physical note Author Aneudy Gracia [facility] August 30, 2023 8:05pm Note Date/Time August 30, 2023 8:0 5pm [facility] Medical Records Department [address] [place] [address] H&P Exam - Hospitalist 08/30/231955 MR#: [id number] Acct: [id number] Name: EMELY LAUR[place] Rep #:[id number] : 1955 68 From: Aneudy rGacia DO PCP: Dr. Mitchel Mitchell MD Status:ADM I N Location: [place] [address] HPI - General General Date of Admission: 08/30/23 Date of Service: 08/30/23 Chief Complaint: Chest pain HPI Narrative EMELY LAURA, is a 68 M who presents to the emergency room at [facility] with complaints of intermittent substernal chest discomfort which he describes as a squeezing sensation in the upper chest area, this has been going on for a couple of weeks off-and-on, it appears to be related to exertion he tells me, he has no complaints of any left arm pain jaw pain or backpain. Patient has a remote history of a cardiac stent which was placed in 2013,it was placed in [place] by Dr. [place]. Patient has been following up with Dr. Dennis on a regular basis. He has not been on a statin due to some liver enzyme problems with the statin in the past. Lab work done in the emergency room showed a normal CBC, patient's troponin was elevated however, EKG showed nonspecific ST-T wave changes in the anterior leads. At the time my examination, patient was not having any chest discomfort, cardiology was contacted and elected to take the patient to the Casting Supervisor[facility] that he had occlusive coronary disease in the left anterior descending artery and 2 drug-eluting stents were placed. Patient was admitted to PCU for further care, he will have an echocardiogram performed tomorrow, I talked with him about taking a statin and he is elected togo on a low-dose statin now. [facility] Medical History Atherosclerotic heart disease of [place] coronary artery without angina pectoris Diabetes mellitus Elevated LFTs Essential (primary) hypertension History of basal cell carcinoma HLD (hyperlipidemia) Obesity Home Medications aspirin 81 mg chewable tablet 81 mg PO DAILY@0800 HEART HEALTH 08/14/13 [History Last Taken 08/30/23] nitroglycerin 0.4 mg sublingual tablet 0.4 mg sublingual Q5M PRN Chest Pain 08/14/13 [History Last Taken Unknown] metoprolol succinate 50 mg tablet,extended release 24 hr 50 mg PO DAILY BLOOD PRESSURE #90 tabs 10/05/22 [Rx Last Taken 08/30/23] meclizine 25 mg tablet 25 mg PO TID PRN dizziness #20 tabs 10/14/22 [Rx Last Taken Unknown] lisinopril 20 mg-hydrochlorothiazide 12.5 mg tablet 0.5 tab PO DAILY BLOOD PRESSURE #45 tabs 10/20/22 [Rx Last Taken 08/30/23] clopidogrel 75 mg tablet 75 mg PO QDAY CHOLESTEROL #90 tabs 12/31/22 [Rx Last Taken 08/30/23] cholecalciferol (vitamin D3) 50 mcg (2,000 unit) capsule 50 mcg PO DAILY SUPPLEMENT 08/30/23 [History Last Taken Unknown] Allergy/AdvReac Type Severity Reaction Status Date / Time amoxicillin AdvReac Severe Rash Verified 08/30/23 10:59 Bfyqeui-MPV-NgB Reductase AdvReac elevated Verified 08/30/23 10:59 Inhibitor LFT's [Gjrhyxb-Lnx-Gbg Reductase Inhibitor] Family History Father CAD (coronary artery disease) Myocardial infarction Lymphoma Mother Myocardial infarction Diabetes Heart disease Brother Myocardial infarction Surgical History History of coronary artery stent placement (08/15/13) History of left knee surgery (1989) History of umbilical hernia repair Social History Smoking Status: Former smoker how long ago did patient quit smokin alcohol intake: current alcohol intake frequency: a few times a month Alcohol type: beer and wine substance use type: does not use caffeine: Yes Type: coffee Number of servings: 1 ROS Constitutional Constitutional: Denies anorexia, change in weight, chills, fatigue, fever(s), malaise, night sweats or weakness Eyes Eyes: Denies blurry vision, change in vision, discharge from eye(s) or eye pain Cardiovascular Cardiovascular: Reports chest pain; Denies claudication, dyspnea on exertion, edema or palpitations Respiratory/Chest Respiratory/Chest: Denies cough, dyspnea, hemoptysis, shortness of breath at rest or shortness of breath with exertion Gastrointestinal Gastrointestinal: Denies abdominal pain, constipation, diarrhea, hematemesis, hematochezia, melena, nausea or vomiting Genitourinary Genitourinary: Denies dysuria, hematuria, urinary frequency, urinary hesitancy, urinary incontinence or urinary urgency Musculoskeletal Musculoskeletal: Denies back pain, joint pain, joint stiffness, joint swelling, myalgias or neck pain Neurologic Neurologic: Denies abnormal gait, abnormal speech, dizziness, focal weakness, headache(s), loss of vision, numbness, other visual disturbances, paresthesias, syncope or tingling Psychiatric Psychiatric: Denies anxiety, cognitive impairment, depression, irritability, mood swings or suicidal ideation Endocrine Endocrinology: Denies change in body appearance, cold intolerance, excessive sweating, heat intolerance, polydipsia or polyuria Hematologic/Lymphatic Hematologic/Lymphatic: Denies none, anemia, easy bleeding, easy bruising or lymphadenopathy Allergic/Immunologic Allergic/Immunologic: Denies rhinitis, urticaria, eczemia or asthma Vital Signs Vital Signs Vital Signs: 08/30/23 10:58 08/30/23 11:10 08/30/23 11:15 Temperature 96.4 F L Temperature Source Temporal Pulse Rate 83 Respiratory Rate 16 Respiratory Effort Normal Non-Labored Blood Pressure 161/88 H Blood Pressure Mean 112 Blood Pressure Source Blood Pressure Position Blood Pressure Location Pulse Ox 97 98 Oxygen Delivery Method Room Air Room Air 08/30/23 11:57 08/30/23 12:43 08/30/23 13:00 Temperature 97.3 F L Temperature Source Temporal Pulse Rate 64 60 60 Respiratory Rate 18 17 18 Respiratory Effort Blood Pressure 131/80 H 131/74 H 144/77 H Blood Pressure Mean 97 93 99 Blood Pressure Source Blood Pressure Position Blood Pressure Location Pulse Ox 97 98 99 Oxygen Delivery Method Room Air 08/30/23 13:06 08/30/23 14:00 08/30/23 16:45 Temperature 97.3 F L Temperature Source Pulse Rate 58 L 59 L 64 Respiratory Rate 22 H 14 16 Respiratory Effort Blood Pressure 144/77 H 108/94 H 114/67 Blood Pressure Mean 99 98 82 Blood Pressure Source Monitor Blood Pressure Position Semi-Fowlers Blood Pressure Location Left Arm Pulse Ox 100 99 95 Oxygen Delivery Method Room Air 08/30/23 17:00 08/30/23 17:15 08/30/23 17:45 Temperature Temperature Source Pulse Rate 74 60 59 L Respiratory Rate 16 16 16 Respiratory Effort Blood Pressure 112/52 L 121/65 H 119/67 Blood Pressure Mean 72 83 84 Blood Pressure Source Monitor Monitor Monitor Blood Pressure Position Semi-Fowlers Semi-Fowlers Semi-Fowlers Blood Pressure Location Left Arm Left Arm Right Arm Pulse Ox 95 95 97 Oxygen Delivery Method Room Air 08/30/23 17:59 08/30/23 18:30 08/30/23 18:00 Temperature Temperature Source Pulse Rate 59 L 71 64 Respiratory Rate 14 14 Respiratory Effort Blood Pressure 119/67 100/70 Blood Pressure Mean 84 80 Blood Pressure Source Monitor Monitor Blood Pressure Position Semi-Fowlers Semi-Fowlers Blood Pressure Location Left Arm Left Arm Pulse Ox 97 92 Oxygen Delivery Method Room Air 08/30/23 19:15 Temperature Temperature Source Pulse Rate 66 Respiratory Rate Respiratory Effort Blood Pressure 123/68 H Blood Pressure Mean 86 Blood Pressure Source Monitor Blood Pressure Position Semi-Fowlers Blood Pressure Location Left Arm Pulse Ox 100 Oxygen Delivery Method Room Air Weight Weight: 82.554 kg Body Mass Index (BMI) 27.6 Physical Exam Const alert, oriented x3, no apparent distress, average body habitus and healthy appearing General Appearance: cooperative, well kempt and well developed Orientation / Consciousness: awake, oriented to person, oriented to place and oriented to time HEENT normocephalic, head/scalp atraumatic, hearing grossly normal bilaterally and moist oral mucous membranes Eyes PERRL, EOMs intact bilaterally and conjunctivae normal Neck supple, no JVD, thyroid normal and no carotid bruits General: trachea midline Resp normal respiratory effort, no retractions, no use of accessory muscles and clearto auscultation bilaterally Auscultation: Negative for rales, rhonchi or wheezes Cardio regular rate, regular rhythm, S1 normal heart sound, S2 normal heart sound, no murmurs, no rub and no gallops GI normal to inspection, nondistended, normoactive bowel sounds, soft to palpation,non-tender and non-distended Extremity no clubbing, cyanosis or edema Skin no rashes or lesions noted General Skin Exam: no breakdown Neuro oriented x3, CN's II-XII intact bilaterally, moves all extremities, no focal motor deficits and no sensory deficits noted Sensorium / Orientation: awake, alert, oriented to person, oriented to place andoriented to time Speech: speech normal Psych affect normal Results Lab / Micro Data 08/30/23 11:10 08/30/23 11:10 Labs: Laboratory Results - last 24 hr 08/30/23 11:10: WBC 10.6, RBC 4.71, Hgb 15.1, Hct 44.7, MCV 94.9 H, MCH 32.1 H, MCHC 33.8, RDW Std Deviation 46.6 H, RDW Coeff of Lulú 13.2, Plt Count 292, MPV 9.3, Immature Gran % (Auto) 0.300, Neut % (Auto) 75.5 H, Lymph % (Auto) 15.7 L, Pershing % (Auto) 7.4, Eos % (Auto) 0.6, Baso % (Auto) 0.5, Absolute Neuts (auto) 8.0 H, Absolute Lymphs (auto) 1.66, Nucleated RBC % 0, Sodium 137, Potassium 3.8, Chloride 104, Carbon Dioxide 27.0, Anion Gap 6, BUN 16, Creatinine 1.01, Estim Creat Clear Calc 72.31, Est GFR (MDRD) Af Amer 94, Est GFR (MDRD) Non-Af 78, BUN/Creatinine Ratio 15.8, Glucose 149 H, Calcium 9.7, Troponin I High Sens 86 H 08/30/23 13:29: Troponin I High Sens 366 H*, Triglycerides 234 H, Cholesterol 284 H, LDL Cholesterol 182 H, VLDL Cholesterol 47 H, HDL Cholesterol 55 08/30/23 15:12: Activated Clotting Time 277 H 08/30/23 15:43: Activated Clotting Time 282 H Imaging Radiology Impression Chest X-Ray 08/30/23 11:14 IMPRESSION: Minimal linear atelectasis at the lung bases. Electronically Signed: Jason Cortes MD at 12:00 EDT , Assessment & Plan Assessment/Plan (1) Non-ST elevation GA (NSTEMI): PLAN: Plan 1. Acute non-ST elevation GA type II-demand supply mismatch, patient was admitted to PCU, he will be started on a statin this evening, lipid profile was ordered, CMP will be performed tomorrow, patient will have an echocardiogram performed tomorrow, he will remain on his present medications including Plavix and aspirin. #2 hyperlipidemia-I have elected to place the patient on a statin and Zetia, lipid profile was ordered #3 essential hypertension-cardiology will make adjustments to cardiac medications, patient will remain on his metoprolol and lisinopril hydrochlorothiazide. Total clinical time spent by myself addressing the patient's medical issues, reviewing all of his data, and collaborating with patient's care team: 55 minutes Charges/Coding Visit Charges Inpatient E&M: 01623 Init Hosp L2 08/30/232004 <Electronically signed by Aneudy Gracia DO> Cosigner Signature (if applicable): CC: Dr. Aneudy Gracia DO; Dr. Mitchel Mitchell MD~ Signed [facility] Work Phone: 1(222) 453-514903-18-2024 Discharge summary Author Ryanne Velasco [facility] August 30, 2023 3:18pm Note Date/Time August 30, 2023 11: 17am [facility] Medical Records Department [address] [place] [address] Emergency Department Summary 08/30/23 MR#: [id number] Acct: [id number] Name: EMELY LAURA Rep #:[id number] : 1955 68 From: Ryanne Velasco MD PCP: Dr. Mitchel Mitchell MD Status:ADM I N Location: [place] [address] HPI History of Present Illness Chief Complaint: Chest Pain Informant: patient Onset/Context/Timing Onset: Days Narrative Narrative: Patient presents secondary to intermittent chest pain. He states he been havingintermittent chest heaviness or pressure this seems to be worse with exertion and better with rest. He does have some pressure that goes to his neck and leftshoulder. He has very mild shortness of breath with these episodes. He does have a history of coronary disease and had stents placed to the circumflex and LAD in 2013. He believes his last stress test was about a year and a half ago. [facility] Medical History Atherosclerotic heart disease of [place] coronary artery without angina pectoris Diabetes mellitus Elevated LFTs Essential (primary) hypertension History of basal cell carcinoma HLD (hyperlipidemia) Obesity Home Medications aspirin 81 mg chewable tablet 81 mg PO DAILY@0800 08/14/13 [History Last Taken 08/14/13] nitroglycerin 0.4 mg sublingual tablet 0.4 mg sublingual Q5M PRN Chest Pain 08/14/13 [History Last Taken Unknown] metoprolol succinate 50 mg tablet,extended release 24 hr 50 mg PO DAILY #90 tabs10/05/22 [Rx Last Taken Unknown] meclizine 25 mg tablet 25 mg PO TID PRN dizziness #20 tabs 10/14/22 [Rx Last Taken Unknown] lisinopril 20 mg-hydrochlorothiazide 12.5 mg tablet 0.5 tab PO DAILY #45 tabs 10/20/22 [Rx Last Taken Unknown] clopidogrel 75 mg tablet 75 mg PO QDAY #90 tabs 12/31/22 [Rx Last Taken Unknown] Allergy/AdvReac Type Severity Reaction Status Date / Time amoxicillin AdvReac Severe Rash Verified 08/30/23 10:59 Rjwddfc-AHA-EeX Reductase AdvReac elevated Verified 08/30/23 10:59 Inhibitor LFT's [Ovdegyu-Nwk-Neu Reductase Inhibitor] Family History Father CAD (coronary artery disease) Myocardial infarction Lymphoma Mother Myocardial infarction Diabetes Heart disease Brother Myocardial infarction Surgical History History of coronary artery stent placement (08/15/13) History of left knee surgery (1989) History of umbilical hernia repair Social History Smoking Status: Former smoker how long ago did patient quit smokin alcohol intake: current alcohol intake frequency: a few times a month Alcohol type: beer and wine substance use type: does not use caffeine: Yes Type: coffee Number of servings: 1 ROS ROS ED Constitutional Constitutional ED: Denies chills or fever(s) Eyes Eyes: Denies discharge from eye(s) ENT ENT ED: Denies discharge from eye(s), rhinorrhea or sore throat Cardiovascular Cardiovascular: Reports chest pain; Denies palpitations or racing heartbeat Respiratory/Chest Respiratory/Chest: Reports dyspnea; Denies cough Gastrointestinal Gastrointestinal: Denies abdominal pain, nausea or vomiting Genitourinary Genitourinary ED: Denies dysuria Musculoskeletal Musculoskeletal: Denies back pain or extremity pain Integumentary Denies Abrasions or rash Neurologic Neurologic: Denies headache(s) or weakness Psychiatric Psychiatric: Denies anxiety or depression Allergic/Immunologic Allergic/Immunologic ED: Denies lip swelling or urticaria EXAM Physical Exam Const Vital Signs: 08/30/23 10:58 08/30/23 11:10 08/30/23 11:15 Temperature 96.4 F L Temperature Source Temporal Pulse Rate 83 Respiratory Rate 16 Respiratory Effort Normal Non-Labored Blood Pressure 161/88 H Blood Pressure Mean 112 Pulse Ox 97 98 Oxygen Delivery Method Room Air Room Air Positive well nourished and well developed General Appearance ED: well developed HEENT Reports moist mucous membranes Eyes EOMs intact bilaterally Chest Wall inspection of chest normal and palpation of chest normal Resp normal respiratory effort and clear to auscultation bilaterally Cardio regular rate and regular rhythm GI soft to palpation and non-tender Extremity normal to inspection Neuro oriented x3 and no sensory deficits noted Sensorium / Orientation: alert Motor Exam: strength 5/5 throughout Psych mental status grossly normal Skin no rashes or lesions noted MDM MDM MDM Narrative Medical decision making narrative: Patient placed on quality assurance monitor final. IV line initiated. EKG obtained to evaluatefor cardiac arrhythmia/ischemia. Labwork obtained to evaluate for leukocytosis,anemia, and electrolyte derangement. Chest x-ray obtained to evaluate for acutelung pathology, cardiac size, or mediastinal abnormality. Patient did take 1 baby aspirin this morning and will be given 3 additional baby aspirin here whileundergoing workup. History & Record Review Discussion w/independent historian: Patient Additional record(s) reviewed:: Prior outpatient record and Prior labs Lab Data Attestation: I reviewed the patient's lab results. Labs: Laboratory Results - last 24 hr 08/30/23 11:10 WBC 10.6 RBC 4.71 Hgb 15.1 Hct 44.7 MCV 94.9 H MCH 32.1 H MCHC 33.8 RDW Std Deviation 46.6 H RDW Coeff of Lulú 13.2 Plt Count 292 MPV 9.3 Immature Gran % (Auto) 0.300 Neut % (Auto) 75.5 H Lymph % (Auto) 15.7 L Pershing % (Auto) 7.4 Eos % (Auto) 0.6 Baso % (Auto) 0.5 Absolute Neuts (auto) 8.0 H Absolute Lymphs (auto) 1.66 Nucleated RBC % 0 Sodium 137 Potassium 3.8 Chloride 104 Carbon Dioxide 27.0 Anion Gap 6 BUN 16 Creatinine 1.01 Estim Creat Clear Calc 72.31 Est GFR (MDRD) Af Amer 94 Est GFR (MDRD) Non-Af 78 BUN/Creatinine Ratio 15.8 Glucose 149 H Calcium 9.7 Troponin I High Sens 86 H Radiography Chest X-Ray - ED: 1 View, Read by ED Physician, Chronic Changes and No Infiltrates Diagnostic Testing: Clinical Impression(s) from Imaging Studies Chest X-Ray 08/30/23 11:14 IMPRESSION: Minimal linear atelectasis at the lung bases. Electronically Signed: Jason Cortes MD at 12:00 EDT , EKG Initial EKG: Attestation: I personally reviewed and interpreted this EKG as follows: Interpretation: Sinus Rhythm (Sinus rhythm at 74 bpm. 1/[address] depression in V2 and V3. This does appear to be change compared to October 2022.) Treatment and Re-Evaluation :: On repeat evaluation patient resting comfortably denies any pain at this time. CBC reveals normal white count at 10.6 with a hemoglobin of 15.1. Chemistry studies unremarkable. Glucose is 149. Troponin is elevated at 86. Portable chest x-ray per my interpretation reveals chronic changes with no focal infiltrate. Radiology interpretation reviewed and agrees. EKG is sinus rhythm at 74 bpm. He has [address] depression in V2 and V3 only. This does appear changed when compared to October 2022. I spoke with Dr. Mahan, patient's plant guide. He will notify the Casting Supervisor with plan to go from the ER to the Casting Supervisor. He does not want any other medications given at this time, just keep the patient NPO. I will also speak with the hospitalist regarding admission. Discharge Plan Triage Chief Complaint: Chest Pain ED Provider: Ryanne Velasco Dx/Rx/DC Orders Clinical Impression: Non-ST elevation GA (NSTEMI) Prescriptions: No Action nitroglycerin 0.4 MG tablet 0.4 mg SUBLINGUAL Q5M PRN (Reason: Chest Pain) aspirin 81 MG tablet,chewable 81 mg PO DAILY@0800 meclizine 25 mg tablet 25 mg PO TID PRN (Reason: dizziness) Qty: 20 0RF metoprolol succinate 50 mg tablet extended release 24 hr 50 mg PO DAILY Qty: 90 3RF lisinopril-hydrochlorothiazide 20-12.5 mg tablet 0.5 tab PO DAILY Qty: 45 3RF clopidogrel 75 mg tablet 75 mg PO QDAY Qty: 90 3RF Primary Care Provider: Mitchel Mitchell Chi Referrals: Mitchel Mitchell Chi, MD [Primary Care Provider] - Disposition Disposition: Acute Care Hospital [facility] What to do if you have Problems For any increased pain, shortness of breath, bleeding, nausea or vomiting, chestpain, or any unexpected problems, contact your Primary Care Provider. Call [facility] ([phone]) or report to the closest Emergency Room. Call 911 if necessary. 08/30/23 1518 <Electronically signed by Ryanne Velasco MD> Cosigner Signature (if applicable): CC: Dr. Mitchel Mitchell MD ~ Signed [facility] Work Phone: 1(773) 381-707403-18-2024 Evaluation note* Diagnosis Onset Date Resolution Status Non-ST elevation GA (NSTEMI) acute Essential (primary) hypertension chronic HLD (hyperlipidemia) chronic History of coronary artery stent placement August 30, 2023 resolved [facility] Work Phone: 1(345) 724-202303-04-2014 Evaluation note* Diagnosis Onset Date Resolution Status Atherosclerotic heart diseas e of [place] coronary artery without angina pectoris chronic Essential (primary) hypertension chronic HLD (hyperlipidemia) chronic History of coronary artery stent placement August 15, 2013 resolved [facility] Work Phone: [phone]) 656-821703-04-2014 Evaluation note* Diagnosis Onset Date Resolution Status Essential (primary) hypertension chronic HLD (hyperlipidemia) chronic History of coronary artery stent placement August 15, 2013 resolved [facility] Work Phone: 1([phone]) 416-741603-04-2014 Evaluation note* Diagnosis Onset Date Resolution Status Non-ST elevation GA (NSTEMI) acute Essential (primary) hypertension chronic HLD (hyperlipidemia) chronic History of coronary artery stent placement August 15, 2013 resolved [facility] Work Phone: Evaluation noteNo assessment information available [facility] Work Phone: Hospital Discharge instructionsAmbulatory Orders* Phase II, Outpatient Cardiac Rehab Location: None Selected [facility] Work Phone: Instructions* Name Dates Details How to access health informa metraTecon online Indication:Impaired fasting glucose Start:04-Sep-2014 Instruction Type:Patient Education How to access health informa tion online - Detail Indication:Impaired fasting glucose Start:04-Sep-2014 Instruction Type:Patient Education Patient Instructions Indication:Impaired fasting glucose Start:04-Sep-2014 Instruction Type:Provider Instructions for Treatment How to access health informa tion online - Detail Indication:Impaired fasting glucose Start:06-Mar-2014 Instruction Type:Patient Education How to access health informa tion online Indication:Impaired fasting glucose Start:06-Mar-2014 Instruction Type:Patient Education Patient Instructions Indication:Impaired fasting glucose Start:06-Mar-2014 Instruction Type:Provider Instructions for Treatment Patient Instructions Indication:Impaired fasting glucose Start:12-Aug-2012 Instruction Type:Provider Instructions for Treatment DISCONTINUED - Hemoglobin Glyclated (HGB A1C) (23934) Indication:Impaired fasting glucose Start:21-Jul-2011 Instruction Type:Patient Education [facility] Work Phone: reason for referral (narrative)No reason for referral information availableWCleveland [facility] Work Phone: Chief Complaint and Reason for Visit Chief Complaint 1 Y FU Reason for Visit Atherosclerotic hear t disease of [place] coronary artery without angina pectoris Essential (primary) hypertension HLD (hyperlipidemia) History of coronary artery stent placement Chief Complaint 1 Y FU LIVER ENZYMES ABNORMAL Reason for Visit Atherosclerotic hear t disease of [place] coronary artery without angina pectoris Essential (primary) hypertension HLD (hyperlipidemia) History of coronary artery stent placement Chief Complaint DIZZY Chief Complaint DIZZY 1 Y FU DUE ON OR AROUND DATE LISTED ON ORDER Reason for Visit Essential (primary) hypertension HLD (hyperlipidemia) History of coronary artery stent placement Chief Complaint TYPE 2 DM Chief Complaint TYPE 2 DM TYPE 2 DM Chief Complaint TYPE 2 DM TYPE 2 DM TYPE 2 DM Chief Complaint TYPE 2 DM TYPE 2 DM NSTEMI Reason for Visit Non-ST elevation GA (NSTEMI) Essential (primary) hypertension HLD (hyperlipidemia) History of coronary artery stent placement Chief Complaint TYPE 2 DM TYPE 2 DM NSTEMI NSTEMI NSTEMI Reason for Visit Non-ST elevation GA (NSTEMI) Essential (primary) hypertension HLD (hyperlipidemia) History of coronary artery stent placement Chief Complaint Admit Date 1 Y FU January 02, 2025 9:12 am Chief Complaint Admit Date 1 Y FU January 02, 2025 9:12 am NOT IN EORDERS YET January 02, 2025 9:46 am Reason for Visit Admit Date Essential (primary) hypertension January 022024 9:12am HLD (hyperlipidemia) January 02, 2025 9:1 2am History of coronary artery stent placeme nt January 02, 2025 9:12am Chief Complaint Admit Date 1 Y January 02, 2025 9:12 am NOT IN EORDERS YET January 02, 2025 9:46 am LBP RX HERE February 09, 2025 1: 38pm Chief Complaint Admit Date 1 Y FU January 02, 2025 9:12 am NOT IN EORDERS YET January 02, 2025 9:46 am LBP RX HERE March 06, 2025 10:30am Family History No Family History Records Found Relationship Condition Age at Onset Recorded Date/T juan antonio father Coronary artery disease Unknown Myocardial infarction Unknown Lymphoma Unknown mother Myocardial infarction Unknown Diabetes mellitus Unknown Cardiac disease Unknown brother Myocardial infarction Unknown Unknown Family Member Name Dates Details Brother 1 Comments:[place] 1 year younger Status:Active Father Comments:[place]ymph[place], [place] - dece ased at 62 Status:Active Mother Comments:[place] & Diabetes Status:Active Advance Directives No Advanced Directives Records Found Advance Directive Response Recorded Date/ Time Living Will No August 14, 2013 9:00am Power of Service Center Appraiser No August 14 4 9:00am Advance Directive Response Recorded Date/ Time Living Will No August 14, 2013 8:00am Power of Service Center Appraiser No August 14 4 8:00am Advance Directive Response Recorded Date/ Time Living Will No October 14, 2022 7: 17pm Power of Service Center Appraiser No October 14, 2022 7:17pm Advance Directive Response Recorded Date/ Time Living Will No October 14, 2022 6: 17pm Power of Service Center Appraiser No October 14, 2022 6:17pm Advance Directive Response Recorded Date/ Time Living Will No August 30, 2023 11:08am Power of Service Center Appraiser No August 29 11:08am Advance Directive Response Recorded Date/ Time Living Will No August 30, 2023 4:30pm Power of Service Center Appraiser No August 29 4:30pm Advance Directive Response Recorded Date/ Time Living Will No August 30, 2023 4:30pm Do you have a Healthcare Power of Service Center Appraiser? No August 30, 2023 4:30pm Summary Purpose Additional Source Comments Goals (unrecognized section and content) Goals may be documented in a n alternate sectionGoals may be documented in an alternate sectionGoals may be documented in an alternate sectionGoals may be documented in an alternate sectionGoals may be documented in an alternate sectionGoals may be documented in an alternate sectionGoals may be documented in an alternate sectionGoals may be documented in an alternate sectionGoals may be documented in an alternate sectionGoals may be documented in an alternate sectionGoals may be documented in an alternate sectionGoals may be documented in an alternate sectionGoals may be documented in an alternate sectionGoals may be documented in an alternate sectionGoals may be documented in an alternate sectionGoals may be documented in an alternate sectionGoals may be documented in an alternate section Care Teams (unrecognized sec tion and content) Team Status: Active Member Role Status Dates No Primary Care Physician Family Provider Active Dr. Mitchel Mitchell MD Primary Care Provider Active Team Status: Inactive Member Role Status Dates Dr. Mitchel Mitchell MD Primary Care Provider Active Dr. Ryanne Velasco MD Emergency Provider Active Team Status: Inactive Member Role Status Dates Dr. Mitchel Mitchell MD Primary Care Provider, Referring Provider Active Dr. Bart Mahan MD Attending Provider Active Team Status: Inactive Member Role Status Dates Dr. Mitchel Mitchell MD Primary Care Provider Active Dr. Ryanne Velasco MD Attending Provider, Emergency Provider Active Team Status: Inactive Member Role Status Dates Dr. Mitchel Mitchell MD Primary Care Provider, Attending Provider Active Team Status: Inactive Member Role Status Dates Dr. Mitchel Mitchell MD Primary Care Provi rush, Attending Provider, Referring Provider Active Team Status: Active Member Role Status Dates Dr. Mitchel Mitchell MD Primary Care Provi rush, Attending Provider, Referring Provider Active Team Status: Active Member Role Status Dates Dr. Mitchel Mitchell MD Primary Care Provider Active Dr. Ryanne Velasco MD Emergency Provider Active Dr. Aneudy Gracia DO Admit Provider, Attending Pro vider Active Team Status: Active Member Role Status Dates Dr. Mitchel Mitchell MD Primary Care Provider Active Dr. Ryanne Velasco MD Emergency Provider Active Dr. Aneudy Gracia DO Admit Provider, Attending Provider, Other Provider Active Dr. Bart Mahan MD Other Provider Active Team Status: Active Member Role Status Dates Dr. Mitchel Mitchell MD Primary Care Provider Active Dr. Ryanne Velasco MD Emergency Provider Active Dr. Aneudy Gracia DO Admit Provider, Other Provide r Active Dr. Bart Mahan MD Attending Provider, Other Provide r Active Team Status: Active Member Role Status Dates Dr. Mitchel Mitchell MD Primary Care Provider Active Dr. Bart Mahan MD Attending Provider Active Team Status: Inactive Member Role Status Dates Dr. Mitchel Mitchell MD Primary Care Provider Active Dr. Ryanne Velasco MD Emergency Provider Active Dr. Aneudy Gracia DO Admit Provider, Attending Pro vider Active Dr. Bart Mahan MD Other Provider Active Team Status: Inactive Member Role Status Dates Dr. Mitchel Mitchell MD Primary Care Provider Active Start: November 07, 2024 End: November 07, 2024 Dr. Mitchel Mitchell MD Attending Provider Active Start: November 07, 2024 End: November 07, 2024 Dr. Mitchel Mitchell MD Referring Provider Active Start: November 07, 2024 End: November 07, 2024 Team Status: Active Member Role/Relationship Status Dates No Primary Care Physician Family Provider Active Dr. Mitchel Mitchell MD Primary Care Provider Active Team Status: Inactive Member Role/Relationship Status Dates Dr. Mitchel Mitchell MD Primary Care Provider Active Start: November 07, 2024 End: November 07, 2024 Dr. Mitchel Mitchell MD Attending Provider Active Start: November 07, 2024 End: November 07, 2024 Dr. Mitchel Mitchell MD Referring Provider Active Start: November 07, 2024 End: November 07, 2024 Team Status: Inactive Member Role/Relationship Status Dates Dr. Mitchel Mitchell MD Primary Care Provider Active Start: January 02, 2025 End: January 02, 2025 Dr. Mitchel Mitchell MD Referring Provider Active Start: January 02, 2025 End: January 02, 2025 Dr. Bart Mahan MD Attending Provider Active S tart: January 02, 2025 End: January 02, 2025 Team Status: Inactive Member Role/Relationship Status Dates Dr. Mitchel Mitchell MD Primary Care Provider Active Start: January 02, 2025 End: January 02, 2025 Dr. Bart Mahan MD Attending Provider Active S tart: January 02, 2025 End: January 02, 2025 Dr. Bart Mahan MD Referring Provider Active S tart: January 02, 2025 End: January 02, 2025 Team Status: Active Member Role/Relationship Status Dates Dr. Mitchel Mitchell MD Primary Care Provider Active Team Status: Inactive Member Role/Relationship Status Dates Dr. Mitchel Mitchell MD Primary Care Provider Active Start: February 05, 2025 End: February 05, 2025 Dr. Mitchel Mitchell MD Attending Provider Active Start: February 05, 2025 End: February 05, 2025 Dr. Mitchel Mitchell MD Referring Provider Active Start: February 05, 2025 End: February 05, 2025 Team Status: Active Member Role/Relationship Status Dates Dr. Mitchel Mitchell MD Primary Care Provider Active Start: February 09, 2025 Dr. Mitchel Mitchell MD Attending Provider Active Start: February 09, 2025 Dr. Mitchel Mitchell MD Referring Provider Active Start: February 09, 2025 Team Status: Active Member Role/Relationship Status Dates Dr. Mitchel Mitchell MD Primary care physician Active Team Status: Inactive Member Role/Relationship Status Dates Dr. Mitchel Mitchell MD Primary care physician Active Start: January 02, 2025 End: January 02, 2025 Dr. Mitchel Mitchell MD Referring Provider Active Start: January 02, 2025 End: January 02, 2025 Dr. Bart Mahan MD Attending physician Active Start: January 02, 2025 End: January 02, 2025 Team Status: Inactive Member Role/Relationship Status Dates Dr. Mitchel Mitchell MD Primary care physician Active Start: January 02, 2025 End: January 02, 2025 Dr. Bart Mahan MD Attending physician Active Start: January 02, 2025 End: January 02, 2025 Dr. Bart Mahan MD Referring Provider Active S tart: January 02, 2025 End: January 02, 2025 Team Status: Inactive Member Role/Relationship Status Dates Dr. Mitchel Mitchell MD Primary care physician Active Start: February 05, 2025 End: February 05, 2025 Dr. Mitchel Mitchell MD Attending physician Active Start: February 05, 2025 End: February 05, 2025 Dr. Mitchel Mitchell MD Referring Provider Active Start: February 05, 2025 End: February 05, 2025 Team Status: Inactive Member Role/Relationship Status Dates Dr. Mitchel Mitchell MD Primary care physician Active Start: March 06, 2025 End: March 06, 2025 Dr. Mitchel Mitchell MD Attending physician Active Start: March 06, 2025 End: March 06, 2025 Dr. Mitchel Mitchell MD Referring Provider Active Start: March 06, 2025 End: March 06, 2025 (unrecognized sect ion and content) No Status Records Found INFORMATION SOURCE (unrecogn ized section and content) DATE CREATED AUTHOR 04/12/[address] [facility] FOR RECORDS PERTAINING TO PATIENTS WHO ARE OR HAVE BEEN ENROLLED IN A CHEMICAL DEPENDENCY/SUBSTANCEABUSE PROGRAM, SOME INFORMATION MAY BE OMITTED. This clinical summary was aggregated from multiple sources. Caution should be exercised in using it in the provision of clinical care. This summary normalizes information from multiple sources, and as a consequence, information in this document may materially change the coding, format and clinical context of patient data. In addition, data may be omitted in some cases. CLINICAL DECISIONS SHOULD BE BASED ON THE PRIMARY CLINICAL RECORDS. [facility] [employer] (now [employer] [facility]. provides no warranty or guarantee of the accuracy or completeness of information in this document.
[2025-05-09 10:57] LABS: Vitamin D,25 Hydroxy 45.8 ng/mL (30-100)
[2025-05-09 11:00] LABS: AST(SGOT) 42 U/L (<=37); Alanine Aminotransfer ALT/SGPT 46 U/L (<=46); Albumin, Serum 4.7 g/dL (3.4-4.8); Alkaline Phosphatase 90 U/L (40-129); Anion Gap 13 (5-15); BUN 26 mg/dL (4-19); BUN/Creat Ratio 21.6 RATIO (10-20); Calcium,Total 9.8 mg/dL (7.6-11.0); Carbon Dioxide 23.4 mmol/L (21.0-32.0); Chloride 100 mmol/L (98-108); Globulin 3.0 g/dL (2.2-4.2); Glucose 130 mg/dL (70-99); Potassium 4.1 mmol/L (3.3-5.1)
[2025-05-09 17:21] LABS: Xtra Tube Kwok EXTRA TUBE
== END | disposition home or self-care (01) ==
LOC: POLAB3 09:20
PROVIDERS: PCP Family Medicine Geriatric Medicine; Visit Provider Family Medicine Geriatric Medicine
DX: E03.9 Hypothyroidism, unspecified (principal); E11.65 Type 2 diabetes mellitus with hyperglycemia; E55.9 Vitamin D deficiency, unspecified; I10 Essential (primary) hypertension
CPT/HCPCS: 36415; 80053; 82306; 84443; 85025

== ENCOUNTER → 2025-05-29 | Outpatient (CLI) | payer MEDICARE, SELFPAY | END | disposition home or self-care (01) | LOC: POLAB3 12:03 | PROVIDERS: PCP Family Medicine Geriatric Medicine; Visit Provider Family Medicine Geriatric Medicine | DX: R06.2 Wheezing (principal) | CPT/HCPCS: 87631 ==